=== PATIENT | male | born 1955 | race African-American/Black ===

== ENCOUNTER 2016-11-15 11:23 | Outpatient (CLI) | payer MEDICARE, OTHER ==
[2016-11-15 11:51] LABS: HEMATOCRIT 22.2 % (37.9-51.0); HGB HCT DIFFERENCE 0.3; MEAN CORPUSCULAR HEMOGLOBIN 28.2 pg (27.0-33.4); MEAN CORPUSCULAR HGB CONC 33.7 g/dL (32.0-36.0); MEAN CORPUSCULAR VOLUME 84 fl (80-97); RED BLOOD COUNT 2.65 10^6/uL (4.35-5.55); RED CELL DISTRIBUTION WIDTH 18.9 % (11.5-14.0); WHITE BLOOD COUNT 3.7 10^3/uL (4.0-10.5)
[2016-11-15 11:59] LABS: HEMOGLOBIN 7.5 g/dL (13.5-17.0)
[2016-11-15] MEDS ORDERED: NORMAL SALINE 1000 ML 1,000 ML IV PRN (12:15)
[2016-11-15] MEDS ORDERED: FUROSEMIDE INJ/PF 20 MG/2 ML SDV IV PRN (12:30)
[2016-11-15] MEDS ORDERED: DIPHENHYDRAMINE HCL 25 MG CAPSULE PO PRN (12:30)
[2016-11-15] MEDS ORDERED: ACETAMINOPHEN 325 MG TABLET PO PRN (12:30)
[2016-11-15 23:00] VITALS: BP 135/53
[2016-11-16 00:15] LABS: HEMATOCRIT 24.7 % (37.9-51.0); HEMOGLOBIN 8.5 g/dL (13.5-17.0); HGB HCT DIFFERENCE 0.8; MEAN CORPUSCULAR HGB CONC 34.5 g/dL (32.0-36.0); MEAN CORPUSCULAR VOLUME 84 fl (80-97); RED BLOOD COUNT 2.94 10^6/uL (4.35-5.55); RED CELL DISTRIBUTION WIDTH 18.6 % (11.5-14.0); WHITE BLOOD COUNT 4.8 10^3/uL (4.0-10.5)
== END 2016-11-16 01:00 | disposition home or self-care (01) ==
LOC: II 11:23 → 2S 11:26 → II 11-16 01:00
PROVIDERS: ATTEND Internal Medicine Medical Oncology
PROC: 30233N1 Transfusion of Nonautologous Red Blood Cells into Peripheral Vein, Percutaneous Approach (ICD-10-PCS; principal; 2016-11-15)
DX: D46.9 Myelodysplastic syndrome, unspecified (principal)
CPT/HCPCS: 86900; 86901; 36415; 36430; 86850; 86922; 85027; 86920; P9016; A9270 ×2

== ENCOUNTER 2016-11-17 09:07 | Inpatient (IN) | payer MEDICARE, OTHER ==
[2016-11-17] MEDS ORDERED: NORMAL SALINE 1000 ML 1,000 ML IV ONE (11:35)
[2016-11-17 11:50] LABS: HEMATOCRIT 22.8 % (37.9-51.0); HGB HCT DIFFERENCE 0.3; MEAN CORPUSCULAR HEMOGLOBIN 28.6 pg (27.0-33.4); MEAN CORPUSCULAR HGB CONC 33.5 g/dL (32.0-36.0); MEAN CORPUSCULAR VOLUME 85 fl (80-97); RED BLOOD COUNT 2.68 10^6/uL (4.35-5.55); RED CELL DISTRIBUTION WIDTH 19.4 % (11.5-14.0); WHITE BLOOD COUNT 6.5 10^3/uL (4.0-10.5)
[2016-11-17 11:51] LABS: PROTHROMBIN TIME 15.6 SEC (11.4-15.4)
[2016-11-17 11:52] LABS: PARTIAL THROMBOPLASTIN TIME 27.5 SEC (23.5-35.8)
[2016-11-17 11:59] LABS: HEMOGLOBIN 7.7 g/dL (13.5-17.0)
[2016-11-17 12:03] LABS: ALANINE AMINOTRANSFERASE 13 U/L (21-72); ALBUMIN 3.6 g/dL (3.5-5.0); ALKALINE PHOSPHATASE 60 U/L (38-126); ANION GAP 10 (5-19); ASPARTATE AMINO TRANSFERASE 19 U/L (17-59); BILIRUBIN,TOTAL 0.6 mg/dL (0.2-1.3); BLOOD UREA NITROGEN 37 mg/dL (7-20); CALCIUM 9.3 mg/dL (8.4-10.2); CARBON DIOXIDE 23 mmol/L (22-30); CHLORIDE 109 mmol/L (98-107); CREATININE RESULT 1.45 mg/dL (0.52-1.25); GLUCOSE 87 mg/dL (75-110); LIPASE 94.4 U/L (23-300); POTASSIUM 3.7 mmol/L (3.6-5.0); SODIUM 142.3 mmol/L (137-145); TOTAL PROTEIN 6.4 g/dL (6.3-8.2)
[2016-11-17 12:09] LABS: BASOPHILS % (MANUAL) 0 % (0-2); EOSINOPHILS % (MANUAL) 0 % (0-6); LYMPHOCYTES % (MANUAL) 16 % (13-45); TOTAL CELLS COUNTED 100
[2016-11-17 12:11] LABS: POLYCHROMASIA SLIGHT
[2016-11-17 12:12] LABS: ANISOCYTOSIS 2+; HYPOCHROMASIA SLIGHT
[2016-11-17] MEDS ORDERED: ONDANSETRON HCL INJ/PF 4 MG/2 ML SDV IV PRN (13:35)
[2016-11-17] MEDS ORDERED: ACETAMINOPHEN 325 MG TABLET PO PRN (13:35)
[2016-11-17] MEDS ORDERED: NORMAL SALINE 250 ML IV PRN ×2 (13:38)
--- NOTE | 2016-11-17 13:40 | ER Document Report ---
ED General - General Chief Complaint: Black/Tarry Stools Stated Complaint: BLOOD IN STOOL TRAVEL OUTSIDE OF THE [place] IN LAST 30 DAYS: No - HPI Patient complains to provider of: blood in stool bleeding rectum Notes: Patient coming in for possible GI bleed. States last 3 days having dark stools and bloody stools. Patient has a history of possibly leukemia or myelodysplastic disorder. Patient denies any fevers chills nausea vomiting lightheadedness syncope. Patient has a history of GI bleeds. Patient states she every he was transferred to [place]. Patient otherwise states he has been compliant with medications. Patient does confirm he is taking iron tablets. - Related Data Allergies/Adverse Reactions: No Known Allergies Allergy (Verified 11/17/16 09:16) Home Medications: Current Home Medications Amlodipine Besylate [Norvasc 5 mg Tablet] 5 mg PO DAILY 11/17/16 [History] Carvedilol [Coreg 25 mg Tablet] 25 mg PO BID 11/17/16 [History] Cholecalciferol (Vitamin D3) [Vitamin D3 1000 Unit Tablet] 1,000 unit PO DAILY 11/17/16 [History] Clonidine HCl [Catapres 0.2 mg Tablet] 0.2 mg PO TID 11/17/16 [History] Furosemide [Lasix] 40 mg PO DAILY 11/17/16 [History] Gabapentin [Neurontin 100 mg Capsule] 100 mg PO BID 11/17/16 [History] Iron Polysaccharide Complex [Ferrex 150] 150 mg PO BID 11/17/16 [History] Isosorbide Mononitrate [Imdur 60 mg Tablet.er] 60 mg PO DAILY 11/17/16 [History] Losartan Potassium [Cozaar 100 mg Tablet] 100 mg PO DAILY 11/17/16 [History] Omeprazole 40 mg PO DAILY 11/17/16 [History] Potassium Chloride [Klor-Con 10] 20 meq PO DAILY 11/17/16 [History] Pravastatin Sodium [Pravachol] 40 mg PO DAILY 11/17/16 [History] Ramipril [Altace 10 mg Capsule] 20 mg PO DAILY 11/17/16 [History] Past Medical History - Social History Smoking Status: Never Smoker Chew tobacco use (# tins/day): No Frequency of alcohol use: None Drug Abuse: None Family History: Reviewed & Not Pertinent Patient has suicidal ideation: No Patient has homicidal ideation: No - Past Medical History Cardiac Medical History: Reports: Hx Congestive Heart Failure, Hx Coronary Artery Disease, Hx Hypercholesterolemia, Hx Hypertension Denies: Hx Atrial Fibrillation, Hx Heart Attack, Hx Peripheral Vascular Disease, Hx Heart Murmur Pulmonary Medical History: Denies: Hx Asthma, Hx Bronchitis, Hx COPD, Hx Pneumonia, Hx Tuberculosis Neurological Medical History: Denies: Hx Cerebrovascular Accident, Hx Seizures Endocrine Medical History: Reports: Hx Diabetes Mellitus Type 2. Denies: Hx Diabetes Mellitus Type 1 Renal/ Medical History: Denies: Hx Benign Prostatic Hyperplasia, Hx End Stage Renal Disease, Hx Kidney Stones, Hx Peritoneal Dialysis Malignancy Medical History: Denies Hx Leukemia GI Medical History: Denies: Hx Crohn's Disease, Hx Gastroesophageal Reflux Disease, Hx Hiatal Hernia, Hx Irritable Bowel, Hx Liver Failure, Hx Ulcer Musculoskeltal Medical History: Reports Hx Arthritis Psychiatric Medical History: Denies: Hx Depression Infectious Medical History: Denies: Hx HIV Past Surgical History: Reports: Hx Bowel Surgery. Denies: Hx Appendectomy, Hx Cholecystectomy, Hx Colostomy, Hx Coronary Artery Bypass Graft, Hx Gastric Bypass Surgery, Hx Herniorrhaphy, Hx Pacemaker, Hx Tonsillectomy - Immunizations Hx Diphtheria, Pertussis, Tetanus Vaccination: Yes Hx Pneumococcal Vaccination: 06/19/11 Review of Systems - Review of Systems Constitutional: No symptoms reported EENT: No symptoms reported Cardiovascular: No symptoms reported Respiratory: No symptoms reported Gastrointestinal: Other - GI bleed Genitourinary: No symptoms reported Male Genitourinary: No symptoms reported Musculoskeletal: No symptoms reported Skin: No symptoms reported Hematologic/Lymphatic: No symptoms reported Neurological/Psychological: No symptoms reported -: Yes All other systems reviewed and negative Physical Exam - Vital signs Vitals: Temp Pulse Resp BP Pulse Ox 97.8 F 78 20 157/56 H 98 11/17/16 09:15 11/17/16 09:15 11/17/16 09:15 11/17/16 09:15 11/17/16 09:15 Interpretation: Normal - General General appearance: Appears well, Alert - HEENT Head: Normocephalic, Atraumatic Eyes: Normal Pupils: PERRL - Respiratory Respiratory status: No respiratory distress Chest status: Nontender Breath sounds: Normal Chest palpation: Normal - Cardiovascular Rhythm: Regular Heart sounds: Normal auscultation Murmur: No - Abdominal Inspection: Normal Distension: No distension Bowel sounds: Normal Tenderness: Nontender Organomegaly: No organomegaly - Rectal Tenderness: Yes Stool: Heme positive, Black - None tarry black to green looking Hemorrhoids: None - Back Back: Normal, Nontender - Extremities General upper extremity: Normal inspection, Nontender, Normal color, Normal ROM , Normal temperature General lower extremity: Normal inspection, Nontender, Normal color, Normal ROM , Normal temperature, Normal weight bearing. No: Sami's sign - Neurological Neuro grossly intact: Yes Cognition: Normal Orientation: AAOx4 Reinaldo Coma Scale Eye Opening: Spontaneous [place] Coma Scale Verbal: Oriented [place] Coma Scale Motor: Obeys Commands [place] Coma Scale Total: 15 Speech: Normal Motor strength normal: LUE, RUE, LLE, RLE Sensory: Normal - Psychological Associated symptoms: Normal affect, Normal mood - Skin Skin Temperature: Warm Skin Moisture: Dry Skin Color: Normal Course - Re-evaluation Re-evalutation: 11/17/16 13:42 Discuss patient case with PCP Dr. Khanh Payton and also GI specialist Dr. Tigre Marina and Dr. Velazquez. Patient was to have acute GI bleed. Patient will be transfused [address] Marina has agreed to see the patient in consult. At this time states no platelets at this time. States that the patient's platelets are normal for him. Patient will be admitted to the [facility]. 11/17/16 18:32 - Vital Signs Vital signs: Temp Pulse Resp BP Pulse Ox 98.1 F 67 21 H 130/52 H 100 11/17/16 17:35 11/17/16 17:35 11/17/16 17:35 11/17/16 17:35 11/17/16 17:35 - Laboratory Result Diagrams: 11/17/16 10:14 11/17/16 10:14 Laboratory results interpreted by me: 11/17/16 11/17/16 11/17/16 10:14 10:14 10:14 RBC 2.68 L Hgb 7.7 L Hct 22.8 L RDW 19.4 H Plt Count 64 L Seg Neuts % (Manual) 41 L Monocytes % (Manual) 43 H Abs Monocytes (Manual) 2.8 H PT 15.6 H Chloride 109 H BUN 37 H Creatinine 1.45 H Est GFR ( Amer) 59 L Est GFR (Non-Af Amer) 49 L ALT 13 L Critical Care Note - Critical Care Note Total time excluding time spent on procedures (mins): 35 Comments: Multiple evaluation patient with GI bleed anemia requiring transfusion Discharge - Discharge Clinical Impression: Rectal bleed, Myelodysplastic syndrome, Transfusion-dependent anemia CHF (congestive heart failure) Qualifiers: Congestive heart failure type: systolic Congestive heart failure chronicity: unspecified congestive heart failure chronicity Qualified Code(s): I50.20 - Unspecified systolic (congestive) heart failure Condition: Good Disposition: ADMITTED INPATIENT Admitting Provider: [facility] Unit Admitted: [facility]
[2016-11-18] MEDS: ATORVASTATIN CALCIUM 10 MG TABLET PO SCH ×2 (00:21→22:26)
[2016-11-18] MEDS: GABAPENTIN 100 MG CAPSULE PO SCH ×3 (00:21→22:26)
[2016-11-18] MEDS: PANTOPRAZOLE SODIUM 40 MG VIAL IV SCH ×3 (00:21→22:26)
[2016-11-18] MEDS: CLONIDINE HCL 0.2 MG TABLET PO SCH ×4 (00:23→22:29)
[2016-11-18] MEDS: CARVEDILOL 12.5 MG TABLET PO SCH ×3 (00:23→22:29)
[2016-11-18] MEDS: NORMAL SALINE 1000 ML 1,000 ML IV PRN ×2 (00:23→22:26)
[2016-11-18 05:01] LABS: ALANINE AMINOTRANSFERASE 25 U/L (21-72); ALBUMIN 3.2 g/dL (3.5-5.0); ALKALINE PHOSPHATASE 59 U/L (38-126); ANION GAP 8 (5-19); ASPARTATE AMINO TRANSFERASE 18 U/L (17-59); BILIRUBIN,TOTAL 0.9 mg/dL (0.2-1.3); BLOOD UREA NITROGEN 26 mg/dL (7-20); CALCIUM 8.6 mg/dL (8.4-10.2); CARBON DIOXIDE 21 mmol/L (22-30); CHLORIDE 112 mmol/L (98-107); CREATININE RESULT 1.19 mg/dL (0.52-1.25); GLUCOSE 90 mg/dL (75-110); POTASSIUM 3.8 mmol/L (3.6-5.0); TOTAL PROTEIN 5.8 g/dL (6.3-8.2)
[2016-11-18 07:21] LABS: HEMATOCRIT 25.3 % (37.9-51.0); HEMOGLOBIN 8.5 g/dL (13.5-17.0); HGB HCT DIFFERENCE 0.2; MEAN CORPUSCULAR HEMOGLOBIN 28.8 pg (27.0-33.4); MEAN CORPUSCULAR HGB CONC 33.8 g/dL (32.0-36.0); MEAN CORPUSCULAR VOLUME 85 fl (80-97); RED BLOOD COUNT 2.96 10^6/uL (4.35-5.55); RED CELL DISTRIBUTION WIDTH 18.4 % (11.5-14.0); WHITE BLOOD COUNT 5.5 10^3/uL (4.0-10.5)
[2016-11-18 07:30] LABS: BASOPHILS % (MANUAL) 0 % (0-2); EOSINOPHILS % (MANUAL) 0 % (0-6); LYMPHOCYTES % (MANUAL) 13 % (13-45); TOTAL CELLS COUNTED 100
[2016-11-18 07:32] LABS: ANISOCYTOSIS 1+
[2016-11-18] MEDS ORDERED: NORMAL SALINE 250 ML IV PRN ×2 (08:18)
--- NOTE | 2016-11-18 08:19 | PDOC H&P ---
History of Present Illness Admission Date/PCP: 11/17/16 13:35 black stool History of Present Illness: BOOM POWERS is a 61 year old male This is a 61-year-old male with a significant history of myelodysplastic syndrome and thrombocytopenia and on and off GI bleed and currently seen Dr. Velazquez and also seen in the [facility] and also see the GI doctor thea came to the emergency department with a complaining of weakness and fatigue and black starry stools. Patient had with this episode in the past several times and patient had a end-to-end colon was done and even the capsule endoscopy was also done to. Patient's last colon was done in July. Patient's guaiac stool was positive. At this point patient admitted in the hospital for further blood transfusion and further workup for the GI bleed as per discussed with the Dr. Marina myself and agreed to follow the patient's. Patient's denied any chest pain denied any shortness of the breath without any abdominal pain no nausea no vomiting Past Medical History Cardiac Medical History: Reports: Congestive Heart Failure, Coronary Artery Disease, Hyperlipidema, Hypertension Denies: Atrial Fibrillation, Myocardial Infarction, Peripheral Vascular Disease, Heart Murmur Cardiac History Note: cardiomyopathy Pulmonary Medical History: Denies: Asthma, Bronchitis, Chronic Obstructive Pulmonary Disease (COPD), Pneumonia, Tuberculosis Neurological Medical History: Denies: Seizures Endocrine Medical History: Reports: Diabetes Mellitus Type 2 Denies: Diabetes Mellitus Type 1 Renal/ Medical History: Denies: End Stage Renal Disease Malignancy Medical History: Denies: Leukemia GI Medical History: Denies: Crohn's Disease, Gastroesophageal Reflux Disease, Hiatal Hernia Musculoskeltal Medical History: Reports: Arthritis Psychiatric Medical History: Denies: Depression Hematology: Reports: Anemia Denies: Hemophilia, Sickle Cell Disease Hematology History Note: mylodysplatic syndrome thrombocytopenia Infectious Medical History: Denies: HIV Past Surgical History Past Surgical History: Denies: Appendectomy, Cholecystectomy, Colostomy, Coronary Artery Bypass Graft, Gastric Bypass Surgery, Herniorrhaphy, Pacemaker, Tonsillectomy Social History Smoking Status: Never Smoker Frequency of Alcohol Use: None Hx Recreational Drug Use: No Drugs: None Hx Prescription Drug Abuse: No Family History Family History: Reviewed & Not Pertinent Parental Family History Reviewed: Yes Children Family History Reviewed: Yes Sibling(s) Family History Reviewed.: Yes Medication/Allergy Home Medications: Amlodipine Besylate [Norvasc 5 mg Tablet] 5 mg PO DAILY 11/17/16 Carvedilol [Coreg 25 mg Tablet] 25 mg PO BID 11/17/16 Cholecalciferol (Vitamin D3) [Vitamin D3 1000 Unit Tablet] 1,000 unit PO DAILY 11/17/16 Clonidine HCl [Catapres 0.2 mg Tablet] 0.2 mg PO TID 11/17/16 Furosemide [Lasix] 40 mg PO DAILY 11/17/16 Gabapentin [Neurontin 100 mg Capsule] 100 mg PO BID 11/17/16 Iron Polysaccharide Complex [Ferrex 150] 150 mg PO BID 11/17/16 Isosorbide Mononitrate [Imdur 60 mg Tablet.er] 60 mg PO DAILY 11/17/16 Losartan Potassium [Cozaar 100 mg Tablet] 100 mg PO DAILY 11/17/16 Omeprazole 40 mg PO DAILY 11/17/16 Potassium Chloride [Klor-Con 10] 20 meq PO DAILY 11/17/16 Pravastatin Sodium [Pravachol] 40 mg PO DAILY 11/17/16 Ramipril [Altace 10 mg Capsule] 20 mg PO DAILY 11/17/16 Allergies/Adverse Reactions: No Known Allergies Allergy (Verified 11/17/16 09:16) Review of Systems Constitutional: PRESENT: fatigue, weakness. ABSENT: chills, fever(s), headache( s), weight gain, weight loss Eyes: ABSENT: visual disturbances Ears: ABSENT: hearing changes Cardiovascular: ABSENT: chest pain, dyspnea on exertion, edema, orthropnea, palpitations Respiratory: ABSENT: cough, hemoptysis Gastrointestinal: PRESENT: melena. ABSENT: abdominal pain, constipation, diarrhea, hematemesis, hematochezia, nausea, vomiting Genitourinary: ABSENT: dysuria, hematuria Musculoskeletal: ABSENT: joint swelling Integumentary: ABSENT: rash, wounds Neurological: ABSENT: abnormal gait, abnormal speech, confusion, dizziness, focal weakness, syncope Psychiatric: ABSENT: anxiety, depression, homidical ideation, suicidal ideation Endocrine: ABSENT: cold intolerance, heat intolerance, menstrual abnormalities, polydipsia, polyuria Hematologic/Lymphatic: ABSENT: easy bleeding, easy bruising, lymphadenopathy Physical Exam Vital Signs: Temp Pulse Resp BP Pulse Ox 97.8 F 78 15 105/47 L 99 11/17/16 09:15 11/17/16 09:15 11/17/16 15:01 11/17/16 15:01 11/17/16 15:01 General appearance: PRESENT: no acute distress, well-developed, well-nourished Head exam: PRESENT: atraumatic, normocephalic Eye exam: PRESENT: conjunctiva pale Ear exam: PRESENT: normal external ear exam Mouth exam: PRESENT: moist, tongue midline Neck exam: PRESENT: full ROM. ABSENT: carotid bruit, JVD, lymphadenopathy, thyromegaly Cardiovascular exam: PRESENT: RRR. ABSENT: diastolic murmur, rubs, systolic murmur Pulses: PRESENT: normal dorsalis pedis pul, +2 pedal pulses bilateral Vascular exam: PRESENT: normal capillary refill GI/Abdominal exam: PRESENT: normal bowel sounds, soft. ABSENT: distended, guarding, mass, organolmegaly, rebound, tenderness Rectal exam: PRESENT: deferred Neurological exam: PRESENT: alert, awake, oriented to person, oriented to place , oriented to time, oriented to situation, CN II-XII grossly intact. ABSENT: motor sensory deficit Psychiatric exam: PRESENT: appropriate affect, normal mood. ABSENT: homicidal ideation, suicidal ideation Skin exam: PRESENT: dry, intact, warm. ABSENT: cyanosis, rash Results Laboratory Results: 11/17/16 13:40 Blood Type O POSITIVE Antibody Screen NEGATIVE Assessment & Plan - Diagnosis (1) Rectal bleed Is this a current diagnosis for this admission?: YesPlan: Admit the patient in IMCUStart the patient in the blood transfusionAnd the discussed with the Dr. Marina and he will follow the patient's keep the patient n.p.o. Patient with significant history of MDS and currently see the oncology for that and patient also see the [facility] and see the GI for this ongoing bleeding problems.Patient is currently hemodynamically stable (2) Anemia Qualifiers: Anemia type: unspecified type Qualified Code(s): D64.9 - Anemia, unspecified Is this a current diagnosis for this admission?: YesPlan: Continues to blood transfusions (3) CHF (congestive heart failure) Qualifiers: Congestive heart failure type: systolic Congestive heart failure chronicity: unspecified congestive heart failure chronicity Qualified Code(s): I50.20 - Unspecified systolic (congestive) heart failure Is this a current diagnosis for this admission?: YesPlan: Currently stable continues the current medications (4) Myelodysplastic syndrome Is this a current diagnosis for this admission?: YesPlan: Patient is currently see a Dr. Velaqzuez as outpatients and as per discussed with the ER physician no need to transfuse any platelets at this point (5) CAD (coronary artery disease) Qualifiers: Coronary Disease-Associated Artery/Lesion type: unspecified vessel or lesion type Is this a current diagnosis for this admission?: YesPlan: Stable (6) HLD (hyperlipidemia) Qualifiers: Hyperlipidemia type: unspecified Qualified Code(s): E78.5 - Hyperlipidemia, unspecified Is this a current diagnosis for this admission?: YesPlan: Continues current medications (7) HTN (hypertension) Qualifiers: Hypertension type: essential hypertension Qualified Code(s): I10 - Essential (primary) hypertension Is this a current diagnosis for this admission?: YesPlan: Stable (8) Thrombocytopenia Is this a current diagnosis for this admission?: YesPlan: Due to the underlying MDS currently platelet count is 64 and per the oncology it is stable
[2016-11-18] MEDS: IRON POLYSACCHARIDES COMPLEX 150 MG CAPSULE PO SCH ×2 (09:28→18:03)
[2016-11-18] MEDS: LOSARTAN POTASSIUM 50 MG TABLET PO SCH (09:29)
[2016-11-18] MEDS: FUROSEMIDE 40 MG TABLET PO SCH (09:29)
[2016-11-18] MEDS: POTASSIUM CHLORIDE 10 MEQ TABLET.SA PO SCH (09:30)
[2016-11-18] MEDS: AMLODIPINE BESYLATE 5 MG TABLET PO SCH (09:30)
[2016-11-18] MEDS: ISOSORBIDE MONONITRATE 60 MG TAB.ER.24H PO SCH (09:39)
[2016-11-18] MEDS ORDERED: (PENDING PHARMACY ID) (Pravastatin Sodium [Pravachol] 40 MG) PO SCH (10:00)
--- NOTE | 2016-11-18 12:16 | PDOC PROGRESS REPORT ---
Subjective Progress Note for:: 11/18/16 Subjective:: Patient is doing fair denied any chest pain denied any abdominal pain no nausea no vomiting. Patient does not have any more black stool. Patient's H&H is 8.5 after the 2 units of the blood. Patient scheduled for the endoscopy per GI. Physical Exam Vital Signs: Temp Pulse Resp BP Pulse Ox 98.3 F 71 16 119/50 L 99 11/18/16 11:33 11/18/16 11:33 11/18/16 11:33 11/18/16 11:33 11/18/16 11:33 Intake & Output 11/17/16 11/18/16 11/19/16 06:59 06:59 06:59 Intake Total 942 0 Balance 942 0 Weight 97.4 kg General appearance: PRESENT: no acute distress, well-developed, well-nourished Head exam: PRESENT: atraumatic, normocephalic Eye exam: PRESENT: conjunctiva pink, EOMI, PERRLA. ABSENT: scleral icterus Ear exam: PRESENT: normal external ear exam Mouth exam: PRESENT: moist, tongue midline Neck exam: PRESENT: full ROM. ABSENT: carotid bruit, JVD, lymphadenopathy, thyromegaly Respiratory exam: PRESENT: clear to auscultation diony Cardiovascular exam: PRESENT: RRR. ABSENT: diastolic murmur, rubs, systolic murmur Pulses: PRESENT: normal dorsalis pedis pul, +2 pedal pulses bilateral Vascular exam: PRESENT: normal capillary refill GI/Abdominal exam: PRESENT: normal bowel sounds, soft. ABSENT: distended, guarding, mass, organolmegaly, rebound, tenderness Rectal exam: PRESENT: deferred Neurological exam: PRESENT: alert, awake, oriented to person, oriented to place , oriented to time, oriented to situation, CN II-XII grossly intact. ABSENT: motor sensory deficit Psychiatric exam: PRESENT: appropriate affect, normal mood. ABSENT: homicidal ideation, suicidal ideation Skin exam: PRESENT: dry, intact, warm. ABSENT: cyanosis, rash Results Laboratory Results: 11/18/16 06:35 11/18/16 04:07 11/17/16 11/18/16 11/18/16 13:40 04:07 04:07 WBC Cancelled RBC Cancelled Hgb Cancelled Hct Cancelled MCV Cancelled MCH Cancelled MCHC Cancelled RDW Cancelled Plt Count Cancelled Seg Neutrophils % Cancelled Lymphocytes % Cancelled Monocytes % Cancelled Eosinophils % Cancelled Basophils % Cancelled Absolute Neutrophils Cancelled Absolute Lymphocytes Cancelled Absolute Monocytes Cancelled Absolute Eosinophils Cancelled Absolute Basophils Cancelled Sodium 141.0 Potassium 3.8 Chloride 112 H Carbon Dioxide 21 L Anion Gap 8 BUN 26 H Creatinine 1.19 Est GFR ( Amer) > 60 Est GFR (Non-Af Amer) > 60 Glucose 90 Calcium 8.6 Total Bilirubin 0.9 AST 18 ALT 25 Alkaline Phosphatase 59 Total Protein 5.8 L Albumin 3.2 L Blood Type O POSITIVE Antibody Screen NEGATIVE 11/18/16 06:35 WBC 5.5 RBC 2.96 L Hgb 8.5 L Hct 25.3 L MCV 85 MCH 28.8 MCHC 33.8 RDW 18.4 H Plt Count 64 L Seg Neutrophils % Not Reportable Lymphocytes % Not Reportable Monocytes % Not Reportable Eosinophils % Not Reportable Basophils % Not Reportable Absolute Neutrophils Not Reportable Absolute Lymphocytes Not Reportable Absolute Monocytes Not Reportable Absolute Eosinophils Not Reportable Absolute Basophils Not Reportable Sodium Potassium Chloride Carbon Dioxide Anion Gap BUN Creatinine Est GFR ( Amer) Est GFR (Non-Af Amer) Glucose Calcium Total Bilirubin AST ALT Alkaline Phosphatase Total Protein Albumin Blood Type Antibody Screen Assessment & Plan - Diagnosis (1) Rectal bleed Is this a current diagnosis for this admission?: YesPlan: We will continues to transfuse couple more units of bloodAnd follow-up with the GI and hematology (2) Anemia Qualifiers: Anemia type: unspecified type Qualified Code(s): D64.9 - Anemia, unspecified Is this a current diagnosis for this admission?: YesPlan: Continues to blood transfusions (3) CHF (congestive heart failure) Qualifiers: Congestive heart failure type: systolic Congestive heart failure chronicity: unspecified congestive heart failure chronicity Qualified Code(s): I50.20 - Unspecified systolic (congestive) heart failure Is this a current diagnosis for this admission?: YesPlan: Currently stable continues the current medications (4) Myelodysplastic syndrome Is this a current diagnosis for this admission?: YesPlan: Patient is currently see a Dr. Velazquez as outpatients and as per discussed with the ER physician no need to transfuse any platelets at this point (5) CAD (coronary artery disease) Qualifiers: Coronary Disease-Associated Artery/Lesion type: unspecified vessel or lesion type Is this a current diagnosis for this admission?: YesPlan: Stable (6) HLD (hyperlipidemia) Qualifiers: Hyperlipidemia type: unspecified Qualified Code(s): E78.5 - Hyperlipidemia, unspecified Is this a current diagnosis for this admission?: YesPlan: Continues current medications (7) HTN (hypertension) Qualifiers: Hypertension type: essential hypertension Qualified Code(s): I10 - Essential (primary) hypertension Is this a current diagnosis for this admission?: YesPlan: Stable (8) Thrombocytopenia Is this a current diagnosis for this admission?: YesPlan: Due to the underlying MDS currently platelet count is 64 and per the oncology it is stable - Time Time Spent with patient: 15-24 minutes Medications reviewed and adjusted accordingly: Yes Anticipated discharge: Home Within: Other - Inpatient Certification Medical Necessity: Need Close Monitoring Due to Risk of Patient Decompensation 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
[2016-11-18] MEDS: FUROSEMIDE INJ/PF 20 MG/2 ML SDV IV PRN ×2 (12:44→19:11)
[2016-11-18] MEDS ORDERED: PROMETHAZINE HCL INJ 25 MG/1 ML VIAL ONE (17:14)
[2016-11-18] MEDS ORDERED: MIDAZOLAM 2 MG/2 ML INJ ONE ×2 (17:14)
[2016-11-18] MEDS ORDERED: NALOXONE HCL INJ/PF 0.4 MG/1 ML SDV ONE (17:14)
[2016-11-18] MEDS ORDERED: GLUCAGON,HUMAN RECOMB 1 MG INJ ONE (17:15)
[2016-11-18] MEDS ORDERED: FENTANYL CITRATE INJ/PF 100 MCG/2 ML AMPUL ONE (17:15)
[2016-11-18] MEDS ORDERED: FLUMAZENIL INJ 0.5 MG/5 ML VIAL IV ONE (17:15)
[2016-11-18] MEDS ORDERED: EPINEPHRINE INJ 1 MG/10 ML DISP.SYRIN ONE (17:15)
--- NOTE | 2016-11-18 19:02 | PDOC CONSULTATION ---
Consultation Consult Date: 11/17/16 History of Present Illness Admission Date/PCP: 11/17/16 13:35 History of Present Illness: This is a 61-year-old patient admitted to the emergency room with anemia and black stools. He has been having very dark or black stools for one day before admission. His stool was positive for occult blood. He also takes iron supplements. His admission hemoglobin was 7.5 with a low WBC of 3.7 and a platelet count of 46. He has a history of myelodysplasia and follows up with Dr. Velazquez. According to my office records his CBC in June 2016 showed a hemoglobin of 11.6, white count of 2.1, and a platelet count of 37. He has had multiple EGDs and colonoscopies in the past and also multiple capsule endoscopies. The only significant findings over the years was bleeding angiodysplasia noted in the jejunum during a capsule endoscopy in May 2014. He had a spiral enteroscopy at [place] with cauterization. He has actually not had any obvious GI bleeding since 2013 and only had a colonoscopy in July 2016 due to his history of colon polyps. This only showed an adenomatous polyp. Past Medical History Past Medical History: Myelodysplastic syndrome, thrombocytopenia, small bowel angiodysplasia, colon polyps, recurrent GI bleed Cardiac Medical History: Reports: Congestive Heart Failure, Coronary Artery Disease, Hyperlipidema, Hypertension Denies: Atrial Fibrillation, Myocardial Infarction, Peripheral Vascular Disease, Heart Murmur Pulmonary Medical History: Denies: Asthma, Bronchitis, Chronic Obstructive Pulmonary Disease (COPD), Pneumonia, Tuberculosis Neurological Medical History: Denies: Seizures Endocrine Medical History: Reports: Diabetes Mellitus Type 2 Denies: Diabetes Mellitus Type 1 Renal/ Medical History: Denies: End Stage Renal Disease Malignancy Medical History: Denies: Leukemia GI Medical History: Denies: Crohn's Disease, Gastroesophageal Reflux Disease, Hiatal Hernia Musculoskeltal Medical History: Reports: Arthritis Psychiatric Medical History: Denies: Depression Hematology: Reports: Anemia Denies: Hemophilia, Sickle Cell Disease Infectious Medical History: Denies: HIV Past Surgical History Past Surgical History: Multiple EGDs, colonoscopy, capsule endoscopy, spiral enteroscopy in 2013 with cauterization and tattooing Past Surgical History: Denies: Appendectomy, Cholecystectomy, Colostomy, Coronary Artery Bypass Graft, Gastric Bypass Surgery, Herniorrhaphy, Pacemaker, Tonsillectomy Social History Smoking Status: Never Smoker Frequency of Alcohol Use: None Hx Recreational Drug Use: No Drugs: None Hx Prescription Drug Abuse: No - Advance Directive Resuscitation Status: Full Code Family History Family History: Reviewed & Not Pertinent Parental Family History Reviewed: No Children Family History Reviewed: NA Sibling(s) Family History Reviewed.: NA Medication/Allergy Home Medications: Amlodipine Besylate [Norvasc 5 mg Tablet] 5 mg PO DAILY 11/17/16 Carvedilol [Coreg 25 mg Tablet] 25 mg PO BID 11/17/16 Cholecalciferol (Vitamin D3) [Vitamin D3 1000 Unit Tablet] 1,000 unit PO DAILY 11/17/16 Clonidine HCl [Catapres 0.2 mg Tablet] 0.2 mg PO TID 11/17/16 Furosemide [Lasix] 40 mg PO DAILY 11/17/16 Gabapentin [Neurontin 100 mg Capsule] 100 mg PO BID 11/17/16 Iron Polysaccharide Complex [Ferrex 150] 150 mg PO BID 11/17/16 Isosorbide Mononitrate [Imdur 60 mg Tablet.er] 60 mg PO DAILY 11/17/16 Losartan Potassium [Cozaar 100 mg Tablet] 100 mg PO DAILY 11/17/16 Omeprazole 40 mg PO DAILY 11/17/16 Potassium Chloride [Klor-Con 10] 20 meq PO DAILY 11/17/16 Pravastatin Sodium [Pravachol] 40 mg PO DAILY 11/17/16 Ramipril [Altace 10 mg Capsule] 20 mg PO DAILY 11/17/16 Allergies/Adverse Reactions: No Known Allergies Allergy (Verified 11/17/16 09:16) Review of Systems All systems: reviewed and no additional remarkable complaints except as stated Physical Exam Vital Signs: Temp Pulse Resp BP Pulse Ox 98.6 F 62 12 128/55 H 99 11/18/16 17:24 11/18/16 18:50 11/18/16 18:50 11/18/16 18:50 11/18/16 18:50 Intake & Output 11/17/16 11/18/16 11/19/16 06:59 06:59 06:59 Intake Total 942 2186 Output Total 1900 Balance 942 286 Weight 97.4 kg Exam: General: Patient is alert and looks well. HEENT: There is some pallor but no jaundic PERRLA. Oropharynx normal Respiratory: No chest deformity. No respiratory distress. Chest wall palpitation was unremarkable. Breath sounds were normal Cardiovascular: Heart sounds 1 and 2 normal with no murmurs. Abdominal: Not distended. Soft and nontender. Liver and spleen not palpable. No ascites demonstrated. Bowel sounds active. Rectal examination was deferred. Extremities: No edema Neurological: Alert and oriented x4. Grossly nonfocal. Normal speech Skin: No significant rash Psychological: Normal affect Results Laboratory Results: 11/18/16 06:35 11/18/16 04:07 11/17/16 11/18/16 11/18/16 13:40 04:07 04:07 WBC Cancelled RBC Cancelled Hgb Cancelled Hct Cancelled MCV Cancelled MCH Cancelled MCHC Cancelled RDW Cancelled Plt Count Cancelled Seg Neutrophils % Cancelled Lymphocytes % Cancelled Monocytes % Cancelled Eosinophils % Cancelled Basophils % Cancelled Absolute Neutrophils Cancelled Absolute Lymphocytes Cancelled Absolute Monocytes Cancelled Absolute Eosinophils Cancelled Absolute Basophils Cancelled Sodium 141.0 Potassium 3.8 Chloride 112 H Carbon Dioxide 21 L Anion Gap 8 BUN 26 H Creatinine 1.19 Est GFR ( Amer) > 60 Est GFR (Non-Af Amer) > 60 Glucose 90 Calcium 8.6 Total Bilirubin 0.9 AST 18 ALT 25 Alkaline Phosphatase 59 Total Protein 5.8 L Albumin 3.2 L Blood Type O POSITIVE Antibody Screen NEGATIVE 11/18/16 06:35 WBC 5.5 RBC 2.96 L Hgb 8.5 L Hct 25.3 L MCV 85 MCH 28.8 MCHC 33.8 RDW 18.4 H Plt Count 64 L Seg Neutrophils % Not Reportable Lymphocytes % Not Reportable Monocytes % Not Reportable Eosinophils % Not Reportable Basophils % Not Reportable Absolute Neutrophils Not Reportable Absolute Lymphocytes Not Reportable Absolute Monocytes Not Reportable Absolute Eosinophils Not Reportable Absolute Basophils Not Reportable Sodium Potassium Chloride Carbon Dioxide Anion Gap BUN Creatinine Est GFR ( Amer) Est GFR (Non-Af Amer) Glucose Calcium Total Bilirubin AST ALT Alkaline Phosphatase Total Protein Albumin Blood Type Antibody Screen Assessment & Plan - Diagnosis (1) GI bleed Is this a current diagnosis for this admission?: YesPlan: He has a chronic history of anemia but his hemoglobin appear worse now than prior. The last hemoglobin I have was in June 2016 when it was 11. His stool is very dark or black which may be from GI bleeding or possibly from his use of oral iron. His stool was positive for occult blood. He has a history of jejunal angiodysplasia and for this reason he will undergo an EGD and enteroscopy. His colonoscopy in July of last year was unremarkable. (2) Anemia requiring transfusions Is this a current diagnosis for this admission?: YesPlan: I believe his anemia is multifactorial including from his myelodysplastic syndrome. He does have pancytopenia. He has been transfused and continues to follow with Dr. Velazquez. (3) Thrombocytopenia Is this a current diagnosis for this admission?: Yes (4) Myelodysplastic syndrome Is this a current diagnosis for this admission?: Yes
--- NOTE | 2016-11-18 19:04 | Operative Report ---
Operative Report DATE OF SURGERY: 11/18/16 Operative Report: Pre-op diagnosis: Anemia and heme-positive stool Post-op diagnosis: Normal EGD and proximal jejunum Surgery: Esophagogastroduodenoscopy with enteroscopy Medications: Versed 2mg Fentanyl 100 mcg IV push Tissue removed: None Procedure: After informed consent obtained from patient, the throat was sprayed with Hurricane and conscious sedation was achieved. The pediatric colonoscope was inserted into the esophagus under direct vision and advanced into the stomach. The duodenum was entered and examined to the second part. The endoscope was also inserted to at least 30 cm beyond the ligament of Treitz. Endoscope was then slowly pulled out of the patient as the mucosa was examined into details. Patient tolerated procedure well. Findings Esophagus: Normal Antrum: Normal Body: Normal Fundus: Normal Duodenum first part: Normal Duodenum second part: Normal Proximal jejunum: No lesions identified Plan: Continue to follow H&H. OPERATION: .
[2016-11-18 20:19] LABS: HEMATOCRIT 31.7 % (37.9-51.0); HGB HCT DIFFERENCE 0.4; MEAN CORPUSCULAR HEMOGLOBIN 28.9 pg (27.0-33.4); MEAN CORPUSCULAR HGB CONC 33.9 g/dL (32.0-36.0); MEAN CORPUSCULAR VOLUME 85 fl (80-97); RED BLOOD COUNT 3.72 10^6/uL (4.35-5.55); RED CELL DISTRIBUTION WIDTH 18.3 % (11.5-14.0); WHITE BLOOD COUNT 6.3 10^3/uL (4.0-10.5)
[2016-11-18 20:45] LABS: HEMOGLOBIN 10.7 g/dL (13.5-17.0)
[2016-11-18 21:05] LABS: BAND NEUTROPHILS % (MANUAL) 1 % (3-5); BASOPHILS % (MANUAL) 0 % (0-2); EOSINOPHILS % (MANUAL) 1 % (0-6); LYMPHOCYTES % (MANUAL) 7 % (13-45); TOTAL CELLS COUNTED 100
[2016-11-18 21:06] LABS: ANISOCYTOSIS 2+; POLYCHROMASIA 1+
[2016-11-18 21:07] LABS: TARGET CELLS SLIGHT
[2016-11-19] MEDS: CLONIDINE HCL 0.2 MG TABLET PO SCH ×2 (05:42→14:59)
[2016-11-19 06:42] LABS: HEMOGLOBIN 9.7 g/dL (13.5-17.0); HGB HCT DIFFERENCE 1.1; MEAN CORPUSCULAR HEMOGLOBIN 29.3 pg (27.0-33.4); MEAN CORPUSCULAR HGB CONC 34.6 g/dL (32.0-36.0); MEAN CORPUSCULAR VOLUME 85 fl (80-97); RED CELL DISTRIBUTION WIDTH 18.2 % (11.5-14.0); WHITE BLOOD COUNT 7.3 10^3/uL (4.0-10.5)
[2016-11-19 07:00] LABS: ANION GAP 8 (5-19); BLOOD UREA NITROGEN 27 mg/dL (7-20); CALCIUM 8.6 mg/dL (8.4-10.2); CARBON DIOXIDE 25 mmol/L (22-30); CHLORIDE 109 mmol/L (98-107); CREATININE RESULT 1.24 mg/dL (0.52-1.25); GLUCOSE 90 mg/dL (75-110); POTASSIUM 3.5 mmol/L (3.6-5.0); SODIUM 142.1 mmol/L (137-145)
[2016-11-19 07:56] LABS: BASOPHILS % (MANUAL) 0 % (0-2); EOSINOPHILS % (MANUAL) 0 % (0-6); LYMPHOCYTES % (MANUAL) 10 % (13-45); TOTAL CELLS COUNTED 100
[2016-11-19 07:57] LABS: POLYCHROMASIA SLIGHT
[2016-11-19] MEDS ORDERED: POTASSIUM CHLORIDE 10 MEQ TABLET.SA PO ONE (08:30)
[2016-11-19] MEDS: CARVEDILOL 12.5 MG TABLET PO SCH (09:44)
[2016-11-19] MEDS: LOSARTAN POTASSIUM 50 MG TABLET PO SCH (09:44)
[2016-11-19] MEDS: ISOSORBIDE MONONITRATE 60 MG TAB.ER.24H PO SCH (09:44)
[2016-11-19] MEDS: FUROSEMIDE 40 MG TABLET PO SCH (09:46)
[2016-11-19] MEDS: IRON POLYSACCHARIDES COMPLEX 150 MG CAPSULE PO SCH (09:46)
[2016-11-19] MEDS: AMLODIPINE BESYLATE 5 MG TABLET PO SCH (09:46)
[2016-11-19] MEDS: PANTOPRAZOLE SODIUM 40 MG VIAL IV SCH (09:47)
[2016-11-19] MEDS: GABAPENTIN 100 MG CAPSULE PO SCH (09:47)
[2016-11-19] MEDS: POTASSIUM CHLORIDE 10 MEQ TABLET.SA PO SCH (09:48)
[2016-11-19 15:37] LABS: HEMATOCRIT 28.8 % (37.9-51.0); HEMOGLOBIN 9.7 g/dL (13.5-17.0); HGB HCT DIFFERENCE 0.3; MEAN CORPUSCULAR HGB CONC 33.7 g/dL (32.0-36.0); MEAN CORPUSCULAR VOLUME 86 fl (80-97); RED BLOOD COUNT 3.35 10^6/uL (4.35-5.55); RED CELL DISTRIBUTION WIDTH 17.7 % (11.5-14.0)
--- NOTE | 2016-11-19 17:21 | PDOC DISCHARGE SUMMARY ---
General - Admit/Disc Date/PCP Admission Date/Primary Care Provider: 11/17/16 13:35 Discharge Date: 11/19/16 - Discharge Diagnosis (1) Rectal bleed Is this a current diagnosis for this admission?: YesSummary: No sign of any rectal bleed anymore in the hospital and hemoglobin is stable after the blood transfusions and GI consult was done and suggest the follow outpatient (2) Anemia Is this a current diagnosis for this admission?: YesSummary: Status post blood transfusions also the history of angiogram dysplasia and patient's was seen in the [facility] and patient have a enteroscopy was done last year. Patient also have a history of myelodysplastic syndromeAnd currently seeing oncology for that and patient have an appointment on the Tuesday to see her. (3) CHF (congestive heart failure) Is this a current diagnosis for this admission?: YesSummary: Stable with the continuous medications (4) Myelodysplastic syndrome Is this a current diagnosis for this admission?: YesSummary: Currently stable and follow-up with oncology next week (5) CAD (coronary artery disease) Is this a current diagnosis for this admission?: YesSummary: Patient is currently seeing outpatients cardiology for that (6) HLD (hyperlipidemia) Is this a current diagnosis for this admission?: YesSummary: Continues to current medication (7) HTN (hypertension) Is this a current diagnosis for this admission?: YesSummary: Stable with the current medications (8) Thrombocytopenia Is this a current diagnosis for this admission?: YesSummary: From the myelodysplastic syndrome the patient's current platelet count is stable and the patient's at this point discussed with the oncology does not want to do any transfusion and follow as outpatients - Additional Information Resuscitation Status: Full Code Discharge Diet: Diabetic Discharge Activity: Activity As Tolerated Home Medications: Amlodipine Besylate [Norvasc 5 mg Tablet] 5 mg PO DAILY 11/17/16 Carvedilol [Coreg 25 mg Tablet] 25 mg PO BID 11/17/16 Cholecalciferol (Vitamin D3) [Vitamin D3 1000 Unit Tablet] 1,000 unit PO DAILY 11/17/16 Clonidine HCl [Catapres 0.2 mg Tablet] 0.2 mg PO TID 11/17/16 Furosemide [Lasix] 40 mg PO DAILY 11/17/16 Gabapentin [Neurontin 100 mg Capsule] 100 mg PO BID 11/17/16 Iron Polysaccharide Complex [Ferrex 150] 150 mg PO BID 11/17/16 Isosorbide Mononitrate [Imdur 60 mg Tablet.er] 60 mg PO DAILY 11/17/16 Losartan Potassium [Cozaar 100 mg Tablet] 100 mg PO DAILY 11/17/16 Omeprazole 40 mg PO DAILY 11/17/16 Potassium Chloride [Klor-Con 10] 20 meq PO DAILY 11/17/16 Pravastatin Sodium [Pravachol] 40 mg PO DAILY 11/17/16 Ramipril [Altace 10 mg Capsule] 20 mg PO DAILY 11/17/16 History of Present Illness History of Present Illness: BOOM POWERS is a 61 year old male This is a 61-year-old male with a significant history of myelodysplastic syndrome and thrombocytopenia and on and off GI bleed and currently seen Dr. Velazquez and also seen in the [facility] and also see the GI doctor thea came to the emergency department with a complaining of weakness and fatigue and black starry stools. Patient had with this episode in the past several times and patient had a end-to-end colon was done and even the capsule endoscopy was also done to. Patient's last colon was done in July. Patient's guaiac stool was positive. At this point patient admitted in the hospital for further blood transfusion and further workup for the GI bleed as per discussed with the Dr. Marina myself and agreed to follow the patient's. Patient's denied any chest pain denied any shortness of the breath without any abdominal pain no nausea no vomiting Hospital Course Hospital Course: This is a 61-year-old male present in the emergency department with the complaint of fatigue tired and the black tarry stools and patient hemoglobin was 7.7 patient's guaiac stool was positive. Patient was admitting in the end [facility] and patient was transfused initially 2 units of the blood and Dr. Marina was consulted. Patient underwent for the endoscopy and no acute finding was found and per discussed with Dr. PORTILLO most likely a black tarry stool was coming from the patient's iron. Patient is a very extensive workup done in the past and colonoscopy was done in the July last year and was all stable. Patient is currently seeing oncology and hematology Dr. Velazquez for the MDS and ongoing chronic anemia problems. Patient notices total 4 units of the blood and patient does not have any sign of any GI bleed patient hemoglobin remained stable around 9.7 and patient does not have any other symptoms. Patient is discharged home discussed with the family and follow on the Tuesday for the further CBC check. If the patient have any bleeding or any blood in the stool or any black stools or feeling dizzy needs to come to the emergency department. Physical Exam Vital Signs: Temp Pulse Resp BP Pulse Ox 98.9 F 75 17 114/47 L 100 11/19/16 15:20 11/19/16 15:20 11/19/16 15:20 11/19/16 15:20 11/19/16 15:20 Intake & Output 11/18/16 11/19/16 11/20/16 06:59 06:59 06:59 Intake Total 942 3476 1030 Output Total 2900 Balance 607 742 2863 Weight 97.4 kg 96.8 kg General appearance: PRESENT: no acute distress, well-developed, well-nourished Head exam: PRESENT: atraumatic, normocephalic Eye exam: PRESENT: conjunctiva pink, EOMI, PERRLA. ABSENT: scleral icterus Ear exam: PRESENT: normal external ear exam Mouth exam: PRESENT: moist, tongue midline Neck exam: PRESENT: full ROM. ABSENT: carotid bruit, JVD, lymphadenopathy, thyromegaly Respiratory exam: PRESENT: clear to auscultation diony Cardiovascular exam: PRESENT: RRR. ABSENT: diastolic murmur, rubs, systolic murmur Pulses: PRESENT: normal dorsalis pedis pul, +2 pedal pulses bilateral Vascular exam: PRESENT: normal capillary refill GI/Abdominal exam: PRESENT: normal bowel sounds, soft. ABSENT: distended, guarding, mass, organolmegaly, rebound, tenderness Rectal exam: PRESENT: deferred Neurological exam: PRESENT: alert, awake, oriented to person, oriented to place , oriented to time, oriented to situation, CN II-XII grossly intact. ABSENT: motor sensory deficit Psychiatric exam: PRESENT: appropriate affect, normal mood. ABSENT: homicidal ideation, suicidal ideation Skin exam: PRESENT: dry, intact, warm. ABSENT: cyanosis, rash Results Laboratory Results: 11/19/16 15:24 11/19/16 05:53 11/17/16 11/18/16 11/19/16 13:40 20:05 05:53 WBC 6.3 7.3 RBC 3.72 L 3.30 L Hgb 10.7 L D 9.7 L Hct 31.7 L 28.0 L MCV 85 85 MCH 28.9 29.3 MCHC 33.9 34.6 RDW 18.3 H 18.2 H Plt Count 68 L 66 L Seg Neutrophils % Not Reportable Not Reportable Lymphocytes % Not Reportable Not Reportable Monocytes % Not Reportable Not Reportable Eosinophils % Not Reportable Not Reportable Basophils % Not Reportable Not Reportable Absolute Neutrophils Not Reportable Not Reportable Absolute Lymphocytes Not Reportable Not Reportable Absolute Monocytes Not Reportable Not Reportable Absolute Eosinophils Not Reportable Not Reportable Absolute Basophils Not Reportable Not Reportable Sodium Potassium Chloride Carbon Dioxide Anion Gap BUN Creatinine Est GFR ( Amer) Est GFR (Non-Af Amer) Glucose Calcium Blood Type O POSITIVE Antibody Screen NEGATIVE 11/19/16 11/19/16 05:53 15:24 WBC 6.0 RBC 3.35 L Hgb 9.7 L Hct 28.8 L MCV 86 MCH 29.0 MCHC 33.7 RDW 17.7 H Plt Count 69 L Seg Neutrophils % Lymphocytes % Monocytes % Eosinophils % Basophils % Absolute Neutrophils Absolute Lymphocytes Absolute Monocytes Absolute Eosinophils Absolute Basophils Sodium 142.1 Potassium 3.5 L Chloride 109 H Carbon Dioxide 25 Anion Gap 8 BUN 27 H Creatinine 1.24 Est GFR ( Amer) > 60 Est GFR (Non-Af Amer) 59 L Glucose 90 Calcium 8.6 Blood Type Antibody Screen Plan Discharge Plan: Follow-up with the hematology on a Tuesday and a following office in 1 week repeat the CBC on a Tuesday. Time Spent: Greater than 30 Minutes
[2016-11-19 17:42] VITALS: BP 112/47
== END 2016-11-19 18:15 | disposition home or self-care (01) | DRG 378 ==
LOC: ER 09:07 → EH 13:35 → UNDOADMIN 13:48 → EH 13:48 → 3S 23:29
PROVIDERS: ADMIT Family Medicine; ATTEND Family Medicine
PROC: 30233N1 Transfusion of Nonautologous Red Blood Cells into Peripheral Vein, Percutaneous Approach (ICD-10-PCS; principal; 2016-11-17)
PROC: 0DJ08ZZ Inspection of Upper Intestinal Tract, Via Natural or Artificial Opening Endoscopic (ICD-10-PCS; 2016-11-18)
DX: K62.5 Hemorrhage of anus and rectum (principal); I50.22 Chronic systolic (congestive) heart failure; D46.9 Myelodysplastic syndrome, unspecified; D69.6 Thrombocytopenia, unspecified; I25.10 Atherosclerotic heart disease of native coronary artery without angina pectoris; E78.5 Hyperlipidemia, unspecified; I11.0 Hypertensive heart disease with heart failure; E11.9 Type 2 diabetes mellitus without complications
CPT/HCPCS: 36415; 36430; 44360; 80048; 80053; 82272; 83690; 85025; 85027; 85610; 85730; 86850; 86900; 86901; 86920; 86922; 96360; 96361; 99291; J0171; J1610; J1940; J2250; J2310; J2550; J3010; J3490; J7030; J7050; P9016; S0164

== ENCOUNTER → 2017-04-12 | Outpatient (CLI) | payer MEDICARE, OTHER ==
[2017-04-12 12:06] LABS: ALANINE AMINOTRANSFERASE 21 U/L (21-72); ALBUMIN 4.4 g/dL (3.5-5.0); ALKALINE PHOSPHATASE 87 U/L (38-126); ANION GAP 12 (5-19); ASPARTATE AMINO TRANSFERASE 22 U/L (17-59); BILIRUBIN,DIRECT 0.3 mg/dL (0.0-0.4); BILIRUBIN,TOTAL 0.8 mg/dL (0.2-1.3); BLOOD UREA NITROGEN 21 mg/dL (7-20); CALCIUM 9.4 mg/dL (8.4-10.2); CARBON DIOXIDE 23 mmol/L (22-30); CHLORIDE 108 mmol/L (98-107); CHOLESTEROL 140.99 mg/dL (0-200); CREATININE RESULT 1.38 mg/dL (0.52-1.25); Direct HDL 44 mg/dL (>40); GLUCOSE 99 mg/dL (75-110); POTASSIUM 4.5 mmol/L (3.6-5.0); SODIUM 142.9 mmol/L (137-145); TOTAL PROTEIN 8.1 g/dL (6.3-8.2); TRIGLYCERIDES 43 mg/dL (<150)
[2017-04-12 12:17] LABS: DIRECT LDL 74 mg/dL (<100)
== END ==
LOC: OD 10:31
PROVIDERS: ATTEND Internal Medicine
DX: I50.22 Chronic systolic (congestive) heart failure (principal); I10 Essential (primary) hypertension; E78.5 Hyperlipidemia, unspecified; I42.0 Dilated cardiomyopathy; D69.6 Thrombocytopenia, unspecified; I35.1 Nonrheumatic aortic (valve) insufficiency; Z95.810 Presence of automatic (implantable) cardiac defibrillator; Z79.899 Other long term (current) drug therapy
CPT/HCPCS: 36415; 80053; 80061

== ENCOUNTER 2017-07-11 11:14 | Inpatient (IN) | payer MEDICARE, OTHER ==
[2017-07-11] MEDS ORDERED: NORMAL SALINE 1000 ML 1,000 ML IV ONE (11:46)
--- NOTE | 2017-07-11 11:48 | ER Document Report ---
ED Medical Screen (RME) - General Chief Complaint: Abnormal Lab Results Stated Complaint: ABDOMINAL PAIN Time Seen by Provider: 07/11/17 11:46 Notes: Pt sent from PMD for low hgb. Has had dark, tarry stool. Has hx of anemia and CHF. TRAVEL OUTSIDE OF THE [place] IN LAST 30 DAYS: No - Related Data Allergies/Adverse Reactions: No Known Allergies Allergy (Verified 11/17/16 09:16) Past Medical History - Social History Frequency of alcohol use: None Drug Abuse: None - Past Medical History Cardiac Medical History: Reports: Hx Congestive Heart Failure, Hx Coronary Artery Disease, Hx Hypercholesterolemia, Hx Hypertension Denies: Hx Atrial Fibrillation, Hx Heart Attack, Hx Peripheral Vascular Disease, Hx Heart Murmur Pulmonary Medical History: Denies: Hx Asthma, Hx Bronchitis, Hx COPD, Hx Pneumonia, Hx Tuberculosis Neurological Medical History: Denies: Hx Cerebrovascular Accident, Hx Seizures Endocrine Medical History: Reports: Hx Diabetes Mellitus Type 2. Denies: Hx Diabetes Mellitus Type 1 Renal/ Medical History: Denies: Hx Benign Prostatic Hyperplasia, Hx End Stage Renal Disease, Hx Kidney Stones, Hx Peritoneal Dialysis Malignancy Medical History: Denies Hx Leukemia GI Medical History: Denies: Hx Crohn's Disease, Hx Gastroesophageal Reflux Disease, Hx Hiatal Hernia, Hx Irritable Bowel, Hx Liver Failure, Hx Pancreatitis , Hx Ulcer Musculoskeltal Medical History: Reports Hx Arthritis Psychiatric Medical History: Denies: Hx Depression Infectious Medical History: Denies: Hx HIV Past Surgical History: Reports: Hx Bowel Surgery. Denies: Hx Appendectomy, Hx Cholecystectomy, Hx Colostomy, Hx Coronary Artery Bypass Graft, Hx Gastric Bypass Surgery, Hx Herniorrhaphy, Hx Pacemaker, Hx Tonsillectomy - Immunizations Hx Diphtheria, Pertussis, Tetanus Vaccination: Yes Physical Exam - Vital signs Vitals: Temp Pulse Resp BP Pulse Ox 98.8 F 73 18 137/46 H 99 07/11/17 11:26 07/11/17 11:26 07/11/17 11:26 07/11/17 11:26 07/11/17 11:26 Course - Vital Signs Vital signs: Temp Pulse Resp BP Pulse Ox 98.8 F 73 18 137/46 H 99 07/11/17 11:26 07/11/17 11:26 07/11/17 11:26 07/11/17 11:26 07/11/17 11:26
[2017-07-11 12:26] LABS: HEMATOCRIT 19.4 % (37.9-51.0); HGB HCT DIFFERENCE 0.7; MEAN CORPUSCULAR HEMOGLOBIN 30.4 pg (27.0-33.4); MEAN CORPUSCULAR HGB CONC 34.6 g/dL (32.0-36.0); MEAN CORPUSCULAR VOLUME 88 fl (80-97); RED CELL DISTRIBUTION WIDTH 15.9 % (11.5-14.0); WHITE BLOOD COUNT 4.9 10^3/uL (4.0-10.5)
[2017-07-11 12:28] LABS: ALANINE AMINOTRANSFERASE 23 U/L (21-72); ALBUMIN 3.6 g/dL (3.5-5.0); ALKALINE PHOSPHATASE 54 U/L (38-126); ANION GAP 11 (5-19); ASPARTATE AMINO TRANSFERASE 22 U/L (17-59); BILIRUBIN,DIRECT 0.3 mg/dL (0.0-0.4); BILIRUBIN,TOTAL 0.5 mg/dL (0.2-1.3); BLOOD UREA NITROGEN 29 mg/dL (7-20); CALCIUM 8.6 mg/dL (8.4-10.2); CARBON DIOXIDE 22 mmol/L (22-30); CHLORIDE 110 mmol/L (98-107); CREATININE RESULT 1.32 mg/dL (0.52-1.25); GLUCOSE 124 mg/dL (75-110); POTASSIUM 3.4 mmol/L (3.6-5.0); SODIUM 142.7 mmol/L (137-145); TOTAL PROTEIN 6.2 g/dL (6.3-8.2)
[2017-07-11 12:38] LABS: HEMOGLOBIN 6.7 g/dL (13.5-17.0)
[2017-07-11] MEDS ORDERED: NORMAL SALINE 250 ML IV PRN ×2 (12:40)
[2017-07-11 12:59] LABS: PARTIAL THROMBOPLASTIN TIME 30.7 SEC (23.5-35.8); PROTHROMBIN TIME 15.4 SEC (11.4-15.4)
[2017-07-11 13:04] LABS: BAND NEUTROPHILS % (MANUAL) 2 % (3-5); BASOPHILS % (MANUAL) 0 % (0-2); EOSINOPHILS % (MANUAL) 0 % (0-6); LYMPHOCYTES % (MANUAL) 11 % (13-45); TOTAL CELLS COUNTED 100
--- NOTE | 2017-07-11 13:38 | ER Document Report ---
ED General - General Chief Complaint: Abnormal Lab Results Stated Complaint: ABDOMINAL PAIN Time Seen by Provider: 07/11/17 11:46 TRAVEL OUTSIDE OF THE [place] IN LAST 30 DAYS: No - HPI Patient complains to provider of: Low H&H Notes: Patient coming in for abnormal laboratory values. Patient states started having bright red per rectum last Tuesday however since that time has been having dark stools. Patient has a history of GI bleeds in past also myelodysplastic disease. Patient is followed by PCP Dr. Payton oncology Dr. Velazquez and GI Dr. Marina. Patient states had outpatient laboratory tests performed by his oncologist told to come into the ER for further evaluation due to low H&H. Patient otherwise denies any weakness dizziness chest pain abdominal pain fever chills nausea vomiting. Patient states multiple EGDs and colonoscopies in the past with no signs of bleeding. Patient states also seen at [facility] for this bleeding in the past. Patient resting comfortably upon my evaluation. - Related Data Allergies/Adverse Reactions: No Known Allergies Allergy (Verified 11/17/16 09:16) Home Medications: Current Home Medications Amlodipine Besylate [Norvasc 5 mg Tablet] 5 mg PO DAILY 07/11/17 [History] Carvedilol [Coreg 25 mg Tablet] 25 mg PO Q12 07/11/17 [History] Cholecalciferol (Vitamin D3) [Vitamin D3] 1,000 unit PO DAILY 07/11/17 [History] Clonidine HCl [Catapres 0.2 mg Tablet] 0.2 mg PO Q8 07/11/17 [History] Furosemide [Lasix] 40 mg PO DAILY 07/11/17 [History] Gabapentin [Neurontin 100 mg Capsule] 100 mg PO BIDP PRN 07/11/17 [History] Iron Polysaccharide Complex [Ferrex 150] 150 mg PO Q12 07/11/17 [History] Isosorbide Mononitrate [Imdur 60 mg Tablet.er] 60 mg PO DAILY 07/11/17 [History] Losartan Potassium [Cozaar 100 mg Tablet] 100 mg PO DAILY 07/11/17 [History] Omeprazole 40 mg PO DAILY 07/11/17 [History] Potassium Chloride [Klor-Con 10 Meq Tablet.sa] 20 meq PO DAILY 07/11/17 [History ] Pravastatin Sodium [Pravachol] 40 mg PO DAILY 07/11/17 [History] Ramipril [Altace] 20 mg PO Q12 07/11/17 [History] Past Medical History - Social History Smoking Status: Never Smoker Frequency of alcohol use: None Drug Abuse: None Family History: Reviewed & Not Pertinent Patient has suicidal ideation: No Patient has homicidal ideation: No - Past Medical History Cardiac Medical History: Reports: Hx Congestive Heart Failure, Hx Coronary Artery Disease, Hx Hypercholesterolemia, Hx Hypertension Denies: Hx Atrial Fibrillation, Hx Heart Attack, Hx Peripheral Vascular Disease, Hx Heart Murmur Pulmonary Medical History: Denies: Hx Asthma, Hx Bronchitis, Hx COPD, Hx Pneumonia, Hx Tuberculosis Neurological Medical History: Denies: Hx Cerebrovascular Accident, Hx Seizures Endocrine Medical History: Reports: Hx Diabetes Mellitus Type 2. Denies: Hx Diabetes Mellitus Type 1 Renal/ Medical History: Denies: Hx Benign Prostatic Hyperplasia, Hx End Stage Renal Disease, Hx Kidney Stones, Hx Peritoneal Dialysis Malignancy Medical History: Denies Hx Leukemia GI Medical History: Denies: Hx Crohn's Disease, Hx Gastroesophageal Reflux Disease, Hx Hiatal Hernia, Hx Irritable Bowel, Hx Liver Failure, Hx Pancreatitis , Hx Ulcer Musculoskeltal Medical History: Reports Hx Arthritis Psychiatric Medical History: Denies: Hx Depression Infectious Medical History: Denies: Hx HIV Past Surgical History: Reports: Hx Bowel Surgery. Denies: Hx Appendectomy, Hx Cholecystectomy, Hx Colostomy, Hx Coronary Artery Bypass Graft, Hx Gastric Bypass Surgery, Hx Herniorrhaphy, Hx Pacemaker, Hx Tonsillectomy - Immunizations Hx Diphtheria, Pertussis, Tetanus Vaccination: Yes Hx Pneumococcal Vaccination: 06/19/11 Review of Systems - Review of Systems Constitutional: No symptoms reported EENT: No symptoms reported Cardiovascular: No symptoms reported Respiratory: No symptoms reported Gastrointestinal: Black stools Genitourinary: No symptoms reported Male Genitourinary: No symptoms reported Musculoskeletal: No symptoms reported Skin: No symptoms reported Hematologic/Lymphatic: No symptoms reported Neurological/Psychological: No symptoms reported -: Yes All other systems reviewed and negative Physical Exam - Vital signs Vitals: Temp Pulse Resp BP Pulse Ox 98.8 F 73 18 137/46 H 99 07/11/17 11:26 07/11/17 11:26 07/11/17 11:26 07/11/17 11:26 07/11/17 11:26 Interpretation: Normal - General General appearance: Appears well, Alert - HEENT Head: Normocephalic, Atraumatic Eyes: Normal Pupils: PERRL - Respiratory Respiratory status: No respiratory distress Chest status: Nontender Breath sounds: Normal Chest palpation: Normal - Cardiovascular Rhythm: Regular Heart sounds: Normal auscultation Murmur: No - Abdominal Inspection: Normal Distension: No distension Bowel sounds: Normal Tenderness: Nontender Organomegaly: No organomegaly - Rectal Tenderness: No Stool: Heme positive, Black Hemorrhoids: None Prostate: Normal - Back Back: Normal, Nontender - Extremities General upper extremity: Normal inspection, Nontender, Normal color, Normal ROM , Normal temperature General lower extremity: Normal inspection, Nontender, Normal color, Normal ROM , Normal temperature, Normal weight bearing. No: Sami's sign - Neurological Neuro grossly intact: Yes Cognition: Normal Orientation: AAOx4 [place] Coma Scale Eye Opening: Spontaneous Reinaldo Coma Scale Verbal: Oriented Reinaldo Coma Scale Motor: Obeys Commands Reinaldo Coma Scale Total: 15 Speech: Normal Motor strength normal: LUE, RUE, LLE, RLE Sensory: Normal - Psychological Associated symptoms: Normal affect, Normal mood - Skin Skin Temperature: Warm Skin Moisture: Dry Skin Color: Normal Course - Re-evaluation Re-evalutation: 07/11/17 13:[address] Payton requested consult Dr. Marina. Was able to get in contact Dr. Marina at this time states that he would be glad to prescription the patient in the morning. Dr. Payton agrees to admit the patient to IMCU. Would also place a consult in for the patient's oncologist Dr. Velazquez. 07/11/17 15:44 Patient will be admitted for further evaluation for his anemia requiring transfusions and GI bleed. Patient was placed on Protonix per Dr. Marina. Patient oncologist was contacted however no callback at this time. PCP agrees to admit the patient to the IMCU. Consults were placed for Dr. Marina and Dr. Velazqeuz - Vital Signs Vital signs: Temp Pulse Resp BP Pulse Ox 98.4 F 63 15 123/47 L 99 07/11/17 15:22 07/11/17 15:21 07/11/17 15:21 07/11/17 15:20 07/11/17 15:21 - Laboratory Result Diagrams: 07/11/17 12:00 07/11/17 12:00 Laboratory results interpreted by me: 07/11/17 07/11/17 07/11/17 12:00 12:00 12:55 RBC 2.20 L Hgb 6.7 L Hct 19.4 L RDW 15.9 H Band Neutrophils % 2 L Lymphocytes % (Manual) 11 L Monocytes % (Manual) 31 H Metamyelocytes % 2 H Immature Leukocytes % 4 H Abs Monocytes (Manual) 1.5 H Platelet Estimate 70 L Potassium 3.4 L Chloride 110 H BUN 29 H Creatinine 1.32 H Est GFR (Non-Af Amer) 55 L Glucose 124 H Total Protein 6.2 L Crossmatch See Detail Discharge - Discharge Clinical Impression: GI bleed, Thrombocytopenia, Anemia requiring transfusions Condition: Good Disposition: ADMITTED INPATIENT Admitting Provider: Payton Unit Admitted: KIMBERLY
[2017-07-11] MEDS ORDERED: PANTOPRAZOLE SODIUM 40 MG VIAL IV PRN (13:39)
[2017-07-11 14:17] LABS: PLATELET ESTIMATE 70 10^3/uL (150-450)
[2017-07-11] MEDS ORDERED: ONDANSETRON HCL INJ/PF 4 MG/2 ML SDV IV PRN (14:32)
[2017-07-11] MEDS ORDERED: ACETAMINOPHEN 325 MG TABLET PO PRN (14:32)
[2017-07-11] MEDS ORDERED: GABAPENTIN 100 MG CAPSULE PO PRN (14:36)
[2017-07-11 15:22] LABS: HEMATOCRIT 17.9 % (37.9-51.0); HGB HCT DIFFERENCE 0.7; MEAN CORPUSCULAR HEMOGLOBIN 30.5 pg (27.0-33.4); MEAN CORPUSCULAR HGB CONC 34.6 g/dL (32.0-36.0); MEAN CORPUSCULAR VOLUME 88 fl (80-97); RED BLOOD COUNT 2.03 10^6/uL (4.35-5.55); RED CELL DISTRIBUTION WIDTH 15.9 % (11.5-14.0); WHITE BLOOD COUNT 4.2 10^3/uL (4.0-10.5)
[2017-07-11 15:54] LABS: HEMOGLOBIN 6.2 g/dL (13.5-17.0)
--- NOTE | 2017-07-11 15:55 | Progress Note ---
Provider Note Provider Note: Patient admitted by Dr. Payton for stable GI bleed, Dr. Marina and Dr. Velazquez both aware of this patient, Dr. Marina will intervene should anything change, currently planning on a scope tomorrow. Also simply made aware of this patient as he is awaiting bed on the floor but remains in the emergency department at this time. Currently receiving 2 units of blood
--- NOTE | 2017-07-11 16:11 | PDOC H&P ---
History of Present Illness Admission Date/PCP: 07/11/17 14:02 ELIZA GRANADOS MD Patient complains of: Weakness not feeling wellAnemiaAnd black stools History of Present Illness: BOOM POWERS is a 61 year old male This 61-year-old male with a significant history of the thrombocytopenia with a history of the myelodysplastic syndromes and currently see a Dr. Velazquez and also see a Fidencio and a history of the AVM with the GI bleed in the past and currently seeing Dr. Fajardo last Tuesday with some blood in the stools and then after patient's noticed some black tarry stools and the patient was feeling very weak and feeling tired and fatigued and patients went to see Dr. Velazquez's office this morning and patient was sent to the emergency department with hemoglobin was 6.2 Patient is not complaining any chest pain no shortness of the breath Patient also see a cardiology Dr. OdellFor congestive heart failure Patient's otherwise platelet count is 52 and patients decided ongoing problems and a several times and received a platelet transfusion in the blood Patient also see her Fidencio GI and all workup is done in the past nothing acute finding except the AVM She is not currently actively bleeding and denied any abdominal pain no nausea no vomiting Discussed with the Dr. Marina by ER physician agreed to see in the hospital for further evaluations consult the oncology for further evaluations Past Medical History Cardiac Medical History: Reports: Congestive Heart Failure, Coronary Artery Disease, Hyperlipidema, Hypertension Denies: Atrial Fibrillation, Myocardial Infarction, Peripheral Vascular Disease, Heart Murmur Pulmonary Medical History: Denies: Asthma, Bronchitis, Chronic Obstructive Pulmonary Disease (COPD), Pneumonia, Tuberculosis Neurological Medical History: Denies: Seizures Endocrine Medical History: Reports: Diabetes Mellitus Type 2 Denies: Diabetes Mellitus Type 1 Renal/ Medical History: Denies: End Stage Renal Disease Malignancy Medical History: Denies: Leukemia Malignancy History Note: Myelodysplastic syndrome GI Medical History: Denies: Crohn's Disease, Gastroesophageal Reflux Disease, Hiatal Hernia Musculoskeltal Medical History: Reports: Arthritis Psychiatric Medical History: Denies: Depression Hematology: Reports: Anemia Denies: Hemophilia, Sickle Cell Disease Hematology History Note: Thrombocytopenia Infectious Medical History: Denies: HIV Past Surgical History Past Surgical History: Denies: Appendectomy, Cholecystectomy, Colostomy, Coronary Artery Bypass Graft, Gastric Bypass Surgery, Herniorrhaphy, Pacemaker, Tonsillectomy Social History Smoking Status: Never Smoker Frequency of Alcohol Use: None Hx Recreational Drug Use: No Drugs: None Hx Prescription Drug Abuse: No Family History Family History: Reviewed & Not Pertinent Parental Family History Reviewed: Yes Children Family History Reviewed: Yes Sibling(s) Family History Reviewed.: Yes Medication/Allergy Home Medications: Amlodipine Besylate [Norvasc 5 mg Tablet] 5 mg PO DAILY 07/11/17 Carvedilol [Coreg 25 mg Tablet] 25 mg PO Q12 07/11/17 Cholecalciferol (Vitamin D3) [Vitamin D3] 1,000 unit PO DAILY 07/11/17 Clonidine HCl [Catapres 0.2 mg Tablet] 0.2 mg PO Q8 07/11/17 Furosemide [Lasix] 40 mg PO DAILY 07/11/17 Gabapentin [Neurontin 100 mg Capsule] 100 mg PO BIDP PRN 07/11/17 Iron Polysaccharide Complex [Ferrex 150] 150 mg PO Q12 07/11/17 Isosorbide Mononitrate [Imdur 60 mg Tablet.er] 60 mg PO DAILY 07/11/17 Losartan Potassium [Cozaar 100 mg Tablet] 100 mg PO DAILY 07/11/17 Omeprazole 40 mg PO DAILY 07/11/17 Potassium Chloride [Klor-Con 10 Meq Tablet.sa] 20 meq PO DAILY 07/11/17 Pravastatin Sodium [Pravachol] 40 mg PO DAILY 07/11/17 Ramipril [Altace] 20 mg PO Q12 07/11/17 Allergies/Adverse Reactions: No Known Allergies Allergy (Verified 11/17/16 09:16) Review of Systems Constitutional: PRESENT: fatigue, weakness. ABSENT: chills, fever(s), headache( s), weight gain, weight loss Eyes: ABSENT: visual disturbances Ears: ABSENT: hearing changes Cardiovascular: ABSENT: chest pain, dyspnea on exertion, edema, orthropnea, palpitations Respiratory: ABSENT: cough, hemoptysis Gastrointestinal: PRESENT: melena. ABSENT: abdominal pain, constipation, diarrhea, hematemesis, hematochezia, nausea, vomiting Genitourinary: ABSENT: dysuria, hematuria Musculoskeletal: ABSENT: joint swelling Integumentary: ABSENT: rash, wounds Neurological: ABSENT: abnormal gait, abnormal speech, confusion, dizziness, focal weakness, syncope Psychiatric: ABSENT: anxiety, depression, homidical ideation, suicidal ideation Endocrine: ABSENT: cold intolerance, heat intolerance, menstrual abnormalities, polydipsia, polyuria Hematologic/Lymphatic: ABSENT: easy bleeding, easy bruising, lymphadenopathy Physical Exam Vital Signs: Temp Pulse Resp BP Pulse Ox 98.4 F 63 15 123/47 L 99 07/11/17 15:22 07/11/17 15:21 07/11/17 15:21 07/11/17 15:20 07/11/17 15:21 Intake & Output 07/10/17 07/11/17 07/12/17 06:59 06:59 06:59 Intake Total 0 Balance 0 General appearance: PRESENT: no acute distress, well-developed, well-nourished Head exam: PRESENT: atraumatic, normocephalic Eye exam: PRESENT: conjunctiva pale, EOMI, PERRLA. ABSENT: scleral icterus Ear exam: PRESENT: normal external ear exam Mouth exam: PRESENT: moist, tongue midline Neck exam: PRESENT: full ROM. ABSENT: carotid bruit, JVD, lymphadenopathy, thyromegaly Respiratory exam: PRESENT: clear to auscultation diony Cardiovascular exam: PRESENT: RRR. ABSENT: diastolic murmur, rubs, systolic murmur Pulses: PRESENT: normal dorsalis pedis pul, +2 pedal pulses bilateral Vascular exam: PRESENT: normal capillary refill GI/Abdominal exam: PRESENT: normal bowel sounds, soft. ABSENT: distended, guarding, mass, organolmegaly, rebound, tenderness Rectal exam: PRESENT: deferred Extremities exam: ABSENT: pedal edema Neurological exam: PRESENT: alert, awake, oriented to person, oriented to place , oriented to time, oriented to situation, CN II-XII grossly intact. ABSENT: motor sensory deficit Psychiatric exam: PRESENT: appropriate affect, normal mood. ABSENT: homicidal ideation, suicidal ideation Skin exam: PRESENT: dry, intact, warm. ABSENT: cyanosis, rash Results Laboratory Results: 07/11/17 15:07 07/11/17 15:07 WBC 4.2 RBC 2.03 L Hgb 6.2 L Hct 17.9 L MCV 88 MCH 30.5 MCHC 34.6 RDW 15.9 H Plt Count Assessment & Plan - Diagnosis (1) GI bleed Qualifiers: GI bleed type/associated pathology: unspecified gastrointestinal hemorrhage type Qualified Code(s): K92.2 - Gastrointestinal hemorrhage, unspecified Is this a current diagnosis for this admission?: Yes Plan: Admit the patient in IMCU serial H&H and transfuse the 2 units of the blood keep hemoglobin around 10 and consult the GI for further evaluations start the patient on the Protonix (2) Thrombocytopenia Is this a current diagnosis for this admission?: Yes Plan: Idiopathic thrombocytopenia consult the oncology for further evaluations (3) Anemia Qualifiers: Anemia type: other cause Is this a current diagnosis for this admission?: Yes Plan: With ongoing problems patient have a myelodysplastic syndromes and thrombocytopenia we will transfuse the blood (4) CAD (coronary artery disease) Qualifiers: Coronary Disease-Associated Artery/Lesion type: unspecified vessel or lesion type Is this a current diagnosis for this admission?: Yes Plan: Currently stable (5) CHF (congestive heart failure) Qualifiers: Congestive heart failure type: unspecified congestive heart failure type Is this a current diagnosis for this admission?: Yes Plan: Continues to Lasix (6) HLD (hyperlipidemia) Qualifiers: Is this a current diagnosis for this admission?: Yes (7) HTN (hypertension) Qualifiers: Hypertension type: essential hypertension Is this a current diagnosis for this admission?: Yes Plan: Continues to current medications (8) Myelodysplastic syndrome Is this a current diagnosis for this admission?: Yes Plan: Patients follow oncology - Time Time Spent: 30 to 50 Minutes Medications reviewed and adjusted accordingly: Yes Anticipated discharge: Home Within: Other - Inpatient Certification Medical Necessity: Need Close Monitoring Due to Risk of Patient Decompensation Post Hospital Care: D/C Mobile Qa Tester Documentation - Plan Summary Plan Summary: Admit the patient in IMCU see other MD orders
[2017-07-11] MEDS ORDERED: FUROSEMIDE INJ/PF 20 MG/2 ML SDV IV PRN (16:47)
[2017-07-11] MEDS ORDERED: BISACODYL 5 MG TABEC PO ONE (21:00)
[2017-07-11] MEDS: CARVEDILOL 12.5 MG TABLET PO SCH (22:24)
[2017-07-11] MEDS: ATORVASTATIN CALCIUM 10 MG TABLET PO SCH (22:24)
[2017-07-11] MEDS: CLONIDINE HCL 0.2 MG TABLET PO SCH (22:25)
[2017-07-11] MEDS: IRON POLYSACCHARIDES COMPLEX 150 MG CAPSULE PO SCH (22:25)
[2017-07-11] MEDS: PANTOPRAZOLE SODIUM 40 MG VIAL IV SCH (22:26)
[2017-07-12 00:13] LABS: HEMATOCRIT 21.5 % (37.9-51.0); MEAN CORPUSCULAR HEMOGLOBIN 29.9 pg (27.0-33.4); MEAN CORPUSCULAR HGB CONC 34.9 g/dL (32.0-36.0); MEAN CORPUSCULAR VOLUME 86 fl (80-97); RED BLOOD COUNT 2.51 10^6/uL (4.35-5.55); RED CELL DISTRIBUTION WIDTH 16.8 % (11.5-14.0); WHITE BLOOD COUNT 4.8 10^3/uL (4.0-10.5)
[2017-07-12 00:39] LABS: HEMOGLOBIN 7.5 g/dL (13.5-17.0)
[2017-07-12] MEDS ORDERED: INFLUENZA ADLT QUAD (36MOS+) 2017-18 VAC 0.5 ML SYR IM PRN (01:45)
[2017-07-12] MEDS: CLONIDINE HCL 0.2 MG TABLET PO SCH ×3 (05:54→21:24)
[2017-07-12] MEDS ORDERED: PEG 3350/NA SULF,BICARB,CL/KCL 4000 ML PO PRN (07:00)
[2017-07-12] MEDS ORDERED: (PENDING PHARMACY ID) (Cholecalciferol (Vitamin D3) [Vitamin D3] 1,000 UNIT) PO SCH (10:00)
[2017-07-12] MEDS ORDERED: FUROSEMIDE 20 MG TABLET PO ONE (10:00)
[2017-07-12] MEDS ORDERED: (PENDING PHARMACY ID) (Pravastatin Sodium [Pravachol] 40 MG) PO SCH (10:00)
[2017-07-12] MEDS: IRON POLYSACCHARIDES COMPLEX 150 MG CAPSULE PO SCH ×2 (10:23→21:24)
[2017-07-12] MEDS: FUROSEMIDE 40 MG TABLET PO SCH (10:23)
[2017-07-12] MEDS: PANTOPRAZOLE SODIUM 40 MG VIAL IV SCH (10:23)
[2017-07-12] MEDS: POTASSIUM CHLORIDE 10 MEQ TABLET.SA PO SCH (10:24)
[2017-07-12] MEDS: CARVEDILOL 12.5 MG TABLET PO SCH ×2 (10:24→21:25)
[2017-07-12] MEDS: AMLODIPINE BESYLATE 5 MG TABLET PO SCH (10:24)
[2017-07-12 10:25] LABS: HEMATOCRIT 25.2 % (37.9-51.0); HEMOGLOBIN 8.7 g/dL (13.5-17.0); HGB HCT DIFFERENCE 0.9; MEAN CORPUSCULAR HEMOGLOBIN 29.6 pg (27.0-33.4); MEAN CORPUSCULAR HGB CONC 34.5 g/dL (32.0-36.0); MEAN CORPUSCULAR VOLUME 86 fl (80-97); RED BLOOD COUNT 2.93 10^6/uL (4.35-5.55); RED CELL DISTRIBUTION WIDTH 17.1 % (11.5-14.0)
[2017-07-12] MEDS: CHOLECALCIFEROL (D3) 1,000 UNIT TABLET PO SCH (10:25)
[2017-07-12] MEDS: ISOSORBIDE MONONITRATE 60 MG TAB.ER.24H PO SCH (10:25)
[2017-07-12 10:38] LABS: ANION GAP 10 (5-19); BLOOD UREA NITROGEN 20 mg/dL (7-20); CALCIUM 8.2 mg/dL (8.4-10.2); CARBON DIOXIDE 21 mmol/L (22-30); CHLORIDE 112 mmol/L (98-107); CREATININE RESULT 1.07 mg/dL (0.52-1.25); GLUCOSE 91 mg/dL (75-110); POTASSIUM 3.4 mmol/L (3.6-5.0)
[2017-07-12 11:58] LABS: HEMATOCRIT 26.8 % (37.9-51.0); HEMOGLOBIN 9.1 g/dL (13.5-17.0); HGB HCT DIFFERENCE 0.5; MEAN CORPUSCULAR HEMOGLOBIN 28.9 pg (27.0-33.4); MEAN CORPUSCULAR VOLUME 85 fl (80-97); RED BLOOD COUNT 3.15 10^6/uL (4.35-5.55); RED CELL DISTRIBUTION WIDTH 16.7 % (11.5-14.0)
[2017-07-12] MEDS ORDERED: POTASSIUM CHLORIDE 10 MEQ TABLET.SA PO ONE (12:41)
--- NOTE | 2017-07-12 12:43 | PDOC PROGRESS REPORT ---
Subjective Progress Note for:: 07/12/17 Subjective:: Patient is currently doing well patients received the 3 units of the blood. Patient's denied any chest pain denied any shortness of the breath. Patient's not seen any active bleeding scheduled for the scope by the GI today Physical Exam Vital Signs: Temp Pulse Resp BP Pulse Ox 98.6 F 70 18 130/52 H 99 07/12/17 08:40 07/12/17 08:40 07/12/17 08:40 07/12/17 09:07 07/12/17 08:40 Intake & Output 07/11/17 07/12/17 07/13/17 06:59 06:59 06:59 Intake Total 1450 310 Output Total 1425 Balance 25 310 Weight 96.3 kg General appearance: PRESENT: no acute distress, well-developed, well-nourished Head exam: PRESENT: atraumatic, normocephalic Eye exam: PRESENT: conjunctiva pink, EOMI, PERRLA. ABSENT: scleral icterus Ear exam: PRESENT: normal external ear exam Mouth exam: PRESENT: moist, tongue midline Neck exam: PRESENT: full ROM. ABSENT: carotid bruit, JVD, lymphadenopathy, thyromegaly Respiratory exam: PRESENT: clear to auscultation diony Cardiovascular exam: PRESENT: RRR. ABSENT: diastolic murmur, rubs, systolic murmur Pulses: PRESENT: normal dorsalis pedis pul, +2 pedal pulses bilateral Vascular exam: PRESENT: normal capillary refill GI/Abdominal exam: PRESENT: normal bowel sounds, soft. ABSENT: distended, guarding, mass, organolmegaly, rebound, tenderness Rectal exam: PRESENT: deferred Extremities exam: ABSENT: pedal edema Musculoskeletal exam: PRESENT: ambulatory Neurological exam: PRESENT: alert, awake, oriented to person, oriented to place , oriented to time, oriented to situation, CN II-XII grossly intact. ABSENT: motor sensory deficit Psychiatric exam: PRESENT: appropriate affect, normal mood. ABSENT: homicidal ideation, suicidal ideation Skin exam: PRESENT: dry, intact, warm. ABSENT: cyanosis, rash Results Laboratory Results: 07/12/17 11:45 07/12/17 09:48 07/11/17 07/11/17 07/12/17 15:07 23:57 09:48 WBC 4.2 4.8 6.0 RBC 2.03 L 2.51 L 2.93 L Hgb 6.2 L 7.5 L 8.7 L Hct 17.9 L 21.5 L 25.2 L MCV 88 86 86 MCH 30.5 29.9 29.6 MCHC 34.6 34.9 34.5 RDW 15.9 H 16.8 H 17.1 H Plt Count 41 L Sodium Potassium Chloride Carbon Dioxide Anion Gap BUN Creatinine Est GFR ( Amer) Est GFR (Non-Af Amer) Glucose Calcium 07/12/17 07/12/17 09:48 11:45 WBC 7.0 RBC 3.15 L Hgb 9.1 L Hct 26.8 L MCV 85 MCH 28.9 MCHC 34.0 RDW 16.7 H Plt Count 45 L Sodium 143.0 Potassium 3.4 L Chloride 112 H Carbon Dioxide 21 L Anion Gap 10 BUN 20 Creatinine 1.07 Est GFR ( Amer) > 60 Est GFR (Non-Af Amer) > 60 Glucose 91 Calcium 8.2 L Assessment & Plan - Diagnosis (1) GI bleed Qualifiers: GI bleed type/associated pathology: unspecified gastrointestinal hemorrhage type Qualified Code(s): K92.2 - Gastrointestinal hemorrhage, unspecified Is this a current diagnosis for this admission?: Yes Plan: Continues to monitor the patient's scheduled for the scope today (2) Thrombocytopenia Is this a current diagnosis for this admission?: Yes Plan: Idiopathic thrombocytopenia consult the oncology for further evaluations (3) Anemia Qualifiers: Anemia type: other cause Is this a current diagnosis for this admission?: Yes Plan: With ongoing problems patient have a myelodysplastic syndromes and thrombocytopenia we will transfuse the blood (4) CAD (coronary artery disease) Qualifiers: Coronary Disease-Associated Artery/Lesion type: unspecified vessel or lesion type Is this a current diagnosis for this admission?: Yes Plan: Currently stable (5) CHF (congestive heart failure) Qualifiers: Congestive heart failure type: unspecified congestive heart failure type Is this a current diagnosis for this admission?: Yes Plan: Continues to Lasix (6) HLD (hyperlipidemia) Qualifiers: Is this a current diagnosis for this admission?: Yes (7) HTN (hypertension) Qualifiers: Hypertension type: essential hypertension Is this a current diagnosis for this admission?: Yes Plan: Continues to current medications (8) Myelodysplastic syndrome Is this a current diagnosis for this admission?: Yes Plan: Patients follow oncology - Time Time Spent with patient: 15-24 minutes Medications reviewed and adjusted accordingly: Yes Anticipated discharge: Home Within: Other - Inpatient Certification Medical Necessity: Need Close Monitoring Due to Risk of Patient Decompensation Post Hospital Care: D/C Helpdesk Analyst Documentation - Plan Summary Plan Summary: Discussed with the patient and the patient's continues to monitor the patient
[2017-07-12] MEDS ORDERED: NALOXONE HCL INJ/PF 0.4 MG/1 ML SDV ONE (16:59)
[2017-07-12] MEDS ORDERED: FENTANYL CITRATE INJ/PF 100 MCG/2 ML AMPUL ONE (16:59)
[2017-07-12] MEDS ORDERED: EPINEPHRINE INJ 1 MG/10 ML DISP.SYRIN ONE (17:00)
[2017-07-12] MEDS ORDERED: FLUMAZENIL INJ 0.5 MG/5 ML VIAL ONE (17:00)
[2017-07-12] MEDS ORDERED: GLUCAGON,HUMAN RECOMB 1 MG INJ ONE (17:00)
[2017-07-12] MEDS: MIDAZOLAM 2 MG/2 ML INJ ONE ×3 (18:31→18:51)
--- NOTE | 2017-07-12 19:14 | PDOC CONSULTATION ---
Consultation Consult Date: 07/11/17 History of Present Illness Admission Date/PCP: 07/11/17 14:32 ELIZA GRANADOS MD History of Present Illness: This is a 61-year-old patient was admitted to the emergency room on 07/11/2017 with anemia and rectal bleeding. He had 102 episodes of black stools 3 days before admission and had none for the following 2 days. His hemoglobin was [address] Velazquez's office. Hence he was sent to the emergency room. He denies abdominal pain, nausea, or vomiting. I saw him in the hospital in November when he was admitted with anemia and black stools. He has been admitted multiple times over the years with similar complaints and has had multiple endoscopies. The only finding in the past was evidence of altered blood noted in the terminal ileum at 1.4 which he was transferred to [facility]. He had cauterizations of some lesions in the small bowel. He had an EGD and capsule endoscopy in December of this year with no significant findings. His last colonoscopy was in July 2016 and is only showed an adenomatous polyp. With the bowel preparation during this admission he was seeing some dark altered blood. He has a chronic history of myelodysplastic syndrome which probably explains his chronic anemia Past Medical History Cardiac Medical History: Reports: Congestive Heart Failure, Coronary Artery Disease, Hyperlipidema, Hypertension Denies: Atrial Fibrillation, Myocardial Infarction, Peripheral Vascular Disease, Heart Murmur Pulmonary Medical History: Denies: Asthma, Bronchitis, Chronic Obstructive Pulmonary Disease (COPD), Pneumonia, Tuberculosis Neurological Medical History: Denies: Seizures Endocrine Medical History: Reports: Diabetes Mellitus Type 2 Denies: Diabetes Mellitus Type 1 Renal/ Medical History: Denies: End Stage Renal Disease Malignancy Medical History: Denies: Leukemia GI Medical History: Denies: Crohn's Disease, Gastroesophageal Reflux Disease, Hiatal Hernia Musculoskeltal Medical History: Reports: Arthritis Psychiatric Medical History: Denies: Depression Hematology: Reports: Anemia Denies: Hemophilia, Sickle Cell Disease Infectious Medical History: Denies: HIV Past Surgical History Past Surgical History: Denies: Appendectomy, Cholecystectomy, Colostomy, Coronary Artery Bypass Graft, Gastric Bypass Surgery, Herniorrhaphy, Pacemaker, Tonsillectomy Social History Smoking Status: Never Smoker Frequency of Alcohol Use: None Hx Recreational Drug Use: No Drugs: None Hx Prescription Drug Abuse: No - Advance Directive Resuscitation Status: Full Code Family History Family History: Reviewed & Not Pertinent Parental Family History Reviewed: No Children Family History Reviewed: NA Sibling(s) Family History Reviewed.: NA Medication/Allergy Home Medications: Amlodipine Besylate [Norvasc 5 mg Tablet] 5 mg PO DAILY 07/11/17 Carvedilol [Coreg 25 mg Tablet] 25 mg PO Q12 07/11/17 Cholecalciferol (Vitamin D3) [Vitamin D3] 1,000 unit PO DAILY 07/11/17 Clonidine HCl [Catapres 0.2 mg Tablet] 0.2 mg PO Q8 07/11/17 Furosemide [Lasix] 40 mg PO DAILY 07/11/17 Gabapentin [Neurontin 100 mg Capsule] 100 mg PO BIDP PRN 07/11/17 Iron Polysaccharide Complex [Ferrex 150] 150 mg PO Q12 07/11/17 Isosorbide Mononitrate [Imdur 60 mg Tablet.er] 60 mg PO DAILY 07/11/17 Losartan Potassium [Cozaar 100 mg Tablet] 100 mg PO DAILY 07/11/17 Omeprazole 40 mg PO DAILY 07/11/17 Potassium Chloride [Klor-Con 10 Meq Tablet.sa] 20 meq PO DAILY 07/11/17 Pravastatin Sodium [Pravachol] 40 mg PO DAILY 07/11/17 Ramipril [Altace] 20 mg PO Q12 07/11/17 Allergies/Adverse Reactions: No Known Allergies Allergy (Verified 11/17/16 09:16) Review of Systems All systems: reviewed and no additional remarkable complaints except as stated Physical Exam Vital Signs: Temp Pulse Resp BP Pulse Ox 98.3 F 65 20 103/34 L 100 07/12/17 15:38 07/12/17 19:00 07/12/17 19:00 07/12/17 19:00 07/12/17 19:00 Intake & Output 07/11/17 07/12/17 07/13/17 06:59 06:59 06:59 Intake Total 1450 1301 Output Total 1425 Balance 25 1301 Weight 96.3 kg Exam: General: Patient is alert and looks well. HEENT: There is pallor but no jaundice. PERRLA. Oropharynx normal Respiratory: No chest deformity. No respiratory distress. Chest wall palpitation was unremarkable. Breath sounds were normal Cardiovascular: Heart sounds 1 and 2 normal with no murmurs. Abdominal: Not distended. Soft and nontender. Liver and spleen not palpable. No ascites demonstrated. Bowel sounds active. Rectal examination was deferred. Extremities: No edema Neurological: Alert and oriented x4. Grossly nonfocal. Normal speech Skin: No significant rash Psychological: Normal affect Results Laboratory Results: 07/12/17 11:45 07/12/17 09:48 07/11/17 07/12/17 07/12/17 23:57 09:48 09:48 WBC 4.8 6.0 RBC 2.51 L 2.93 L Hgb 7.5 L 8.7 L Hct 21.5 L 25.2 L MCV 86 86 MCH 29.9 29.6 MCHC 34.9 34.5 RDW 16.8 H 17.1 H Plt Count 41 L Sodium 143.0 Potassium 3.4 L Chloride 112 H Carbon Dioxide 21 L Anion Gap 10 BUN 20 Creatinine 1.07 Est GFR ( Amer) > 60 Est GFR (Non-Af Amer) > 60 Glucose 91 Calcium 8.2 L 07/12/17 11:45 WBC 7.0 RBC 3.15 L Hgb 9.1 L Hct 26.8 L MCV 85 MCH 28.9 MCHC 34.0 RDW 16.7 H Plt Count 45 L Sodium Potassium Chloride Carbon Dioxide Anion Gap BUN Creatinine Est GFR ( Amer) Est GFR (Non-Af Amer) Glucose Calcium Assessment & Plan - Diagnosis (1) GI bleed Qualifiers: GI bleed type/associated pathology: unspecified gastrointestinal hemorrhage type Qualified Code(s): K92.2 - Gastrointestinal hemorrhage, unspecified Is this a current diagnosis for this admission?: Yes Plan: He did have some black stools prior to being admitted with a significant drop in his hemoglobin. He has also been seeing altered blood with his bowel prep. He will undergo an EGD and colonoscopy. We have never found a significant source of GI bleed during his multiple EGDs, and colonoscopies, and capsule endoscopy. He will be transfused 2 units of blood. (3) Thrombocytopenia Is this a current diagnosis for this admission?: Yes (5) Myelodysplastic syndrome Is this a current diagnosis for this admission?: Yes
--- NOTE | 2017-07-12 19:18 | Operative Report ---
Operative Report DATE OF SURGERY: 07/12/17 Operative Report: Pre-op diagnosis: Anemia and GI bleed Post-op diagnosis: 1. Normal EGD and enteroscopy 2. Moderate size internal hemorrhoids 3. Altered blood in the colon and small amount in the terminal ileum Surgery: Upper endoscopy, enteroscopy and Colonoscopy Medications: Versed 3mg, Fentanyl 100mcg IV push Tissue removed: None Procedure: After informed consent obtained from patient, patient's pharynx was sprayed with Hurricane and conscious sedation was achieved. The upper endoscope was then inserted into the esophagus under direct vision and advanced into the stomach and further into the duodenum. The endoscope was then inserted into the small bowel and examining up to 40 cm beyond the ligament of Treitz. Detailed examination of the proximal jejunum, duodenum, stomach and the esophagus was then performed. A digital rectal examination was performed and this was unremarkable. The colonoscope was inserted into the rectum and advanced to the cecum. The appendiceal orifice and the terminal ileum were both identified. The mucosa was examined into details as the colonoscope was slowly pulled out of the patient. The endoscope was retroflexed in the rectum. Patient tolerated the procedure well. Findings Esophagus: Normal Stomach: Normal Duodenum: Normal Proximal jejunum: Normal Terminal ileum: Small amount of altered blood Cecum: Normal Ascending colon: Small amount of altered blood Transverse colon: Normal Descending colon: Small amount of altered blood Sigmoid colon: Small amount of altered blood Rectum: Normal except for internal hemorrhoids Plan: Follow-up H&H and transfuse as needed. Patient may have Dieulafoy's lesions that bleeds off and on OPERATION: .
[2017-07-12 20:05] LABS: HEMOGLOBIN 8.6 g/dL (13.5-17.0); HGB HCT DIFFERENCE 1.8; MEAN CORPUSCULAR HEMOGLOBIN 30.3 pg (27.0-33.4); MEAN CORPUSCULAR HGB CONC 35.6 g/dL (32.0-36.0); MEAN CORPUSCULAR VOLUME 85 fl (80-97); RED BLOOD COUNT 2.83 10^6/uL (4.35-5.55); RED CELL DISTRIBUTION WIDTH 17.4 % (11.5-14.0); WHITE BLOOD COUNT 5.7 10^3/uL (4.0-10.5)
[2017-07-12] MEDS: ATORVASTATIN CALCIUM 10 MG TABLET PO SCH (21:25)
[2017-07-12 21:32] LABS: HEMATOCRIT 23.6 % (37.9-51.0); HEMOGLOBIN 8.2 g/dL (13.5-17.0); MEAN CORPUSCULAR HEMOGLOBIN 29.7 pg (27.0-33.4); MEAN CORPUSCULAR HGB CONC 34.8 g/dL (32.0-36.0); MEAN CORPUSCULAR VOLUME 85 fl (80-97); RED BLOOD COUNT 2.77 10^6/uL (4.35-5.55); RED CELL DISTRIBUTION WIDTH 17.1 % (11.5-14.0); WHITE BLOOD COUNT 5.5 10^3/uL (4.0-10.5)
[2017-07-13 03:48] LABS: HEMATOCRIT 25.1 % (37.9-51.0); HGB HCT DIFFERENCE 1.9; MEAN CORPUSCULAR HEMOGLOBIN 30.7 pg (27.0-33.4); MEAN CORPUSCULAR HGB CONC 35.9 g/dL (32.0-36.0); MEAN CORPUSCULAR VOLUME 86 fl (80-97); RED BLOOD COUNT 2.93 10^6/uL (4.35-5.55); RED CELL DISTRIBUTION WIDTH 16.8 % (11.5-14.0); WHITE BLOOD COUNT 5.8 10^3/uL (4.0-10.5)
[2017-07-13] MEDS: CLONIDINE HCL 0.2 MG TABLET PO SCH ×3 (05:07→21:25)
[2017-07-13] MEDS ORDERED: POTASSIUM CHLORIDE 10 MEQ TABLET.SA PO ONE (08:30)
[2017-07-13] MEDS: CHOLECALCIFEROL (D3) 1,000 UNIT TABLET PO SCH (09:04)
[2017-07-13] MEDS: CARVEDILOL 12.5 MG TABLET PO SCH ×2 (09:05→21:24)
[2017-07-13] MEDS: ISOSORBIDE MONONITRATE 60 MG TAB.ER.24H PO SCH (09:05)
[2017-07-13] MEDS: AMLODIPINE BESYLATE 5 MG TABLET PO SCH (09:06)
[2017-07-13] MEDS: POTASSIUM CHLORIDE 10 MEQ TABLET.SA PO SCH (09:06)
[2017-07-13] MEDS: FUROSEMIDE 40 MG TABLET PO SCH (09:06)
[2017-07-13] MEDS: IRON POLYSACCHARIDES COMPLEX 150 MG CAPSULE PO SCH ×2 (09:06→21:24)
[2017-07-13] MEDS: LOSARTAN POTASSIUM 50 MG TABLET PO SCH (10:21)
--- NOTE | 2017-07-13 11:11 | PDOC PROGRESS REPORT ---
Subjective Progress Note for:: 07/13/17 Subjective:: Patient is currently doing well. Patient's denied any abdominal pain no nausea no vomiting. Patient underwent for the endoscopy and colonoscopy found some blood in the colon area but nothing acute bleeding. Physical Exam Vital Signs: Temp Pulse Resp BP Pulse Ox 98.5 F 67 20 132/51 H 100 07/13/17 08:02 07/13/17 08:02 07/13/17 08:02 07/13/17 08:02 07/13/17 08:02 Intake & Output 07/12/17 07/13/17 07/14/17 06:59 06:59 06:59 Intake Total 1450 2141 Output Total 1425 250 Balance 25 1891 Weight 96.3 kg 97.5 kg General appearance: PRESENT: no acute distress, well-developed, well-nourished Head exam: PRESENT: atraumatic, normocephalic Eye exam: PRESENT: conjunctiva pink, EOMI, PERRLA. ABSENT: scleral icterus Ear exam: PRESENT: normal external ear exam Mouth exam: PRESENT: moist, tongue midline Neck exam: PRESENT: full ROM. ABSENT: carotid bruit, JVD, lymphadenopathy, thyromegaly Respiratory exam: PRESENT: clear to auscultation diony Cardiovascular exam: PRESENT: RRR. ABSENT: diastolic murmur, rubs, systolic murmur Pulses: PRESENT: normal dorsalis pedis pul, +2 pedal pulses bilateral Vascular exam: PRESENT: normal capillary refill GI/Abdominal exam: PRESENT: normal bowel sounds, soft. ABSENT: distended, guarding, mass, organolmegaly, rebound, tenderness Rectal exam: PRESENT: deferred Extremities exam: ABSENT: pedal edema Neurological exam: PRESENT: alert, awake, oriented to person, oriented to place , oriented to time, oriented to situation, CN II-XII grossly intact. ABSENT: motor sensory deficit Psychiatric exam: PRESENT: appropriate affect, normal mood. ABSENT: homicidal ideation, suicidal ideation Skin exam: PRESENT: dry, intact, warm. ABSENT: cyanosis, rash Results Laboratory Results: 07/13/17 03:06 07/12/17 09:48 07/12/17 07/12/17 07/12/17 11:45 19:45 21:17 WBC 7.0 5.7 5.5 RBC 3.15 L 2.83 L 2.77 L Hgb 9.1 L 8.6 L 8.2 L Hct 26.8 L 24.0 L 23.6 L MCV 85 85 85 MCH 28.9 30.3 29.7 MCHC 34.0 35.6 34.8 RDW 16.7 H 17.4 H 17.1 H Plt Count 45 L 45 L 48 L 07/13/17 03:06 WBC 5.8 RBC 2.93 L Hgb 9.0 L Hct 25.1 L MCV 86 MCH 30.7 MCHC 35.9 RDW 16.8 H Plt Count 42 L Assessment & Plan - Diagnosis (1) GI bleed Qualifiers: GI bleed type/associated pathology: unspecified gastrointestinal hemorrhage type Qualified Code(s): K92.2 - Gastrointestinal hemorrhage, unspecified Is this a current diagnosis for this admission?: Yes Plan: Currently stable status post endoscopy and colonoscopy no other acute bleeding found (2) Thrombocytopenia Is this a current diagnosis for this admission?: Yes Plan: From the MDS discussed with the Dr. Velazquez patient oncology and suggest the patient's no need for any further follow-up at this point in the hospital follow outpatient (3) Anemia Qualifiers: Anemia type: other cause Is this a current diagnosis for this admission?: Yes Plan: With ongoing problems patient have a myelodysplastic syndromes and thrombocytopenia we will transfuse the blood (4) CAD (coronary artery disease) Qualifiers: Coronary Disease-Associated Artery/Lesion type: unspecified vessel or lesion type Is this a current diagnosis for this admission?: Yes Plan: Currently stable (5) CHF (congestive heart failure) Qualifiers: Congestive heart failure type: unspecified congestive heart failure type Is this a current diagnosis for this admission?: Yes Plan: Continues to Lasix (6) HLD (hyperlipidemia) Qualifiers: Is this a current diagnosis for this admission?: Yes (7) HTN (hypertension) Qualifiers: Hypertension type: essential hypertension Is this a current diagnosis for this admission?: Yes Plan: Continues to current medications (8) Myelodysplastic syndrome Is this a current diagnosis for this admission?: Yes Plan: Patients follow oncology - Time Time Spent with patient: 15-24 minutes Medications reviewed and adjusted accordingly: Yes Anticipated discharge: Home Within: within 24 hours - Inpatient Certification Medical Necessity: Need Close Monitoring Due to Risk of Patient Decompensation Post Hospital Care: D/C [employer] Documentation - Plan Summary Plan Summary: Continues to current monitor the patient
[2017-07-13 20:39] LABS: HEMATOCRIT 28.4 % (37.9-51.0); HGB HCT DIFFERENCE 1.6; MEAN CORPUSCULAR HEMOGLOBIN 29.7 pg (27.0-33.4); MEAN CORPUSCULAR HGB CONC 35.2 g/dL (32.0-36.0); MEAN CORPUSCULAR VOLUME 84 fl (80-97); RED BLOOD COUNT 3.37 10^6/uL (4.35-5.55); RED CELL DISTRIBUTION WIDTH 17.8 % (11.5-14.0); WHITE BLOOD COUNT 5.2 10^3/uL (4.0-10.5)
[2017-07-13] MEDS: ATORVASTATIN CALCIUM 10 MG TABLET PO SCH (21:24)
[2017-07-13 21:29] LABS: BASOPHILS % (MANUAL) 1 % (0-2); EOSINOPHILS % (MANUAL) 2 % (0-6); LYMPHOCYTES % (MANUAL) 12 % (13-45); NUCLEATED RED BLOOD CELLS 1 /100 WBC (0); TOTAL CELLS COUNTED 100
[2017-07-13 21:34] LABS: ANISOCYTOSIS 1+; HYPOCHROMASIA SLIGHT; OVALOCYTES SLIGHT; POIKILOCYTOSIS SLIGHT; POLYCHROMASIA 1+
[2017-07-14] MEDS: CLONIDINE HCL 0.2 MG TABLET PO SCH (05:13)
[2017-07-14] MEDS: LOSARTAN POTASSIUM 50 MG TABLET PO SCH (09:40)
[2017-07-14] MEDS: IRON POLYSACCHARIDES COMPLEX 150 MG CAPSULE PO SCH (09:40)
[2017-07-14] MEDS: CARVEDILOL 12.5 MG TABLET PO SCH (09:40)
[2017-07-14] MEDS: AMLODIPINE BESYLATE 5 MG TABLET PO SCH (09:41)
[2017-07-14] MEDS: CHOLECALCIFEROL (D3) 1,000 UNIT TABLET PO SCH (09:41)
[2017-07-14] MEDS: FUROSEMIDE 40 MG TABLET PO SCH (09:41)
[2017-07-14] MEDS: ISOSORBIDE MONONITRATE 60 MG TAB.ER.24H PO SCH (09:41)
[2017-07-14] MEDS: POTASSIUM CHLORIDE 10 MEQ TABLET.SA PO SCH (09:41)
--- NOTE | 2017-07-14 09:46 | PDOC DISCHARGE SUMMARY ---
General - Admit/Disc Date/PCP Admission Date/Primary Care Provider: 07/11/17 14:32 ELIZA GRANADOS MD Discharge Date: 07/14/17 - Discharge Diagnosis (1) GI bleed Is this a current diagnosis for this admission?: Yes Summary: Currently all resolvedStatus post endoscopy and colonoscopy and no clear etiology (2) Thrombocytopenia Is this a current diagnosis for this admission?: Yes Summary: Due to the most likely MDS patients currently follow with the Dr. Velazquez as outpatientAs per discussed with the Dr. Velazquez she will repeat the blood work and to stay in the office (3) Anemia Is this a current diagnosis for this admission?: Yes Summary: Current hemoglobin is 10 on discharge (4) CAD (coronary artery disease) Is this a current diagnosis for this admission?: Yes Summary: Currently all stable (5) CHF (congestive heart failure) Is this a current diagnosis for this admission?: Yes Summary: Continues to Lasix (6) HLD (hyperlipidemia) Is this a current diagnosis for this admission?: Yes (7) HTN (hypertension) Is this a current diagnosis for this admission?: Yes Summary: Continues current medications (8) Myelodysplastic syndrome Is this a current diagnosis for this admission?: Yes Summary: Follow with oncology - Additional Information Resuscitation Status: Full Code Discharge Diet: Cardiac Discharge Activity: Activity As Tolerated Home Medications: Amlodipine Besylate [Norvasc 5 mg Tablet] 5 mg PO DAILY 07/11/17 Carvedilol [Coreg 25 mg Tablet] 25 mg PO Q12 07/11/17 Cholecalciferol (Vitamin D3) [Vitamin D3] 1,000 unit PO DAILY 07/11/17 Clonidine HCl [Catapres 0.2 mg Tablet] 0.2 mg PO Q8 07/11/17 Furosemide [Lasix] 40 mg PO DAILY 07/11/17 Gabapentin [Neurontin 100 mg Capsule] 100 mg PO BIDP PRN 07/11/17 Iron Polysaccharide Complex [Ferrex 150] 150 mg PO Q12 07/11/17 Isosorbide Mononitrate [Imdur 60 mg Tablet.er] 60 mg PO DAILY 07/11/17 Losartan Potassium [Cozaar 100 mg Tablet] 100 mg PO DAILY 07/11/17 Omeprazole 40 mg PO DAILY 07/11/17 Potassium Chloride [Klor-Con 10 Meq Tablet.sa] 20 meq PO DAILY 07/11/17 Pravastatin Sodium [Pravachol] 40 mg PO DAILY 07/11/17 Ramipril [Altace] 20 mg PO Q12 07/11/17 History of Present Illness History of Present Illness: BOOM POWERS is a 61 year old male This 61-year-old male with a significant history of the thrombocytopenia with a history of the myelodysplastic syndromes and currently see a Dr. Velazquez and also see a Fidencio and a history of the AVM with the GI bleed in the past and currently seeing Dr. Fajardo last Tuesday with some blood in the stools and then after patient's noticed some black tarry stools and the patient was feeling very weak and feeling tired and fatigued and patients went to see Dr. Velazquez's office this morning and patient was sent to the emergency department with hemoglobin was 6.2 Patient is not complaining any chest pain no shortness of the breath Patient also see a cardiology Dr. OdellFor congestive heart failure Patient's otherwise platelet count is 52 and patients decided ongoing problems and a several times and received a platelet transfusion in the blood Patient also see her Fidencio GI and all workup is done in the past nothing acute finding except the AVM She is not currently actively bleeding and denied any abdominal pain no nausea no vomiting Discussed with the Dr. Marina by ER physician agreed to see in the hospital for further evaluations consult the oncology for further evaluations Hospital Course Hospital Course: This 61-year-old male's with the multiple medical problem as above came because of the feeling weak and patient see a blood in the black stools and patient's hemoglobin was 6.2Patient's admitting in the IMCU received 3 units of the bloods and underwent for the endoscopy and colonoscopy by Dr. Marina Patients could not find much etiology except some possible AVM Patient at this point to remain stable no more bleeding Discussed with the Dr. Velazquez the patient oncology and suggested continues to current medications and see me follow outpatient Patient's other medical problem is all stable Patient's denied any dizziness denied any chest pain no short of breath patients walk in the hallway without any problem Discussed with the patient and the present in the patient's current condition and all follow-up Physical Exam Vital Signs: Temp Pulse Resp BP Pulse Ox 98.4 F 66 19 143/52 H 100 07/14/17 08:04 07/14/17 08:04 07/14/17 08:04 07/14/17 08:04 07/14/17 08:04 Intake & Output 07/13/17 07/14/17 07/15/17 06:59 06:59 06:59 Intake Total 2141 3365 Output Total 250 850 Balance 1891 2515 Weight 97.5 kg 96.6 kg General appearance: PRESENT: no acute distress, well-developed, well-nourished Head exam: PRESENT: atraumatic, normocephalic Eye exam: PRESENT: conjunctiva pink, EOMI, PERRLA. ABSENT: scleral icterus Ear exam: PRESENT: normal external ear exam Mouth exam: PRESENT: moist, tongue midline Neck exam: PRESENT: full ROM. ABSENT: carotid bruit, JVD, lymphadenopathy, thyromegaly Respiratory exam: PRESENT: clear to auscultation diony Cardiovascular exam: PRESENT: RRR. ABSENT: diastolic murmur, rubs, systolic murmur Pulses: PRESENT: normal dorsalis pedis pul, +2 pedal pulses bilateral Vascular exam: PRESENT: normal capillary refill GI/Abdominal exam: PRESENT: normal bowel sounds, soft. ABSENT: distended, guarding, mass, organolmegaly, rebound, tenderness Rectal exam: PRESENT: deferred Extremities exam: ABSENT: pedal edema Musculoskeletal exam: PRESENT: ambulatory Neurological exam: PRESENT: alert, awake, oriented to person, oriented to place , oriented to time, oriented to situation, CN II-XII grossly intact. ABSENT: motor sensory deficit Psychiatric exam: PRESENT: appropriate affect, normal mood. ABSENT: homicidal ideation, suicidal ideation Skin exam: PRESENT: dry, intact, warm. ABSENT: cyanosis, rash Results Laboratory Results: 07/13/17 19:05 07/12/17 09:48 07/13/17 19:05 WBC 5.2 RBC 3.37 L Hgb 10.0 L Hct 28.4 L MCV 84 MCH 29.7 MCHC 35.2 RDW 17.8 H Plt Count 51 L Seg Neutrophils % Not Reportable Lymphocytes % Not Reportable Monocytes % Not Reportable Eosinophils % Not Reportable Basophils % Not Reportable Absolute Neutrophils Not Reportable Absolute Lymphocytes Not Reportable Absolute Monocytes Not Reportable Absolute Eosinophils Not Reportable Absolute Basophils Not Reportable Plan Time Spent: Greater than 30 Minutes - Discharge home with the stable conditions follow outpatient Dr. Velazquez next week for repeat the blood work
[2017-07-14 10:16] VITALS: BP 141/50
== END 2017-07-14 10:40 | disposition home or self-care (01) | DRG 379 ==
LOC: ER 11:14 → EH 14:02 → UNDOADMIN 14:02 → EH 14:32 → 3S 20:57
PROVIDERS: ADMIT Family Medicine; ATTEND Family Medicine
PROC: 30233N1 Transfusion of Nonautologous Red Blood Cells into Peripheral Vein, Percutaneous Approach (ICD-10-PCS; 2017-07-12)
PROC: 0DJ08ZZ Inspection of Upper Intestinal Tract, Via Natural or Artificial Opening Endoscopic (ICD-10-PCS; principal; 2017-07-12 16:45)
PROC: 0DJD8ZZ Inspection of Lower Intestinal Tract, Via Natural or Artificial Opening Endoscopic (ICD-10-PCS; 2017-07-12 16:45)
DX: K92.2 Gastrointestinal hemorrhage, unspecified (principal); D46.9 Myelodysplastic syndrome, unspecified; I25.10 Atherosclerotic heart disease of native coronary artery without angina pectoris; D69.59 Other secondary thrombocytopenia; K55.20 Angiodysplasia of colon without hemorrhage; I11.0 Hypertensive heart disease with heart failure; I50.9 Heart failure, unspecified; E78.5 Hyperlipidemia, unspecified; E11.9 Type 2 diabetes mellitus without complications; K64.8 Other hemorrhoids; Z79.899 Other long term (current) drug therapy
CPT/HCPCS: 36415; 36430; 43235; 45378; 80048; 80053; 82272; 85025; 85027; 85610; 85730; 86850; 86900; 86901; 86902; 86920; 86922; 96360; 99284; J0171; J1610; J1940; J2250; J2310; J3010; J3490; J7030; P9016; S0164

== ENCOUNTER → 2017-08-30 | Outpatient (CLI) | payer MEDICARE, OTHER ==
[2017-08-30 12:04] LABS: ANION GAP 12 (5-19); BLOOD UREA NITROGEN 17 mg/dL (7-20); CARBON DIOXIDE 25 mmol/L (22-30); CHLORIDE 109 mmol/L (98-107); CREATININE RESULT 1.34 mg/dL (0.52-1.25); GLUCOSE 97 mg/dL (75-110); POTASSIUM 3.7 mmol/L (3.6-5.0); SODIUM 145.7 mmol/L (137-145)
== END ==
LOC: LAB 11:23
PROVIDERS: ATTEND Family Medicine
DX: E87.6 Hypokalemia (principal)
CPT/HCPCS: 36415; 80048

== ENCOUNTER 2017-09-19 12:26 | Inpatient (IN) | payer MEDICARE, OTHER ==
--- NOTE | 2017-09-19 12:38 | ER Document Report ---
ED Medical Screen (RME) - General Chief Complaint: Weakness Stated Complaint: WEAKNESS Time Seen by Provider: 09/19/17 12:34 Notes: 62-year-old male with past history of myelodysplasia and GI blood loss. Last transfused on 07/11/2017. He has had several days of weakness and shortness of breath. Brief exam shows pale nailbeds and pale conjunctiva. I have greeted and performed a rapid initial assessment of this patient. A comprehensive ED assessment and evaluation of the patient, analysis of test results and completion of the medical decision making process will be conducted by additional ED providers. TRAVEL OUTSIDE OF THE [place] IN LAST 30 DAYS: No - Related Data Allergies/Adverse Reactions: No Known Allergies Allergy (Verified 09/19/17 12:27) Past Medical History - Past Medical History Cardiac Medical History: Reports: Hx Congestive Heart Failure, Hx Coronary Artery Disease, Hx Hypercholesterolemia, Hx Hypertension Denies: Hx Atrial Fibrillation, Hx Heart Attack, Hx Peripheral Vascular Disease, Hx Heart Murmur Pulmonary Medical History: Denies: Hx Asthma, Hx Bronchitis, Hx COPD, Hx Pneumonia, Hx Tuberculosis Neurological Medical History: Denies: Hx Cerebrovascular Accident, Hx Seizures Endocrine Medical History: Reports: Hx Diabetes Mellitus Type 2. Denies: Hx Diabetes Mellitus Type 1 Renal/ Medical History: Denies: Hx Benign Prostatic Hyperplasia, Hx End Stage Renal Disease, Hx Kidney Stones, Hx Peritoneal Dialysis Malignancy Medical History: Denies Hx Leukemia GI Medical History: Denies: Hx Crohn's Disease, Hx Gastroesophageal Reflux Disease, Hx Hiatal Hernia, Hx Irritable Bowel, Hx Liver Failure, Hx Pancreatitis , Hx Ulcer Musculoskeltal Medical History: Reports Hx Arthritis Psychiatric Medical History: Denies: Hx Depression Infectious Medical History: Denies: Hx HIV Past Surgical History: Reports: Hx Bowel Surgery. Denies: Hx Appendectomy, Hx Cholecystectomy, Hx Colostomy, Hx Coronary Artery Bypass Graft, Hx Gastric Bypass Surgery, Hx Herniorrhaphy, Hx Pacemaker, Hx Tonsillectomy - Immunizations Hx Diphtheria, Pertussis, Tetanus Vaccination: Yes History of Influenza Vaccine for 06/2017 - 11/2017 Season: Yes Influenza Administration Date for 06/2017 - 11/2017 Season: 06/19/17 Physical Exam - Vital signs Vitals: Temp Pulse Resp BP Pulse Ox 98.3 F 74 16 134/43 H 100 09/19/17 12:31 09/19/17 12:31 09/19/17 12:31 09/19/17 12:31 09/19/17 12:31 Course - Vital Signs Vital signs: Temp Pulse Resp BP Pulse Ox 98.3 F 74 16 134/43 H 100 09/19/17 12:31 09/19/17 12:31 09/19/17 12:31 09/19/17 12:31 09/19/17 12:31
[2017-09-19 13:40] LABS: INTERNATIONAL RATION (INR) 1.16; PROTHROMBIN TIME 15.6 SEC (11.4-15.4)
[2017-09-19 13:46] LABS: HEMATOCRIT 15.4 % (37.9-51.0); MEAN CORPUSCULAR HEMOGLOBIN 29.5 pg (27.0-33.4); MEAN CORPUSCULAR HGB CONC 33.6 g/dL (32.0-36.0); MEAN CORPUSCULAR VOLUME 88 fl (80-97); RED BLOOD COUNT 1.75 10^6/uL (4.35-5.55); RED CELL DISTRIBUTION WIDTH 18.6 % (11.5-14.0); WHITE BLOOD COUNT 5.6 10^3/uL (4.0-10.5)
[2017-09-19 13:57] LABS: ALANINE AMINOTRANSFERASE 26 U/L (21-72); ALBUMIN 3.2 g/dL (3.5-5.0); ALKALINE PHOSPHATASE 50 U/L (38-126); ANION GAP 8 (5-19); ASPARTATE AMINO TRANSFERASE 16 U/L (17-59); BILIRUBIN,DIRECT 0.2 mg/dL (0.0-0.4); BILIRUBIN,TOTAL 0.3 mg/dL (0.2-1.3); BLOOD UREA NITROGEN 29 mg/dL (7-20); CALCIUM 9.1 mg/dL (8.4-10.2); CARBON DIOXIDE 22 mmol/L (22-30); CHLORIDE 110 mmol/L (98-107); GLUCOSE 109 mg/dL (75-110); POTASSIUM 3.8 mmol/L (3.6-5.0); SODIUM 140.2 mmol/L (137-145); TOTAL PROTEIN 5.7 g/dL (6.3-8.2)
--- NOTE | 2017-09-19 13:59 | ER Document Report ---
ED General - General Chief Complaint: Weakness Stated Complaint: WEAKNESS Time Seen by Provider: 09/19/17 12:34 Mode of Arrival: Wheelchair Information source: Patient, Relative TRAVEL OUTSIDE OF THE [place] IN LAST 30 DAYS: No - HPI Onset: Other - 1 WEEK OR MORE Onset/Duration: Gradual Quality of pain: No pain Severity: Moderate Associated symptoms: Shortness of breath - W/ EXERTION, Weakness Exacerbated by: Walking Relieved by: Other - REST Similar symptoms previously: Yes - W/ LOW H&H Recently seen / treated by doctor: No - Related Data Allergies/Adverse Reactions: No Known Allergies Allergy (Verified 09/19/17 12:27) Past Medical History - General Information source: Patient, Relative - Social History Smoking Status: Never Smoker Chew tobacco use (# tins/day): No Frequency of alcohol use: None Drug Abuse: None Lives with: Family Family History: Reviewed & Not Pertinent Patient has suicidal ideation: No Patient has homicidal ideation: No - Past Medical History Cardiac Medical History: Reports: Hx Congestive Heart Failure, Hx Coronary Artery Disease, Hx Hypercholesterolemia, Hx Hypertension Denies: Hx Atrial Fibrillation, Hx Heart Attack, Hx Peripheral Vascular Disease, Hx Heart Murmur Pulmonary Medical History: Denies: Hx Asthma, Hx Bronchitis, Hx COPD, Hx Pneumonia, Hx Tuberculosis Neurological Medical History: Denies: Hx Cerebrovascular Accident, Hx Seizures Endocrine Medical History: Reports: Hx Diabetes Mellitus Type 2. Denies: Hx Diabetes Mellitus Type 1 Renal/ Medical History: Denies: Hx Benign Prostatic Hyperplasia, Hx End Stage Renal Disease, Hx Kidney Stones, Hx Peritoneal Dialysis Malignancy Medical History: Denies Hx Leukemia, Reports Other - MYELODYSPLASTIC SYNDROME GI Medical History: Denies: Hx Crohn's Disease, Hx Gastroesophageal Reflux Disease, Hx Hiatal Hernia, Hx Irritable Bowel, Hx Liver Failure, Hx Pancreatitis , Hx Ulcer Musculoskeltal Medical History: Reports Hx Arthritis Psychiatric Medical History: Denies: Hx Depression Infectious Medical History: Denies: Hx HIV Past Surgical History: Reports: Hx Bowel Surgery. Denies: Hx Appendectomy, Hx Cholecystectomy, Hx Colostomy, Hx Coronary Artery Bypass Graft, Hx Gastric Bypass Surgery, Hx Herniorrhaphy, Hx Pacemaker, Hx Tonsillectomy - Immunizations Hx Diphtheria, Pertussis, Tetanus Vaccination: Yes Hx Pneumococcal Vaccination: 06/19/11 Review of Systems - Review of Systems Constitutional: See HPI EENT: No symptoms reported Cardiovascular: Dyspnea, Lightheaded Respiratory: Short of breath Gastrointestinal: No symptoms reported Genitourinary: No symptoms reported Musculoskeletal: No symptoms reported Skin: No symptoms reported Neurological/Psychological: No symptoms reported Physical Exam - Vital signs Vitals: Temp Pulse Resp BP Pulse Ox 98.3 F 74 16 134/43 H 100 09/19/17 12:31 09/19/17 12:31 09/19/17 12:31 09/19/17 12:31 09/19/17 12:31 Interpretation: No: Hypotensive, Tachycardic, Tachypneic, Febrile - General General appearance: Appears well, Alert In distress: None - HEENT Head: Normocephalic Eyes: Pale conjunctiva Ears: Normal Nasal: Normal Mouth/Lips: Other - POOR DENTITION Mucous membranes: Normal Pharynx: Normal Neck: Normal - Respiratory Respiratory status: No respiratory distress - Cardiovascular Rhythm: Regular - Abdominal Inspection: Normal Distension: No distension - Extremities General upper extremity: Normal inspection General lower extremity: Normal inspection. No: Edema - Neurological Neuro grossly intact: Yes Cognition: Normal Orientation: AAOx4 - Psychological Associated symptoms: Normal affect, Normal mood - Skin Skin Temperature: Warm Skin Moisture: Dry Skin Color: Normal Skin Turgor: Elastic Course - Vital Signs Vital signs: Temp Pulse Resp BP Pulse Ox 98.3 F 74 16 134/43 H 100 09/19/17 12:31 09/19/17 12:31 09/19/17 12:31 09/19/17 12:31 09/19/17 12:31 - Laboratory Result Diagrams: 09/19/17 13:20 09/19/17 13:20 Laboratory results interpreted by me: 09/19/17 09/19/17 09/19/17 13:20 13:20 13:20 RBC 1.75 L Hgb 5.2 L Hct 15.4 L RDW 18.6 H Plt Count 66 L PT 15.6 H Chloride 110 H BUN 29 H Creatinine 1.36 H Est GFR (Non-Af Amer) 53 L AST 16 L Total Protein 5.7 L Albumin 3.2 L - Consults DR. HANKINS Consulted provider: will see as inpatient Discharge - Discharge Clinical Impression: Symptomatic anemia, Myelodysplastic syndrome, Thrombocytopenia Condition: Good Disposition: ADMITTED OBSERVATION Admitting Provider: [facility] Unit Admitted: Telemetry
[2017-09-19 14:25] LABS: PLATELET COUNT 66 10^3/uL (150-450)
[2017-09-19 14:29] LABS: ABSOLUTE LYMPHOCYTES# (MANUAL) 0.7 10^3/uL (0.5-4.7); ABSOLUTE MONOCYTES # (MANUAL) 2.5 10^3/uL (0.1-1.4); ABSOLUTE NEUTROPHILS# (MANUAL) 2.4 10^3/uL (1.7-8.2); BAND NEUTROPHILS % (MANUAL) 1 % (3-5); BASOPHILS % (MANUAL) 0 % (0-2); EOSINOPHILS % (MANUAL) 0 % (0-6); LYMPHOCYTES % (MANUAL) 11 % (13-45); MONOCYTES % (MANUAL) 45 % (3-13); NUCLEATED RED BLOOD CELLS 3 /100 WBC (0); SEGMENTED NEUTROPHILS % (MAN) 42 % (42-78); TOTAL CELLS COUNTED 100
[2017-09-19] MEDS ORDERED: NORMAL SALINE 250 ML IV PRN (14:32)
[2017-09-19 14:33] LABS: ANISOCYTOSIS 2+; HYPOCHROMASIA 1+; OVALOCYTES 1+; POIKILOCYTOSIS 1+; POLYCHROMASIA 2+; ROULEAUX 1+; SCHISTOCYTES SLIGHT
[2017-09-19 14:34] LABS: PLATELET COMMENT DECREASED
[2017-09-19] MEDS ORDERED: GABAPENTIN 100 MG CAPSULE PO PRN (15:54)
[2017-09-19] MEDS ORDERED: NORMAL SALINE 1000 ML 1,000 ML IV PRN (15:57)
[2017-09-19] MEDS ORDERED: DEXTROSE 40% GEL 15 GM TUBE PO PRN ×2 (17:30)
[2017-09-19] MEDS ORDERED: INSULIN LISPRO 100 UNIT/ML 3 ML VIAL SUBCUT PRN (17:30)
[2017-09-19] MEDS ORDERED: DEXTROSE 50%-WATER 25 GM/50 ML DISP.SYRIN IV PRN ×2 (17:30)
[2017-09-19] MEDS ORDERED: GLUCAGON,HUMAN RECOMB 1 MG INJ IM PRN (17:30)
--- NOTE | 2017-09-19 19:25 | PDOC H&P ---
History of Present Illness Admission Date/PCP: 09/19/17 15:06 ELIZA GRNAADOS MD Patient complains of: Weakness, Shortness of breath History of Present Illness: BOOM POWERS is a 62 year old male patient of Dr Granados who presented to the ED with above listed cc. Patient has history of myelodysplastic syndrome and frequent blood transfusion. He reported worsening weakness and shortness of breath over last 1 week prior to his presentation. He claimed associated episodes of chest pain. He denied fluttering of his heart. No abdominal pain, nausea or vomiting. He denied any diarrhea, tarry or melanotic stool. He denied any fever or chills. His initial evaluation in the Ed was remarkable for significant anemia with hemoglobin of 5.2g/dl. He was subsequently advised admission for further evaluation and management as well as blood transfusion. His morbidities include Myelodysplastic syndrome with pancytopenia and need for frequent blood transfusion, Congestive Heart Failure, Coronary Artery Disease, Hypertension, Hyperlipidemia, and Diabetes Mellitus Type 2. Past Medical History Cardiac Medical History: Reports: Congestive Heart Failure, Coronary Artery Disease, Hyperlipidema, Hypertension Denies: Atrial Fibrillation, Myocardial Infarction, Peripheral Vascular Disease, Heart Murmur Pulmonary Medical History: Denies: Asthma, Bronchitis, Chronic Obstructive Pulmonary Disease (COPD), Pneumonia, Tuberculosis Neurological Medical History: Denies: Seizures Endocrine Medical History: Reports: Diabetes Mellitus Type 2 Denies: Diabetes Mellitus Type 1 Renal/ Medical History: Denies: End Stage Renal Disease Malignancy Medical History: Reports: Other - MYELODYSPLASTIC SYNDROME Denies: Leukemia GI Medical History: Denies: Crohn's Disease, Gastroesophageal Reflux Disease, Hiatal Hernia Musculoskeltal Medical History: Reports: Arthritis Psychiatric Medical History: Denies: Depression Hematology: Reports: Anemia Denies: Hemophilia, Sickle Cell Disease Infectious Medical History: Denies: HIV Past Surgical History Past Surgical History: Denies: Appendectomy, Cholecystectomy, Colostomy, Coronary Artery Bypass Graft, Gastric Bypass Surgery, Herniorrhaphy, Pacemaker, Tonsillectomy Social History Lives with: Family Smoking Status: Never Smoker Frequency of Alcohol Use: None Hx Recreational Drug Use: No Drugs: None Hx Prescription Drug Abuse: No - Advance Directive Resuscitation Status: Full Code Family History Family History: Reviewed & Not Pertinent Parental Family History Reviewed: Yes Children Family History Reviewed: Yes Sibling(s) Family History Reviewed.: Yes Medication/Allergy Home Medications: Amlodipine Besylate [Norvasc 5 mg Tablet] 5 mg PO DAILY 07/11/17 Carvedilol [Coreg 25 mg Tablet] 25 mg PO Q12 07/11/17 Cholecalciferol (Vitamin D3) [Vitamin D3] 1,000 unit PO DAILY 07/11/17 Clonidine HCl [Catapres 0.2 mg Tablet] 0.2 mg PO Q8 07/11/17 Furosemide [Lasix] 40 mg PO DAILY 07/11/17 Gabapentin [Neurontin 100 mg Capsule] 100 mg PO BIDP PRN 07/11/17 Iron Polysaccharide Complex [Ferrex 150] 150 mg PO Q12 07/11/17 Isosorbide Mononitrate [Imdur 60 mg Tablet.er] 60 mg PO DAILY 07/11/17 Losartan Potassium [Cozaar 100 mg Tablet] 100 mg PO DAILY 07/11/17 Omeprazole 40 mg PO DAILY 07/11/17 Potassium Chloride [Klor-Con 10 Meq Tablet.sa] 20 meq PO DAILY 07/11/17 Pravastatin Sodium [Pravachol] 40 mg PO DAILY 07/11/17 Ramipril [Altace] 20 mg PO Q12 07/11/17 Allergies/Adverse Reactions: No Known Allergies Allergy (Verified 09/19/17 12:27) Review of Systems All systems: reviewed and no additional remarkable complaints except as stated Physical Exam Vital Signs: Temp Pulse Resp BP Pulse Ox 98.7 F 73 22 H 124/46 L 97 09/19/17 18:50 09/19/17 18:50 09/19/17 18:50 09/19/17 18:50 09/19/17 18:50 Intake & Output 09/18/17 09/19/17 09/20/17 06:59 06:59 06:59 Intake Total 350 Balance 350 General appearance: PRESENT: no acute distress, obese Head exam: PRESENT: atraumatic, normocephalic Eye exam: PRESENT: conjunctiva pale Mouth exam: PRESENT: moist Neck exam: PRESENT: full ROM. ABSENT: carotid bruit, JVD, lymphadenopathy, thyromegaly Respiratory exam: PRESENT: clear to auscultation diony Cardiovascular exam: PRESENT: RRR. ABSENT: diastolic murmur, rubs, systolic murmur Vascular exam: PRESENT: normal capillary refill, pallor GI/Abdominal exam: PRESENT: normal bowel sounds, soft. ABSENT: distended, guarding, mass, organolmegaly, rebound, tenderness Rectal exam: PRESENT: deferred Musculoskeletal exam: PRESENT: normal inspection Neurological exam: PRESENT: alert, awake, oriented to person, oriented to place , oriented to time, oriented to situation, CN II-XII grossly intact. ABSENT: motor sensory deficit Psychiatric exam: PRESENT: appropriate affect, normal mood. ABSENT: homicidal ideation, suicidal ideation Skin exam: PRESENT: dry, intact, warm. ABSENT: cyanosis, rash Results Laboratory Results: I reviewed his lab results on [employer] and form significant part of my medical decision making. Assessment & Plan - Diagnosis (1) Symptomatic anemia Plan: See covering admitting physician orders. (2) Anemia requiring transfusions Is this a current diagnosis for this admission?: Yes Plan: See covering admitting physician orders. (3) Thrombocytopenia Is this a current diagnosis for this admission?: Yes Plan: See covering admitting physician orders. (4) Myelodysplastic syndrome Is this a current diagnosis for this admission?: Yes Plan: See covering admitting physician orders. (5) CAD (coronary artery disease) Qualifiers: Coronary Disease-Associated Artery/Lesion type: unspecified vessel or lesion type Associated angina: without angina Is this a current diagnosis for this admission?: Yes Plan: See covering admitting physician orders. (6) CHF (congestive heart failure) Qualifiers: Congestive heart failure type: unspecified congestive heart failure type Congestive heart failure chronicity: chronic Qualified Code(s): I50.9 - Heart failure, unspecified Is this a current diagnosis for this admission?: Yes Plan: See covering admitting physician orders. (7) HTN (hypertension) Qualifiers: Hypertension type: essential hypertension Is this a current diagnosis for this admission?: Yes Plan: See covering admitting physician orders. (8) HLD (hyperlipidemia) Qualifiers: Hyperlipidemia type: pure hypercholesterolemia Qualified Code(s): E78.00 - Pure hypercholesterolemia, unspecified; E78.0 - Pure hypercholesterolemia Is this a current diagnosis for this admission?: Yes Plan: See covering admitting physician orders. - Time Time Spent: 50 to 70 Minutes Medications reviewed and adjusted accordingly: Yes Anticipated discharge: Home Within: Other - Plan Summary Plan Summary: See covering admitting physician orders.
[2017-09-19] MEDS: CLONIDINE HCL 0.2 MG TABLET PO SCH (21:20)
[2017-09-19] MEDS: ATORVASTATIN CALCIUM 10 MG TABLET PO SCH (21:21)
[2017-09-19] MEDS: CARVEDILOL 12.5 MG TABLET PO SCH (21:21)
[2017-09-19] MEDS: IRON POLYSACCHARIDES COMPLEX 150 MG CAPSULE PO SCH (21:21)
[2017-09-19] MEDS ORDERED: IRON POLYSACCHARIDES COMPLEX 150 MG CAPSULE PO SCH (22:00)
[2017-09-19 23:55] LABS: HEMATOCRIT 17.4 % (37.9-51.0); MEAN CORPUSCULAR HEMOGLOBIN 29.4 pg (27.0-33.4); MEAN CORPUSCULAR HGB CONC 33.9 g/dL (32.0-36.0); MEAN CORPUSCULAR VOLUME 87 fl (80-97); RED BLOOD COUNT 2.01 10^6/uL (4.35-5.55); RED CELL DISTRIBUTION WIDTH 17.2 % (11.5-14.0); WHITE BLOOD COUNT 7.1 10^3/uL (4.0-10.5)
[2017-09-20 00:14] LABS: ABSOLUTE LYMPHOCYTES# (MANUAL) 1.6 10^3/uL (0.5-4.7); ABSOLUTE MONOCYTES # (MANUAL) 1.6 10^3/uL (0.1-1.4); ABSOLUTE NEUTROPHILS# (MANUAL) 3.8 10^3/uL (1.7-8.2); BAND NEUTROPHILS % (MANUAL) 1 % (3-5); BASOPHILS % (MANUAL) 0 % (0-2); EOSINOPHILS % (MANUAL) 0 % (0-6); LYMPHOCYTES % (MANUAL) 23 % (13-45); MONOCYTES % (MANUAL) 23 % (3-13); NUCLEATED RED BLOOD CELLS 4 /100 WBC (0); SEGMENTED NEUTROPHILS % (MAN) 53 % (42-78); TOTAL CELLS COUNTED 100
[2017-09-20 00:25] LABS: ACANTHOCYTES SLIGHT; ANISOCYTOSIS 1+; OVALOCYTES SLIGHT; PLATELET COMMENT DECREASED; PLATELET LARGE PRESENT; POIKILOCYTOSIS SLIGHT; POLYCHROMASIA 1+
[2017-09-20 00:28] LABS: HEMOGLOBIN 5.9 g/dL (13.5-17.0); PLATELET COUNT 61 10^3/uL (150-450)
[2017-09-20] MEDS: LANSOPRAZOLE 30 MG TAB.RAP.DR PO SCH (05:05)
[2017-09-20] MEDS: CLONIDINE HCL 0.2 MG TABLET PO SCH ×3 (05:05→21:47)
--- NOTE | 2017-09-20 09:20 | Physician Advisory Note ---
Physician Advisor ProgressNote .: Pursuant to the plan for [facility], I have reviewed the medical record for this patient. Physician Advisor Statement: Please consider documenting, if possible: 1. Type of chronic CHF: systolic? diastolic? systolic on diastolic? Rt heart failure? Status: appropriately Obs. If cannot be safely d/c'd before [place] 09/20/17, please document clearly any clinical reason(s). Thanks! CK
[2017-09-20] MEDS: IRON POLYSACCHARIDES COMPLEX 150 MG CAPSULE PO SCH ×2 (09:23→21:47)
[2017-09-20] MEDS: CHOLECALCIFEROL (D3) 1,000 UNIT TABLET PO SCH (09:23)
[2017-09-20] MEDS: FUROSEMIDE 40 MG TABLET PO SCH (09:23)
[2017-09-20] MEDS: LOSARTAN POTASSIUM 50 MG TABLET PO SCH (09:24)
[2017-09-20] MEDS: ISOSORBIDE MONONITRATE 60 MG TAB.ER.24H PO SCH (09:24)
[2017-09-20] MEDS: AMLODIPINE BESYLATE 5 MG TABLET PO SCH (09:24)
[2017-09-20] MEDS: CARVEDILOL 12.5 MG TABLET PO SCH ×2 (09:25→21:47)
[2017-09-20] MEDS: POTASSIUM CHLORIDE 10 MEQ TABLET.SA PO SCH (09:25)
[2017-09-20] MEDS ORDERED: (PENDING PHARMACY ID) (Cholecalciferol (Vitamin D3) [Vitamin D3] 1,000 UNIT) PO SCH (10:00)
[2017-09-20] MEDS ORDERED: (PENDING PHARMACY ID) (Pravastatin Sodium [Pravachol] 40 MG) PO SCH (10:00)
[2017-09-20 10:19] LABS: PATH REVIEW PATHOLOGIST REVIEWED
[2017-09-20 10:32] LABS: HEMOGLOBIN 5.2 g/dL (13.5-17.0)
--- NOTE | 2017-09-20 11:15 | PDOC PROGRESS REPORT ---
Subjective Progress Note for:: 09/20/17 Subjective:: Patient is currently doing fair was admitted because of the low hemoglobin and symptomatic Is currently receiving the blood History of the MDS and thrombocytopenia and currently see her Dr. Velazquez as outpatient Patient also have a EGD and colonoscopy was done last month was all stable per Dr. Marina Patient also have a capsule endoscopy was done patient seen by the [facility] in the past Patient's denied any blood in the stools no black stools denied any abdominal pain Reason For Visit: SYMPTOMATIC ANEMIA,MYELODYSPLASTOC SYNDROME Physical Exam Vital Signs: Temp Pulse Resp BP Pulse Ox 98.3 F 63 16 108/43 L 100 09/20/17 10:26 09/20/17 10:26 09/20/17 10:26 09/20/17 10:26 09/20/17 10:26 Intake & Output 09/19/17 09/20/17 09/21/17 06:59 06:59 06:59 Intake Total 3493 0 Balance 3493 0 General appearance: PRESENT: no acute distress, well-developed, well-nourished Head exam: PRESENT: atraumatic, normocephalic Eye exam: PRESENT: conjunctiva pink, EOMI, PERRLA. ABSENT: scleral icterus Ear exam: PRESENT: normal external ear exam Mouth exam: PRESENT: moist, tongue midline Neck exam: PRESENT: full ROM. ABSENT: carotid bruit, JVD, lymphadenopathy, thyromegaly Respiratory exam: PRESENT: clear to auscultation dioyn Cardiovascular exam: PRESENT: RRR. ABSENT: diastolic murmur, rubs, systolic murmur Pulses: PRESENT: normal dorsalis pedis pul, +2 pedal pulses bilateral Vascular exam: PRESENT: normal capillary refill GI/Abdominal exam: PRESENT: normal bowel sounds, soft. ABSENT: distended, guarding, mass, organolmegaly, rebound, tenderness Rectal exam: PRESENT: deferred Gentrourinary exam: ABSENT: ecchymosis, erythema, lacerations, lesions, scrotal swelling, testicular tenderness, urethral discharge, indwelling catheter, other Extremities exam: ABSENT: full ROM, left AKA, right AKA, left BKA, right BKA, calf tenderness, joint swelling, pedal edema, tenderness, other Musculoskeletal exam: PRESENT: ambulatory Neurological exam: PRESENT: alert, awake, oriented to person, oriented to place , oriented to time, oriented to situation, CN II-XII grossly intact. ABSENT: motor sensory deficit Psychiatric exam: PRESENT: appropriate affect, normal mood. ABSENT: homicidal ideation, suicidal ideation Skin exam: PRESENT: dry, intact, warm. ABSENT: cyanosis, rash Results Laboratory Results: 09/19/17 23:15 09/19/17 23:15 WBC 7.1 RBC 2.01 L Hgb 5.9 L Hct 17.4 L MCV 87 MCH 29.4 MCHC 33.9 RDW 17.2 H Plt Count 61 L Seg Neutrophils % Not Reportable Lymphocytes % Not Reportable Monocytes % Not Reportable Eosinophils % Not Reportable Basophils % Not Reportable Absolute Neutrophils Not Reportable Absolute Lymphocytes Not Reportable Absolute Monocytes Not Reportable Absolute Eosinophils Not Reportable Absolute Basophils Not Reportable Assessment & Plan - Diagnosis (1) Symptomatic anemia Is this a current diagnosis for this admission?: Yes Plan: Will transfuse 3 units of the bloods keep hemoglobin around between 9 and 10 (2) Thrombocytopenia Is this a current diagnosis for this admission?: Yes Plan: Patient is currently seeing Dr. Velazquez as outpatients (3) Myelodysplastic syndrome Is this a current diagnosis for this admission?: Yes Plan: Currently follow with oncology as outpatient (4) CAD (coronary artery disease) Qualifiers: Coronary Disease-Associated Artery/Lesion type: unspecified vessel or lesion type Associated angina: without angina Is this a current diagnosis for this admission?: Yes Plan: Currently all stable (5) CHF (congestive heart failure) Qualifiers: Congestive heart failure type: unspecified congestive heart failure type Congestive heart failure chronicity: chronic Qualified Code(s): I50.9 - Heart failure, unspecified Is this a current diagnosis for this admission?: Yes Plan: Continues to current medications (6) HLD (hyperlipidemia) Qualifiers: Hyperlipidemia type: pure hypercholesterolemia Qualified Code(s): E78.00 - Pure hypercholesterolemia, unspecified; E78.0 - Pure hypercholesterolemia Is this a current diagnosis for this admission?: Yes Plan: Currently all stable (7) HTN (hypertension) Qualifiers: Hypertension type: essential hypertension Is this a current diagnosis for this admission?: Yes Plan: Continues current medication - Time Time Spent with patient: 15-24 minutes Medications reviewed and adjusted accordingly: Yes Anticipated discharge: Home Within: within 24 hours - Inpatient Certification Medical Necessity: Need Close Monitoring Due to Risk of Patient Decompensation Post Hospital Care: D/C Schedule [facility] Documentation - Plan Summary Plan Summary: Continues to transfuse the blood keep hemoglobin between 9 and 10
[2017-09-20] MEDS ORDERED: FUROSEMIDE INJ/PF 40 MG/4 ML SDV IV PRN (11:40)
[2017-09-20 17:10] LABS: HEMATOCRIT 22.1 % (37.9-51.0); MEAN CORPUSCULAR HEMOGLOBIN 29.6 pg (27.0-33.4); MEAN CORPUSCULAR VOLUME 87 fl (80-97); RED BLOOD COUNT 2.54 10^6/uL (4.35-5.55); RED CELL DISTRIBUTION WIDTH 16.5 % (11.5-14.0); WHITE BLOOD COUNT 6.7 10^3/uL (4.0-10.5)
[2017-09-20 17:20] LABS: PLATELET COUNT 73 10^3/uL (150-450)
[2017-09-20 17:37] LABS: ABSOLUTE LYMPHOCYTES# (MANUAL) 0.8 10^3/uL (0.5-4.7); ABSOLUTE MONOCYTES # (MANUAL) 2.9 10^3/uL (0.1-1.4); ABSOLUTE NEUTROPHILS# (MANUAL) 2.9 10^3/uL (1.7-8.2); BASOPHILS % (MANUAL) 0 % (0-2); EOSINOPHILS % (MANUAL) 0 % (0-6); LYMPHOCYTES % (MANUAL) 12 % (13-45); MONOCYTES % (MANUAL) 44 % (3-13); NUCLEATED RED BLOOD CELLS 2 /100 WBC (0); SEGMENTED NEUTROPHILS % (MAN) 44 % (42-78); TOTAL CELLS COUNTED 100
[2017-09-20 17:41] LABS: ANISOCYTOSIS 1+; OVALOCYTES SLIGHT; PLATELET COMMENT DECREASED; PLATELET LARGE PRESENT; POIKILOCYTOSIS SLIGHT; POLYCHROMASIA SLIGHT
[2017-09-20 17:47] LABS: HEMOGLOBIN 7.5 g/dL (13.5-17.0)
[2017-09-20] MEDS: ATORVASTATIN CALCIUM 10 MG TABLET PO SCH (21:47)
[2017-09-20 23:47] LABS: MEAN CORPUSCULAR HGB CONC 34.7 g/dL (32.0-36.0); MEAN CORPUSCULAR VOLUME 86 fl (80-97); RED BLOOD COUNT 2.67 10^6/uL (4.35-5.55); RED CELL DISTRIBUTION WIDTH 16.1 % (11.5-14.0); WHITE BLOOD COUNT 6.2 10^3/uL (4.0-10.5)
[2017-09-21 00:27] LABS: ABSOLUTE LYMPHOCYTES# (MANUAL) 0.6 10^3/uL (0.5-4.7); ABSOLUTE MONOCYTES # (MANUAL) 3.2 10^3/uL (0.1-1.4); ABSOLUTE NEUTROPHILS# (MANUAL) 2.4 10^3/uL (1.7-8.2); BAND NEUTROPHILS % (MANUAL) 1 % (3-5); BASOPHILS % (MANUAL) 0 % (0-2); EOSINOPHILS % (MANUAL) 0 % (0-6); LYMPHOCYTES % (MANUAL) 10 % (13-45); MONOCYTES % (MANUAL) 52 % (3-13); NUCLEATED RED BLOOD CELLS 1 /100 WBC (0); SEGMENTED NEUTROPHILS % (MAN) 37 % (42-78); TOTAL CELLS COUNTED 100
[2017-09-21 00:29] LABS: ANISOCYTOSIS 1+; BURR CELLS SLIGHT; OVALOCYTES SLIGHT; POIKILOCYTOSIS SLIGHT; POLYCHROMASIA 1+; SCHISTOCYTES SLIGHT
[2017-09-21 00:30] LABS: PLATELET COMMENT DECREASED
[2017-09-21 00:31] LABS: PLATELET COUNT 76 10^3/uL (150-450)
[2017-09-21 05:41] LABS: HEMATOCRIT 22.2 % (37.9-51.0); MEAN CORPUSCULAR HEMOGLOBIN 29.3 pg (27.0-33.4); MEAN CORPUSCULAR VOLUME 86 fl (80-97); RED BLOOD COUNT 2.58 10^6/uL (4.35-5.55); RED CELL DISTRIBUTION WIDTH 16.5 % (11.5-14.0); WHITE BLOOD COUNT 5.2 10^3/uL (4.0-10.5)
[2017-09-21] MEDS: CLONIDINE HCL 0.2 MG TABLET PO SCH ×3 (06:02→22:22)
[2017-09-21] MEDS: LANSOPRAZOLE 30 MG TAB.RAP.DR PO SCH (06:02)
[2017-09-21 06:03] LABS: ANION GAP 9 (5-19); BLOOD UREA NITROGEN 23 mg/dL (7-20); CALCIUM 8.5 mg/dL (8.4-10.2); CARBON DIOXIDE 21 mmol/L (22-30); CHLORIDE 113 mmol/L (98-107); GLUCOSE 87 mg/dL (75-110); POTASSIUM 3.5 mmol/L (3.6-5.0); SODIUM 142.7 mmol/L (137-145)
[2017-09-21 06:15] LABS: ABSOLUTE LYMPHOCYTES# (MANUAL) 0.5 10^3/uL (0.5-4.7); ABSOLUTE MONOCYTES # (MANUAL) 2.6 10^3/uL (0.1-1.4); ABSOLUTE NEUTROPHILS# (MANUAL) 2.1 10^3/uL (1.7-8.2); BAND NEUTROPHILS % (MANUAL) 1 % (3-5); BASOPHILS % (MANUAL) 0 % (0-2); EOSINOPHILS % (MANUAL) 0 % (0-6); LYMPHOCYTES % (MANUAL) 10 % (13-45); MONOCYTES % (MANUAL) 50 % (3-13); NUCLEATED RED BLOOD CELLS 1 /100 WBC (0); SEGMENTED NEUTROPHILS % (MAN) 39 % (42-78); TOTAL CELLS COUNTED 100
[2017-09-21 06:18] LABS: ANISOCYTOSIS 1+; BURR CELLS SLIGHT; OVALOCYTES SLIGHT; PLATELET COMMENT DECREASED; POIKILOCYTOSIS SLIGHT; POLYCHROMASIA 1+; ROULEAUX SLIGHT; TEAR DROP CELLS SLIGHT; TOXIC VACUOLATION PRESENT
[2017-09-21 06:21] LABS: HEMOGLOBIN 7.6 g/dL (13.5-17.0)
[2017-09-21 06:22] LABS: PLATELET COUNT 77 10^3/uL (150-450)
[2017-09-21] MEDS ORDERED: POTASSIUM CHLORIDE 10 MEQ TABLET.SA PO ONE (09:00)
--- NOTE | 2017-09-21 09:12 | PDOC PROGRESS REPORT ---
Subjective Progress Note for:: 09/21/17 Subjective:: Patient is currently doing fairPatient's denied any chest pain denied any shortness of the breath no abdominal pain Patient's denied any blood in the stools but according to the nursing stumps the patient have a black starry stools Patients received the 5 units of the blood hemoglobin is still 7.6 As per discussed with the textile slitting machine operator needs to rule out any GI bleed and patients hopefully going for the scope Patient's denied any chest pain denied any shortness of the breath Reason For Visit: SYMPTOMATIC ANEMIA,MYELODYSPLASTOC SYNDROME Physical Exam Vital Signs: Temp Pulse Resp BP Pulse Ox 98.8 F 70 18 120/44 L 100 09/21/17 04:04 09/21/17 04:04 09/21/17 04:04 09/21/17 04:04 09/21/17 04:04 Intake & Output 09/20/17 09/21/17 09/22/17 06:59 06:59 06:59 Intake Total 3493 2700 Balance 3493 2700 General appearance: PRESENT: no acute distress, well-developed, well-nourished Head exam: PRESENT: atraumatic, normocephalic Eye exam: PRESENT: conjunctiva pink, EOMI, PERRLA. ABSENT: scleral icterus Ear exam: PRESENT: normal external ear exam Mouth exam: PRESENT: moist, tongue midline Neck exam: PRESENT: full ROM. ABSENT: carotid bruit, JVD, lymphadenopathy, thyromegaly Respiratory exam: PRESENT: clear to auscultation diony Cardiovascular exam: PRESENT: RRR. ABSENT: diastolic murmur, rubs, systolic murmur Pulses: PRESENT: normal dorsalis pedis pul, +2 pedal pulses bilateral Vascular exam: PRESENT: normal capillary refill GI/Abdominal exam: PRESENT: normal bowel sounds, soft. ABSENT: distended, guarding, mass, organolmegaly, rebound, tenderness Rectal exam: PRESENT: deferred Extremities exam: ABSENT: full ROM, left AKA, right AKA, left BKA, right BKA, calf tenderness, joint swelling, pedal edema, tenderness, other Musculoskeletal exam: PRESENT: ambulatory Neurological exam: PRESENT: alert, awake, oriented to person, oriented to place , oriented to time, oriented to situation, CN II-XII grossly intact. ABSENT: motor sensory deficit Psychiatric exam: PRESENT: appropriate affect, normal mood. ABSENT: homicidal ideation, suicidal ideation Skin exam: PRESENT: dry, intact, warm. ABSENT: cyanosis, rash Results Laboratory Results: 09/21/17 04:36 09/21/17 04:36 09/20/17 09/20/17 09/21/17 16:40 23:30 04:36 WBC 6.7 6.2 5.2 RBC 2.54 L 2.67 L 2.58 L Hgb 7.5 L 8.0 L 7.6 L Hct 22.1 L 23.0 L 22.2 L MCV 87 86 86 MCH 29.6 30.0 29.3 MCHC 34.0 34.7 34.0 RDW 16.5 H 16.1 H 16.5 H Plt Count 73 L 76 L 77 L Seg Neutrophils % Not Reportable Not Reportable Not Reportable Lymphocytes % Not Reportable Not Reportable Not Reportable Monocytes % Not Reportable Not Reportable Not Reportable Eosinophils % Not Reportable Not Reportable Not Reportable Basophils % Not Reportable Not Reportable Not Reportable Absolute Neutrophils Not Reportable Not Reportable Not Reportable Absolute Lymphocytes Not Reportable Not Reportable Not Reportable Absolute Monocytes Not Reportable Not Reportable Not Reportable Absolute Eosinophils Not Reportable Not Reportable Not Reportable Absolute Basophils Not Reportable Not Reportable Not Reportable Sodium Potassium Chloride Carbon Dioxide Anion Gap BUN Creatinine Est GFR ( Amer) Est GFR (Non-Af Amer) Glucose Calcium 09/21/17 04:36 WBC RBC Hgb Hct MCV MCH MCHC RDW Plt Count Seg Neutrophils % Lymphocytes % Monocytes % Eosinophils % Basophils % Absolute Neutrophils Absolute Lymphocytes Absolute Monocytes Absolute Eosinophils Absolute Basophils Sodium 142.7 Potassium 3.5 L Chloride 113 H Carbon Dioxide 21 L Anion Gap 9 BUN 23 H Creatinine 1.10 Est GFR ( Amer) > 60 Est GFR (Non-Af Amer) > 60 Glucose 87 Calcium 8.5 Assessment & Plan - Diagnosis (1) Symptomatic anemia Is this a current diagnosis for this admission?: Yes Plan: Ms. to rule out the GI bleed by the patient's hemoglobin still not going up and with the patient of a black starry stools will consult to Dr. Marina to further evaluate transfuse the blood and keep hemoglobin around 9 (2) Thrombocytopenia Is this a current diagnosis for this admission?: Yes Plan: Patient is currently seeing Dr. Velazquez as outpatients (3) Myelodysplastic syndrome Is this a current diagnosis for this admission?: Yes Plan: Currently follow with oncology as outpatient (4) CAD (coronary artery disease) Qualifiers: Coronary Disease-Associated Artery/Lesion type: unspecified vessel or lesion type Associated angina: without angina Is this a current diagnosis for this admission?: Yes Plan: Currently all stable (5) CHF (congestive heart failure) Qualifiers: Congestive heart failure type: unspecified congestive heart failure type Congestive heart failure chronicity: chronic Qualified Code(s): I50.9 - Heart failure, unspecified Is this a current diagnosis for this admission?: Yes Plan: Continues to current medications (6) HLD (hyperlipidemia) Qualifiers: Hyperlipidemia type: pure hypercholesterolemia Qualified Code(s): E78.00 - Pure hypercholesterolemia, unspecified; E78.0 - Pure hypercholesterolemia Is this a current diagnosis for this admission?: Yes Plan: Currently all stable (7) HTN (hypertension) Qualifiers: Hypertension type: essential hypertension Is this a current diagnosis for this admission?: Yes Plan: Continues current medication - Time Time Spent with patient: 15-24 minutes Medications reviewed and adjusted accordingly: Yes Anticipated discharge: Home Within: Other - Inpatient Certification Medical Necessity: Need Close Monitoring Due to Risk of Patient Decompensation Post Hospital Care: D/C Actuarial Technician Documentation - Plan Summary Plan Summary: Continues to transfuse the blood consulted GI in the stool for the guaiac study
[2017-09-21] MEDS ORDERED: FUROSEMIDE 20 MG TABLET PO PRN (09:17)
[2017-09-21] MEDS: POTASSIUM CHLORIDE 10 MEQ TABLET.SA PO SCH (10:44)
[2017-09-21] MEDS: LOSARTAN POTASSIUM 50 MG TABLET PO SCH (10:44)
[2017-09-21] MEDS: CARVEDILOL 12.5 MG TABLET PO SCH ×2 (10:45→22:22)
[2017-09-21] MEDS: ISOSORBIDE MONONITRATE 60 MG TAB.ER.24H PO SCH (10:45)
[2017-09-21] MEDS: IRON POLYSACCHARIDES COMPLEX 150 MG CAPSULE PO SCH ×2 (10:45→22:22)
[2017-09-21] MEDS: AMLODIPINE BESYLATE 5 MG TABLET PO SCH (10:46)
[2017-09-21] MEDS: CHOLECALCIFEROL (D3) 1,000 UNIT TABLET PO SCH (10:46)
[2017-09-21] MEDS: FUROSEMIDE 40 MG TABLET PO SCH (10:46)
[2017-09-21] MEDS ORDERED: PEG 3350/NA SULF,BICARB,CL/KCL 4000 ML PO ONE (16:00)
[2017-09-21 16:58] LABS: HEMATOCRIT 27.1 % (37.9-51.0); HEMOGLOBIN 9.4 g/dL (13.5-17.0); MEAN CORPUSCULAR HEMOGLOBIN 30.1 pg (27.0-33.4); MEAN CORPUSCULAR HGB CONC 34.6 g/dL (32.0-36.0); MEAN CORPUSCULAR VOLUME 87 fl (80-97); RED BLOOD COUNT 3.12 10^6/uL (4.35-5.55); RED CELL DISTRIBUTION WIDTH 17.8 % (11.5-14.0); WHITE BLOOD COUNT 7.3 10^3/uL (4.0-10.5)
[2017-09-21 17:40] LABS: PLATELET COUNT 98 10^3/uL (150-450)
[2017-09-21] MEDS ORDERED: BISACODYL 5 MG TABEC PO ONE (21:00)
[2017-09-21] MEDS: ATORVASTATIN CALCIUM 10 MG TABLET PO SCH (22:22)
[2017-09-22 04:39] LABS: ANION GAP 6 (5-19); BLOOD UREA NITROGEN 21 mg/dL (7-20); CALCIUM 8.2 mg/dL (8.4-10.2); CARBON DIOXIDE 25 mmol/L (22-30); CHLORIDE 111 mmol/L (98-107); GLUCOSE 87 mg/dL (75-110); POTASSIUM 3.3 mmol/L (3.6-5.0)
[2017-09-22] MEDS: LANSOPRAZOLE 30 MG TAB.RAP.DR PO SCH (06:13)
[2017-09-22] MEDS: CLONIDINE HCL 0.2 MG TABLET PO SCH ×3 (06:13→21:13)
[2017-09-22] MEDS ORDERED: POTASSIUM CHLORIDE 10 MEQ TABLET.SA PO ONE (07:49)
[2017-09-22 09:13] LABS: HEMATOCRIT 21.4 % (37.9-51.0); MEAN CORPUSCULAR HEMOGLOBIN 29.8 pg (27.0-33.4); MEAN CORPUSCULAR HGB CONC 33.7 g/dL (32.0-36.0); MEAN CORPUSCULAR VOLUME 88 fl (80-97); RED BLOOD COUNT 2.43 10^6/uL (4.35-5.55); RED CELL DISTRIBUTION WIDTH 17.3 % (11.5-14.0); WHITE BLOOD COUNT 4.6 10^3/uL (4.0-10.5)
[2017-09-22 09:16] LABS: HEMOGLOBIN 7.2 g/dL (13.5-17.0)
[2017-09-22 09:37] LABS: PLATELET COUNT 83 10^3/uL (150-450)
[2017-09-22] MEDS: IRON POLYSACCHARIDES COMPLEX 150 MG CAPSULE PO SCH ×2 (10:36→21:13)
[2017-09-22] MEDS: LOSARTAN POTASSIUM 50 MG TABLET PO SCH (10:36)
[2017-09-22] MEDS: CHOLECALCIFEROL (D3) 1,000 UNIT TABLET PO SCH (10:37)
[2017-09-22] MEDS: AMLODIPINE BESYLATE 5 MG TABLET PO SCH (10:37)
[2017-09-22] MEDS: CARVEDILOL 12.5 MG TABLET PO SCH ×2 (10:37→21:13)
[2017-09-22] MEDS: FUROSEMIDE 40 MG TABLET PO SCH (10:37)
[2017-09-22] MEDS: ISOSORBIDE MONONITRATE 60 MG TAB.ER.24H PO SCH (10:37)
[2017-09-22] MEDS: POTASSIUM CHLORIDE 10 MEQ TABLET.SA PO SCH (10:37)
--- NOTE | 2017-09-22 11:02 | PDOC PROGRESS REPORT ---
Subjective Progress Note for:: 09/22/17 Subjective:: pt is currently doing same Still have a black tarry stools and patient hemoglobin is still low at 7.6 patient scheduled for endoscopy and colonoscopy by Dr. Marina today Patient's denied any chest pain denied any shortness of the breath Reason For Visit: SYMPTOMATIC ANEMIA,POSSIBLE LGI BLEED, Physical Exam Vital Signs: Temp Pulse Resp BP Pulse Ox 97.9 F 71 18 121/53 L 100 09/22/17 08:44 09/22/17 08:44 09/22/17 08:44 09/22/17 08:44 09/22/17 08:44 Intake & Output 09/21/17 09/22/17 09/23/17 06:59 06:59 06:59 Intake Total 2786 Balance 2786 General appearance: PRESENT: no acute distress, well-developed, well-nourished Head exam: PRESENT: atraumatic, normocephalic Eye exam: PRESENT: conjunctiva pink, EOMI, PERRLA. ABSENT: scleral icterus Ear exam: PRESENT: normal external ear exam Mouth exam: PRESENT: moist, tongue midline Neck exam: PRESENT: full ROM. ABSENT: carotid bruit, JVD, lymphadenopathy, thyromegaly Respiratory exam: PRESENT: clear to auscultation diony Cardiovascular exam: PRESENT: RRR. ABSENT: diastolic murmur, rubs, systolic murmur Pulses: PRESENT: normal dorsalis pedis pul, +2 pedal pulses bilateral Vascular exam: PRESENT: normal capillary refill GI/Abdominal exam: PRESENT: normal bowel sounds, soft. ABSENT: distended, guarding, mass, organolmegaly, rebound, tenderness Rectal exam: PRESENT: deferred Extremities exam: ABSENT: full ROM, left AKA, right AKA, left BKA, right BKA, calf tenderness, joint swelling, pedal edema, tenderness, other Musculoskeletal exam: PRESENT: ambulatory Neurological exam: PRESENT: alert, awake, oriented to person, oriented to place , oriented to time, oriented to situation, CN II-XII grossly intact. ABSENT: motor sensory deficit Psychiatric exam: PRESENT: appropriate affect, normal mood. ABSENT: homicidal ideation, suicidal ideation Skin exam: PRESENT: dry, intact, warm. ABSENT: cyanosis, rash Results Laboratory Results: 09/22/17 08:53 09/22/17 04:05 09/21/17 09/21/17 09/22/17 16:35 18:45 04:05 WBC 7.3 RBC 3.12 L Hgb 9.4 L Hct 27.1 L MCV 87 MCH 30.1 MCHC 34.6 RDW 17.8 H Plt Count 98 L Sodium 142.0 Potassium 3.3 L Chloride 111 H Carbon Dioxide 25 Anion Gap 6 BUN 21 H Creatinine 0.95 Est GFR ( Amer) > 60 Est GFR (Non-Af Amer) > 60 Glucose 87 Calcium 8.2 L Stool Occult Blood POSITIVE 09/22/17 08:53 WBC 4.6 RBC 2.43 L Hgb 7.2 L D Hct 21.4 L MCV 88 MCH 29.8 MCHC 33.7 RDW 17.3 H Plt Count 83 L Sodium Potassium Chloride Carbon Dioxide Anion Gap BUN Creatinine Est GFR ( Amer) Est GFR (Non-Af Amer) Glucose Calcium Stool Occult Blood Assessment & Plan - Diagnosis (1) Symptomatic anemia Is this a current diagnosis for this admission?: Yes Plan: Possible GI bleed continues to transfusion of the blood keep hemoglobin above [address] Marina (2) Thrombocytopenia Is this a current diagnosis for this admission?: Yes Plan: Currently stable (3) Myelodysplastic syndrome Is this a current diagnosis for this admission?: Yes Plan: Currently follow with oncology as outpatient (4) CAD (coronary artery disease) Qualifiers: Coronary Disease-Associated Artery/Lesion type: unspecified vessel or lesion type Associated angina: without angina Is this a current diagnosis for this admission?: Yes Plan: Currently all stable (5) CHF (congestive heart failure) Qualifiers: Congestive heart failure type: unspecified congestive heart failure type Congestive heart failure chronicity: chronic Qualified Code(s): I50.9 - Heart failure, unspecified Is this a current diagnosis for this admission?: Yes Plan: Continues to current medications (6) HLD (hyperlipidemia) Qualifiers: Hyperlipidemia type: pure hypercholesterolemia Qualified Code(s): E78.00 - Pure hypercholesterolemia, unspecified; E78.0 - Pure hypercholesterolemia Is this a current diagnosis for this admission?: Yes Plan: Currently all stable (7) HTN (hypertension) Qualifiers: Hypertension type: essential hypertension Is this a current diagnosis for this admission?: Yes Plan: Continues current medication (8) GI bleed Qualifiers: GI bleed type/associated pathology: unspecified gastrointestinal hemorrhage type Qualified Code(s): K92.2 - Gastrointestinal hemorrhage, unspecified Is this a current diagnosis for this admission?: Yes Plan: Continues check the H&H every 8 hours and keep hemoglobin above 9 and follow with the Dr. Marina and scheduled for endoscopy and colonoscopy today - Time Time Spent with patient: 15-24 minutes Medications reviewed and adjusted accordingly: Yes Anticipated discharge: Home Within: Other - Inpatient Certification Medical Necessity: Need Close Monitoring Due to Risk of Patient Decompensation Post Hospital Care: D/C Counter Manager Documentation - Plan Summary Plan Summary: Discussed with the patient and the family on the bedside about the patient's current condition test results and follow-up plan
[2017-09-22] MEDS ORDERED: NORMAL SALINE 250 ML IV PRN ×2 (11:15)
[2017-09-22] MEDS ORDERED: FUROSEMIDE INJ/PF 20 MG/2 ML SDV IV ONE (12:30)
[2017-09-22] MEDS ORDERED: NALOXONE HCL INJ/PF 0.4 MG/1 ML SDV ONE (14:35)
[2017-09-22] MEDS ORDERED: FENTANYL CITRATE INJ/PF 100 MCG/2 ML AMPUL ONE (14:35)
[2017-09-22] MEDS ORDERED: FLUMAZENIL INJ 0.5 MG/5 ML VIAL ONE (14:35)
[2017-09-22] MEDS ORDERED: GLUCAGON,HUMAN RECOMB 1 MG INJ ONE (14:36)
[2017-09-22] MEDS ORDERED: EPINEPHRINE INJ 1 MG/10 ML DISP.SYRIN ONE (14:36)
[2017-09-22] MEDS: MIDAZOLAM 2 MG/2 ML INJ ONE ×2 (15:46→15:53)
--- NOTE | 2017-09-22 16:24 | PDOC CONSULTATION ---
Consultation Consult Date: 09/21/17 History of Present Illness Admission Date/PCP: 09/21/17 16:23 ELIZA GRANADOS MD History of Present Illness: This is a 62-year-old patient admitted to the emergency room with symptomatic anemia. His hemoglobin was 5.2. He had been feeling more tired prior to being admitted. He denies seeing any bright red blood or black stools until he was in the hospital. He started seeing black stools the day after admission and it has been black since. He denies abdominal pain, nausea, or vomiting. He received 6 units of blood transfusion and his hemoglobin was 9.4 on 09/21/2017. A repeat on 09/22/2017 was 7.2 with a platelet count of 83. I saw him in the hospital in November and June 2017 with similar complaints of black stools and anemia. An EGD and colonoscopy in December 2016 was unremarkable and a repeat performed in June 2017 showed a normal EGD and enteroscopy, and some altered blood in the terminal ileum and right colon. Back in May 2014 he had an abnormal capsule endoscopy that suggested bleeding in the jejunum for which he had an enteroscopy with cauterization of some lesions in the small bowel at [facility] [place]. His most recent capsule enteroscopy was normal in 2016. He has myelodysplasia with pancytopenia and he follows up with Dr. Velazquez for this Past Medical History Cardiac Medical History: Reports: Congestive Heart Failure, Coronary Artery Disease, Hyperlipidema, Hypertension Denies: Atrial Fibrillation, Myocardial Infarction, Peripheral Vascular Disease, Heart Murmur Pulmonary Medical History: Denies: Asthma, Bronchitis, Chronic Obstructive Pulmonary Disease (COPD), Pneumonia, Tuberculosis Neurological Medical History: Denies: Seizures Endocrine Medical History: Reports: Diabetes Mellitus Type 2 Denies: Diabetes Mellitus Type 1 Renal/ Medical History: Denies: End Stage Renal Disease Malignancy Medical History: Reports: Other - MYELODYSPLASTIC SYNDROME Denies: Leukemia GI Medical History: Denies: Crohn's Disease, Gastroesophageal Reflux Disease, Hiatal Hernia Musculoskeltal Medical History: Reports: Arthritis Psychiatric Medical History: Denies: Depression Hematology: Reports: Anemia Denies: Hemophilia, Sickle Cell Disease Infectious Medical History: Denies: HIV Past Surgical History Past Surgical History: Denies: Appendectomy, Cholecystectomy, Colostomy, Coronary Artery Bypass Graft, Gastric Bypass Surgery, Herniorrhaphy, Pacemaker, Tonsillectomy Social History Lives with: Family Smoking Status: Never Smoker Frequency of Alcohol Use: None Hx Recreational Drug Use: No Drugs: None Hx Prescription Drug Abuse: No - Advance Directive Resuscitation Status: Full Code Family History Family History: Reviewed & Not Pertinent Parental Family History Reviewed: No Children Family History Reviewed: NA Sibling(s) Family History Reviewed.: NA Medication/Allergy Home Medications: Amlodipine Besylate [Norvasc 5 mg Tablet] 5 mg PO DAILY 07/11/17 Carvedilol [Coreg 25 mg Tablet] 25 mg PO Q12 07/11/17 Cholecalciferol (Vitamin D3) [Vitamin D3] 2,000 unit PO DAILY 07/11/17 Clonidine HCl [Catapres 0.2 mg Tablet] 0.2 mg PO Q8 07/11/17 Furosemide [Lasix] 40 mg PO DAILY 07/11/17 Iron Polysaccharide Complex [Ferrex 150] 150 mg PO Q12 07/11/17 Isosorbide Mononitrate [Imdur 60 mg Tablet.er] 60 mg PO DAILY 07/11/17 Losartan Potassium [Cozaar 100 mg Tablet] 100 mg PO DAILY 07/11/17 Omeprazole 40 mg PO DAILY 07/11/17 Potassium Chloride [Klor-Con 10 Meq Tablet.sa] 20 meq PO DAILY 07/11/17 Pravastatin Sodium [Pravachol] 40 mg PO DAILY 07/11/17 Ramipril [Altace] 20 mg PO DAILY 07/11/17 Allergies/Adverse Reactions: No Known Allergies Allergy (Verified 09/19/17 12:27) Physical Exam Vital Signs: Temp Pulse Resp BP Pulse Ox 98.0 F 80 18 136/48 H 98 09/22/17 12:40 09/22/17 15:45 09/22/17 15:45 09/22/17 15:45 09/22/17 15:45 Intake & Output 09/21/17 09/22/17 09/23/17 06:59 06:59 06:59 Intake Total 2786 Balance 2786 Exam: General: Patient is alert and looks well. HEENT: There is pallor but no jaundice. PERRLA. Oropharynx normal Respiratory: No chest deformity. No respiratory distress. Chest wall palpitation was unremarkable. Breath sounds were normal Cardiovascular: Heart sounds 1 and 2 normal with no murmurs. Abdominal: Not distended. Soft and nontender. Liver and spleen not palpable. No ascites demonstrated. Bowel sounds active. Rectal examination was deferred. Extremities: No edema Neurological: Alert and oriented x4. Grossly nonfocal. Normal speech Skin: No significant rash Psychological: Normal affect Results Laboratory Results: 09/22/17 08:53 09/22/17 04:05 09/21/17 09/21/17 09/22/17 16:35 18:45 04:05 WBC 7.3 RBC 3.12 L Hgb 9.4 L Hct 27.1 L MCV 87 MCH 30.1 MCHC 34.6 RDW 17.8 H Plt Count 98 L Sodium 142.0 Potassium 3.3 L Chloride 111 H Carbon Dioxide 25 Anion Gap 6 BUN 21 H Creatinine 0.95 Est GFR ( Amer) > 60 Est GFR (Non-Af Amer) > 60 Glucose 87 Calcium 8.2 L Stool Occult Blood POSITIVE Blood Type Antibody Screen 09/22/17 09/22/17 08:53 11:49 WBC 4.6 RBC 2.43 L Hgb 7.2 L D Hct 21.4 L MCV 88 MCH 29.8 MCHC 33.7 RDW 17.3 H Plt Count 83 L Sodium Potassium Chloride Carbon Dioxide Anion Gap BUN Creatinine Est GFR ( Amer) Est GFR (Non-Af Amer) Glucose Calcium Stool Occult Blood Blood Type O POSITIVE Antibody Screen NEGATIVE Assessment & Plan - Diagnosis (1) GI bleed Qualifiers: GI bleed type/associated pathology: unspecified gastrointestinal hemorrhage type Qualified Code(s): K92.2 - Gastrointestinal hemorrhage, unspecified Is this a current diagnosis for this admission?: Yes Plan: He again comes in with significant anemia and has been having black stools for the last few days. He has had multiple similar episodes over the years. His last episode in June leading to an EGD and colonoscopy which only showed some altered blood in the terminal ileum and right colon. Previous EGD's and prior upper enteroscopies have been unremarkable. I strongly believe he is bleeding from his small bowel either from AVMs or from Dieulafoy's lesions. No mass lesions have been identified in the small bowel at previous 2-3 capsule endoscopies. He will undergo another EGD and colonoscopy. He may need to be referred for devise assisted enteroscopy at a tertiary center (2) Symptomatic anemia Is this a current diagnosis for this admission?: Yes (3) Myelodysplastic syndrome Is this a current diagnosis for this admission?: Yes (4) Anemia requiring transfusions Is this a current diagnosis for this admission?: Yes (5) HTN (hypertension) Qualifiers: Hypertension type: essential hypertension Is this a current diagnosis for this admission?: Yes
--- NOTE | 2017-09-22 16:34 | Operative Report ---
Operative Report DATE OF SURGERY: 09/22/17 Operative Report: Pre-op diagnosis: Recurrent acute GI bleeding Post-op diagnosis: 1. Mild antral gastritis 2. Large amount of melena all over the colon and some in the terminal ileum Surgery: Upper endoscopy and Colonoscopy Medications: Versed 3 mg, Fentanyl 100 mcg IV push Tissue removed: Antral biopsy Procedure: After informed consent obtained from patient, patient's pharynx was sprayed with Hurricane and conscious sedation was achieved. The upper endoscope was then inserted into the esophagus under direct vision and advanced into the stomach and further into the duodenum. Detailed examination of the duodenum, stomach and the esophagus was then performed. A digital rectal examination was performed and this was unremarkable. The colonoscope was inserted into the rectum and advanced to the cecum. The appendiceal orifice and the terminal ileum were both identified. The mucosa was examined into details as the colonoscope was slowly pulled out of the patient. The endoscope was retroflexed in the rectum. Patient tolerated the procedure well. Findings Esophagus: Normal Stomach: Mild erythema in the antrum. Biopsy was taken Duodenum: Examination to the third part of duodenum was normal Terminal ileum: Examination to 10 cm. Some altered blood Colon: View of all the colon was limited due to large amount of melanotic stool stuck to the mucosa. No bright red blood was identified Rectum: Normal except for internal hemorrhoids Plan: In view of the continuous blood loss and receiving 6 units of fresh blood within the last 3 days, I will suggest transfer to a center with devise assisted enteroscopy capability OPERATION: .
--- NOTE | 2017-09-22 17:01 | PDOC TRANSFER SUMMARY ---
General Admission Date/PCP: 09/21/17 16:23 ELIZA GRANADOS MD Admission Date: 09/19/17 Transfer Date: 09/22/17 Accepting Facility: [facility] Resuscitation Status: Full Code - Transfer Diagnosis (1) Symptomatic anemia Is this a current diagnosis for this admission?: Yes Diagnosis Summary: Patients received the 6 units of the blood (2) Thrombocytopenia Is this a current diagnosis for this admission?: Yes Diagnosis Summary: Patient's currently followed the oncology and also see her [facility] (3) Myelodysplastic syndrome Is this a current diagnosis for this admission?: Yes Diagnosis Summary: Patients currently see the oncology here and also evaluated the [facility] (4) CAD (coronary artery disease) Is this a current diagnosis for this admission?: Yes Diagnosis Summary: stable (5) CHF (congestive heart failure) Is this a current diagnosis for this admission?: Yes Diagnosis Summary: stable (6) HLD (hyperlipidemia) Is this a current diagnosis for this admission?: Yes Diagnosis Summary: stable (7) HTN (hypertension) Is this a current diagnosis for this admission?: Yes Diagnosis Summary: stable (8) GI bleed Is this a current diagnosis for this admission?: Yes Diagnosis Summary: Patient underwent for the endoscopy and colonoscopy and according to the coat finisher patients I think bleeding from the small bowel and patient have a entroscopy was done and cauterized the lesion in the past at the [facility] patients need of further evaluations over the - Transfer Medications Home Medications: Amlodipine Besylate [Norvasc 5 mg Tablet] 5 mg PO DAILY 07/11/17 Carvedilol [Coreg 25 mg Tablet] 25 mg PO Q12 07/11/17 Cholecalciferol (Vitamin D3) [Vitamin D3] 2,000 unit PO DAILY 07/11/17 Clonidine HCl [Catapres 0.2 mg Tablet] 0.2 mg PO Q8 07/11/17 Furosemide [Lasix] 40 mg PO DAILY 07/11/17 Iron Polysaccharide Complex [Ferrex 150] 150 mg PO Q12 07/11/17 Isosorbide Mononitrate [Imdur 60 mg Tablet.er] 60 mg PO DAILY 07/11/17 Losartan Potassium [Cozaar 100 mg Tablet] 100 mg PO DAILY 07/11/17 Omeprazole 40 mg PO DAILY 07/11/17 Potassium Chloride [Klor-Con 10 Meq Tablet.sa] 20 meq PO DAILY 07/11/17 Pravastatin Sodium [Pravachol] 40 mg PO DAILY 07/11/17 Ramipril [Altace] 20 mg PO DAILY 07/11/17 Transfer Medications: Current Medications Amlodipine Besylate (Norvasc 5 Mg Tablet) 5 mg PO DAILY [facility] Stop: 10/20/17 09:59 Last Admin: 09/22/17 10:37 Dose: 5 mg Atorvastatin Calcium (Lipitor 10 Mg Tablet) 10 mg PO QHS BRIAN Stop: 10/19/17 21:59 Last Admin: 09/21/17 22:22 Dose: 10 mg Carvedilol (Coreg 12.5 Mg Tablet) 25 mg PO Q12 [facility]AN Stop: 10/19/17 21:59 Last Admin: 09/22/17 10:37 Dose: 25 mg Cholecalciferol (Vitamin D3 1000 Unit Tablet) 1,000 unit PO DAILY [facility] Stop: 10/20/17 09:59 Last Admin: 09/22/17 10:37 Dose: 1,000 unit Clonidine (Catapres 0.2 Mg Tablet) 0.2 mg PO Q8 [facility]RIAN Stop: 10/19/17 21:59 Last Admin: 09/22/17 14:28 Dose: Not Given Dextrose (Dextrose Inj 50% Syringe (25 Gm/50 Ml)) 12.5 gm IV PRN PRN; Protocol PRN Reason: FOR BG 50-69 IN ALERT PATIENT Stop: 10/19/17 17:29 Dextrose (Dextrose Inj 50% Syringe (25 Gm/50 Ml)) 25 gm IV PRN PRN PRN Reason: Protocol Stop: 10/19/17 17:29 Furosemide (Lasix 40 Mg Tablet) 40 mg PO DAILY [facility]RIAN Stop: 10/20/17 09:59 Last Admin: 09/22/17 10:37 Dose: 40 mg Gabapentin (Neurontin 100 Mg Capsule) 100 mg PO BIDP PRN PRN Reason: LEG PAIN Stop: 10/19/17 15:53 Glucagon (Glucagen Inj 1 Mg Vial) 1 mg IM PRN PRN; Protocol PRN Reason: Evaluate for BG < 70 Stop: 10/19/17 17:29 Glucose (Glutose 40% Gel 15 Gm Tube) 15 gm PO PRN PRN; Protocol PRN Reason: FOR BG 50-69 IN ALERT PATIENT Stop: 10/19/17 17:29 Glucose (Glutose 40% Gel 15 Gm Tube) 30 gm PO PRN PRN; Protocol PRN Reason: FOR BG < 50 IN ALERT PATIENT Stop: 10/19/17 17:29 Sodium Chloride (Nacl 0.9% 250 Ml Iv Soln) 250 mls @ 30 mls/hr IV .DURING TRANSFUSION PRN PRN Reason: THIS MED IS NOT "PRN" Stop: 09/23/17 11:14 Sodium Chloride (Nacl 0.9% 250 Ml Iv Soln) 250 mls @ 0 mls/hr IV CONTINUOUS PRN ; As Directed PRN Reason: AFTER EACH UNIT Stop: 09/23/17 11:14 Insulin Human Lispro (Humalog Insulin 100 Unit/1 Ml 3 Ml Vial) 0 - 12 unit SUBCUT ACHSP PRN PRN Reason: Protocol Stop: 10/19/17 17:29 Isosorbide Mononitrate (Imdur 60 Mg Tablet.Er) 60 mg PO DAILY [facility] Stop: 10/20/17 09:59 Last Admin: 09/22/17 10:37 Dose: 60 mg Lansoprazole (Prevacid 30 Mg Odt Tablet) 30 mg PO Q6AM [facility] Stop: 10/20/17 05:59 Last Admin: 09/22/17 06:13 Dose: 30 mg Losartan Potassium (Cozaar 50 Mg Tablet) 100 mg PO DAILY [facility] Stop: 10/20/17 09:59 Last Admin: 09/22/17 10:36 Dose: 100 mg Polysaccharide Iron Complex (Nu-Iron 150 Capsule) 150 mg PO Q12 [facility] Stop: 10/19/17 21:59 Last Admin: 09/22/17 10:36 Dose: 150 mg Potassium Chloride (Klor-Con 10 Meq Tablet.Sa) 20 meq PO DAILY [facility] Stop: 10/20/17 09:59 Last Admin: 09/22/17 10:37 Dose: 20 meq - Allergies Allergies/Adverse Reactions: No Known Allergies Allergy (Verified 09/19/17 12:27) Hospital Course Hospital Course: This 62-year-old male with a significant history of the GI bleed in the past with a history of the thrombocytopenia and MDS and a several hospital admissions and several endoscopy and colonoscopy was done came to the emergency department with a complaint of weakness and hemoglobin was 5.2And the patient's at this point admitting in the hospital received the more than 6 units of the blood and patient of a black tarry stools and underwent for the endoscopy and colonoscopyAnd could not find any lesion but the coat finisher suggest the patient's bleeding from the small bowel and the required the enteroscopyWhich patient have a done in the past and the patient went to the [facility] for that and it required to transport her [facility] for further evaluations Patient's last hemoglobin was 7.2 this morning and patient received the more 2 unit of blood Patient's other medical problem is all currently stable patient's platelet count is 83 Discussed with the patient and the family and transported her [facility] for further evaluations Physical Exam Vital Signs: Temp Pulse Resp BP Pulse Ox 98.0 F 71 16 102/52 L 98 09/22/17 12:40 09/22/17 16:30 09/22/17 16:30 09/22/17 16:30 09/22/17 16:30 Intake & Output 09/21/17 09/22/17 09/23/17 06:59 06:59 06:59 Intake Total 2786 350 Balance 2786 350 General appearance: PRESENT: no acute distress, well-developed, well-nourished Head exam: PRESENT: atraumatic, normocephalic Eye exam: PRESENT: conjunctiva pink, EOMI, PERRLA. ABSENT: scleral icterus Ear exam: PRESENT: normal external ear exam Mouth exam: PRESENT: moist, tongue midline Neck exam: ABSENT: carotid bruit, JVD, lymphadenopathy, thyromegaly Respiratory exam: PRESENT: clear to auscultation diony. ABSENT: rales, rhonchi, wheezes Cardiovascular exam: PRESENT: RRR. ABSENT: diastolic murmur, rubs, systolic murmur Pulses: PRESENT: normal dorsalis pedis pul Vascular exam: PRESENT: normal capillary refill GI/Abdominal exam: PRESENT: normal bowel sounds, soft. ABSENT: distended, guarding, mass, organolmegaly, rebound, tenderness Rectal exam: PRESENT: deferred Extremities exam: PRESENT: full ROM. ABSENT: calf tenderness, clubbing, pedal edema Neurological exam: PRESENT: alert, awake, oriented to person, oriented to place , oriented to time, oriented to situation, CN II-XII grossly intact. ABSENT: motor sensory deficit Psychiatric exam: PRESENT: appropriate affect, normal mood. ABSENT: homicidal ideation, suicidal ideation Skin exam: PRESENT: dry, intact, warm. ABSENT: cyanosis, rash Results Laboratory Results: 09/22/17 08:53 09/22/17 04:05 09/21/17 09/21/17 09/22/17 16:35 18:45 04:05 WBC 7.3 RBC 3.12 L Hgb 9.4 L Hct 27.1 L MCV 87 MCH 30.1 MCHC 34.6 RDW 17.8 H Plt Count 98 L Sodium 142.0 Potassium 3.3 L Chloride 111 H Carbon Dioxide 25 Anion Gap 6 BUN 21 H Creatinine 0.95 Est GFR ( Amer) > 60 Est GFR (Non-Af Amer) > 60 Glucose 87 Calcium 8.2 L Stool Occult Blood POSITIVE Blood Type Antibody Screen 09/22/17 09/22/17 08:53 11:49 WBC 4.6 RBC 2.43 L Hgb 7.2 L D Hct 21.4 L MCV 88 MCH 29.8 MCHC 33.7 RDW 17.3 H Plt Count 83 L Sodium Potassium Chloride Carbon Dioxide Anion Gap BUN Creatinine Est GFR ( Amer) Est GFR (Non-Af Amer) Glucose Calcium Stool Occult Blood Blood Type O POSITIVE Antibody Screen NEGATIVE Plan Time Spent: Greater than 30 Minutes - Patient's denied further evaluations with a small bowel series and the patient had need enteroscopy and that there is no facilities available here to do that procedure here in patients transfer to the tertiary center for further evaluations
[2017-09-22] MEDS ORDERED: FUROSEMIDE INJ/PF 20 MG/2 ML SDV IV PRN (18:23)
[2017-09-22] MEDS: ATORVASTATIN CALCIUM 10 MG TABLET PO SCH (21:13)
[2017-09-23] MEDS ORDERED: FUROSEMIDE INJ/PF 20 MG/2 ML SDV IV PRN (05:00)
[2017-09-23] MEDS: LANSOPRAZOLE 30 MG TAB.RAP.DR PO SCH (05:44)
[2017-09-23] MEDS: CLONIDINE HCL 0.2 MG TABLET PO SCH ×2 (05:44→15:06)
[2017-09-23 05:53] LABS: HEMATOCRIT 25.7 % (37.9-51.0); HEMOGLOBIN 8.6 g/dL (13.5-17.0); MEAN CORPUSCULAR HEMOGLOBIN 30.1 pg (27.0-33.4); MEAN CORPUSCULAR HGB CONC 33.5 g/dL (32.0-36.0); MEAN CORPUSCULAR VOLUME 90 fl (80-97); RED BLOOD COUNT 2.86 10^6/uL (4.35-5.55); RED CELL DISTRIBUTION WIDTH 17.5 % (11.5-14.0); WHITE BLOOD COUNT 5.5 10^3/uL (4.0-10.5)
[2017-09-23 06:05] LABS: ANION GAP 6 (5-19); BLOOD UREA NITROGEN 19 mg/dL (7-20); CALCIUM 8.3 mg/dL (8.4-10.2); CARBON DIOXIDE 27 mmol/L (22-30); CHLORIDE 108 mmol/L (98-107); GLUCOSE 80 mg/dL (75-110); POTASSIUM 3.5 mmol/L (3.6-5.0); SODIUM 140.7 mmol/L (137-145)
[2017-09-23 06:34] LABS: PLATELET COUNT 88 10^3/uL (150-450)
[2017-09-23 06:39] LABS: ABSOLUTE LYMPHOCYTES# (MANUAL) 0.4 10^3/uL (0.5-4.7); ABSOLUTE MONOCYTES # (MANUAL) 1.9 10^3/uL (0.1-1.4); ABSOLUTE NEUTROPHILS# (MANUAL) 3.2 10^3/uL (1.7-8.2); BAND NEUTROPHILS % (MANUAL) 1 % (3-5); BASOPHILS % (MANUAL) 0 % (0-2); EOSINOPHILS % (MANUAL) 0 % (0-6); LYMPHOCYTES % (MANUAL) 7 % (13-45); MONOCYTES % (MANUAL) 34 % (3-13); SEGMENTED NEUTROPHILS % (MAN) 58 % (42-78); TOTAL CELLS COUNTED 100
[2017-09-23 06:42] LABS: ANISOCYTOSIS 1+; HYPOCHROMASIA SLIGHT; OVALOCYTES SLIGHT; PLATELET COMMENT DECREASED; PLATELET LARGE PRESENT; POIKILOCYTOSIS SLIGHT; POLYCHROMASIA SLIGHT; TEAR DROP CELLS SLIGHT
--- NOTE | 2017-09-23 10:21 | PDOC PROGRESS REPORT ---
Subjective Progress Note for:: 09/23/17 Subjective:: Patient is currently doing fair denied any blood in the stools or black stools Recent hemoglobin is 8.6 Patients have a endoscopy and colonoscopy done yesterday and suggest the possible sources of small bowel and patient had enteroscopy and waiting to transfer to the [facility] Patient's denied any chest pain denied any shortness of the breath Reason For Visit: SYMPTOMATIC ANEMIA,POSSIBLE LGI BLEED, Physical Exam Vital Signs: Temp Pulse Resp BP Pulse Ox 98.0 F 69 17 115/48 L 100 09/23/17 08:00 09/23/17 08:00 09/23/17 08:00 09/23/17 08:00 09/23/17 08:00 Intake & Output 09/22/17 09/23/17 09/24/17 06:59 06:59 06:59 Intake Total 2786 2780 Output Total 650 Balance 2786 2130 General appearance: PRESENT: no acute distress, well-developed, well-nourished Head exam: PRESENT: atraumatic, normocephalic Eye exam: PRESENT: conjunctiva pink, EOMI, PERRLA. ABSENT: scleral icterus Ear exam: PRESENT: normal external ear exam Mouth exam: PRESENT: moist, tongue midline Neck exam: PRESENT: full ROM. ABSENT: carotid bruit, JVD, lymphadenopathy, thyromegaly Respiratory exam: PRESENT: clear to auscultation diony Cardiovascular exam: PRESENT: RRR. ABSENT: diastolic murmur, rubs, systolic murmur Pulses: PRESENT: normal dorsalis pedis pul, +2 pedal pulses bilateral Vascular exam: PRESENT: normal capillary refill GI/Abdominal exam: PRESENT: normal bowel sounds, soft. ABSENT: distended, guarding, mass, organolmegaly, rebound, tenderness Rectal exam: PRESENT: deferred Extremities exam: ABSENT: pedal edema Musculoskeletal exam: PRESENT: ambulatory Neurological exam: PRESENT: alert, awake, oriented to person, oriented to place , oriented to time, oriented to situation, CN II-XII grossly intact. ABSENT: motor sensory deficit Psychiatric exam: PRESENT: appropriate affect, normal mood. ABSENT: homicidal ideation, suicidal ideation Skin exam: PRESENT: dry, intact, warm. ABSENT: cyanosis, rash Results Laboratory Results: 09/23/17 04:07 09/23/17 04:07 0109/23/17 09/23/17 11:49 04:07 04:07 WBC 5.5 RBC 2.86 L Hgb 8.6 L Hct 25.7 L MCV 90 MCH 30.1 MCHC 33.5 RDW 17.5 H Plt Count 88 L Seg Neutrophils % Not Reportable Lymphocytes % Not Reportable Monocytes % Not Reportable Eosinophils % Not Reportable Basophils % Not Reportable Absolute Neutrophils Not Reportable Absolute Lymphocytes Not Reportable Absolute Monocytes Not Reportable Absolute Eosinophils Not Reportable Absolute Basophils Not Reportable Sodium 140.7 Potassium 3.5 L Chloride 108 H Carbon Dioxide 27 Anion Gap 6 BUN 19 Creatinine 1.04 Est GFR ( Amer) > 60 Est GFR (Non-Af Amer) > 60 Glucose 80 Calcium 8.3 L Blood Type O POSITIVE Antibody Screen NEGATIVE Assessment & Plan - Diagnosis (1) Symptomatic anemia Is this a current diagnosis for this admission?: Yes Plan: Currently transfused 1 unit of more blood to keep hemoglobin above 9 with the setting of active GI bleed (2) Thrombocytopenia Is this a current diagnosis for this admission?: Yes Plan: Currently stable (3) Myelodysplastic syndrome Is this a current diagnosis for this admission?: Yes Plan: Currently follow with oncology as outpatient (4) CAD (coronary artery disease) Qualifiers: Coronary Disease-Associated Artery/Lesion type: unspecified vessel or lesion type Associated angina: without angina Is this a current diagnosis for this admission?: Yes Plan: Currently all stable (5) CHF (congestive heart failure) Qualifiers: Congestive heart failure type: unspecified congestive heart failure type Congestive heart failure chronicity: chronic Qualified Code(s): I50.9 - Heart failure, unspecified Is this a current diagnosis for this admission?: Yes Plan: Continues to current medications (6) HLD (hyperlipidemia) Qualifiers: Hyperlipidemia type: pure hypercholesterolemia Qualified Code(s): E78.00 - Pure hypercholesterolemia, unspecified; E78.0 - Pure hypercholesterolemia Is this a current diagnosis for this admission?: Yes Plan: Currently all stable (7) HTN (hypertension) Qualifiers: Hypertension type: essential hypertension Is this a current diagnosis for this admission?: Yes Plan: Continues current medication (8) GI bleed Qualifiers: GI bleed type/associated pathology: unspecified gastrointestinal hemorrhage type Qualified Code(s): K92.2 - Gastrointestinal hemorrhage, unspecified Is this a current diagnosis for this admission?: Yes Plan: Patient is waiting to transfer to the [facility] currently stable - Time Time Spent with patient: 15-24 minutes Medications reviewed and adjusted accordingly: Yes Anticipated discharge: [facility] Within: when bed available, Other - Inpatient Certification Medical Necessity: Need Close Monitoring Due to Risk of Patient Decompensation Post Hospital Care: D/C Reformatory Attendant Documentation - Plan Summary Plan Summary: Very extensive discussed with the patient and the family and the bedside currently hemodynamically stable waiting to transfer to the [facility]
[2017-09-23] MEDS ORDERED: POTASSIUM CHLORIDE 10 MEQ TABLET.SA PO ONE (10:30)
[2017-09-23] MEDS: LOSARTAN POTASSIUM 50 MG TABLET PO SCH (10:33)
[2017-09-23] MEDS: CHOLECALCIFEROL (D3) 1,000 UNIT TABLET PO SCH (10:33)
[2017-09-23] MEDS: FUROSEMIDE 40 MG TABLET PO SCH (10:34)
[2017-09-23] MEDS: IRON POLYSACCHARIDES COMPLEX 150 MG CAPSULE PO SCH (10:34)
[2017-09-23] MEDS: POTASSIUM CHLORIDE 10 MEQ TABLET.SA PO SCH (10:34)
[2017-09-23] MEDS: CARVEDILOL 12.5 MG TABLET PO SCH (10:34)
[2017-09-23] MEDS: ISOSORBIDE MONONITRATE 60 MG TAB.ER.24H PO SCH (10:35)
[2017-09-23] MEDS: AMLODIPINE BESYLATE 5 MG TABLET PO SCH (10:35)
[2017-09-23 12:30] LABS: HEMATOCRIT 29.5 % (37.9-51.0); HEMOGLOBIN 9.9 g/dL (13.5-17.0); MEAN CORPUSCULAR HGB CONC 33.5 g/dL (32.0-36.0); MEAN CORPUSCULAR VOLUME 90 fl (80-97); RED BLOOD COUNT 3.29 10^6/uL (4.35-5.55); RED CELL DISTRIBUTION WIDTH 17.6 % (11.5-14.0)
[2017-09-23 12:55] LABS: PLATELET COUNT 94 10^3/uL (150-450)
[2017-09-23 16:53] LABS: HEMATOCRIT 29.9 % (37.9-51.0); HEMOGLOBIN 10.1 g/dL (13.5-17.0); MEAN CORPUSCULAR HEMOGLOBIN 30.3 pg (27.0-33.4); MEAN CORPUSCULAR HGB CONC 33.9 g/dL (32.0-36.0); MEAN CORPUSCULAR VOLUME 90 fl (80-97); RED BLOOD COUNT 3.34 10^6/uL (4.35-5.55); RED CELL DISTRIBUTION WIDTH 16.6 % (11.5-14.0); WHITE BLOOD COUNT 6.6 10^3/uL (4.0-10.5)
[2017-09-23 16:54] LABS: PLATELET COUNT 85 10^3/uL (150-450)
[2017-09-23 17:13] LABS: ABSOLUTE LYMPHOCYTES# (MANUAL) 0.7 10^3/uL (0.5-4.7); ABSOLUTE MONOCYTES # (MANUAL) 2.8 10^3/uL (0.1-1.4); BASOPHILS % (MANUAL) 0 % (0-2); EOSINOPHILS % (MANUAL) 1 % (0-6); LYMPHOCYTES % (MANUAL) 11 % (13-45); MONOCYTES % (MANUAL) 42 % (3-13); SEGMENTED NEUTROPHILS % (MAN) 46 % (42-78); TOTAL CELLS COUNTED 100
[2017-09-23 17:15] LABS: ANISOCYTOSIS 1+; OVALOCYTES SLIGHT; PLATELET COMMENT DECREASED; PLATELET LARGE PRESENT; POIKILOCYTOSIS SLIGHT; POLYCHROMASIA SLIGHT
[2017-09-23 20:20] VITALS: BP 92/42
== END 2017-09-23 20:40 | disposition short-term general hospital (02) | DRG 812 ==
LOC: ER 12:26 → EH 15:06 → 5 16:35 → OBSVTOIN 09-21 16:23
PROVIDERS: ADMIT Family Medicine; ATTEND Family Medicine
PROC: 30233N1 Transfusion of Nonautologous Red Blood Cells into Peripheral Vein, Percutaneous Approach (ICD-10-PCS; principal; 2017-09-19)
PROC: 30233N1 Transfusion of Nonautologous Red Blood Cells into Peripheral Vein, Percutaneous Approach (ICD-10-PCS; 2017-09-20)
PROC: 30233N1 Transfusion of Nonautologous Red Blood Cells into Peripheral Vein, Percutaneous Approach (ICD-10-PCS; 2017-09-21)
PROC: 0DD68ZX Extraction of Stomach, Via Natural or Artificial Opening Endoscopic, Diagnostic (ICD-10-PCS; 2017-09-22)
PROC: 0DJD8ZZ Inspection of Lower Intestinal Tract, Via Natural or Artificial Opening Endoscopic (ICD-10-PCS; 2017-09-22)
PROC: 30233N1 Transfusion of Nonautologous Red Blood Cells into Peripheral Vein, Percutaneous Approach (ICD-10-PCS; 2017-09-23)
DX: D46.9 Myelodysplastic syndrome, unspecified (principal); K92.2 Gastrointestinal hemorrhage, unspecified; D50.0 Iron deficiency anemia secondary to blood loss (chronic); D69.6 Thrombocytopenia, unspecified; K29.70 Gastritis, unspecified, without bleeding; I50.9 Heart failure, unspecified; I25.10 Atherosclerotic heart disease of native coronary artery without angina pectoris; E78.5 Hyperlipidemia, unspecified; I11.0 Hypertensive heart disease with heart failure; E11.9 Type 2 diabetes mellitus without complications; R53.1 Weakness; Z75.1 Person awaiting admission to adequate facility elsewhere; Z79.899 Other long term (current) drug therapy
CPT/HCPCS: 36415; 36430; 43239; 45378; 80048; 80053; 82272; 82962; 85025; 85027; 85610; 86850; 86900; 86901; 86902; 86920; 86922; 88305; 88342; 99285; J0171; J1610; J1940; J2250; J2310; J3010; J3490; J7030; J7050; P9016

== ENCOUNTER 2017-11-06 18:48 | Emergency (ER) | payer MEDICARE, OTHER ==
[2017-11-06] MEDS ORDERED: ACETAMINOPHEN 325 MG TABLET PO ONE (18:58)
--- NOTE | 2017-11-06 20:29 | ER Document Report ---
ED Medical Screen (RME) - General Chief Complaint: Fever Stated Complaint: FEVER Time Seen by Provider: 11/06/17 20:22 Mode of Arrival: Ambulatory Information source: Patient Notes: Patient presents with fever that started yesterday. Patient had a cough for the past 3 days. Patient additionally had a defibrillator was placed 2 weeks ago. Patient has only just remove the dressing from the site today. hx: Hypertension, diabetes, defibrillator I have greeted and performed a rapid initial assessment of this patient. A comprehensive ED assessment and evaluation of the patient, analysis of test results and completion of the medical decision making process will be conducted by additional ED providers. TRAVEL OUTSIDE OF THE [place] IN LAST 30 DAYS: No - Related Data Allergies/Adverse Reactions: No Known Allergies Allergy (Verified 09/19/17 12:27) Past Medical History - Past Medical History Cardiac Medical History: Reports: Hx Congestive Heart Failure, Hx Coronary Artery Disease, Hx Hypercholesterolemia, Hx Hypertension Denies: Hx Atrial Fibrillation, Hx Heart Attack, Hx Peripheral Vascular Disease, Hx Heart Murmur Pulmonary Medical History: Denies: Hx Asthma, Hx Bronchitis, Hx COPD, Hx Pneumonia, Hx Tuberculosis Neurological Medical History: Denies: Hx Cerebrovascular Accident, Hx Seizures Endocrine Medical History: Reports: Hx Diabetes Mellitus Type 2. Denies: Hx Diabetes Mellitus Type 1 Renal/ Medical History: Denies: Hx Benign Prostatic Hyperplasia, Hx End Stage Renal Disease, Hx Kidney Stones, Hx Peritoneal Dialysis Malignancy Medical History: Denies Hx Leukemia GI Medical History: Denies: Hx Crohn's Disease, Hx Gastroesophageal Reflux Disease, Hx Hiatal Hernia, Hx Irritable Bowel, Hx Liver Failure, Hx Pancreatitis , Hx Ulcer Musculoskeltal Medical History: Reports Hx Arthritis Psychiatric Medical History: Denies: Hx Depression Infectious Medical History: Denies: Hx HIV Past Surgical History: Reports: Hx Bowel Surgery. Denies: Hx Appendectomy, Hx Cholecystectomy, Hx Colostomy, Hx Coronary Artery Bypass Graft, Hx Gastric Bypass Surgery, Hx Herniorrhaphy, Hx Pacemaker, Hx Tonsillectomy - Immunizations Hx Diphtheria, Pertussis, Tetanus Vaccination: Yes History of Influenza Vaccine for 06/2017 - 11/2017 Season: Yes Influenza Administration Date for 06/2017 - 11/2017 Season: 06/19/17 Physical Exam - Vital signs Vitals: Temp Pulse Resp BP Pulse Ox 102.3 F H 87 24 H 192/55 H 97 11/06/17 19:00 11/06/17 19:00 11/06/17 19:00 11/06/17 19:00 11/06/17 19:00 - Respiratory Respiratory status: No respiratory distress Chest status: Tender - Patient with erythema and swelling about surgical site to left anterior chest wall Breath sounds: Nonproductive cough Course - Vital Signs Vital signs: Temp Pulse Resp BP Pulse Ox 102.3 F H 87 24 H 192/55 H 97 11/06/17 19:00 11/06/17 19:00 11/06/17 19:00 11/06/17 19:00 11/06/17 19:00
--- NOTE | 2017-11-06 21:01 | ER Document Report ---
ED Fever - General Chief Complaint: Fever Stated Complaint: FEVER Time Seen by Provider: 11/06/17 20:22 Mode of Arrival: Ambulatory Information source: Patient TRAVEL OUTSIDE OF THE [place] IN LAST 30 DAYS: No - HPI Notes: 62-year-old gentleman with past medical history of myelodysplastic syndrome as well as pacemaker placement approximately 2 weeks ago presented today for evaluation of a fever. Family is concerned that patient might have pacemaker infection. Patient started having upper respiratory congestion as well as cough associated with fevers that started yesterday. Patient denies any chest pain, confusion, palpitations, shortness of breath. - Related Data Allergies/Adverse Reactions: No Known Allergies Allergy (Verified 09/19/17 12:27) Past Medical History - General Information source: Patient - Social History Smoking Status: Never Smoker Family History: Reviewed & Not Pertinent Patient has suicidal ideation: No Patient has homicidal ideation: No - Past Medical History Cardiac Medical History: Reports: Hx Congestive Heart Failure, Hx Coronary Artery Disease, Hx Hypercholesterolemia, Hx Hypertension Denies: Hx Atrial Fibrillation, Hx Heart Attack, Hx Peripheral Vascular Disease, Hx Heart Murmur Pulmonary Medical History: Denies: Hx Asthma, Hx Bronchitis, Hx COPD, Hx Pneumonia, Hx Tuberculosis Neurological Medical History: Denies: Hx Cerebrovascular Accident, Hx Seizures Endocrine Medical History: Reports: Hx Diabetes Mellitus Type 2. Denies: Hx Diabetes Mellitus Type 1 Renal/ Medical History: Denies: Hx Benign Prostatic Hyperplasia, Hx End Stage Renal Disease, Hx Kidney Stones, Hx Peritoneal Dialysis Malignancy Medical History: Denies Hx Leukemia GI Medical History: Denies: Hx Crohn's Disease, Hx Gastroesophageal Reflux Disease, Hx Hiatal Hernia, Hx Irritable Bowel, Hx Liver Failure, Hx Pancreatitis , Hx Ulcer Musculoskeltal Medical History: Reports Hx Arthritis Psychiatric Medical History: Denies: Hx Depression Infectious Medical History: Denies: Hx HIV Past Surgical History: Reports: Hx Bowel Surgery. Denies: Hx Appendectomy, Hx Cholecystectomy, Hx Colostomy, Hx Coronary Artery Bypass Graft, Hx Gastric Bypass Surgery, Hx Herniorrhaphy, Hx Pacemaker, Hx Tonsillectomy - Immunizations Hx Diphtheria, Pertussis, Tetanus Vaccination: Yes Hx Pneumococcal Vaccination: 06/19/11 Review of Systems - Review of Systems Notes: REVIEW OF SYSTEMS: CONSTITUTIONAL: + Fevers, -chills EENT: -eye pain, -difficulty swallowing, +nasal congestion CARDIOVASCULAR: -chest pain, -syncope. RESPIRATORY: +cough, -SOB GASTROINTESTINAL: -abdominal pain, -nausea, -vomiting, -diarrhea GENITOURINARY: -dysuria, -hematuria MUSCULOSKELETAL: -back pain, -neck pain SKIN: -rash or skin lesions. HEMATOLOGIC: -easy bruising or bleeding. LYMPHATIC: -swollen, enlarged glands. NEUROLOGICAL: -altered mental status or loss of consciousness, -headache, - neurologic symptoms PSYCHIATRIC: -anxiety, -depression. ALL OTHER SYSTEMS REVIEWED AND NEGATIVE. Physical Exam - Vital signs Vitals: Temp Pulse Resp BP Pulse Ox 102.3 F H 87 24 H 192/55 H 97 11/06/17 19:00 11/06/17 19:00 11/06/17 19:00 11/06/17 19:00 11/06/17 19:00 Notes: Reviewed vital signs and nursing note as charted by RN. CONSTITUTIONAL: Alert and oriented and responds appropriately to questions, feels warm HEAD: Normocephalic; atraumatic EYES: PERRL; Conjunctivae clear, sclerae non-icteric ENT: normal nose; rhinorrhea NECK: Supple without meningismus; non-tender; no cervical lymphadenopathy, no masses CARD: Regular rate and rhythm; no murmurs, no clicks, no rubs, no gallops; symmetric distal pulses, chest wall examination with appropriate placement of pacemaker, there is no purulence or rash overlying the pacemaker placement, no tenderness or fluctuance around the pacemaker site RESP: Normal chest excursion without splinting or tachypnea; breath sounds clear and equal bilaterally ABD/GI: Normal bowel sounds; non-distended; soft, BACK: The back appears normal and is non-tender to palpation EXT: Normal ROM in all joints; non-tender to palpation; no cyanosis, no effusions, no edema SKIN: Normal color for age and race; warm; dry; good turgor; capillary refill < 2 seconds; no acute lesions noted NEURO: .Cranial nerves 3-12 intact. Motor strength 5/5 bilaterally. Sensation intact to touch bilaterally. No pronator drift. Finger to nose intact bilaterally PSYCH: The patient's mood and manner are appropriate. Grooming and personal hygiene are appropriate. Course - Re-evaluation Re-evalutation: 62-year-old here for evaluation of fever Pacemaker appears to be with no signs of purulence or infection, therefore no suspicion for pacemaker infection at present time Other possible causes of fever include pneumonia, acute cystitis, influenza, viral illness We will obtain basic lab work including CBC, BMP, urinalysis, influenza swab, chest x-ray, EKG, troponin, blood cultures as well as lactic acid level Reassess patient Reassessment 11:20 PM Patient does have influenza, likely etiology of his fever Given his age as well as multiple medical problems, according to CDC patient will benefit from treatment with Tamiflu We will give patient first dose here, discussed the treatment plan with patient and family Agree with disposition, also educated family about side effects of Tamiflu and need to stop the medication if patient develops any other symptoms Otherwise follow-up with primary care physician Chest x-ray with no acute pneumonia, urine is clean, no lactic acidosis or any other concern for sepsis - Vital Signs Vital signs: Temp Pulse Resp BP Pulse Ox 102.3 F H 87 18 165/62 H 95 11/06/17 19:00 11/06/17 19:00 11/06/17 22:01 11/06/17 22:01 11/06/17 22:01 - Laboratory Result Diagrams: 11/06/17 21:09 11/06/17 21:09 Laboratory results interpreted by me: 11/06/17 11/06/17 11/06/17 20:59 21:09 21:09 WBC 10.7 H RBC 3.93 L Hgb 10.8 L Hct 32.0 L RDW 22.4 H Plt Count 96 L Seg Neuts % (Manual) 8 L Lymphocytes % (Manual) 3 L Monocytes % (Manual) 85 H Abs Neuts (Manual) 0.9 L Abs Monocytes (Manual) 9.1 H VBG pH VBG pCO2 Potassium 3.4 L Creatinine 1.40 H Est GFR (Non-Af Amer) 51 L Urine Blood SMALL H 11/06/17 21:09 WBC RBC Hgb Hct RDW Plt Count Seg Neuts % (Manual) Lymphocytes % (Manual) Monocytes % (Manual) Abs Neuts (Manual) Abs Monocytes (Manual) VBG pH 7.46 H VBG pCO2 33.8 L Potassium Creatinine Est GFR (Non-Af Amer) Urine Blood Discharge - Discharge Clinical Impression: Influenza, Fever Condition: Stable Disposition: HOME, SELF-CARE Instructions: Influenza ([facility]) [id number] Prescriptions: Oseltamivir Phosphate [Tamiflu 75 mg Capsule] 75 mg PO BID 5 Days #10 capsule
--- NOTE | 2017-11-06 21:05 | RADIOLOGY REPORT (SQ) ---
EXAM DESCRIPTION: CHEST PA/LAT COMPLETED DATE/TIME: 11/06/2017 8:51 pm REASON FOR STUDY: cough, fever, recent defib replacement COMPARISON: 07/29/2015. TECHNIQUE: Frontal and lateral radiographic views of the chest acquired. NUMBER OF VIEWS: Two view. LIMITATIONS: Lateral view limited by overlying soft tissues. FINDINGS: LUNGS AND PLEURA: Suspect mild scar. No evidence of pneumonia. No significant pleural fl uid. No pneumothorax. MEDIASTINUM AND HILAR STRUCTURES: Stable contours. Ectatic aorta. HEART AND VASCULAR STRUCTURES: Stable heart size. BONES: No acute findings. HARDWARE: Dual lead cardiac device in place, leads stable. Power pack different configuration consis tent with recent replacement. OTHER: No other significant finding. IMPRESSION: No acute cardiopulmonary disease evident. TECHNICAL DOCUMENTATION: JOB ID: [id number] [employer]- All Rights Reserved
[2017-11-06 21:41] LABS: VENOUS BLOOD HCO3 23.4 mmol/L (20-32); VENOUS BLOOD PCO2 33.8 mmHg (35-63); VENOUS BLOOD PH 7.46 (7.30-7.42)
[2017-11-06 21:42] LABS: INTERNATIONAL RATION (INR) 1.14; PROTHROMBIN TIME 15.4 SEC (11.4-15.4)
[2017-11-06 21:45] LABS: HEMOGLOBIN 10.8 g/dL (13.5-17.0); MEAN CORPUSCULAR HEMOGLOBIN 27.6 pg (27.0-33.4); MEAN CORPUSCULAR HGB CONC 33.8 g/dL (32.0-36.0); MEAN CORPUSCULAR VOLUME 82 fl (80-97); RED BLOOD COUNT 3.93 10^6/uL (4.35-5.55); RED CELL DISTRIBUTION WIDTH 22.4 % (11.5-14.0); WHITE BLOOD COUNT 10.7 10^3/uL (4.0-10.5)
--- NOTE | 2017-11-06 21:47 | EKG REPORT ---
SEVERITY:- ABNORMAL ECG - SINUS RHYTHM NONSPECIFIC INTRAVENTRICULAR CONDUCTION DELAY PROBABLE LEFT VENTRICULAR HYPERTROPHY : Confirmed by: Eloy Villela 06-Nov-2017 21:46:56
[2017-11-06 21:48] LABS: ALANINE AMINOTRANSFERASE 23 U/L (21-72); ALBUMIN 4.3 g/dL (3.5-5.0); ALKALINE PHOSPHATASE 87 U/L (38-126); ANION GAP 11 (5-19); ASPARTATE AMINO TRANSFERASE 23 U/L (17-59); BILIRUBIN,DIRECT 0.4 mg/dL (0.0-0.4); BILIRUBIN,TOTAL 0.6 mg/dL (0.2-1.3); BLOOD UREA NITROGEN 11 mg/dL (7-20); CALCIUM 9.4 mg/dL (8.4-10.2); CARBON DIOXIDE 24 mmol/L (22-30); CHLORIDE 103 mmol/L (98-107); GLUCOSE 98 mg/dL (75-110); POTASSIUM 3.4 mmol/L (3.6-5.0); SODIUM 137.7 mmol/L (137-145); TOTAL PROTEIN 7.8 g/dL (6.3-8.2)
[2017-11-06 22:05] LABS: ABSOLUTE LYMPHOCYTES# (MANUAL) 0.6 10^3/uL (0.5-4.7); ABSOLUTE MONOCYTES # (MANUAL) 9.1 10^3/uL (0.1-1.4); ABSOLUTE NEUTROPHILS# (MANUAL) 0.9 10^3/uL (1.7-8.2); BASOPHILS % (MANUAL) 0 % (0-2); EOSINOPHILS % (MANUAL) 1 % (0-6); LYMPHOCYTES % (MANUAL) 3 % (13-45); MONOCYTES % (MANUAL) 85 % (3-13); SEGMENTED NEUTROPHILS % (MAN) 8 % (42-78); TOTAL CELLS COUNTED 100
[2017-11-06 22:12] LABS: ANISOCYTOSIS 3+; HYPOCHROMASIA SLIGHT; TOXIC VACUOLATION PRESENT
[2017-11-06 22:13] LABS: ACANTHOCYTES SLIGHT; OVALOCYTES 1+; PLATELET COMMENT DECREASED; POIKILOCYTOSIS 1+
[2017-11-06 22:16] LABS: PLATELET COUNT 96 10^3/uL (150-450)
[2017-11-06 22:28] LABS: A TYPE INFLUENZA AG POSITIVE (NEGATIVE); B INFLUENZA AG NEGATIVE (NEGATIVE)
[2017-11-06 22:53] LABS: APPEARANCE,URINE CLEAR; BILIRUBIN,URINE NEGATIVE (NEGATIVE); COLOR,URINE YELLOW; GLUCOSE, URINE NEGATIVE (NEGATIVE); KETONES,URINE NEGATIVE (NEGATIVE); LEUKOCYTE ESTERASE,URINE NEGATIVE (NEGATIVE); NITRITE,URINE NEGATIVE (NEGATIVE); PROTEIN,URINE NEGATIVE (NEGATIVE); URINE SPECIFIC GRAVITY 1.009; UROBILINOGEN,URINE NEGATIVE mg/dL (<2.0)
[2017-11-06] MEDS ORDERED: OSELTAMIVIR PHOSPHATE 75 MG CAPSULE PO ONE (23:16)
[2017-11-06 23:26] VITALS: BP 178/61
== END 2017-11-06 23:35 | disposition home or self-care (01) ==
LOC: ER 18:48
DX: J11.1 Influenza due to unidentified influenza virus with other respiratory manifestations (principal); R50.9 Fever, unspecified; R05 Cough; I25.10 Atherosclerotic heart disease of native coronary artery without angina pectoris; I10 Essential (primary) hypertension; E11.9 Type 2 diabetes mellitus without complications; Z95.0 Presence of cardiac pacemaker; J34.89 Other specified disorders of nose and nasal sinuses
CPT/HCPCS: 93005; 99284; 36415; 87040; 87086; 82962; 85025; 85610; 87088; 80053; 81001; 84484; 87186; 82803; 83605; 87804; 71046; 93010; A9270 ×2; J3490

== ENCOUNTER → 2018-01-10 | Outpatient (CLI) | payer MEDICARE, OTHER ==
--- NOTE | 2018-01-10 18:54 | XCELERA REPORT ---
[address] [address] Transthoracic Echocardiogram Report Name: BOOM POWERS Age: 62 yrs Gender: Male : 1955 Patient Status: Outpatient Patient Location: Study Date: 01/10/2018 12:48 PM Height: 67 in Weight: 216 lb BSA: 2.1 m2 Procedure: A complete two-dimensional transthoracic echocardiogram was performed (2D, M-mode, spectral and color flow Doppler). The study was technically difficult with many images being suboptimal in quality. Reason For Study: AI/ Ordering Physician: GIOVANNI NESS Performed By: Ekaterina Valverde Interpretation Summary The study was technically difficult with many images being suboptimal in quality. The left ventricular ejection fraction is Probably normal. see comment below. There is mild concentric left ventricular hypertrophy. LV diastolic function not assessed. The left ventricle is grossly normal size. Regional wall motion abnormalities cannot be excluded due to limited visualization. The right ventricular systolic function is normal. The left atrium is moderately dilated. The right atrium is normal in size There is a trace amount of mitral regurgitation There is no mitral valve stenosis. There is no aortic valve stenosis. There is a mild to moderate amount of aortic regurgitation The left ventricular apex is not well visualized. Consider additional methods to assess LVEF such as MUGA scan, CTA heart, cardiac MRI, [place], etc. if clinically indicated. MMode/2D Measurements & Calculations RVDd: 2.7 cm LVIDd: 6.0 cm FS: 24.8 % Ao root diam: 3.6 cm IVSd: 1.0 cm LVIDs: 4.5 cm EDV(Teich): 182.7 ml LVPWd: 0.96 cmESV(Teich): 94.5 ml Ao root area: 9.9 cm2 EF(Teich): 48.3 % LA dimension: 4.8 cm LVOT diam: 2.7 cm LVOT area: 5.7 cm2 Doppler Measurements & Calculations MV E max faiza: MV dec slope: Ao V2 max: AI max faiza: 40.2 cm/sec 293.7 cm/sec2 155.0 cm/sec 366.4 cm/sec MV A max faiza: MV dec time: Ao max PG: AI max P.8 cm/sec 0.14 sec 9.6 mmHg 54.0 mmHg MV E/A: 0.59 MAKEDA(V,D): 3.8 cm2 AI dec slope: 216.1 cm/sec2 AI P1/2t: 496.6 msec LV V1 max PG: PA V2 max: PI end-d faiza: 4.3 mmHg 81.4 cm/sec 171.9 cm/sec LV V1 max: PA max P.6 mmHg 103.2 cm/sec Left Ventricle The left ventricle is grossly normal size. There is mild concentric left ventricular hypertrophy. The left ventricular ejection fraction is normal. Consider additional methods to assess LVEF such as MUGA scan, CTA heart, cardiac MRI, [place], etc. if clinically indicated. LV diastolic function not assessed. Regional wall motion abnormalities cannot be excluded due to limited visualization. The left ventricular apex is not well visualized. Right Ventricle The right ventricle is grossly normal size. There is normal right ventricular wall thickness. The right ventricular systolic function is normal. Atria The right atrium is normal in size. The left atrium is moderately dilated. Interarterial septum not well visualized and not well dopplered. Cannot comment on ASD/PFO presence. Mitral Valve The mitral valve is grossly normal. There is no mitral valve stenosis. There is a trace amount of mitral regurgitation. Aortic Valve The aortic valve is mildly calcified. There is no aortic valve stenosis. There is a mild to moderate amount of aortic regurgitation. Tricuspid Valve The tricuspid valve is not well visualized secondary to technical limitations. There is no tricuspid stenosis. No tricuspid regurgitation. Pulmonic Valve The pulmonic valve is not well visualized. Great Vessels The aortic root is not well visualized but is probably normal size. The inferior vena cava was not well visualized. Effusions There is no pericardial effusion. : GIOVANNI NESS > Eloy Villela
== END ==
LOC: SP 12:42
PROVIDERS: ATTEND Specialist
DX: I35.1 Nonrheumatic aortic (valve) insufficiency (principal)
CPT/HCPCS: 93306

== ENCOUNTER → 2018-05-01 | Outpatient (CLI) | payer MEDICARE, OTHER ==
[2018-05-01 15:29] LABS: HEMATOCRIT 37.9 % (37.9-51.0); HEMOGLOBIN 13.2 g/dL (13.5-17.0); MEAN CORPUSCULAR HGB CONC 34.9 g/dL (32.0-36.0); MEAN CORPUSCULAR VOLUME 83 fl (80-97); RED BLOOD COUNT 4.55 10^6/uL (4.35-5.55); RED CELL DISTRIBUTION WIDTH 15.7 % (11.5-14.0); WHITE BLOOD COUNT 16.7 10^3/uL (4.0-10.5)
[2018-05-01 15:36] LABS: A TYPE INFLUENZA AG NEGATIVE (NEGATIVE); B INFLUENZA AG NEGATIVE (NEGATIVE)
[2018-05-01 15:41] LABS: ALANINE AMINOTRANSFERASE 15 U/L (21-72); ALBUMIN 4.3 g/dL (3.5-5.0); ALKALINE PHOSPHATASE 104 U/L (38-126); ANION GAP 15 (5-19); ASPARTATE AMINO TRANSFERASE 26 U/L (17-59); BILIRUBIN,DIRECT 0.6 mg/dL (0.0-0.4); BILIRUBIN,TOTAL 1.4 mg/dL (0.2-1.3); BLOOD UREA NITROGEN 15 mg/dL (7-20); CALCIUM 9.2 mg/dL (8.4-10.2); CARBON DIOXIDE 19 mmol/L (22-30); CHLORIDE 105 mmol/L (98-107); GLUCOSE 125 mg/dL (75-110); POTASSIUM 3.2 mmol/L (3.6-5.0); SODIUM 138.9 mmol/L (137-145)
--- NOTE | 2018-05-01 15:55 | RADIOLOGY REPORT (SQ) ---
EXAM DESCRIPTION: CHEST PA/LATERAL COMPLETED DATE/TIME: 05/01/2018 3:02 pm REASON FOR STUDY: COUGH COMPARISON: 11/06/2017 EXAM PARAMETERS: NUMBER OF VIEWS: two views TECHNIQUE: Digital Frontal and Lateral radiographic views of the chest acquired. RADIATION DOSE: NA LIMITATIONS: none FINDINGS: LUNGS AND PLEURA: No opacities, masses or pneumothorax. No pleural effusion. MEDIASTINUM AND HILAR STRUCTURES: No masses or contour abnormalities. HEART AND VASCULAR STRUCTURES: Stable cardiomegaly. BONES: No acute findings. HARDWARE: Stable position of defibrillator. OTHER: No other significant finding. IMPRESSION: No acute findings in the chest. TECHNICAL DOCUMENTATION: JOB ID: [id number] [employer]- All Rights Reserved Reading location - IP/workstation name: [email or web address]
[2018-05-01 16:00] LABS: ABSOLUTE LYMPHOCYTES# (MANUAL) 0.2 10^3/uL (0.5-4.7); ABSOLUTE MONOCYTES # (MANUAL) 7.8 10^3/uL (0.1-1.4); ABSOLUTE NEUTROPHILS# (MANUAL) 8.5 10^3/uL (1.7-8.2); BAND NEUTROPHILS % (MANUAL) 1 % (3-5); BASOPHILS % (MANUAL) 0 % (0-2); EOSINOPHILS % (MANUAL) 1 % (0-6); LYMPHOCYTES % (MANUAL) 1 % (13-45); MONOCYTES % (MANUAL) 47 % (3-13); SEGMENTED NEUTROPHILS % (MAN) 50 % (42-78); TOTAL CELLS COUNTED 100
[2018-05-01 16:03] LABS: ANISOCYTOSIS SLIGHT; PLATELET COMMENT DECREASED; PLATELET LARGE PRESENT; POLYCHROMASIA SLIGHT
[2018-05-01 16:05] LABS: PLATELET COUNT 38 10^3/uL (150-450)
[2018-05-02 11:33] LABS: HEMATOCRIT 35.4 % (37.9-51.0); HEMOGLOBIN 12.3 g/dL (13.5-17.0); MEAN CORPUSCULAR HGB CONC 34.7 g/dL (32.0-36.0); MEAN CORPUSCULAR VOLUME 84 fl (80-97); RED BLOOD COUNT 4.23 10^6/uL (4.35-5.55); RED CELL DISTRIBUTION WIDTH 15.8 % (11.5-14.0); WHITE BLOOD COUNT 27.7 10^3/uL (4.0-10.5)
[2018-05-02 11:59] LABS: ABSOLUTE LYMPHOCYTES# (MANUAL) 1.7 10^3/uL (0.5-4.7); ABSOLUTE MONOCYTES # (MANUAL) 7.5 10^3/uL (0.1-1.4); ABSOLUTE NEUTROPHILS# (MANUAL) 18.3 10^3/uL (1.7-8.2); BASOPHILS % (MANUAL) 0 % (0-2); EOSINOPHILS % (MANUAL) 1 % (0-6); LYMPHOCYTES % (MANUAL) 6 % (13-45); MONOCYTES % (MANUAL) 27 % (3-13); SEGMENTED NEUTROPHILS % (MAN) 66 % (42-78); TOTAL CELLS COUNTED 100
[2018-05-02 12:00] LABS: ANION GAP 16 (5-19); ANISOCYTOSIS SLIGHT; BLOOD UREA NITROGEN 19 mg/dL (7-20); BURR CELLS SLIGHT; CARBON DIOXIDE 20 mmol/L (22-30); CHLORIDE 103 mmol/L (98-107); GLUCOSE 94 mg/dL (75-110); PLATELET COMMENT DECREASED; POIKILOCYTOSIS SLIGHT; POTASSIUM 3.2 mmol/L (3.6-5.0); SODIUM 139.1 mmol/L (137-145)
[2018-05-02 12:02] LABS: PLATELET COUNT 31 10^3/uL (150-450)
== END ==
LOC: OD 14:36
PROVIDERS: ATTEND Physician Assistant
DX: R50.9 Fever, unspecified (principal); R05 Cough
CPT/HCPCS: 36415; 71046; 80048; 80053; 85025; 87040; 87804

== ENCOUNTER 2018-05-02 14:00 | Emergency (ER) | payer MEDICARE, OTHER ==
[2018-05-02 14:56] LABS: APPEARANCE,URINE CLEAR; BILIRUBIN,URINE NEGATIVE (NEGATIVE); COLOR,URINE YELLOW; GLUCOSE, URINE NEGATIVE (NEGATIVE); KETONES,URINE NEGATIVE (NEGATIVE); LEUKOCYTE ESTERASE,URINE NEGATIVE (NEGATIVE); NITRITE,URINE NEGATIVE (NEGATIVE); PROTEIN,URINE NEGATIVE (NEGATIVE); URINE SPECIFIC GRAVITY 1.014
--- NOTE | 2018-05-02 15:32 | ER Document Report ---
ED Medical Screen (RME) - General Chief Complaint: Abdominal Pain Stated Complaint: ABNORMAL LABS Time Seen by Provider: 05/02/18 15:23 TRAVEL OUTSIDE OF THE [place] IN LAST 30 DAYS: No - HPI Notes: 05/02/18 15:31 Patient with a history of myelodysplastic disorder apparently having fevers last few days started on Augmentin yesterday by his PCP sent to the ER for a blood smear. - Related Data Allergies/Adverse Reactions: No Known Allergies Allergy (Verified 05/02/18 15:15) Past Medical History - Social History Chew tobacco use (# tins/day): No Frequency of alcohol use: None Drug Abuse: None - Past Medical History Cardiac Medical History: Reports: Hx Congestive Heart Failure, Hx Coronary Artery Disease, Hx Hypercholesterolemia, Hx Hypertension Denies: Hx Atrial Fibrillation, Hx Heart Attack, Hx Peripheral Vascular Disease, Hx Heart Murmur Pulmonary Medical History: Denies: Hx Asthma, Hx Bronchitis, Hx COPD, Hx Pneumonia, Hx Tuberculosis Neurological Medical History: Denies: Hx Cerebrovascular Accident, Hx Seizures Endocrine Medical History: Reports: Hx Diabetes Mellitus Type 2. Denies: Hx Diabetes Mellitus Type 1 Renal/ Medical History: Denies: Hx Benign Prostatic Hyperplasia, Hx End Stage Renal Disease, Hx Kidney Stones, Hx Peritoneal Dialysis Malignancy Medical History: Denies Hx Leukemia GI Medical History: Denies: Hx Crohn's Disease, Hx Gastroesophageal Reflux Disease, Hx Hiatal Hernia, Hx Irritable Bowel, Hx Liver Failure, Hx Pancreatitis , Hx Ulcer Musculoskeltal Medical History: Reports Hx Arthritis Psychiatric Medical History: Denies: Hx Depression Infectious Medical History: Denies: Hx HIV Past Surgical History: Reports: Hx Bowel Surgery. Denies: Hx Appendectomy, Hx Cholecystectomy, Hx Colostomy, Hx Coronary Artery Bypass Graft, Hx Gastric Bypass Surgery, Hx Herniorrhaphy, Hx Pacemaker, Hx Tonsillectomy - Immunizations Hx Diphtheria, Pertussis, Tetanus Vaccination: Yes History of Influenza Vaccine for 06/2017 - 11/2017 Season: Yes Influenza Administration Date for 06/2017 - 11/2017 Season: 06/19/17 Review of Systems - Review of Systems Constitutional: Other - Blood smear Physical Exam - Vital signs Vitals: Temp Pulse Resp BP Pulse Ox 99 F 74 16 140/50 H 97 05/02/18 14:13 05/02/18 14:13 05/02/18 14:13 05/02/18 14:13 05/02/18 14:13 - Respiratory Respiratory status: No respiratory distress Chest status: Nontender Breath sounds: Normal Chest palpation: Normal Course - Vital Signs Vital signs: Temp Pulse Resp BP Pulse Ox 99 F 74 16 140/50 H 97 05/02/18 14:13 05/02/18 14:13 05/02/18 14:13 05/02/18 14:13 05/02/18 14:13 - Laboratory Laboratory results interpreted by me: 05/02/18 14:15 Urine Blood SMALL H Urine Urobilinogen 4.0 H Doctor's Discharge - Discharge Referrals: ABRAHAM HIGH PA [Primary Care Provider] - Follow up as needed
[2018-05-02 16:47] LABS: HEMATOCRIT 34.9 % (37.9-51.0); HEMOGLOBIN 12.3 g/dL (13.5-17.0); MEAN CORPUSCULAR HEMOGLOBIN 29.6 pg (27.0-33.4); MEAN CORPUSCULAR HGB CONC 35.1 g/dL (32.0-36.0); MEAN CORPUSCULAR VOLUME 84 fl (80-97); RED BLOOD COUNT 4.15 10^6/uL (4.35-5.55); RED CELL DISTRIBUTION WIDTH 16.2 % (11.5-14.0); WHITE BLOOD COUNT 26.3 10^3/uL (4.0-10.5)
--- NOTE | 2018-05-02 16:48 | ER Document Report ---
ED General - General Chief Complaint: Abdominal Pain Stated Complaint: ABNORMAL LABS Time Seen by Provider: 05/02/18 15:23 TRAVEL OUTSIDE OF THE [place] IN LAST 30 DAYS: No - HPI Notes: 62-year-old male with multiple medical problems including congestive heart failure and myelodysplastic syndrome with chronic anemia and iron infusions, presents with generalized weakness and fevers up to 102 yesterday. He reports a mild nonproductive cough and abdominal pain. He developed a mild headache today. He denies any neck stiffness. No chest pain or shortness of breath. No sinus congestion. Denies nausea, vomiting, diarrhea. No pain with urination. He has mild bilateral leg swelling. He was seen by Dr. Payton yesterday and started on Augmentin. He was found to have an elevated white blood cell count and was sent to the emergency department for further evaluation. - Related Data Allergies/Adverse Reactions: No Known Allergies Allergy (Verified 05/02/18 15:15) Past Medical History - Social History Smoking Status: Never Smoker Chew tobacco use (# tins/day): No Frequency of alcohol use: None Drug Abuse: None Family History: Reviewed & Not Pertinent Patient has suicidal ideation: No Patient has homicidal ideation: No - Past Medical History Cardiac Medical History: Reports: Hx Congestive Heart Failure, Hx Coronary Artery Disease, Hx Hypercholesterolemia, Hx Hypertension Denies: Hx Atrial Fibrillation, Hx Heart Attack, Hx Peripheral Vascular Disease, Hx Heart Murmur Pulmonary Medical History: Denies: Hx Asthma, Hx Bronchitis, Hx COPD, Hx Pneumonia, Hx Tuberculosis Neurological Medical History: Denies: Hx Cerebrovascular Accident, Hx Seizures Endocrine Medical History: Reports: Hx Diabetes Mellitus Type 2. Denies: Hx Diabetes Mellitus Type 1 Renal/ Medical History: Denies: Hx Benign Prostatic Hyperplasia, Hx End Stage Renal Disease, Hx Kidney Stones, Hx Peritoneal Dialysis Malignancy Medical History: Denies Hx Leukemia GI Medical History: Denies: Hx Crohn's Disease, Hx Gastroesophageal Reflux Disease, Hx Hiatal Hernia, Hx Irritable Bowel, Hx Liver Failure, Hx Pancreatitis , Hx Ulcer Musculoskeletal Medical History: Reports Hx Arthritis Psychiatric Medical History: Denies: Hx Depression Infectious Medical History: Denies: Hx HIV Past Surgical History: Reports: Hx Bowel Surgery. Denies: Hx Appendectomy, Hx Cholecystectomy, Hx Colostomy, Hx Coronary Artery Bypass Graft, Hx Gastric Bypass Surgery, Hx Herniorrhaphy, Hx Pacemaker, Hx Tonsillectomy - Immunizations Hx Diphtheria, Pertussis, Tetanus Vaccination: Yes Hx Pneumococcal Vaccination: 06/19/11 Review of Systems - Review of Systems Notes: Constitutional: Positive for fever. HENT: Negative for sore throat. Eyes: Negative for visual changes. Cardiovascular: Negative for chest pain. Respiratory: Negative for shortness of breath. Positive for dry cough Gastrointestinal: Positive for mild abdominal pain, negative for vomiting or diarrhea. Genitourinary: Negative for dysuria. Musculoskeletal: Negative for back pain. Skin: Negative for rash. Neurological: Positive for headaches. Negative for weakness or numbness. 10 point ROS negative except as marked above and in HPI. Physical Exam - Vital signs Vitals: Temp Pulse Resp BP Pulse Ox 99 F 74 16 140/50 H 97 05/02/18 14:13 05/02/18 14:13 05/02/18 14:13 05/02/18 14:13 05/02/18 14:13 - Notes Notes: PHYSICAL EXAMINATION: GENERAL: Well-appearing, well-nourished and in no acute distress. HEAD: Atraumatic, normocephalic. EYES: Pupils equal round and reactive to light, extraocular movements intact, conjunctiva are normal. ENT: nares patent, oropharynx clear without exudates. Moist mucous membranes. NECK: Normal range of motion, supple without lymphadenopathy. No meningismus. LUNGS: Breath sounds clear to auscultation bilaterally and equal. No wheezes rales or rhonchi. HEART: Regular rate and rhythm, no chest wall tenderness . 1+ murmur ABDOMEN: Soft, nontender, normoactive bowel sounds. No guarding, no rebound. No masses appreciated. EXTREMITIES: Normal range of motion. Mild 1+ bilateral ankle edema NEUROLOGICAL: Cranial nerves grossly intact. Normal speech, normal gait. Normal sensory and motor exams. PSYCH: Normal mood, normal affect. SKIN: Warm, Dry, normal turgor, no rashes or lesions noted. Course - Re-evaluation Re-evalutation: 05/02/18 16:48 Peripheral smear shows 50% atypical monocytes concerning for conversion to acute leukemia with worsening leukocytosis. Will discuss with Dr. Payton for further management. 05/02/18 16:49 05/02/18 17:[address] Payton. He recommended admitting to patient's oncologist at [facility]. Discussed with Dr.Louis Hoffmann, oncology, at [facility]. He graciously accepted patient in transfer. Due to the patient having abdominal pain, he recommended Zosyn. Will initiate transfer. Patient and updated. - Vital Signs Vital signs: Temp Pulse Resp BP Pulse Ox 99 F 74 16 140/50 H 97 05/02/18 14:13 05/02/18 14:13 05/02/18 14:13 05/02/18 14:13 05/02/18 14:13 - Laboratory Result Diagrams: 05/02/18 16:15 05/02/18 16:15 Laboratory results interpreted by me: 05/02/18 05/02/18 05/02/18 14:15 16:15 16:15 WBC 26.3 H RBC 4.15 L Hgb 12.3 L Hct 34.9 L RDW 16.2 H Plt Count 33 L Lymphocytes % (Manual) 3 L Monocytes % (Manual) 33 H Abs Neuts (Manual) 16.8 H Abs Monocytes (Manual) 8.7 H Potassium 3.1 L BUN 22 H Creatinine 1.57 H Est GFR ( Amer) 54 L Est GFR (Non-Af Amer) 45 L ALT 15 L Urine Blood SMALL H Urine Urobilinogen 4.0 H Discharge - Discharge Clinical Impression: Acute leukemia Qualifiers: Leukemia Active/Remission status: without remission Qualified Code(s): C95.00 - Acute leukemia of unspecified cell type not having achieved remission Fever Qualifiers: Fever type: unspecified Qualified Code(s): R50.9 - Fever, unspecified Condition: Fair Disposition: [facility] Referrals: ABRAHAM HIGH PA [Primary Care Provider] - Follow up as needed
[2018-05-02 17:03] LABS: ALANINE AMINOTRANSFERASE 15 U/L (21-72); ALKALINE PHOSPHATASE 77 U/L (38-126); ANION GAP 11 (5-19); ASPARTATE AMINO TRANSFERASE 19 U/L (17-59); BILIRUBIN,DIRECT 0.3 mg/dL (0.0-0.4); BILIRUBIN,TOTAL 0.8 mg/dL (0.2-1.3); BLOOD UREA NITROGEN 22 mg/dL (7-20); CALCIUM 8.9 mg/dL (8.4-10.2); CARBON DIOXIDE 24 mmol/L (22-30); CHLORIDE 104 mmol/L (98-107); GLUCOSE 97 mg/dL (75-110); POTASSIUM 3.1 mmol/L (3.6-5.0); SODIUM 139.3 mmol/L (137-145); TOTAL PROTEIN 7.3 g/dL (6.3-8.2)
[2018-05-02 17:04] LABS: PLATELET COUNT 33 10^3/uL (150-450)
[2018-05-02 17:09] LABS: ABSOLUTE LYMPHOCYTES# (MANUAL) 0.8 10^3/uL (0.5-4.7); ABSOLUTE MONOCYTES # (MANUAL) 8.7 10^3/uL (0.1-1.4); ABSOLUTE NEUTROPHILS# (MANUAL) 16.8 10^3/uL (1.7-8.2); BASOPHILS % (MANUAL) 0 % (0-2); EOSINOPHILS % (MANUAL) 0 % (0-6); LYMPHOCYTES % (MANUAL) 3 % (13-45); MONOCYTES % (MANUAL) 33 % (3-13); SEGMENTED NEUTROPHILS % (MAN) 64 % (42-78); TOTAL CELLS COUNTED 100
[2018-05-02 17:10] LABS: PLATELET COMMENT DECREASED
[2018-05-02 17:11] LABS: ANISOCYTOSIS 1+; POLYCHROMASIA SLIGHT
[2018-05-02 17:14] LABS: OVALOCYTES SLIGHT; PLATELET LARGE PRESENT; POIKILOCYTOSIS SLIGHT
[2018-05-02] MEDS ORDERED: PIPERACILLIN/TAZOBACTAM 3.375 GM VIAL IV ONE (17:30)
--- NOTE | 2018-05-02 17:36 | RADIOLOGY REPORT (SQ) ---
EXAM DESCRIPTION: CHEST 2 VIEWS COMPLETED DATE/TIME: 05/02/2018 5:26 pm REASON FOR STUDY: fever, cough COMPARISON: Two-view chest 11/06/2017, 07/29/2015 EXAM PARAMETERS: NUMBER OF VIEWS: two views TECHNIQUE: Digital Frontal and Lateral radiographic views of the chest acquired. RADIATION DOSE: NA LIMITATIONS: none FINDINGS: LUNGS AND PLEURA: Mild chronic increased interstitial markings at the bases right greater than left likely reflecting mild pulmonary fibrosis. No acute infiltrates. No pleural effusion or pneumothorax. MEDIASTINUM AND HILAR STRUCTURES: No masses or contour abnormalities. HEART AND VASCULAR STRUCTURES: Heart normal size. No evidence for failure. BONES: No acute findings. HARDWARE: Left-sided dual lead pacemaker unchanged OTHER: No other significant finding. IMPRESSION: No acute findings TECHNICAL DOCUMENTATION: JOB ID: [id number] [employer]- All Rights Reserved Reading location - IP/workstation name: [email or web address]
[2018-05-02 20:14] VITALS: BP 161/63
== END 2018-05-02 21:00 | disposition short-term general hospital (02) ==
LOC: ER 14:00
DX: C95.00 Acute leukemia of unspecified cell type not having achieved remission (principal); R50.9 Fever, unspecified; D46.9 Myelodysplastic syndrome, unspecified; R53.1 Weakness; R05 Cough; R10.9 Unspecified abdominal pain; R51 Headache; I25.10 Atherosclerotic heart disease of native coronary artery without angina pectoris; I11.0 Hypertensive heart disease with heart failure; I50.9 Heart failure, unspecified; E11.9 Type 2 diabetes mellitus without complications; R60.0 Localized edema; R01.1 Cardiac murmur, unspecified
CPT/HCPCS: 36415; 87040; 85025; 80053; 81001; 71046; J2543

== ENCOUNTER 2018-09-14 20:00 | Emergency (ER) | payer MEDICARE, OTHER ==
[2018-09-14] MEDS ORDERED: ACETAMINOPHEN 325 MG TABLET PO ONE ×2 (20:18→21:08)
--- NOTE | 2018-09-14 21:11 | ER Document Report ---
ED Medical Screen (RME) - General Chief Complaint: Fever Stated Complaint: POSSIBLE FEVER Time Seen by Provider: 09/14/18 21:08 Notes: 63-year-old male with chief complaint of fever that started last night, yesterday he had a ureteral stent removed by Dr. momin [facility]rology in [place], he also had a Shaw catheter removed a few days ago. Reports decreased eating, decreased urine output, fever/chills. Reports lower abdominal pain. Family sta minor he is acting "almost normal" TRAVEL OUTSIDE OF THE [place] IN LAST 30 DAYS: No - Related Data Allergies/Adverse Reactions: No Known Allergies Allergy (Verified 05/02/18 15:15) Past Medical History - Past Medical History Cardiac Medical History: Reports: Hx Congestive Heart Failure, Hx Coronary Artery Disease, Hx Hypercholesterolemia, Hx Hypertension Denies: Hx Atrial Fibrillation, Hx Heart Attack, Hx Peripheral Vascular Disease, Hx Heart Murmur Pulmonary Medical History: Denies: Hx Asthma, Hx Bronchitis, Hx COPD, Hx Pneumonia, Hx Tuberculosis Neurological Medical History: Denies: Hx Cerebrovascular Accident, Hx Seizures Endocrine Medical History: Reports: Hx Diabetes Mellitus Type 2. Denies: Hx Diabetes Mellitus Type 1 Renal/ Medical History: Denies: Hx Benign Prostatic Hyperplasia, Hx End Stage Renal Disease, Hx Kidney Stones, Hx Peritoneal Dialysis Malignancy Medical History: Denies Hx Leukemia GI Medical History: Denies: Hx Crohn's Disease, Hx Gastroesophageal Reflux Disease, Hx Hiatal Hernia, Hx Irritable Bowel, Hx Liver Failure, Hx Pancreatitis, Hx Ulcer Musculoskeltal Medical History: Reports Hx Arthritis Psychiatric Medical History: Denies: Hx Depression Infectious Medical History: Denies: Hx HIV Past Surgical History: Reports: Hx Bowel Surgery. Denies: Hx Appendectomy, Hx Cholecystectomy, Hx Colostomy, Hx Coronary Artery Bypass Graft, Hx Gastric Bypass Surgery, Hx Herniorrhaphy, Hx Pacemaker, Hx Tonsillectomy - Immunizations Hx Diphtheria, Pertussis, Tetanus Vaccination: Yes History of Influenza Vaccine for 06/2017 - 11/2017 Season: Yes Influenza Administration Date for 06/2017 - 11/2017 Season: 06/19/17 Physical Exam - Vital signs Vitals: Temp Pulse Resp BP Pulse Ox 101.6 F H 93 20 152/64 H 97 09/14/18 20:16 09/14/18 20:16 09/14/18 20:16 09/14/18 20:16 09/14/18 20:16 - General General appearance: Other - Patient is shaky, has difficulty answering my questions, is mildly ill appearing - Abdominal Tenderness: Tender - Complains of palpation over the general lower abdomen Course - Re-evaluation Re-evalutation: Patient is febrile, reporting lower abdominal pain with decreased urine output after Shaw removal. Upgraded to yellow. - Vital Signs Vital signs: Temp Pulse Resp BP Pulse Ox 101.6 F H 93 20 152/64 H 97 09/14/18 20:16 09/14/18 20:16 09/14/18 20:16 09/14/18 20:16 09/14/18 20:16 Doctor's Discharge - Discharge Referrals: ELIZA GRANADOS MD [Primary Care Provider] - Follow up as needed
[2018-09-14 21:54] LABS: HEMATOCRIT 29.1 % (37.9-51.0); HEMOGLOBIN 10.1 g/dL (13.5-17.0); MEAN CORPUSCULAR HGB CONC 34.6 g/dL (32.0-36.0); MEAN CORPUSCULAR VOLUME 87 fl (80-97); RED BLOOD COUNT 3.36 10^6/uL (4.35-5.55); RED CELL DISTRIBUTION WIDTH 14.8 % (11.5-14.0); WHITE BLOOD COUNT 16.2 10^3/uL (4.0-10.5)
[2018-09-14 22:00] LABS: APPEARANCE,URINE TURBID; BILIRUBIN,URINE NEGATIVE (NEGATIVE); COLOR,URINE YELLOW; GLUCOSE, URINE NEGATIVE (NEGATIVE); KETONES,URINE NEGATIVE (NEGATIVE); LEUKOCYTE ESTERASE,URINE LARGE (NEGATIVE); NITRITE,URINE NEGATIVE (NEGATIVE); PROTEIN,URINE 100 mg/dL (NEGATIVE); URINE SPECIFIC GRAVITY 1.006; UROBILINOGEN,URINE NEGATIVE mg/dL (<2.0)
--- NOTE | 2018-09-14 22:04 | ER Document Report ---
ED General - General Chief Complaint: Fever Stated Complaint: POSSIBLE FEVER Time Seen by Provider: 09/14/18 21:08 Notes: Patient is a 63 year old male that presents to the emergency department for chief complaint of fever and nausea. Patient states that he recently had a Shaw catheter in for about 1 week, was removed yesterday, he had a urethral stenosis, and urinary retention that is why he was placed. He had a fever at home T-max of 101 F, he had some abdominal discomfort, noticed urinary frequency, but denied dysuria. He had some nausea but no vomiting. Denies any significant pain at this time. Denies having any flank pain or vomiting, denies having any chest pain, shortness of breath, difficulty breathing. Family states they noticed that his urine did smell foul. Past Medical History: Diabetes mellitus, hypertension, CHF, hyperlipidemia Past Surgical History: Urethral stenting, AICD/pacemaker placement Social History: Denies tobacco, alcohol or drug use. Family History: Reviewed and noncontributory for presenting illness Allergies: Reviewed, see documented allergy list. REVIEW OF SYSTEMS: Other than noted above, the 12 point review of systems was reviewed with the patient and were negative, all pertinent findings are included in the HPI. PHYSICAL EXAMINATION: Vital signs reviewed, nursing noted reviewed. GENERAL: Elderly male, no acute distress, nontoxic appearing HEAD: Atraumatic, normocephalic. EYES: Eyes appear normal, extraocular movements intact, sclera anicteric, conjunctiva are normal. ENT: nares patent, oropharynx clear without exudates. Moist mucous membranes. NECK: Normal range of motion, supple without lymphadenopathy LUNGS: Breath sounds clear to auscultation bilaterally and equal. No wheezes rales or rhonchi. HEART: Regular rate and rhythm without murmurs ABDOMEN: Soft, nontender, normoactive bowel sounds. No rebound, guarding, or rigidity. No masses appreciated. EXTREMITIES: Nontender, good range of motion, no pitting or edema. NEUROLOGICAL: No focal neurological deficits. Moves all extremities spontaneously Motor and sensory grossly intact on exam. PSYCH: Normal mood, normal affect. SKIN: Warm, Dry, normal turgor, no rashes or lesions noted on exposed skin TRAVEL OUTSIDE OF THE [place] IN LAST 30 DAYS: No - Related Data Allergies/Adverse Reactions: No Known Allergies Allergy (Verified 05/02/18 15:15) Past Medical History - Social History Smoking Status: Never Smoker Family History: Reviewed & Not Pertinent - Past Medical History Cardiac Medical History: Reports: Hx Congestive Heart Failure, Hx Coronary Artery Disease, Hx Hypercholesterolemia, Hx Hypertension Denies: Hx Atrial Fibrillation, Hx Heart Attack, Hx Peripheral Vascular Disease, Hx Heart Murmur Pulmonary Medical History: Denies: Hx Asthma, Hx Bronchitis, Hx COPD, Hx Pneumonia, Hx Tuberculosis Neurological Medical History: Denies: Hx Cerebrovascular Accident, Hx Seizures Endocrine Medical History: Reports: Hx Diabetes Mellitus Type 2. Denies: Hx Diabetes Mellitus Type 1 Renal/ Medical History: Denies: Hx Benign Prostatic Hyperplasia, Hx End Stage Renal Disease, Hx Kidney Stones, Hx Peritoneal Dialysis Malignancy Medical History: Denies Hx Leukemia GI Medical History: Denies: Hx Crohn's Disease, Hx Gastroesophageal Reflux Disease, Hx Hiatal Hernia, Hx Irritable Bowel, Hx Liver Failure, Hx Pancreatitis, Hx Ulcer Musculoskeletal Medical History: Reports Hx Arthritis Psychiatric Medical History: Denies: Hx Depression Infectious Medical History: Denies: Hx HIV Past Surgical History: Reports: Hx Bowel Surgery. Denies: Hx Appendectomy, Hx Cholecystectomy, Hx Colostomy, Hx Coronary Artery Bypass Graft, Hx Gastric Bypa ss Surgery, Hx Herniorrhaphy, Hx Pacemaker, Hx Tonsillectomy - Immunizations Hx Diphtheria, Pertussis, Tetanus Vaccination: Yes Hx Pneumococcal Vaccination: 06/19/11 Physical Exam - Vital signs Vitals: Temp Pulse Resp BP Pulse Ox 101.6 F H 93 20 152/64 H 97 09/14/18 20:16 09/14/18 20:16 09/14/18 20:16 09/14/18 20:16 09/14/18 20:16 Course - Re-evaluation Re-evalutation: Patient seen and examined vital signs reviewed. Laboratory data and imaging were ordered as appropriate for the patient's presenting symptoms and complaint, with consideration of any critical or life th reatening conditions that may be associated with their obtained history and exam as noted above. Patient was treated with IV fluids, 500 mL's, given history of significant heart failure, and given a dose of IV Rocephin 1 g, as he does have evidence of urinary tract infection on his UA, he does have a leukocytosis as well, but lactate is normal, not tachycardic or hypotensive The patient was re-evaluated and was improved and stable, did not have any complaints Evaluation was most consistent with urinary tract infection, leukocytosis, feel that the patient can be managed as an outpatient, on Cefdnir twice daily, prior cultures reviewed, he has grown pansensitive E. coli in the past, and have him follow-up with his primary care physician, he is advised if his symptoms worsen to return to the emergency department. Results were discussed with the patient at this point, after careful consi deration I feel that that patient can be discharged from the emergency department, the patient was educated treatments and reasons to return to the emergency department based on their presumed diagnosis as noted above, they were advised to followup with a primary care physician in 2-3 days. Patient was agreeable to plan of care. *Note is created using voice recognition software and may contain spelling, syntax or grammatical errors. Laboratory 09/14/18 09/14/18 09/14/18 21:30 21:36 21:36 WBC 16.2 H RBC 3.36 L Hgb 10.1 L Hct 29.1 L MCV 87 MCH 30.0 MCHC 34.6 RDW 14.8 H Plt Count 81 L Total Counted 100 Seg Neutrophils % Not Reportable Seg Neuts % (Manual) 57 Lymphocytes % Not Reportable Lymphocytes % (Manual) 6 L Atypical Lymphs % 1 Monocytes % Not Reportable Monocytes % (Manual) 33 H Eosinophils % Not Reportable Eosinophils % (Manual) 0 Basophils % Not Reportable Basophils % (Manual) 0 Immature Leukocytes % 3 H Absolute Neutrophils Not Reportable Abs Neuts (Manual) 9.2 H Absolute Lymphocytes Not Reportable Abs Lymphs (Manual) 1.1 Absolute Monocytes Not Reportable Abs Monocytes (Manual) 5.3 H Absolute Eosinophils Not Reportable Absolute Eos (Manual) 0.0 Absolute Basophils Not Reportable Abs Basophils (Manual) 0.0 Large Platelets PRESENT Platelet Comment DECREASED Anisocytosis SLIGHT Sodium 136.8 L Potassium 3.4 L Chloride 103 Carbon Dioxide 26 Anion Gap 8 BUN 20 Creatinine 1.56 H Est GFR ( Amer) 54 L Est GFR (Non-Af Amer) 45 L Glucose 113 H Lactic Acid Calcium 8.7 Total Bilirubin 0.7 Direct Bilirubin 0.3 Neonat Total Bilirubin Not Reportable Neonat Direct Bilirubin Not Reportable Neonat Indirect Bili Not Reportable AST 21 ALT 13 L Alkaline Phosphatase 102 Total Protein 7.2 Albumin 4.0 Urine Color YELLOW Urine Appearance TURBID Urine pH 6.0 Ur Specific [place] 1.006 Urine Protein 100 H Urine Glucose (UA) NEGATIVE Urine Ketones NEGATIVE Urine Blood LARGE H Urine Nitrite NEGATIVE Urine Bilirubin NEGATIVE Urine Urobilinogen NEGATIVE Ur Leukocyte Esterase LARGE H Urine WBC (Auto) >182 Urine RBC (Auto) 12 Urine Bacteria (Auto) 3+ Squamous Epi Cells Auto 2 Urine Ascorbic Acid NEGATIVE 09/14/18 21:36 WBC RBC Hgb Hct MCV MCH MCHC RDW Plt Count Total Counted Seg Neutrophils % Seg Neuts % (Manual) Lymphocytes % Lymphocytes % (Manual) Atypical Lymphs % Monocytes % Monocytes % (Manual) Eosinophils % Eosinophils % (Manual) Basophils % Basophils % (Manual) Immature Leukocytes % Absolute Neutrophils Abs Neuts (Manual) Absolute Lymphocytes Abs Lymphs (Manual) Absolute Monocytes Abs Monocytes (Manual) Absolute Eosinophils Absolute Eos (Manual) Absolute Basophils Abs Basophils (Manual) Large Platelets Platelet Comment Anisocytosis Sodium Potassium Chloride Carbon Dioxide Anion Gap BUN Creatinine Est GFR ( Amer) Est GFR (Non-Af Amer) Glucose Lactic Acid 0.8 Calcium Total Bilirubin Direct Bilirubin Neonat Total Bilirubin Neonat Direct Bilirubin Neonat Indirect Bili AST ALT Alkaline Phosphatase Total Protein Albumin Urine Color Urine Appearance Urine pH Ur Specific [place] Urine Protein Urine Glucose (UA) Urine Ketones Urine Blood Urine Nitrite Urine Bilirubin Urine Urobilinogen Ur Leukocyte Esterase Urine WBC (Auto) Urine RBC (Auto) Urine Bacteria (Auto) Squamous Epi Cells Auto Urine Ascorbic Acid Chest X-Ray 09/14/18 21:20 IMPRESSION: No acute cardiopulmonary process copyright 2011 [employer]- All Rights Reserved 09/15/18 05:46 - Vital Signs Vital signs: Temp Pulse Resp BP Pulse Ox 99.8 F 93 22 H 129/61 H 96 09/15/18 00:15 09/14/18 20:16 09/15/18 00:01 09/15/18 00:01 09/15/18 00:01 - Laboratory Result Diagrams: 09/14/18 21:36 09/14/18 21:36 Laboratory results interpreted by me: 09/14/18 09/14/18 09/14/18 21:30 21:36 21:36 WBC 16.2 H RBC 3.36 L Hgb 10.1 L Hct 29.1 L RDW 14.8 H Plt Count 81 L Lymphocytes % (Manual) 6 L Monocytes % (Manual) 33 H Immature Leukocytes % 3 H Abs Neuts (Manual) 9.2 H Abs Monocytes (Manual) 5.3 H Sodium 136.8 L Potassium 3.4 L Creatinine 1.56 H Est GFR ( Amer) 54 L Est GFR (Non-Af Amer) 45 L Glucose 113 H ALT 13 L Urine Protein 100 H Urine Blood LARGE H Ur Leukocyte Esterase LARGE H Discharge - Discharge Clinical Impression: UTI (urinary tract infection) Qualifiers: Urinary tract infection type: site unspecified Hematuria presence: with hematuria Qualified Code(s): N39.0 - Urinary tract infection, site not specified Leukocytosis Qualifiers: Leukocytosis type: unspecified Qualified Code(s): D72.829 - Elevated white blood cell count, unspecified Condition: Stable Disposition: HOME, SELF-CARE Instructions: Urinary Tract Infection ([facility]) Additional Instructions: Please monitor for signs of worsening infection, continued fevers, vomiting, severe abdominal pain, if you experience these symptoms, do not hesitate to return to the emergency department, please complete the entire course of antibiotics prescribed, and please follow-up with your urologist, as well as your primary care physician. Prescriptions: Cefdinir [Omnicef 300 mg Capsule] 1 cap PO BID #14 capsule Referrals: ELIZA GRANADOS MD [Primary Care Provider] - Follow up in 3-5 days
[2018-09-14] MEDS ORDERED: NORMAL SALINE 1000 ML 1,000 ML IV ONE (22:05)
[2018-09-14] MEDS ORDERED: CEFTRIAXONE INJ 1000 MG VIAL IV ONE (22:05)
[2018-09-14 22:08] LABS: ALANINE AMINOTRANSFERASE 13 U/L (21-72); ALKALINE PHOSPHATASE 102 U/L (38-126); ANION GAP 8 (5-19); ASPARTATE AMINO TRANSFERASE 21 U/L (17-59); BILIRUBIN,DIRECT 0.3 mg/dL (0.0-0.4); BILIRUBIN,TOTAL 0.7 mg/dL (0.2-1.3); BLOOD UREA NITROGEN 20 mg/dL (7-20); CALCIUM 8.7 mg/dL (8.4-10.2); CARBON DIOXIDE 26 mmol/L (22-30); CHLORIDE 103 mmol/L (98-107); GLUCOSE 113 mg/dL (75-110); POTASSIUM 3.4 mmol/L (3.6-5.0); SODIUM 136.8 mmol/L (137-145); TOTAL PROTEIN 7.2 g/dL (6.3-8.2)
[2018-09-14 22:09] LABS: PLATELET COUNT 81 10^3/uL (150-450)
[2018-09-14] MEDS ORDERED: NORMAL SALINE 500 ML IV ONE (22:17)
--- NOTE | 2018-09-14 22:21 | RADIOLOGY REPORT (SQ) ---
EXAM DESCRIPTION: XR CHEST 1 VIEW COMPLETED DATE/TME: 09/14/2018 21:20 CLINICAL HISTORY: 63 years, Male, fever COMPARISON: 05/02/2018 chest NUMBER OF VIEWS: 1 TECHNIQUE: Frontal view chest LIMITATIONS: None. FINDINGS: The heart size is normal. Left-sided pacing device. Lungs are clear. No pneumothorax IMPRESSION: No acute cardiopulmonary process copyright 2010 [employer]- All Rights Reserved
[2018-09-14 22:23] LABS: BASOPHILS % (MANUAL) 0 % (0-2); EOSINOPHILS % (MANUAL) 0 % (0-6); TOTAL CELLS COUNTED 100
[2018-09-14 22:24] LABS: PLATELET COMMENT DECREASED
[2018-09-14 22:25] LABS: ANISOCYTOSIS SLIGHT
[2018-09-14 22:26] LABS: PLATELET LARGE PRESENT
[2018-09-15 00:11] VITALS: BP 129/61
[2018-09-15 13:50] LABS: SEGMENTED NEUTROPHILS % (MAN) 44 % (42-78)
[2018-09-15 13:51] LABS: ABSOLUTE LYMPHOCYTES# (MANUAL) 0.8 10^3/uL (0.5-4.7); ABSOLUTE MONOCYTES # (MANUAL) 7.6 10^3/uL (0.1-1.4); LYMPHOCYTES % (MANUAL) 5 % (13-45); MONOCYTES % (MANUAL) 47 % (3-13)
[2018-09-15 13:52] LABS: ABSOLUTE NEUTROPHILS# (MANUAL) 7.6 10^3/uL (1.7-8.2); IMMATURE MONONUCLEAR% (MANUAL) 1 % (0); MYELOCYTES % (MANUAL) 2 % (0); PROMYELOCYTES % (MANUAL) 1 % (0)
== END 2018-09-15 01:10 | disposition home or self-care (01) ==
LOC: ER 20:00
DX: N39.0 Urinary tract infection, site not specified (principal); R31.9 Hematuria, unspecified; D72.829 Elevated white blood cell count, unspecified; R11.0 Nausea; E11.9 Type 2 diabetes mellitus without complications; I10 Essential (primary) hypertension; I25.10 Atherosclerotic heart disease of native coronary artery without angina pectoris
CPT/HCPCS: 99284; 96365; 36415; 87040; 87086; 85025; 87077; 87088; 80053; 81001; 87186; 83605; 71045; A9270; J0696; J7040

== ENCOUNTER 2019-01-11 14:41 | Emergency (ER) | payer MEDICARE, OTHER ==
--- NOTE | 2019-01-11 16:09 | ER Document Report ---
ED Medical Screen (RME) - General Chief Complaint: Rectal Bleeding Stated Complaint: RECTAL BLEED Time Seen by Provider: 01/11/19 16:06 Primary Care Provider: ELIZA GRANADOS MD [Primary Care Provider] - Follow up as needed Mode of Arrival: Wheelchair Information source: Patient Notes: Patient reports having dark stool x2 episodes today with lower abdominal pain and feeling dizzy. Patient states he had a history of GI bleed in the past that required transfusion. Patient denies any history of diverticulitis. hx: Myelodysplastic syndrome, CHF, hypertension, renal stent I have greeted and performed a rapid initial assessment of this patient. A comprehensive ED assessment and evaluation of the patient, analysis of test results and completion of the medical decision making process will be conducted by additional ED providers. TRAVEL OUTSIDE OF THE [place] IN LAST 30 DAYS: No - Related Data Allergies/Adverse Reactions: No Known Allergies Allergy (Verified 01/11/19 14:43) Past Medical History - Social History Frequency of alcohol use: None Drug Abuse: None - Past Medical History Cardiac Medical History: Reports: Hx Congestive Heart Failure, Hx Coronary Artery Disease, Hx Hypercholesterolemia, Hx Hypertension Denies: Hx Atrial Fibrillation, Hx Heart Attack, Hx Peripheral Vascular Disease, Hx Heart Murmur Pulmonary Medical History: Denies: Hx Asthma, Hx Bronchitis, Hx COPD, Hx Pneumonia, Hx Tuberculosis Neurological Medical History: Denies: Hx Cerebrovascular Accident, Hx Seizures Endocrine Medical History: Reports: Hx Diabetes Mellitus Type 2. Denies: Hx Diabetes Mellitus Type 1 Renal/ Medical History: Denies: Hx Benign Prostatic Hyperplasia, Hx End Stage Renal Disease, Hx Kidney Stones, Hx Peritoneal Dialysis Malignancy Medical History: Denies Hx Leukemia GI Medical History: Denies: Hx Crohn's Disease, Hx Gastroesophageal Reflux Disease, Hx Hiatal Hernia, Hx Irritable Bowel, Hx Liver Failure, Hx Pancreatitis, Hx Ulcer Musculoskeltal Medical History: Reports Hx Arthritis Psychiatric Medical History: Denies: Hx Depression Infectious Medical History: Denies: Hx HIV Past Surgical History: Reports: Hx Bowel Surgery. Denies: Hx Appendectomy, Hx Cholecystectomy, Hx Colostomy, Hx Coronary Artery Bypass Graft, Hx Gastric Bypass Surgery, Hx Herniorrhaphy, Hx Pacemaker, Hx Tonsillectomy - Immunizations Hx Diphtheria, Pertussis, Tetanus Vaccination: Yes History of Influenza Vaccine for 06/2017 - 11/2017 Season: Yes Influenza Administration Date for 06/2017 - 11/2017 Season: 06/19/17 Physical Exam - Vital signs Vitals: Temp Pulse Resp BP Pulse Ox 98.4 F 78 14 101/41 L 100 01/11/19 14:51 01/11/19 14:51 01/11/19 14:51 01/11/19 14:51 01/11/19 14:51 - Abdominal Tenderness: Tender - Lower abdominal tenderness Course - Vital Signs Vital signs: Temp Pulse Resp BP Pulse Ox 98.4 F 78 14 101/41 L 100 01/11/19 14:51 01/11/19 14:51 01/11/19 14:51 01/11/19 14:51 01/11/19 14:51 Doctor's Discharge - Discharge Referrals: ELIZA GRANADOS MD [Primary Care Provider] - Follow up as needed
[2019-01-11 18:20] LABS: MEAN CORPUSCULAR HEMOGLOBIN 30.1 pg (27.0-33.4); MEAN CORPUSCULAR HGB CONC 34.6 g/dL (32.0-36.0); MEAN CORPUSCULAR VOLUME 87 fl (80-97); RED CELL DISTRIBUTION WIDTH 16.2 % (11.5-14.0); WHITE BLOOD COUNT 3.5 10^3/uL (4.0-10.5)
[2019-01-11 18:23] LABS: INTERNATIONAL RATION (INR) 1.26; PROTHROMBIN TIME 16.4 SEC (11.4-15.4)
[2019-01-11 18:26] LABS: APPEARANCE,URINE CLEAR; BILIRUBIN,URINE NEGATIVE (NEGATIVE); COLOR,URINE STRAW; GLUCOSE, URINE NEGATIVE (NEGATIVE); KETONES,URINE NEGATIVE (NEGATIVE); LEUKOCYTE ESTERASE,URINE NEGATIVE (NEGATIVE); NITRITE,URINE NEGATIVE (NEGATIVE); PROTEIN,URINE NEGATIVE (NEGATIVE); UROBILINOGEN,URINE NEGATIVE mg/dL (<2.0)
[2019-01-11 18:35] LABS: ALANINE AMINOTRANSFERASE 21 U/L (21-72); ALBUMIN 4.1 g/dL (3.5-5.0); ALKALINE PHOSPHATASE 101 U/L (38-126); ANION GAP 10 (5-19); ASPARTATE AMINO TRANSFERASE 16 U/L (17-59); BILIRUBIN,DIRECT 0.3 mg/dL (0.0-0.4); BILIRUBIN,TOTAL 0.4 mg/dL (0.2-1.3); BLOOD UREA NITROGEN 53 mg/dL (7-20); CALCIUM 9.7 mg/dL (8.4-10.2); CARBON DIOXIDE 20 mmol/L (22-30); CHLORIDE 110 mmol/L (98-107); GLUCOSE 98 mg/dL (75-110); POTASSIUM 4.6 mmol/L (3.6-5.0); SODIUM 140.3 mmol/L (137-145); TOTAL PROTEIN 7.6 g/dL (6.3-8.2)
[2019-01-11 18:45] LABS: HEMOGLOBIN 6.9 g/dL (13.5-17.0); PLATELET COUNT 41 10^3/uL (150-450)
[2019-01-11 18:54] LABS: ABSOLUTE LYMPHOCYTES# (MANUAL) 0.5 10^3/uL (0.5-4.7); ABSOLUTE NEUTROPHILS# (MANUAL) 1.9 10^3/uL (1.7-8.2); BASOPHILS % (MANUAL) 1 % (0-2); EOSINOPHILS % (MANUAL) 2 % (0-6); LYMPHOCYTES % (MANUAL) 15 % (13-45); MONOCYTES % (MANUAL) 28 % (3-13); NUCLEATED RED BLOOD CELLS 2 /100 WBC (0); SEGMENTED NEUTROPHILS % (MAN) 54 % (42-78); TOTAL CELLS COUNTED 100
[2019-01-11 18:56] LABS: ANISOCYTOSIS 1+; POIKILOCYTOSIS SLIGHT; POLYCHROMASIA 1+
[2019-01-11 18:57] LABS: PLATELET COMMENT DECREASED; PLATELET LARGE PRESENT; SCHISTOCYTES SLIGHT; TEAR DROP CELLS SLIGHT
--- NOTE | 2019-01-11 19:04 | EKG REPORT ---
SEVERITY:- ABNORMAL ECG - SINUS RHYTHM PROBABLE LEFT ATRIAL ABNORMALITY NONSPECIFIC INTRAVENTRICULAR CONDUCTION DELAY LEFT VENTRICULAR HYPERTROPHY : Confirmed by: Laron Canales MD 11-Jan-2019 19:03:24
[2019-01-11] MEDS ORDERED: NORMAL SALINE 250 ML IV PRN (19:28)
[2019-01-11] MEDS ORDERED: PANTOPRAZOLE SODIUM 40 MG VIAL IV ONE (19:45)
--- NOTE | 2019-01-11 19:52 | ER Document Report ---
ED General - General Chief Complaint: Rectal Bleeding Stated Complaint: RECTAL BLEED Time Seen by Provider: 01/11/19 16:06 Primary Care Provider: ELIZA GRANADOS MD [Primary Care Provider] - Follow up as needed Mode of Arrival: Wheelchair Notes: Patient is a 63-year-old male with a past medical history of mild dysplastic disorder, recurrent upper GI bleeds, chronic thrombocytopenia, who presents with melanotic stools for the past 24 hours. Patient began passing dark, tarry stools earlier this morning, states he has had 2-3 dark, black bowel movement since that time. He notes that he has had some associated lightheadedness and generalized weakness. States that his symptoms started gradually, regards him as being moderate, constant since onset. Nothing is been noted to improve or w orsen his symptoms. States this feels very similar to when he has had upper GI bleeds in the past. Has not seen his primary care physician regarding today's concerns. Does not take any form of anticoagulation, aspirin or NSAIDs. TRAVEL OUTSIDE OF THE [place] IN LAST 30 DAYS: No - Related Data Allergies/Adverse Reactions: No Known Allergies Allergy (Verified 01/11/19 14:43) Past Medical History - General Information source: Patient - Social History Smoking Status: Former Smoker Frequency of alcohol use: None Drug Abuse: None Lives with: Spouse/Significant other Family History: Reviewed & Not Pertinent Patient has suicidal ideation: No Patient has homicidal ideation: No - Past Medical History Cardiac Medical History: Reports: Hx Congestive Heart Failure, Hx Coronary Artery Disease, Hx Hypercholesterolemia, Hx Hypertension Denies: Hx Atrial Fibrillation, Hx Heart Attack, Hx Peripheral Vascular Disease, Hx Heart Murmur Pulmonary Medical History: Denies: Hx Asthma, Hx Bronchitis, Hx COPD, Hx Pneumonia, Hx Tuberculosis Neurological Medical History: Denies: Hx Cerebrovascular Accident, Hx Seizures Endocrine Medical History: Reports: Hx Diabetes Mellitus Type 2. Denies: Hx Diabetes Mellitus Type 1 Renal/ Medical History: Denies: Hx Benign Prostatic Hyperplasia, Hx End Stage Renal Disease, Hx Kidney Stones, Hx Peritoneal Dialysis Malignancy Medical History: Denies Hx Leukemia GI Medical History: Denies: Hx Crohn's Disease, Hx Gastroesophageal Reflux Disease, Hx Hiatal Hernia, Hx Irritable Bowel, Hx Liver Failure, Hx Pancreatitis, Hx Ulcer Musculoskeletal Medical History: Reports Hx Arthritis Psychiatric Medical History: Denies: Hx Depression Infectious Medical History: Denies: Hx HIV Past Surgical History: Reports: Hx Bowel Surgery. Denies: Hx Appendectomy, Hx Cholecystectomy, Hx Colostomy, Hx Coronary Artery Bypass Graft, Hx Gastric Bypass Surgery, Hx Herniorrhaphy, Hx Pacemaker, Hx Tonsillectomy - Immunizations Hx Diphtheria, Pertussis, Tetanus Vaccination: Yes Hx Pneumococcal Vaccination: 06/19/11 Review of Systems - Review of Systems Notes: Constitutional: Negative for fever. HENT: Negative for sore throat. Eyes: Negative for visual changes. Cardiovascular: Negative for chest pain. Positive for lightheadedness Respiratory: Negative for shortness of breath. Gastrointestinal: Positive for melanotic stools Genitourinary: Negative for dysuria. Musculoskeletal: Negative for back pain. Skin: Negative for rash. Neurological: Negative for headaches, weakness or numbness. 10 point ROS negative except as marked above and in HPI. Physical Exam - Vital signs Vitals: Temp Pulse Resp BP Pulse Ox 98.4 F 78 14 101/41 L 100 01/11/19 14:51 01/11/19 14:51 01/11/19 14:51 01/11/19 14:51 01/11/19 14:51 Interpretation: Normal Notes: PHYSICAL EXAMINATION: GENERAL: Well-appearing, well-nourished and in no acute distress. HEAD: Atraumatic, normocephalic. EYES: Pupils equal round and reactive to light, extraocular movements intact, sclera anicteric, conjunctiva are normal. ENT: nares patent, oropharynx clear without exudates. Moist mucous membranes. NECK: Normal range of motion, supple without lymphadenopathy LUNGS: Breath sounds clear to auscultation bilaterally and equal. No wheezes rales or rhonchi. HEART: Regular rate and rhythm without murmurs ABDOMEN: Soft, nontender, normoactive bowel sounds. No guarding, no rebound. No masses appreciated. Rectal: Gross melanotic stool, no masses or lesions EXTREMITIES: Normal range of motion, no pitting or edema. No cyanosis. NEUROLOGICAL: No focal neurological deficits. Moves all extremities spontaneousl y and on command. PSYCH: Normal mood, normal affect. SKIN: Warm, Dry, normal turgor, no rashes or lesions noted. Course - Re-evaluation Re-evalutation: 01/11/19 19:26 Patient presents with melanotic stools, initially hypotensive at time of presentation 99 on 41. The patient has a history of GI bleeds in the context of myelodysplasia, follows with Dr. Velazquez for myelodysplasia, Dr. Granados is her primary care physician. On exam the patient is somewhat ill in appearance but in no acute distress. Not lethargic. Blood pressure is improved into the 130s systolic at time of my evaluation. Rectal examination reveals gross melena. Patient's blood counts found to be low with a hemoglobin of 6.9 down from 10.8 a proximate 4 months ago and patient does report that is in office hemoglobin 1 month ago was 10.2. 2 units of packed red blood cell transfusion has been ordered to start immediately. Bolus of Protonix 80 mg followed by infusion has been started. Patient's renal functions are somewhat compromised relative to th e last time that he was seen in August possibly due to hypotension in the setting of acute GI bleed. Patient may require Lasix dosing in between his blood transfusion. We do have Dr. Christiansen available who does do scopes. Will consult. 01/11/19 19:54 I did discuss with Dr. Christiansen who will come to evaluate the patient. Patient remains hemodynamically within acceptable limits. I will contact Dr. Granados for hospitalization. 01/11/19 20:11 Have had an extensive conversation with Dr. Granados. He is reviewed me the patient's previous history of GI bleeds and states that the patient should not stay at this facility even though Dr. Christiansen is comfortable performing endoscopy. Dr. Granados does report that in the past patient has had both colonoscopy and endoscopy which could not locate the source of bleeding and he had to have enteroscopy to actually locate the source of bleed at [facility]. He states the p atient should not remain here due to this issue and the fact we do not have GI support. He states that Dr. Velazquez the patient's manager alliance likewise thinks that he should be transferred. I did recontact Dr. Christiansen, informed him that the primary specialist does not feel comfort given the patient and that we need to transfer to [facility] due to Dr. Granados's discomfort with admitting this patient. I have contacted [facility] and requested transfer. Awaiting callback. 01/11/19 22:59 Patient has been accepted at [facility] by . Remains hemodynamically stable. Awaiting transport. 01/12/19 03:17 Patient continues to be within hemodynamic limits. Repeat CBC pending. Awaiting transport. - Vital Signs Vital signs: Temp Pulse Resp BP Pulse Ox 98.3 F 73 15 162/64 H 100 01/12/19 01:44 01/12/19 01:44 01/12/19 01:48 01/12/19 01:48 01/12/19 01:48 - Laboratory Result Diagrams: 01/11/19 17:44 01/11/19 17:44 Laboratory results interpreted by me: 01/11/19 01/11/19 01/11/19 17:39 17:44 17:44 WBC 3.5 L RBC 2.30 L Hgb 6.9 L Hct 20.0 L RDW 16.2 H Plt Count 41 L Monocytes % (Manual) 28 H PT Chloride 110 H Carbon Dioxide 20 L BUN 53 H Creatinine 2.35 H Est GFR ( Amer) 34 L Est GFR (Non-Af Amer) 28 L AST 16 L Crossmatch See Detail 01/11/19 17:44 WBC RBC Hgb Hct RDW Plt Count Monocytes % (Manual) PT 16.4 H Chloride Carbon Dioxide BUN Creatinine Est GFR ( Amer) Est GFR (Non-Af Amer) AST Crossmatch - EKG Interpretation by Me Additional EKG results interpreted by me: 01/12/19 03:17 Sinus rhythm, rate 70. No ST elevations or depressions. QTC is 432. Critical Care Note - Critical Care Note Total time excluding time spent on procedures (mins): 36 Comments: Critical care time spent obtaining history from patient or surrogate, discussions with consultants, development of treatment plan with patient or surrogate, evaluation of patient's response to treatment, examination of patient, ordering and performing treatments and interventions, ordering and review of laboratory studies, re-evaluation of patient's condition, arranging transfer and review of old charts Discharge - Discharge Clinical Impression: Myelodysplastic syndrome, Thrombocytopenia, Anemia requiring transfusions, Upper GI bleed, Melanotic stools Hypotension Qualifiers: Hypotension type: unspecified hypotension type Qualified Code(s): I95.9 - Hypotension, unspecified Condition: Fair Disposition: [facility] Referrals: ELIZA GRANADOS MD [Primary Care Provider] - Follow up as needed
[2019-01-11] MEDS: PANTOPRAZOLE SODIUM 40 MG VIAL IV PRN (21:17)
[2019-01-12 03:39] LABS: HEMATOCRIT 22.3 % (37.9-51.0); MEAN CORPUSCULAR VOLUME 86 fl (80-97); RED CELL DISTRIBUTION WIDTH 15.9 % (11.5-14.0); WHITE BLOOD COUNT 3.3 10^3/uL (4.0-10.5)
[2019-01-12 03:43] LABS: PLATELET COUNT 44 10^3/uL (150-450)
[2019-01-12 04:03] LABS: ABSOLUTE MONOCYTES # (MANUAL) 1.1 10^3/uL (0.1-1.4); ABSOLUTE NEUTROPHILS# (MANUAL) 1.2 10^3/uL (1.7-8.2); ANISOCYTOSIS 1+; BASOPHILS % (MANUAL) 1 % (0-2); EOSINOPHILS % (MANUAL) 2 % (0-6); LYMPHOCYTES % (MANUAL) 25 % (13-45); MONOCYTES % (MANUAL) 32 % (3-13); PLATELET COMMENT DECREASED; POLYCHROMASIA SLIGHT; SEGMENTED NEUTROPHILS % (MAN) 35 % (42-78); TOTAL CELLS COUNTED 100
[2019-01-12 04:04] LABS: HEMOGLOBIN 7.8 g/dL (13.5-17.0)
[2019-01-12] MEDS: PANTOPRAZOLE SODIUM 40 MG VIAL IV PRN (08:18)
--- NOTE | 2019-01-12 10:23 | ER Document Report ---
Doctor's Note Notes: 01/12/19 10:20 Rounds: Chart reviewed and patient interviewed. Patient is being evaluated and cared for gastrointestinal bleeding. Patient is stable. Has no complaints at this time. He says he has not passed any blood per rectum for some time now, but has not had a bowel movement either. His blood pressure has been in the 160s 170 systolic for the last couple of readings. Patient's had 2 units of blood in his hemoglobin started out when he came in at 6.9 and after the 2 units of blood it was 7.8 in the wee hours of the morning. I am told that the patient has transport set up at noon to take him to [facility]. He he has been seen there previously for the same condition. Patient appears to be medically stable for transfer. Jem Treviño MD
[2019-01-12 11:11] LABS: HEMATOCRIT 25.5 % (37.9-51.0); MEAN CORPUSCULAR HEMOGLOBIN 30.1 pg (27.0-33.4); MEAN CORPUSCULAR HGB CONC 35.4 g/dL (32.0-36.0); MEAN CORPUSCULAR VOLUME 85 fl (80-97); RED CELL DISTRIBUTION WIDTH 15.8 % (11.5-14.0); WHITE BLOOD COUNT 3.5 10^3/uL (4.0-10.5)
[2019-01-12 11:37] VITALS: BP 170/62
[2019-01-12 11:46] LABS: ABSOLUTE LYMPHOCYTES# (MANUAL) 0.4 10^3/uL (0.5-4.7); ABSOLUTE MONOCYTES # (MANUAL) 0.9 10^3/uL (0.1-1.4); ABSOLUTE NEUTROPHILS# (MANUAL) 2.1 10^3/uL (1.7-8.2); BASOPHILS % (MANUAL) 0 % (0-2); EOSINOPHILS % (MANUAL) 3 % (0-6); LYMPHOCYTES % (MANUAL) 10 % (13-45); MONOCYTES % (MANUAL) 27 % (3-13); SEGMENTED NEUTROPHILS % (MAN) 59 % (42-78); TOTAL CELLS COUNTED 100
[2019-01-12 11:47] LABS: ANISOCYTOSIS SLIGHT; PLATELET COMMENT DECREASED
[2019-01-12 11:51] LABS: PLATELET COUNT 45 10^3/uL (150-450)
== END 2019-01-12 12:00 | disposition short-term general hospital (02) ==
LOC: ER 14:41
DX: I95.9 Hypotension, unspecified (principal); D46.9 Myelodysplastic syndrome, unspecified; D69.6 Thrombocytopenia, unspecified; K92.1 Melena; R10.30 Lower abdominal pain, unspecified; R42 Dizziness and giddiness; I50.9 Heart failure, unspecified; I11.0 Hypertensive heart disease with heart failure; E78.00 Pure hypercholesterolemia, unspecified; I25.10 Atherosclerotic heart disease of native coronary artery without angina pectoris; E11.9 Type 2 diabetes mellitus without complications
CPT/HCPCS: 93005; 96376; 99291; 96365; 96366; 86900; 86901; 36415; 36430; 86850; 86922; 85025; 85610; 85730; 80053; 81001; 86920; 86902 ×2; 93010; P9016; C9113 ×2; J7050; S0164

== ENCOUNTER → 2019-01-19 | Outpatient (CLI) | payer MEDICARE, OTHER ==
[2019-01-19 17:32] LABS: HEMATOCRIT 25.6 % (37.9-51.0); HEMOGLOBIN 8.6 g/dL (13.5-17.0); MEAN CORPUSCULAR HEMOGLOBIN 29.1 pg (27.0-33.4); MEAN CORPUSCULAR HGB CONC 33.6 g/dL (32.0-36.0); MEAN CORPUSCULAR VOLUME 87 fl (80-97); RED BLOOD COUNT 2.97 10^6/uL (4.35-5.55); RED CELL DISTRIBUTION WIDTH 15.8 % (11.5-14.0); WHITE BLOOD COUNT 5.7 10^3/uL (4.0-10.5)
[2019-01-19 17:37] LABS: ANION GAP 10 (5-19); BLOOD UREA NITROGEN 29 mg/dL (7-20); CALCIUM 8.9 mg/dL (8.4-10.2); CARBON DIOXIDE 23 mmol/L (22-30); CHLORIDE 106 mmol/L (98-107); GLUCOSE 110 mg/dL (75-110); POTASSIUM 4.1 mmol/L (3.6-5.0); SODIUM 139.2 mmol/L (137-145)
[2019-01-19 17:39] LABS: PLATELET COUNT 62 10^3/uL (150-450)
[2019-01-19 17:52] LABS: ABSOLUTE LYMPHOCYTES# (MANUAL) 0.7 10^3/uL (0.5-4.7); ABSOLUTE MONOCYTES # (MANUAL) 2.2 10^3/uL (0.1-1.4); ABSOLUTE NEUTROPHILS# (MANUAL) 2.7 10^3/uL (1.7-8.2); BAND NEUTROPHILS % (MANUAL) 1 % (3-5); BASOPHILS % (MANUAL) 0 % (0-2); EOSINOPHILS % (MANUAL) 3 % (0-6); LYMPHOCYTES % (MANUAL) 12 % (13-45); MONOCYTES % (MANUAL) 38 % (3-13); SEGMENTED NEUTROPHILS % (MAN) 46 % (42-78); TOTAL CELLS COUNTED 100
[2019-01-19 17:55] LABS: PLATELET COMMENT DECREASED
[2019-01-19 17:56] LABS: ANISOCYTOSIS 1+; SCHISTOCYTES SLIGHT
[2019-01-19 17:57] LABS: TEAR DROP CELLS SLIGHT
== END ==
LOC: OD 16:40
PROVIDERS: ATTEND Family Medicine
DX: D64.9 Anemia, unspecified (principal); I95.9 Hypotension, unspecified
CPT/HCPCS: 36415; 80048; 85025

== ENCOUNTER 2019-02-19 22:17 | Inpatient (IN) | payer MEDICARE, OTHER ==
[2019-02-20 01:16] LABS: HEMATOCRIT 15.9 % (37.9-51.0); MEAN CORPUSCULAR HEMOGLOBIN 28.7 pg (27.0-33.4); MEAN CORPUSCULAR HGB CONC 34.5 g/dL (32.0-36.0); MEAN CORPUSCULAR VOLUME 83 fl (80-97); PLATELET COUNT 142 10^3/uL (150-450); RED BLOOD COUNT 1.92 10^6/uL (4.35-5.55); RED CELL DISTRIBUTION WIDTH 16.9 % (11.5-14.0); WHITE BLOOD COUNT 5.2 10^3/uL (4.0-10.5)
[2019-02-20 01:25] LABS: HEMOGLOBIN 5.5 g/dL (13.5-17.0)
--- NOTE | 2019-02-20 01:28 | ER Document Report ---
ED Medical Screen (RME) - General Chief Complaint: General Weakness Stated Complaint: WEAK Time Seen by Provider: 02/20/19 01:27 Primary Care Provider: ELIZA GRANADOS MD [Primary Care Provider] - Follow up as needed Mode of Arrival: Ambulatory Information source: Patient, Relative Notes: 63-year-old male presented to ED for complaint of weakness tired feeling like he needs to have a blood transfusion. He states he had a blood transfusion in December had to get 2 units. He states he has a history of a GI bleed. Lab did call stating his hemoglobin was 5.5. Oral mucosa is very pale. Patient is alert oriented respirations regular and unlabored speaking in full sentences. I have spoken with the charge nurse that this patient needs to get a wound so he can get blood transfusion. I have greeted and performed a rapid initial assessment of this patient. A com prehensive ED assessment and evaluation of the patient, analysis of test results and completion of medical decision making process will be conducted by an additional ED providers. Dictation of this chart was performed using voice recognition software; therefore, there may be some unintended grammatical errors. TRAVEL OUTSIDE OF THE [place] IN LAST 30 DAYS: No - Related Data Allergies/Adverse Reactions: No Known Allergies Allergy (Verified 01/11/19 14:43) Past Medical History - Past Medical History Cardiac Medical History: Reports: Hx Congestive Heart Failure, Hx Coronary Artery Disease, Hx Hypercholesterolemia, Hx Hypertension Denies: Hx Atrial Fibrillation, Hx Heart Attack, Hx Peripheral Vascular Disease, Hx Heart Murmur Pulmonary Medical History: Denies: Hx Asthma, Hx Bronchitis, Hx COPD, Hx Pneumonia, Hx Tuberculosis Neurological Medical History: Denies: Hx Cerebrovascular Accident, Hx Seizures Endocrine Medical History: Reports: Hx Diabetes Mellitus Type 2. Denies: Hx Diabetes Mellitus Type 1 Renal/ Medical History: Denies: Hx Benign Prostatic Hyperplasia, Hx End Stage Renal Disease, Hx Kidney Stones, Hx Peritoneal Dialysis Malignancy Medical History: Denies Hx Leukemia GI Medical History: Denies: Hx Crohn's Disease, Hx Gastroesophageal Reflux Disease, Hx Hiatal Hernia, Hx Irritable Bowel, Hx Liver Failure, Hx Pancreatitis, Hx Ulcer Musculoskeltal Medical History: Reports Hx Arthritis Psychiatric Medical History: Denies: Hx Depression Infectious Medical History: Denies: Hx HIV Past Surgical History: Reports: Hx Bowel Surgery. Denies: Hx Appendectomy, Hx Cholecystectomy, Hx Colostomy, Hx Coronary Artery Bypass Graft, Hx Gastric Bypass Surgery, Hx Herniorrhaphy, Hx Pacemaker, Hx Tonsillectomy - Immunizations Hx Diphtheria, Pertussis, Tetanus Vaccination: Yes History of Influenza Vaccine for 06/2017 - 11/2017 Season: Yes Influenza Administration Date for 06/2017 - 11/2017 Season: 06/19/17 Physical Exam - Vital signs Vitals: Temp Pulse Resp BP Pulse Ox 98.6 F 86 20 138/55 H 98 02/19/19 23:13 02/19/19 23:13 02/19/19 23:13 02/19/19 23:13 02/19/19 23:13 Course - Vital Signs Vital signs: Temp Pulse Resp BP Pulse Ox 98.6 F 86 20 138/55 H 98 02/19/19 23:13 02/19/19 23:13 02/19/19 23:13 02/19/19 23:13 02/19/19 23:13 - Laboratory Result Diagrams: 02/20/19 01:00 02/20/19 01:00 Doctor's Discharge - Discharge Referrals: ELIZA GRANADOS MD [Primary Care Provider] - Follow up as needed
[2019-02-20 01:32] LABS: APPEARANCE,URINE CLEAR; BILIRUBIN,URINE NEGATIVE (NEGATIVE); COLOR,URINE STRAW; GLUCOSE, URINE NEGATIVE (NEGATIVE); KETONES,URINE NEGATIVE (NEGATIVE); LEUKOCYTE ESTERASE,URINE NEGATIVE (NEGATIVE); NITRITE,URINE NEGATIVE (NEGATIVE); PROTEIN,URINE NEGATIVE (NEGATIVE); URINE SPECIFIC GRAVITY 1.013; UROBILINOGEN,URINE NEGATIVE mg/dL (<2.0)
[2019-02-20 01:37] LABS: ALANINE AMINOTRANSFERASE 25 U/L (21-72); ALBUMIN 3.7 g/dL (3.5-5.0); ALKALINE PHOSPHATASE 85 U/L (38-126); ANION GAP 10 (5-19); ASPARTATE AMINO TRANSFERASE 21 U/L (17-59); BILIRUBIN,DIRECT 0.2 mg/dL (0.0-0.4); BILIRUBIN,TOTAL 0.2 mg/dL (0.2-1.3); BLOOD UREA NITROGEN 40 mg/dL (7-20); CALCIUM 9.5 mg/dL (8.4-10.2); CARBON DIOXIDE 21 mmol/L (22-30); CHLORIDE 110 mmol/L (98-107); CREATINE KINASE 319 U/L (55-170); GLUCOSE 100 mg/dL (75-110); POTASSIUM 4.5 mmol/L (3.6-5.0); SODIUM 140.6 mmol/L (137-145)
[2019-02-20 01:49] LABS: ABSOLUTE LYMPHOCYTES# (MANUAL) 0.2 10^3/uL (0.5-4.7); ABSOLUTE MONOCYTES # (MANUAL) 1.2 10^3/uL (0.1-1.4); ABSOLUTE NEUTROPHILS# (MANUAL) 3.6 10^3/uL (1.7-8.2); BASOPHILS % (MANUAL) 0 % (0-2); CREATINE KINASE MB 1.57 ng/mL (<4.55); EOSINOPHILS % (MANUAL) 4 % (0-6); LYMPHOCYTES % (MANUAL) 3 % (13-45); MONOCYTES % (MANUAL) 23 % (3-13); NUCLEATED RED BLOOD CELLS 2 /100 WBC (0); SEGMENTED NEUTROPHILS % (MAN) 70 % (42-78); TOTAL CELLS COUNTED 100
[2019-02-20 01:50] LABS: ANISOCYTOSIS 1+; HYPOCHROMASIA 2+; POLYCHROMASIA SLIGHT
[2019-02-20 01:51] LABS: PLATELET COMMENT DECREASED; SCHISTOCYTES SLIGHT; STOMATOCYTES SLIGHT; TROPONIN I < 0.012 ng/mL
--- NOTE | 2019-02-20 02:21 | ER Document Report ---
ED General - General Chief Complaint: General Weakness Stated Complaint: WEAK Time Seen by Provider: 02/20/19 01:27 Mode of Arrival: Ambulatory Notes: Patient is a 63-year-old male that comes to the emergency department with chief complaint of weakness and intermittent dizziness on standing. He states the last time he felt this way his hemoglobin was low from a GI bleed and he had to be transfused. He denies noting blood in his stool, he denies vomiting, he denies abdominal pain, chest pain, shortness of breath. He is not on a blood thinner. Past medical history includes CAD, CHF, hypertension, insulin-depend ent diabetes, myelodysplastic syndrome, chronic kidney disease. TRAVEL OUTSIDE OF THE [place] IN LAST 30 DAYS: No - Related Data Allergies/Adverse Reactions: No Known Allergies Allergy (Verified 01/11/19 14:43) Past Medical History - General Information source: Patient, Relative - Social History Smoking Status: Never Smoker Frequency of alcohol use: None Drug Abuse: None Lives with: Family Family History: Reviewed & Not Pertinent - Past Medical History Cardiac Medical History: Reports: Hx Congestive Heart Failure, Hx Coronary Artery Disease, Hx Hypercholesterolemia, Hx Hypertension Denies: Hx Atrial Fibrillation, Hx Heart Attack, Hx Peripheral Vascular Disease, Hx Heart Murmur Pulmonary Medical History: Denies: Hx Asthma, Hx Bronchitis, Hx COPD, Hx Pneumonia, Hx Tuberculosis Neurological Medical History: Denies: Hx Cerebrovascular Accident, Hx Seizures Endocrine Medical History: Reports: Hx Diabetes Mellitus Type 2. Denies: Hx Diabetes Mellitus Type 1 Renal/ Medical History: Denies: Hx Benign Prostatic Hyperplasia, Hx End Stage Renal Disease, Hx Kidney Stones, Hx Peritoneal Dialysis Malignancy Medical History: Denies Hx Leukemia GI Medical History: Denies: Hx Crohn's Disease, Hx Gastroesophageal Reflux Disease, Hx Hiatal Hernia, Hx Irritable Bowel, Hx Liver Failure, Hx Pancreatitis, Hx Ulcer Musculoskeletal Medical History: Reports Hx Arthritis Psychiatric Medical History: Denies: Hx Depression Infectious Medical History: Denies: Hx HIV Past Surgical History: Reports: Hx Bowel Surgery. Denies: Hx Appendectomy, Hx Cholecystectomy, Hx Colostomy, Hx Coronary Artery Bypass Graft, Hx Gastric Bypass Surgery, Hx Herniorrhaphy, Hx Pacemaker, Hx Tonsillectomy - Immunizations Hx Diphtheria, Pertussis, Tetanus Vaccination: Yes Hx Pneumococcal Vaccination: 06/19/11 Review of Systems - Review of Systems Constitutional: No symptoms reported EENT: No symptoms reported Cardiovascular: See HPI Respiratory: No symptoms reported Gastrointestinal: See HPI Genitourinary: No symptoms reported Male Genitourinary: No symptoms reported Musculoskeletal: No symptoms reported Skin: No symptoms reported Hematologic/Lymphatic: No symptoms reported Neurological/Psychological: No symptoms reported Physical Exam - Vital signs Vitals: Temp Pulse Resp BP Pulse Ox 98.6 F 86 20 138/55 H 98 02/19/19 23:13 02/19/19 23:13 02/19/19 23:13 02/19/19 23:13 02/19/19 23:13 - Notes Notes: GENERAL: Alert, interacts well. No acute distress. HEAD: Normocephalic, atraumatic. EYES: Pupils equal, round, and reactive to light. Extraocular movements intact. ENT: Oral mucosa moist, tongue midline. Oropharynx unremarkable. Airway patent. Nares patent, no nasal septal hematoma, TM's intact. NECK: Full range of motion. Supple. Trachea midline. LUNGS: Clear to auscultation bilaterally, no wheezes, rales, or rhonchi. No res piratory distress. HEART: Regular rate and rhythm. No murmur ABDOMEN: Soft, non-tender. Non-distended. Bowel sounds present in all 4 quadrants. GENITOURINARY: No concerning abnormality noted RECTAL: External and internal exam unremarkable without pain, however there was noted to be black stool on exam. Exam performed with Bib COSTA at bedside. EXTREMITIES: Moves all 4 extremities spontaneously. No edema, normal radial and dorsalis pedis pulses bilaterally. No cyanosis. BACK: no cervical, thoracic, lumbar midline tenderness. No saddle anesthesia, normal distal neurovascular exam. Moves all extremities in full range of motion. NEUROLOGICAL: Alert and oriented x3. Normal speech. Cranial nerves II through XII grossly intact. PSYCH: Normal affect, normal mood. SKIN: Warm, dry, normal turgor. No rashes or lesions noted. Course - Re-evaluation Re-evalutation: Patient is well-appearing. He is not tachycardic, hypotensive, or currently symptomatic. Soft benign abdomen. Unfortunately a rectal exam does show black stools. This was Hemoccult positive. On reevaluation patient is calm and well-appearing without significant change. Hemoglobin is 5.5, normocytic. BUN is elevated. Creatinine approximately baseline. Probably slow upper GI bleed. Protonix bolus and drip will be given, will transfuse 3 units, will discuss with his provider and admit to the hospital. Family and patient state understanding and agreement. I called the [facility] operator helper and they do report that we have GI coverage coming on today with Dr. Fountain. I spoke with Dr. Payton, he agrees with Protonix, transfusion, and will admit to [facility]. - Vital Signs Vital signs: Temp Pulse Resp BP Pulse Ox 98.6 F 86 16 134/59 H 100 02/19/19 23:13 02/19/19 23:13 02/20/19 03:01 02/20/19 03:01 02/20/19 03:01 - Laboratory Result Diagrams: 02/20/19 01:00 02/20/19 01:00 Laboratory results interpreted by me: 02/20/19 02/20/19 02/20/19 01:00 01:00 01:00 RBC 1.92 L Hgb 5.5 L Hct 15.9 L RDW 16.9 H Plt Count 142 L Lymphocytes % (Manual) 3 L Monocytes % (Manual) 23 H Abs Lymphs (Manual) 0.2 L PT 15.6 H Chloride 110 H Carbon Dioxide 21 L BUN 40 H Creatinine 1.94 H Est GFR ( Amer) 42 L Est GFR (Non-Af Amer) 35 L Creatine Kinase 319 H Crossmatch 02/20/19 01:55 RBC Hgb Hct RDW Plt Count Lymphocytes % (Manual) Monocytes % (Manual) Abs Lymphs (Manual) PT Chloride Carbon Dioxide BUN Creatinine Est GFR ( Amer) Est GFR (Non-Af Amer) Creatine Kinase Crossmatch See Detail Critical Care Note - Critical Care Note Total time excluding time spent on procedures (mins): 35 - Upper GI bleed, symptomatic anemia Comments: Please allow 35 minutes of critical care time for evaluation and management of patient with upper GI bleed requiring Protonix bolus, Protonix drip, blood transfusion. Time spent reviewing previous records, performing multiple re- evaluations, discussing with family, making sure we had the specialty coverage for the patient, consulting and admitting to the hospital. Discharge - Discharge Clinical Impression: Symptomatic anemia GI bleed Qualifiers: GI bleed type/associated pathology: melena Qualified Code(s): K92.1 - Melena Condition: Stable Disposition: ADMITTED INPATIENT Admitting Provider: Fito Unit Admitted: [facility]
[2019-02-20] MEDS ORDERED: NORMAL SALINE 250 ML IV PRN ×2 (02:22)
[2019-02-20] MEDS ORDERED: PANTOPRAZOLE SODIUM 40 MG VIAL IV ONE (02:31)
[2019-02-20] MEDS ORDERED: PANTOPRAZOLE SODIUM 40 MG VIAL IV PRN (02:32)
[2019-02-20 02:45] LABS: INTERNATIONAL RATION (INR) 1.18; PROTHROMBIN TIME 15.6 SEC (11.4-15.4)
[2019-02-20 02:46] LABS: PARTIAL THROMBOPLASTIN TIME 33.3 SEC (23.5-35.8)
--- NOTE | 2019-02-20 03:59 | RADIOLOGY REPORT (SQ) ---
CLINICAL HISTORY: weakness, dizziness COMPARISON: None. TECHNIQUE: XR CHEST 1 VIEW 02/20/2019 3:24 AM CDT FINDINGS: The heart is borderline in size. Left dual-chamber AICD is present. Lungs are clear without consolidation, atelectasis, mass or edema. There is no pleural effusion. There is no pneumothorax. There are no acute osseous findings. IMPRESSION: No definite pneumonia.
[2019-02-20] MEDS ORDERED: ACETAMINOPHEN 325 MG TABLET PO PRN (06:25)
--- NOTE | 2019-02-20 07:59 | EKG REPORT ---
SEVERITY:- ABNORMAL ECG - SINUS RHYTHM NONSPECIFIC INTRAVENTRICULAR CONDUCTION DELAY NONSPECIFIC ST-T CHANGES LATERAL LEADS. : Confirmed by: Laron Canales MD 20-Feb-2019 07:59:16
--- NOTE | 2019-02-20 09:07 | PDOC H&P ---
History of Present Illness Admission Date/PCP: 02/20/19 03:31 ELIZA GRANADOS MD Patient complains of: Shortness of the breath and weakness History of Present Illness: BOOM POWERS is a 63 year old male This is 63-year-old male with a significant history of the anemia myelodysplastic syndromes thrombocytopenia cardiomyopathy chronic kidney disease and multiple other comorbidity several hospital admissions for the GI bleed with a possible AV malformations and a several evaluations done here by Dr. Marina and also at [facility] several times hospital admissions even the patient had a endoscopy colonoscopy and enteroscopy was done came to the emergency department because of the complaining of a short of breath and feeling weak and feel like his hemoglobin is dropped Patient did not see any blood in the stools no black stools but patient stool guaiac is positive in the ER and patient hemoglobin was 5.5 Patient usually require a blood transfusion at least once a month and sometimes require platelet transfusions currently see her Dr. Velazquez for that Patient when I saw in the floor denied any chest pain to than any shortness of the breath patient is currently receiving the 1 unit of the blood Patient is denied any abdominal pain no nausea no vomiting Patient also recently seen by Dr. Odell for cardiomyopathy and all stable Patient other than that denied any other symptoms no active GI bleed is seen Past Medical History Cardiac Medical History: Reports: Congestive Heart Failure, Coronary Artery Disease, Hyperlipidema, Hypertension Denies: Atrial Fibrillation, Myocardial Infarction, Peripheral Vascular Di sease, Heart Murmur Pulmonary Medical History: Denies: Asthma, Bronchitis, Chronic Obstructive Pulmonary Disease (COPD), Pneumonia, Tuberculosis Neurological Medical History: Denies: Seizures Endocrine Medical History: Reports: Diabetes Mellitus Type 2 Denies: Diabetes Mellitus Type 1 Renal/ Medical History: Reports: Chronic Kidney Disease Denies: End Stage Renal Disease Malignancy Medical History: Denies: Leukemia GI Medical History: Reports: Gastroesophageal Reflux Disease Denies: Crohn's Disease, Hiatal Hernia Musculoskeltal Medical History: Reports: Arthritis Psychiatric Medical History: Denies: Depression Hematology: Reports: Anemia Denies: Hemophilia, Sickle Cell Disease Infectious Medical History: Denies: HIV Past Surgical History Past Surgical History: Denies: Appendectomy, Cholecystectomy, Colostomy, Coronary Artery Bypass Graft, Gastric Bypass Surgery, Herniorrhaphy, Pacemaker, Tonsillectomy Social History Lives with: Family Smoking Status: Never Smoker Frequency of Alcohol Use: None Hx Recreational Drug Use: No Drugs: None Hx Prescription Drug Abuse: No - Advance Directive Resuscitation Status: Full Code Family History Family History: Reviewed & Not Pertinent Parental Family History Reviewed: Yes Children Family History Reviewed: Yes Sibling(s) Family History Reviewed.: Yes Medication/Allergy Home Medications: Clonidine HCl [Catapres 0.2 mg Tablet] 0.2 mg PO Q8 07/11/17 Iron Polysaccharide Complex [Ferrex 150] 150 mg PO Q12 07/11/17 Pravastatin Sodium [Pravachol] 40 mg PO DAILY 07/11/17 Amlodipine Besylate 5 mg PO DAILY 05/02/18 Carvedilol 25 mg PO Q12 05/02/18 Furosemide [Lasix 40 mg Tablet] 40 mg PO QAM 05/02/18 Isosorbide Mononitrate [Imdur 60 mg Tablet.er] 60 mg PO DAILY 05/02/18 Omeprazole 40 mg PO DAILY 05/02/18 Potassium Chloride [Klor-Con M20] 20 meq PO DAILY 05/02/18 Ramipril [Altace] 10 mg PO Q12 05/02/18 Cholecalciferol (Vitamin D3) [Vitamin D3 1000 Unit Tablet] 2,000 unit PO DAILY 02/20/19 Tamsulosin HCl [Flomax 0.4 mg Cap.sr] 0.4 mg PO QHS 02/20/19 Allergies/Adverse Reactions: No Known Allergies Allergy (Verified 01/11/19 14:43) Review of Systems Constitutional: PRESENT: fatigue, weakness. ABSENT: chills, fever(s), headache(s), weight gain, weight loss Eyes: ABSENT: visual disturbances Ears: ABSENT: hearing changes Cardiovascular: PRESENT: dyspnea on exertion. ABSENT: chest pain, edema, orthropnea, palpitations Respiratory: ABSENT: cough, hemoptysis Gastrointestinal: ABSENT: abdominal pain, constipation, diarrhea, hematemesis, hematochezia, nausea, vomiting Genitourinary: ABSENT: dysuria, hematuria Musculoskeletal: ABSENT: joint swelling Integumentary: ABSENT: rash, wounds Neurological: ABSENT: abnormal gait, abnormal speech, confusion, dizziness, focal weakness, syncope Psychiatric: ABSENT: anxiety, depression, homidical ideation, suicidal ideation Endocrine: ABSENT: cold intolerance, heat intolerance, menstrual abnormalities, polydipsia, polyuria Hematologic/Lymphatic: ABSENT: easy bleeding, easy bruising, lymphadenopathy Physical Exam Vital Signs: Temp Pulse Resp BP Pulse Ox 98.3 F 90 18 131/56 H 93 02/20/19 06:45 02/20/19 07:45 02/20/19 07:45 02/20/19 07:45 02/20/19 07:45 Intake & Output 02/19/19 02/20/19 02/21/19 06:59 06:59 06:59 Intake Total 0 Output Total 0 Balance 0 Weight 93.8 kg General appearance: PRESENT: no acute distress, well-developed, well-nourished Head exam: PRESENT: atraumatic, normocephalic Eye exam: PRESENT: conjunctiva pink, EOMI, PERRLA. ABSENT: scleral icterus Ear exam: PRESENT: normal external ear exam Mouth exam: PRESENT: moist, tongue midline Neck exam: PRESENT: full ROM. ABSENT: carotid bruit, JVD, lymphadenopathy, thyromegaly Respiratory exam: PRESENT: clear to auscultation diony Cardiovascular exam: PRESENT: RRR. ABSENT: diastolic murmur, rubs, systolic murmur Pulses: PRESENT: normal dorsalis pedis pul, +2 pedal pulses bilateral Vascular exam: PRESENT: normal capillary refill GI/Abdominal exam: PRESENT: normal bowel sounds, soft. ABSENT: distended, guarding, mass, organolmegaly, rebound, tenderness Rectal exam: PRESENT: deferred Extremities exam: ABSENT: pedal edema Musculoskeletal exam: PRESENT: ambulatory Neurological exam: PRESENT: alert, awake, oriented to person, oriented to place, oriented to time, oriented to situation, CN II-XII grossly intact. ABSENT: motor sensory deficit Psychiatric exam: PRESENT: appropriate affect, normal mood. ABSENT: homicidal ideation, suicidal ideation Skin exam: PRESENT: dry, intact, warm. ABSENT: cyanosis, rash Results Laboratory Results: 02/20/19 01:00 02/20/19 01:00 02/20/19 02/20/19 02/20/19 01:00 01:00 01:00 WBC 5.2 RBC 1.92 L Hgb 5.5 L Hct 15.9 L MCV 83 MCH 28.7 MCHC 34.5 RDW 16.9 H Plt Count 142 L Seg Neutrophils % Not Reportable Lymphocytes % Not Reportable Monocytes % Not Reportable Eosinophils % Not Reportable Basophils % Not Reportable Absolute Neutrophils Not Reportable Absolute Lymphocytes Not Reportable Absolute Monocytes Not Reportable Absolute Eosinophils Not Reportable Absolute Basophils Not Reportable Sodium 140.6 Potassium 4.5 Chloride 110 H Carbon Dioxide 21 L Anion Gap 10 BUN 40 H Creatinine 1.94 H Est GFR ( Amer) 42 L Est GFR (Non-Af Amer) 35 L Glucose 100 Calcium 9.5 Total Bilirubin 0.2 AST 21 ALT 25 Alkaline Phosphatase 85 Total Protein 7.0 Albumin 3.7 Urine Color STRAW Urine Appearance CLEAR Urine pH 5.0 Ur Specific [place] 1.013 Urine Protein NEGATIVE Urine Glucose (UA) NEGATIVE Urine Ketones NEGATIVE Urine Blood NEGATIVE Urine Nitrite NEGATIVE Ur Leukocyte Esterase NEGATIVE Urine WBC (Auto) 0 Urine RBC (Auto) 0 Blood Type Antibody Screen 02/20/19 01:55 WBC RBC Hgb Hct MCV MCH MCHC RDW Plt Count Seg Neutrophils % Lymphocytes % Monocytes % Eosinophils % Basophils % Absolute Neutrophils Absolute Lymphocytes Absolute Monocytes Absolute Eosinophils Absolute Basophils Sodium Potassium Chloride Carbon Dioxide Anion Gap BUN Creatinine Est GFR ( Amer) Est GFR (Non-Af Amer) Glucose Calcium Total Bilirubin AST ALT Alkaline Phosphatase Total Protein Albumin Urine Color Urine Appearance Urine pH Ur Specific [place] Urine Protein Urine Glucose (UA) Urine Ketones Urine Blood Urine Nitrite Ur Leukocyte Esterase Urine WBC (Auto) Urine RBC (Auto) Blood Type O POSITIVE Antibody Screen NEGATIVE 02/20/19 02/20/19 01:00 01:00 Creatine Kinase 319 H CK-MB (CK-2) 1.57 Troponin I < 0.012 Impressions: Chest X-Ray 02/20/19 03:24 IMPRESSION: No definite pneumonia. Assessment & Plan - Diagnosis (1) GI bleed Qualifiers: GI bleed type/associated pathology: melena Qualified Code(s): K92.1 - Melena Is this a current diagnosis for this admission?: Yes Plan: Discussed with Dr. Marina continues to current medications blood transfusions continues to monitor no active bleed is seen (2) Symptomatic anemia Is this a current diagnosis for this admission?: Yes Plan: need blood transfusions (3) Thrombocytopenia Is this a current diagnosis for this admission?: Yes Plan: stable (4) CAD (coronary artery disease) Qualifiers: Coronary Disease-Associated Artery/Lesion type: unspecified vessel or lesion type Is this a current diagnosis for this admission?: No (5) CHF (congestive heart failure) Qualifiers: Heart failure type: combined systolic and diastolic Heart failure chronicity: chronic Qualified Code(s): I50.42 - Chronic combined systolic (congestive) and diastolic (congestive) heart failure Is this a current diagnosis for this admission?: Yes Plan: Currently all stable (6) HTN (hypertension) Qualifiers: Hypertension type: essential hypertension Is this a current diagnosis for this admission?: Yes (7) Myelodysplastic syndrome Is this a current diagnosis for this admission?: Yes Plan: Is currently see outpatients Dr. Velazquez (8) Renal failure Qualifiers: Renal failure chronicity: acute on chronic Chronic kidney disease stage: stage 3 (moderate) Is this a current diagnosis for this admission?: Yes Plan: Patient's baseline creatinine sometimes running 1.4 Recently patient's creatinine was elevated while patient was in the [facility] most likely from GI bleed but after adjusting the medications coming back to the 1.4 range We will continue to hold the losartan - Time Time Spent: 30 to 50 Minutes Medications reviewed and adjusted accordingly: Yes Anticipated discharge: Home, Other Within: Other - Inpatient Certification Based on my medical assessment, after consideration of the patient's comorbidities, presenting symptoms, or acuity I expect that the services needed warrant INPATIENT care.: Yes I certify that my determination is in accordance with my understanding of Medicare's requirements for reasonable and necessary INPATIENT services [42 CFR 412.3e].: Yes Medical Necessity: Significant Comorbidiites Make Outpatient Treatment Too Risky, Need Close Monitoring Due to Risk of Patient Decompensation Post Hospital Care: D/C 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 Marina
[2019-02-20] MEDS ORDERED: (PENDING PHARMACY ID) (Pravastatin Sodium [Pravachol] 40 MG) PO SCH (10:00)
[2019-02-20] MEDS ORDERED: (PENDING PHARMACY ID) (Potassium Chloride [Klor-Con M20] 20 MEQ) PO SCH (10:00)
[2019-02-20] MEDS ORDERED: AMLODIPINE BESYLATE 5 MG TABLET PO SCH (10:00)
[2019-02-20] MEDS ORDERED: (PENDING PHARMACY ID) (Carvedilol [Carvedilol] 25 MG) PO SCH (10:00)
[2019-02-20] MEDS: PANTOPRAZOLE SODIUM 40 MG VIAL IV SCH ×2 (10:17→22:04)
[2019-02-20] MEDS: ISOSORBIDE MONONITRATE 60 MG TAB.ER.24H PO SCH (10:34)
[2019-02-20] MEDS: CARVEDILOL 12.5 MG TABLET PO SCH ×2 (10:34→22:04)
[2019-02-20] MEDS: AMLODIPINE BESYLATE 5 MG TABLET PO SCH (10:34)
[2019-02-20] MEDS: POTASSIUM CHLORIDE 10 MEQ CAPSULE.ER PO SCH (10:34)
[2019-02-20] MEDS: IRON POLYSACCHARIDES COMPLEX 150 MG CAPSULE PO SCH ×2 (10:34→22:04)
[2019-02-20] MEDS: ATORVASTATIN CALCIUM 10 MG TABLET PO SCH (10:34)
[2019-02-20] MEDS: CLONIDINE HCL 0.2 MG TABLET PO SCH ×2 (13:36→22:06)
[2019-02-20] MEDS: FUROSEMIDE INJ/PF 20 MG/2 ML SDV IV PRN ×2 (13:43→18:07)
[2019-02-20 14:04] LABS: HEMATOCRIT 17.9 % (37.9-51.0); MEAN CORPUSCULAR HEMOGLOBIN 28.4 pg (27.0-33.4); MEAN CORPUSCULAR HGB CONC 34.3 g/dL (32.0-36.0); MEAN CORPUSCULAR VOLUME 83 fl (80-97); PLATELET COUNT 119 10^3/uL (150-450); RED BLOOD COUNT 2.17 10^6/uL (4.35-5.55); RED CELL DISTRIBUTION WIDTH 16.8 % (11.5-14.0); WHITE BLOOD COUNT 4.5 10^3/uL (4.0-10.5)
[2019-02-20 14:08] LABS: HEMOGLOBIN 6.2 g/dL (13.5-17.0)
[2019-02-20 14:37] LABS: ABSOLUTE LYMPHOCYTES# (MANUAL) 0.6 10^3/uL (0.5-4.7); ABSOLUTE MONOCYTES # (MANUAL) 1.5 10^3/uL (0.1-1.4); ABSOLUTE NEUTROPHILS# (MANUAL) 2.3 10^3/uL (1.7-8.2); BASOPHILS % (MANUAL) 0 % (0-2); EOSINOPHILS % (MANUAL) 2 % (0-6); LYMPHOCYTES % (MANUAL) 13 % (13-45); MONOCYTES % (MANUAL) 34 % (3-13); SEGMENTED NEUTROPHILS % (MAN) 51 % (42-78); TOTAL CELLS COUNTED 100
[2019-02-20 14:39] LABS: ANISOCYTOSIS 1+; HYPOCHROMASIA 1+; PLATELET COMMENT DECREASED
--- NOTE | 2019-02-20 17:52 | PDOC CONSULTATION ---
Consultation Consult Date: 02/20/19 Provider Consulted: TED YOST Consult reason:: I was asked to see the patient due to worsening kidney function. History of Present Illness Admission Date/PCP: 02/20/19 03:31 ELIZA PAYTON MD History of Present Illness: BOOM POWERS is a 63 year old male with history of myelodysplasia associated with anemia and thrombocytopenia followed by Dr. Velazquez requiring blood and platelet transfusions at least monthly, recurrent GI bleed and hospital admissio ns requiring blood transfusion with possible AV malformation and has been extensively worked up with upper and lower endoscopies and enteroscopy locally under Dr. Marina and also at [place], cardiomyopathy with AICD followed by Dr. Odell, and chronic kidney disease who presented with shortness of breath and weakness today. On admission patient was found to have a hemoglobin of 5.5. Patient said he did not have any blood or black stools this time. His last bowel movement was 4 days ago last . He said he had a feeling about low hemoglobin because his hands are pale. He otherwise denies any nausea, vomiting or abdominal pain. He also denies any chest pains no shortness of breath. His stool is positive for occult blood. Patient also has baseline chronic kidney disease with usual baseline creatinine of 1.4-1.5. Today he came in with a BUN of 40, creatinine of 1.94 with EGFR 42. He did have an episode of acute kidney injury apparently last months and from the records here in [place] on January 19 he had a BUN of 29, creatinine of 2.65 with a EGFR of 29. According to Dr. Payton his kidney function went back to baseline after that. His urinalysis is negative for proteinuria and hematuria. Patient denies any problems with urination. He denies any history of foamy urine or g ross hematuria at any time. He denies any leg swelling. He denies any use of NSAIDs, history of kidney stones, history of hepatitis, history of cardiac catheterization recently nor any administration of contrast recently. Past Medical History Cardiac Medical History: Reports: CHF-Systolic, Coronary Artery Disease, Hyperlipidemia, Hypertension-primary, Other - Cardiomyopathy with AICD placed in 2007. Endocrine Medical History: Reports: Diabetes Mellitus Type 2 Renal/ Medical History: Reports: Chronic Kidney Disease Stage II GI Medical History: Reports: Gastroesophageal Reflux Disease Musculoskeltal Medical History: Reports: Arthritis Hematology Medical History: Reports Anemia, Reports Myodysplasia Past Surgical History Past Surgical History: Reports: Internal Defibrillator Social History Information Source: Patient Lives with: Spouse/Significant other Smoking Status: Never Smoker Frequency of Alcohol Use: None Hx Recreational Drug Use: No Drugs: None Hx Prescription Drug Abuse: No - Advance Directive Resuscitation Status: Full Code Family History Family History: DM - Mother Parental Family History Reviewed: Yes Children Family History Reviewed: Yes Sibling(s) Family History Reviewed.: Yes Medication/Allergy Home Medications: Clonidine HCl [Catapres 0.2 mg Tablet] 0.2 mg PO Q8 07/11/17 Iron Polysaccharide Complex [Ferrex 150] 150 mg PO Q12 07/11/17 Pravastatin Sodium [Pravachol] 40 mg PO DAILY 07/11/17 Amlodipine Besylate 5 mg PO DAILY 05/02/18 Carvedilol 25 mg PO Q12 05/02/18 Furosemide [Lasix 40 mg Tablet] 40 mg PO QAM 05/02/18 Isosorbide Mononitrate [Imdur 60 mg Tablet.er] 60 mg PO DAILY 05/02/18 Omeprazole 40 mg PO DAILY 05/02/18 Potassium Chloride [Klor-Con M20] 20 meq PO DAILY 05/02/18 Ramipril [Altace] 10 mg PO Q12 05/02/18 Cholecalciferol (Vitamin D3) [Vitamin D3 1000 Unit Tablet] 2,000 unit PO DAILY 02/20/19 Tamsulosin HCl [Flomax 0.4 mg Cap.sr] 0.4 mg PO QHS 02/20/19 Allergies/Adverse Reactions: No Known Allergies Allergy (Verified 01/11/19 14:43) Review of Systems All systems: reviewed and no additional remarkable complaints except as stated Review of Systems: Constitutional: ABSENT: chills, fever(s), headache(s), weight gain, weight loss; reports generalized weakness and fatigue Eyes: ABSENT: visual disturbances Ears: ABSENT: hearing changes Cardiovascular: ABSENT: chest pain, dyspnea on exertion, edema, orthropnea, palpitations Respiratory: ABSENT: cough, hemoptysis; admits shortness of breath Gastrointestinal: ABSENT: abdominal pain, diarrhea, hematemesis, hematochezia, nausea, vomiting; reports constipation Genitourinary: ABSENT: dysuria, hematuria Musculoskeletal: ABSENT: joint swelling Integumentary: ABSENT: rash, wounds Neurological: ABSENT: abnormal gait, abnormal speech, confusion, dizziness, focal weakness, numbness, syncope Psychiatric: ABSENT: anxiety, depression Endocrine: ABSENT: cold intolerance, heat intolerance, polydipsia, polyuria Hematologic/Lymphatic: ABSENT: easy bleeding, easy bruising, lymphadenopathy Physical Exam Vital Signs: Temp Pulse Resp BP Pulse Ox 98.4 F 79 16 121/59 L 100 02/20/19 15:25 02/20/19 15:25 02/20/19 15:25 02/20/19 15:25 02/20/19 15:25 Intake & Output 02/19/19 02/20/19 02/21/19 06:59 06:59 06:59 Intake Total 0 600 Output Total 0 Balance 0 600 Weight 93.8 kg Exam: General appearance: No acute distress, cooperative, well-developed, well-n ourished Head exam: PRESENT: atraumatic, normocephalic Eye exam: PRESENT: Conjunctiva pale, EOMI, PERRLA. ABSENT: conjunctival injection, scleral icterus Mouth exam: PRESENT: moist, neck supple, tongue midline Neck exam: PRESENT: full ROM. ABSENT: carotid bruit, JVD, lymphadenopathy, thyromegaly Respiratory exam: PRESENT: clear to auscultation bilaterally. ABSENT: rales, rhonchi, stridor, wheezes Cardiovascular exam: PRESENT: RRR, +S1, +S2. ABSENT: systolic murmur Pulses: PRESENT: normal radial pulses, normal dorsalis pedis pulses GI/Abdominal exam: PRESENT: normal bowel sounds, soft. ABSENT: guarding, mass, tenderness Rectal exam: Deferred Extremities exam: PRESENT: full ROM. ABSENT: calf tenderness, pedal edema Musculoskeletal: PRESENT: full ROM. ABSENT: deformity Neurological exam: PRESENT: alert, Awake, Oriented to person, Oriented to place, Oriented to time, reflexes normal, CN II-XII grossly intact. ABSENT: motor sensory deficit Psychiatric exam: PRESENT: appropriate affect, normal mood. ABSENT: homicidal ideation, suicidal ideation Skin exam: PRESENT: intact, dry, warm. Positive pallor ABSENT: rash Results Laboratory Results: 02/20/19 12:07 02/20/19 01:00 02/20/19 02/20/19 02/20/19 01:00 01:00 01:00 WBC 5.2 RBC 1.92 L Hgb 5.5 L Hct 15.9 L MCV 83 MCH 28.7 MCHC 34.5 RDW 16.9 H Plt Count 142 L Seg Neutrophils % Not Reportable Lymphocytes % Not Reportable Monocytes % Not Reportable Eosinophils % Not Reportable Basophils % Not Reportable Absolute Neutrophils Not Reportable Absolute Lymphocytes Not Reportable Absolute Monocytes Not Reportable Absolute Eosinophils Not Reportable Absolute Basophils Not Reportable Sodium 140.6 Potassium 4.5 Chloride 110 H Carbon Dioxide 21 L Anion Gap 10 BUN 40 H Creatinine 1.94 H Est GFR ( Amer) 42 L Est GFR (Non-Af Amer) 35 L Glucose 100 Calcium 9.5 Total Bilirubin 0.2 AST 21 ALT 25 Alkaline Phosphatase 85 Total Protein 7.0 Albumin 3.7 Urine Color STRAW Urine Appearance CLEAR Urine pH 5.0 Ur Specific [place] 1.013 Urine Protein NEGATIVE Urine Glucose (UA) NEGATIVE Urine Ketones NEGATIVE Urine Blood NEGATIVE Urine Nitrite NEGATIVE Ur Leukocyte Esterase NEGATIVE Urine WBC (Auto) 0 Urine RBC (Auto) 0 Blood Type Antibody Screen 02/20/19 02/20/19 01:55 12:07 WBC 4.5 RBC 2.17 L Hgb 6.2 L Hct 17.9 L MCV 83 MCH 28.4 MCHC 34.3 RDW 16.8 H Plt Count 119 L Seg Neutrophils % Not Reportable Lymphocytes % Not Reportable Monocytes % Not Reportable Eosinophils % Not Reportable Basophils % Not Reportable Absolute Neutrophils Not Reportable Absolute Lymphocytes Not Reportable Absolute Monocytes Not Reportable Absolute Eosinophils Not Reportable Absolute Basophils Not Reportable Sodium Potassium Chloride Carbon Dioxide Anion Gap BUN Creatinine Est GFR ( Amer) Est GFR (Non-Af Amer) Glucose Calcium Total Bilirubin AST ALT Alkaline Phosphatase Total Protein Albumin Urine Color Urine Appearance Urine pH Ur Specific [place] Urine Protein Urine Glucose (UA) Urine Ketones Urine Blood Urine Nitrite Ur Leukocyte Esterase Urine WBC (Auto) Urine RBC (Auto) Blood Type O POSITIVE Antibody Screen NEGATIVE 02/20/19 02/20/19 01:00 01:00 Creatine Kinase 319 H CK-MB (CK-2) 1.57 Troponin I < 0.012 Impressions: Chest X-Ray 02/20/19 03:24 IMPRESSION: No definite pneumonia. Assessment & Plan - Diagnosis (1) Symptomatic anemia Is this a current diagnosis for this admission?: Yes Plan: With history of myelodysplasia and possible AV malformation, either or both of this is most likely the cause. Patient is currently being transfused with 3 units of packed RBC as ordered by Dr. Payton. (2) Acute kidney injury superimposed on chronic kidney disease Is this a current diagnosis for this admission?: Yes Plan: Most likely secondary to prerenal azotemia due to possible GI bleed. Patient is nonoliguric. No associated proteinuria nor microhematuria. I believe the blood transfusion would also help the kidney function. No need of any renal replacement therapy at this time. Avoid nephrotoxic medications. Continue to monitor kidney function and electrolytes. (3) Prerenal azotemia Is this a current diagnosis for this admission?: Yes (4) GI bleed Qualifiers: GI bleed type/associated pathology: melena Qualified Code(s): K92.1 - Melena Is this a current diagnosis for this admission?: Yes Plan: Patient has had multiple endoscopies in the past. Occult blood is currently positive. Dr. Marina, network project manager consulted. (5) Cardiomyopathy Is this a current diagnosis for this admission?: Yes (6) Myelodysplastic syndrome Is this a current diagnosis for this admission?: Yes - Notes Notes: Thank you very much for this consultation. We will follow the patient with you. - Time Time Spent: 50 to 70 Minutes
[2019-02-20 18:04] LABS: HEMATOCRIT 20.2 % (37.9-51.0); MEAN CORPUSCULAR HEMOGLOBIN 29.3 pg (27.0-33.4); MEAN CORPUSCULAR HGB CONC 34.5 g/dL (32.0-36.0); MEAN CORPUSCULAR VOLUME 85 fl (80-97); PLATELET COUNT 122 10^3/uL (150-450); RED BLOOD COUNT 2.38 10^6/uL (4.35-5.55); RED CELL DISTRIBUTION WIDTH 16.9 % (11.5-14.0); WHITE BLOOD COUNT 3.9 10^3/uL (4.0-10.5)
[2019-02-20 18:28] LABS: ABSOLUTE LYMPHOCYTES# (MANUAL) 0.4 10^3/uL (0.5-4.7); ABSOLUTE MONOCYTES # (MANUAL) 1.1 10^3/uL (0.1-1.4); ABSOLUTE NEUTROPHILS# (MANUAL) 2.4 10^3/uL (1.7-8.2); BASOPHILS % (MANUAL) 0 % (0-2); EOSINOPHILS % (MANUAL) 0 % (0-6); LYMPHOCYTES % (MANUAL) 11 % (13-45); MONOCYTES % (MANUAL) 28 % (3-13); SEGMENTED NEUTROPHILS % (MAN) 61 % (42-78); TOTAL CELLS COUNTED 100
[2019-02-20 18:34] LABS: ANISOCYTOSIS 1+; OVALOCYTES SLIGHT; PLATELET COMMENT ADEQUATE; POIKILOCYTOSIS SLIGHT; POLYCHROMASIA SLIGHT
--- NOTE | 2019-02-20 18:40 | PDOC CONSULTATION ---
Consultation Consult Date: 02/20/19 Provider Consulted: NIKUNJ BOOTH History of Present Illness Admission Date/PCP: 02/20/19 03:31 ELIZA GRANADOS MD History of Present Illness: BOOM POWERS is a 63 year old malePatient was admitted yesterday with anemia and a hemoglobin of 5.5. His red cell indices were normal and his platelets while unusually high at 142. He has been feeling tired lately but denies any black stools or bright red blood per rectum. His stool was positive for occult blood on admission. His creatinine was slightly elevated at 1.94 with an INR of 1.18. Patient has a history of chronic anemia and requiring GI bleed presenting as black stools in the past. He also has myelodysplastic syndrome for which he sees Dr. Velazquez. He has had multiple EGDs and colonoscopy over the years with nothing significant found except for some angiodysplasia that was treated at [facility] in 2013. He was last admitted to the hospital for anemia back in September 2017. I had performed an EGD, EGD and enteroscopy, and colonoscopy in 2016. He was transferred to [facility] back in September 2017 and had an EGD with enteroscopy with nothing found. He denies abdominal pain, nausea, or vomiting. He does not drink alcohol and d oes not take NSAIDs. He received 2 units of packed red cells in December when his hemoglobin was 6.2. His platelet count usually runs in the 40s and 50s. Past Medical History Cardiac Medical History: Reports: Congestive Heart Failure, Coronary Artery Disease, Hyperlipidema, Hypertension, Other - Cardiomyopathy with AICD placed in 2007. Denies: Atrial Fibrillation, Myocardial Infarction, Peripheral Vascular Disease, Heart Murmur Pulmonary Medical History: Denies: Asthma, Bronchitis, Chronic Obstructive Pulmonary Disease (COPD), Pneumonia, Tuberculosis Neurological Medical History: Denies: Seizures Endocrine Medical History: Reports: Diabetes Mellitus Type 2 Denies: Diabetes Mellitus Type 1 Renal/ Medical History: Reports: Chronic Kidney Disease Denies: End Stage Renal Disease Malignancy Medical History: Denies: Leukemia GI Medical History: Reports: Gastroesophageal Reflux Disease Denies: Crohn's Disease, Hiatal Hernia Musculoskeltal Medical History: Reports: Arthritis Psychiatric Medical History: Denies: Depression Hematology: Reports: Anemia Denies: Hemophilia, Sickle Cell Disease Infectious Medical History: Denies: HIV Past Surgical History Past Surgical History: Reports: Internal Defibrillator Denies: Appendectomy, Cholecystectomy, Colostomy, Coronary Artery Bypass Graft, Gastric Bypass Surgery, Herniorrhaphy, Pacemaker, Tonsillectomy Social History Lives with: Spouse/Significant other Smoking Status: Never Smoker Frequency of Alcohol Use: None Hx Recreational Drug Use: No Drugs: None Hx Prescription Drug Abuse: No - Advance Directive Resuscitation Status: Full Code Family History Family History: Reviewed & Not Pertinent Parental Family History Reviewed: No Children Family History Reviewed: NA Sibling(s) Family History Reviewed.: NA Medication/Allergy Home Medications: Clonidine HCl [Catapres 0.2 mg Tablet] 0.2 mg PO Q8 07/11/17 Iron Polysaccharide Complex [Ferrex 150] 150 mg PO Q12 07/11/17 Pravastatin Sodium [Pravachol] 40 mg PO DAILY 07/11/17 Amlodipine Besylate 5 mg PO DAILY 05/02/18 Carvedilol 25 mg PO Q12 05/02/18 Furosemide [Lasix 40 mg Tablet] 40 mg PO QAM 05/02/18 Isosorbide Mononitrate [Imdur 60 mg Tablet.er] 60 mg PO DAILY 05/02/18 Omeprazole 40 mg PO DAILY 05/02/18 Potassium Chloride [Klor-Con M20] 20 meq PO DAILY 05/02/18 Ramipril [Altace] 10 mg PO Q12 05/02/18 Cholecalciferol (Vitamin D3) [Vitamin D3 1000 Unit Tablet] 2,000 unit PO DAILY 02/20/19 Tamsulosin HCl [Flomax 0.4 mg Cap.sr] 0.4 mg PO QHS 02/20/19 Allergies/Adverse Reactions: No Known Allergies Allergy (Verified 01/11/19 14:43) Review of Systems All systems: reviewed and no additional remarkable complaints except as stated Physical Exam Vital Signs: Temp Pulse Resp BP Pulse Ox 98.4 F 82 16 150/64 H 100 02/20/19 15:25 02/20/19 18:00 02/20/19 18:00 02/20/19 18:00 02/20/19 18:00 Intake & Output 02/19/19 02/20/19 02/21/19 06:59 06:59 06:59 Intake Total 0 920 Output Total 0 Balance 0 920 Weight 93.8 kg Exam: General: Patient is alert and looks well. HEENT: There is pallor but no jaundice. PERRLA. Oropharynx normal Respiratory: No chest deformity. No respiratory distress. Chest wall palpitation was unremarkable. Breath sounds were normal Cardiovascular: Heart sounds 1 and 2 normal with no murmurs. Abdominal: Not distended. Soft and nontender. Liver and spleen not palpable. No ascites demonstrated. Bowel sounds active. Rectal examination was deferred. Extremities: No edema Neurological: Alert and oriented x4. Grossly nonfocal. Normal speech Skin: No significant rash Psychological: Normal affect Results Laboratory Results: 02/20/19 01:00 02/20/19 02/20/19 02/20/19 01:00 01:00 01:00 WBC 5.2 RBC 1.92 L Hgb 5.5 L Hct 15.9 L MCV 83 MCH 28.7 MCHC 34.5 RDW 16.9 H Plt Count 142 L Seg Neutrophils % Not Reportable Lymphocytes % Not Reportable Monocytes % Not Reportable Eosinophils % Not Reportable Basophils % Not Reportable Absolute Neutrophils Not Reportable Absolute Lymphocytes Not Reportable Absolute Monocytes Not Reportable Absolute Eosinophils Not Reportable Absolute Basophils Not Reportable Sodium 140.6 Potassium 4.5 Chloride 110 H Carbon Dioxide 21 L Anion Gap 10 BUN 40 H Creatinine 1.94 H Est GFR ( Amer) 42 L Est GFR (Non-Af Amer) 35 L Glucose 100 Calcium 9.5 Total Bilirubin 0.2 AST 21 ALT 25 Alkaline Phosphatase 85 Total Protein 7.0 Albumin 3.7 Urine Color STRAW Urine Appearance CLEAR Urine pH 5.0 Ur Specific [place] 1.013 Urine Protein NEGATIVE Urine Glucose (UA) NEGATIVE Urine Ketones NEGATIVE Urine Blood NEGATIVE Urine Nitrite NEGATIVE Ur Leukocyte Esterase NEGATIVE Urine WBC (Auto) 0 Urine RBC (Auto) 0 Blood Type Antibody Screen 02/20/19 02/20/19 02/20/19 01:55 12:07 17:50 WBC 4.5 RBC 2.17 L Hgb 6.2 L Hct 17.9 L MCV 83 MCH 28.4 MCHC 34.3 RDW 16.8 H Plt Count 119 L Seg Neutrophils % Not Reportable Not Reportable Lymphocytes % Not Reportable Not Reportable Monocytes % Not Reportable Not Reportable Eosinophils % Not Reportable Not Reportable Basophils % Not Reportable Not Reportable Absolute Neutrophils Not Reportable Not Reportable Absolute Lymphocytes Not Reportable Not Reportable Absolute Monocytes Not Reportable Not Reportable Absolute Eosinophils Not Reportable Not Reportable Absolute Basophils Not Reportable Not Reportable Sodium Potassium Chloride Carbon Dioxide Anion Gap BUN Creatinine Est GFR ( Amer) Est GFR (Non-Af Amer) Glucose Calcium Total Bilirubin AST ALT Alkaline Phosphatase Total Protein Albumin Urine Color Urine Appearance Urine pH Ur Specific [place] Urine Protein Urine Glucose (UA) Urine Ketones Urine Blood Urine Nitrite Ur Leukocyte Esterase Urine WBC (Auto) Urine RBC (Auto) Blood Type O POSITIVE Antibody Screen NEGATIVE 02/20/19 02/20/19 01:00 01:00 Creatine Kinase 319 H CK-MB (CK-2) 1.57 Troponin I < 0.012 Impressions: Chest X-Ray 02/20/19 03:24 IMPRESSION: No definite pneumonia. Assessment & Plan - Diagnosis (1) Symptomatic anemia Is this a current diagnosis for this admission?: Yes Plan: His chronic anemia is multifactorial related to his myelodysplastic syndrome and some element of GI bleed. He has had episodes of melena in the past but not recently. His stool was positive for occult blood on this admission but no evidence of significant GI bleed. No significant GI findings have been identified over the years from multiple endoscopies. His last endoscopy was 18 months ago and I think it is worthwhile repeating an EGD and colonoscopy. This will be scheduled as outpatient. He will continue to follow-up with Dr. Velazquez (3) GI bleed Qualifiers: GI bleed type/associated pathology: melena Qualified Code(s): K92.1 - Melena Is this a current diagnosis for this admission?: Yes (4) Anemia requiring transfusions Is this a current diagnosis for this admission?: Yes (5) Myelodysplastic syndrome Is this a current diagnosis for this admission?: Yes
[2019-02-20] MEDS: TAMSULOSIN HCL 0.4 MG CAP.SR.24H PO SCH (22:06)
[2019-02-21] MEDS: CLONIDINE HCL 0.2 MG TABLET PO SCH ×3 (05:36→21:28)
[2019-02-21 06:09] LABS: HEMATOCRIT 20.3 % (37.9-51.0); MEAN CORPUSCULAR HEMOGLOBIN 29.5 pg (27.0-33.4); MEAN CORPUSCULAR VOLUME 84 fl (80-97); PLATELET COUNT 121 10^3/uL (150-450); RED BLOOD COUNT 2.41 10^6/uL (4.35-5.55); RED CELL DISTRIBUTION WIDTH 16.7 % (11.5-14.0); WHITE BLOOD COUNT 4.7 10^3/uL (4.0-10.5)
[2019-02-21 06:19] LABS: HEMOGLOBIN 7.1 g/dL (13.5-17.0)
[2019-02-21 06:26] LABS: ANION GAP 10 (5-19); BLOOD UREA NITROGEN 31 mg/dL (7-20); CALCIUM 9.3 mg/dL (8.4-10.2); CARBON DIOXIDE 23 mmol/L (22-30); CHLORIDE 105 mmol/L (98-107); GLUCOSE 92 mg/dL (75-110)
[2019-02-21] MEDS: FUROSEMIDE 40 MG TABLET PO SCH (08:55)
[2019-02-21] MEDS: AMLODIPINE BESYLATE 5 MG TABLET PO SCH (09:02)
[2019-02-21] MEDS: ISOSORBIDE MONONITRATE 60 MG TAB.ER.24H PO SCH (09:03)
[2019-02-21] MEDS ORDERED: FUROSEMIDE INJ/PF 20 MG/2 ML SDV IV PRN (09:09)
[2019-02-21] MEDS: ATORVASTATIN CALCIUM 10 MG TABLET PO SCH (09:14)
[2019-02-21] MEDS: IRON POLYSACCHARIDES COMPLEX 150 MG CAPSULE PO SCH ×2 (09:14→21:28)
[2019-02-21] MEDS: POTASSIUM CHLORIDE 10 MEQ CAPSULE.ER PO SCH (09:14)
[2019-02-21] MEDS: PANTOPRAZOLE SODIUM 40 MG VIAL IV SCH ×2 (09:14→21:28)
--- NOTE | 2019-02-21 09:40 | PDOC PROGRESS REPORT ---
Subjective Progress Note for:: 02/21/19 Subjective:: Patient is currently doing fair Denied any abdominal pain no nausea no more vomiting No blood in the stools no black stools Patient received 3 units of the blood hemoglobin is still low Patient seen by Dr. Marina and suggest no need for any intervention while patient not actively bleeding Discussed with the patient and the and the bedside Reason For Visit: GI BLEED Physical Exam Vital Signs: Temp Pulse Resp BP Pulse Ox 98.6 F 73 18 123/54 L 100 02/21/19 04:30 02/21/19 07:00 02/21/19 04:30 02/21/19 04:30 02/21/19 04:30 Intake & Output 02/20/19 02/21/19 02/22/19 06:59 06:59 06:59 Intake Total 0 1490 Output Total 0 4050 Balance 0 -2560 Weight 93.8 kg 91.9 kg General appearance: PRESENT: no acute distress, well-developed, well-nourished Head exam: PRESENT: atraumatic, normocephalic Eye exam: PRESENT: conjunctiva pink, EOMI, PERRLA. ABSENT: scleral icterus Ear exam: PRESENT: normal external ear exam Mouth exam: PRESENT: moist, tongue midline Neck exam: PRESENT: full ROM. ABSENT: carotid bruit, JVD, lymphadenopathy, thyromegaly Respiratory exam: PRESENT: clear to auscultation diony Cardiovascular exam: PRESENT: RRR. ABSENT: diastolic murmur, rubs, systolic murmur Pulses: PRESENT: normal dorsalis pedis pul, +2 pedal pulses bilateral Vascular exam: PRESENT: normal capillary refill GI/Abdominal exam: PRESENT: normal bowel sounds, soft. ABSENT: distended, guarding, mass, organolmegaly, rebound, tenderness Rectal exam: PRESENT: deferred Extremities exam: ABSENT: pedal edema Musculoskeletal exam: PRESENT: ambulatory Neurological exam: PRESENT: alert, awake, oriented to person, oriented to place, oriented to time, oriented to situation, CN II-XII grossly intact. ABSENT: motor sensory deficit Psychiatric exam: PRESENT: appropriate affect, normal mood. ABSENT: homicidal ideation, suicidal ideation Skin exam: PRESENT: dry, intact, warm. ABSENT: cyanosis, rash Results Laboratory Results: 02/21/19 05:16 02/21/19 05:16 02/20/19 02/20/19 02/20/19 01:55 12:07 17:50 WBC 4.5 3.9 L RBC 2.17 L 2.38 L Hgb 6.2 L 7.0 L Hct 17.9 L 20.2 L MCV 83 85 MCH 28.4 29.3 MCHC 34.3 34.5 RDW 16.8 H 16.9 H Plt Count 119 L 122 L Seg Neutrophils % Not Reportable Not Reportable Lymphocytes % Not Reportable Not Reportable Monocytes % Not Reportable Not Reportable Eosinophils % Not Reportable Not Reportable Basophils % Not Reportable Not Reportable Absolute Neutrophils Not Reportable Not Reportable Absolute Lymphocytes Not Reportable Not Reportable Absolute Monocytes Not Reportable Not Reportable Absolute Eosinophils Not Reportable Not Reportable Absolute Basophils Not Reportable Not Reportable Sodium Potassium Chloride Carbon Dioxide Anion Gap BUN Creatinine Est GFR ( Amer) Est GFR (Non-Af Amer) Glucose Calcium Blood Type O POSITIVE Antibody Screen NEGATIVE 02/21/19 02/21/19 05:16 05:16 WBC 4.7 RBC 2.41 L Hgb 7.1 L Hct 20.3 L MCV 84 MCH 29.5 MCHC 35.0 RDW 16.7 H Plt Count 121 L Seg Neutrophils % Lymphocytes % Monocytes % Eosinophils % Basophils % Absolute Neutrophils Absolute Lymphocytes Absolute Monocytes Absolute Eosinophils Absolute Basophils Sodium 138.0 Potassium 4.0 Chloride 105 Carbon Dioxide 23 Anion Gap 10 BUN 31 H Creatinine 1.64 H Est GFR ( Amer) 51 L Est GFR (Non-Af Amer) 42 L Glucose 92 Calcium 9.3 Blood Type Antibody Screen 02/20/19 02/20/19 01:00 01:00 Creatine Kinase 319 H CK-MB (CK-2) 1.57 Troponin I < 0.012 Impressions: Chest X-Ray 02/20/19 03:24 IMPRESSION: No definite pneumonia. Assessment & Plan - Diagnosis (1) GI bleed Qualifiers: GI bleed type/associated pathology: melena Qualified Code(s): K92.1 - Melena Is this a current diagnosis for this admission?: Yes Plan: No need for any further interventions as per the Dr. Marina We will continue to monitor (2) Symptomatic anemia Is this a current diagnosis for this admission?: Yes Plan: need blood transfusions (3) Thrombocytopenia Is this a current diagnosis for this admission?: Yes Plan: We will consult the Dr. Velazquez for further evaluations (4) CAD (coronary artery disease) Qualifiers: Coronary Disease-Associated Artery/Lesion type: unspecified vessel or lesion type Is this a current diagnosis for this admission?: No (5) CHF (congestive heart failure) Qualifiers: Heart failure type: combined systolic and diastolic Heart failure chronicity: chronic Qualified Code(s): I50.42 - Chronic combined systolic (congestive) and diastolic (congestive) heart failure Is this a current diagnosis for this admission?: Yes Plan: Currently all stable (6) HTN (hypertension) Qualifiers: Hypertension type: essential hypertension Is this a current diagnosis for this admission?: Yes (7) Myelodysplastic syndrome Is this a current diagnosis for this admission?: Yes Plan: Is currently see outpatients Dr. Velazquez (8) Renal failure Qualifiers: Renal failure chronicity: acute on chronic Chronic kidney disease stage: stage 3 (moderate) Is this a current diagnosis for this admission?: Yes - Time Time Spent with patient: 15-24 minutes Medications reviewed and adjusted accordingly: Yes Anticipated discharge: Other Within: Other - Plan Summary Plan Summary: Continues to current medications
[2019-02-21] MEDS: CARVEDILOL 12.5 MG TABLET PO SCH ×2 (15:23→21:28)
--- NOTE | 2019-02-21 16:23 | PDOC PROGRESS REPORT ---
Subjective Progress Note for:: 02/21/19 Subjective:: Patient was seen today laying in his bed. At the time he said that he felt he was doing well. He denied chest pain, SOB, N/V/D/C. He was transfused three units yesterday and gets two more units today. Reason For Visit: GI BLEED Physical Exam Vital Signs: Temp Pulse Resp BP Pulse Ox 98.3 F 78 14 134/73 H 100 02/21/19 14:00 02/21/19 14:00 02/21/19 14:00 02/21/19 14:00 02/21/19 14:00 Intake & Output 02/20/19 02/21/19 02/22/19 06:59 06:59 06:59 Intake Total 0 1490 320 Output Total 0 4050 Balance 0 -2560 320 Weight 93.8 kg 91.9 kg General appearance: PRESENT: no acute distress, well-developed, well-nourished Mouth exam: PRESENT: moist, neck supple Neck exam: ABSENT: JVD, tracheal deviation Respiratory exam: PRESENT: clear to auscultation diony. ABSENT: crackles, rales, rhonchi, stridor, wheezes Cardiovascular exam: PRESENT: +S1, +S2 GI/Abdominal exam: PRESENT: soft. ABSENT: tenderness Extremities exam: ABSENT: pedal edema, tenderness, +1 edema, +2 edema Musculoskeletal exam: PRESENT: normal inspection. ABSENT: tenderness Neurological exam: PRESENT: alert, awake, oriented to person, oriented to place, oriented to time, oriented to situation Psychiatric exam: PRESENT: appropriate affect, normal mood Skin exam: PRESENT: dry, intact, warm Results Laboratory Results: 02/21/19 05:16 02/21/19 05:16 02/20/19 02/20/19 02/21/19 01:55 17:50 05:16 WBC 3.9 L 4.7 RBC 2.38 L 2.41 L Hgb 7.0 L 7.1 L Hct 20.2 L 20.3 L MCV 85 84 MCH 29.3 29.5 MCHC 34.5 35.0 RDW 16.9 H 16.7 H Plt Count 122 L 121 L Seg Neutrophils % Not Reportable Lymphocytes % Not Reportable Monocytes % Not Reportable Eosinophils % Not Reportable Basophils % Not Reportable Absolute Neutrophils Not Reportable Absolute Lymphocytes Not Reportable Absolute Monocytes Not Reportable Absolute Eosinophils Not Reportable Absolute Basophils Not Reportable Sodium Potassium Chloride Carbon Dioxide Anion Gap BUN Creatinine Est GFR ( Amer) Est GFR (Non-Af Amer) Glucose Calcium Blood Type O POSITIVE Antibody Screen NEGATIVE 02/21/19 05:16 WBC RBC Hgb Hct MCV MCH MCHC RDW Plt Count Seg Neutrophils % Lymphocytes % Monocytes % Eosinophils % Basophils % Absolute Neutrophils Absolute Lymphocytes Absolute Monocytes Absolute Eosinophils Absolute Basophils Sodium 138.0 Potassium 4.0 Chloride 105 Carbon Dioxide 23 Anion Gap 10 BUN 31 H Creatinine 1.64 H Est GFR ( Amer) 51 L Est GFR (Non-Af Amer) 42 L Glucose 92 Calcium 9.3 Blood Type Antibody Screen 02/20/19 02/20/19 01:00 01:00 Creatine Kinase 319 H CK-MB (CK-2) 1.57 Troponin I < 0.012 Impressions: Chest X-Ray 02/20/19 03:24 IMPRESSION: No definite pneumonia. Assessment & Plan - Diagnosis (1) Acute kidney injury superimposed on chronic kidney disease Is this a current diagnosis for this admission?: Yes Plan: Nonoliguric due to prerenal from the anemia. At this point it is improving after receiving some blood. Continue with current medications. No indication DRY CANS BACK TENDER. (2) GI bleed Qualifiers: GI bleed type/associated pathology: melena Qualified Code(s): K92.1 - Melena Is this a current diagnosis for this admission?: Yes Plan: Following with Dr. Marina. According to the patient he is going to follow up as outpatient. (3) Anemia Qualifiers: Anemia type: other cause Plan: being evaluated for a GI bleed. (4) HTN (hypertension) Qualifiers: Hypertension type: essential hypertension Is this a current diagnosis for this admission?: Yes Plan: currently controlled
[2019-02-21] MEDS: TAMSULOSIN HCL 0.4 MG CAP.SR.24H PO SCH (21:28)
[2019-02-22 05:18] LABS: HEMATOCRIT 27.3 % (37.9-51.0); MEAN CORPUSCULAR HEMOGLOBIN 29.9 pg (27.0-33.4); MEAN CORPUSCULAR HGB CONC 35.3 g/dL (32.0-36.0); MEAN CORPUSCULAR VOLUME 85 fl (80-97); RED BLOOD COUNT 3.22 10^6/uL (4.35-5.55); RED CELL DISTRIBUTION WIDTH 17.3 % (11.5-14.0); WHITE BLOOD COUNT 4.9 10^3/uL (4.0-10.5)
[2019-02-22 05:20] LABS: HEMOGLOBIN 9.6 g/dL (13.5-17.0)
[2019-02-22] MEDS: CLONIDINE HCL 0.2 MG TABLET PO SCH ×3 (05:22→21:32)
[2019-02-22 05:26] LABS: ANION GAP 13 (5-19); BLOOD UREA NITROGEN 26 mg/dL (7-20); CALCIUM 9.3 mg/dL (8.4-10.2); CARBON DIOXIDE 23 mmol/L (22-30); CHLORIDE 105 mmol/L (98-107); GLUCOSE 94 mg/dL (75-110); POTASSIUM 3.8 mmol/L (3.6-5.0); SODIUM 140.6 mmol/L (137-145)
[2019-02-22 05:47] LABS: PLATELET COUNT 118 10^3/uL (150-450)
[2019-02-22] MEDS: POTASSIUM CHLORIDE 10 MEQ CAPSULE.ER PO SCH (10:10)
[2019-02-22] MEDS: IRON POLYSACCHARIDES COMPLEX 150 MG CAPSULE PO SCH ×2 (10:11→21:31)
[2019-02-22] MEDS: ATORVASTATIN CALCIUM 10 MG TABLET PO SCH (10:11)
[2019-02-22] MEDS: CARVEDILOL 12.5 MG TABLET PO SCH ×2 (10:11→21:32)
[2019-02-22] MEDS: ISOSORBIDE MONONITRATE 60 MG TAB.ER.24H PO SCH (10:11)
[2019-02-22] MEDS: AMLODIPINE BESYLATE 5 MG TABLET PO SCH (10:11)
[2019-02-22] MEDS: PANTOPRAZOLE SODIUM 40 MG VIAL IV SCH ×2 (10:12→21:31)
[2019-02-22] MEDS: FUROSEMIDE 40 MG TABLET PO SCH (10:12)
--- NOTE | 2019-02-22 14:49 | PDOC PROGRESS REPORT ---
Subjective Progress Note for:: 02/22/19 Subjective:: Patient is feeling better No chest pain no short of breath Patient hemoglobin is 9.6 after transfusing the 5 units of the blood Discussed with the patient's hematology Dr. Velazquez see will check the patient's blood work on Tuesday if the patient remains stable discharge tomorrow Discussed with the regarding the patient's current conditions Reason For Visit: GI BLEED Physical Exam Vital Signs: Temp Pulse Resp BP Pulse Ox 98.5 F 80 14 145/68 H 99 02/22/19 08:49 02/22/19 08:49 02/22/19 08:49 02/22/19 08:49 02/22/19 08:49 Intake & Output 02/21/19 02/22/19 02/23/19 06:59 06:59 06:59 Intake Total 1490 2854 Output Total 4050 3480 Balance -2560 -626 Weight 91.9 kg 90.5 kg General appearance: PRESENT: no acute distress, well-developed, well-nourished Head exam: PRESENT: atraumatic, normocephalic Eye exam: PRESENT: conjunctiva pink, EOMI, PERRLA. ABSENT: scleral icterus Ear exam: PRESENT: normal external ear exam Mouth exam: PRESENT: moist, tongue midline Neck exam: PRESENT: full ROM. ABSENT: carotid bruit, JVD, lymphadenopathy, thyromegaly Respiratory exam: PRESENT: clear to auscultation diony Cardiovascular exam: PRESENT: RRR. ABSENT: diastolic murmur, rubs, systolic murmur Vascular exam: PRESENT: normal capillary refill GI/Abdominal exam: PRESENT: normal bowel sounds, soft. ABSENT: distended, guarding, mass, organolmegaly, rebound, tenderness Rectal exam: PRESENT: deferred Neurological exam: PRESENT: alert, awake, oriented to person, oriented to place, oriented to time, oriented to situation, CN II-XII grossly intact. ABSENT: motor sensory deficit Psychiatric exam: PRESENT: appropriate affect, normal mood. ABSENT: homicidal ideation, suicidal ideation Skin exam: PRESENT: dry, intact, warm. ABSENT: cyanosis, rash Results Laboratory Results: 02/22/19 04:48 02/22/19 04:48 02/20/19 02/22/19 02/22/19 01:55 04:48 04:48 WBC 4.9 RBC 3.22 L Hgb 9.6 L D Hct 27.3 L MCV 85 MCH 29.9 MCHC 35.3 RDW 17.3 H Plt Count 118 L Sodium 140.6 Potassium 3.8 Chloride 105 Carbon Dioxide 23 Anion Gap 13 BUN 26 H Creatinine 1.47 H Est GFR ( Amer) 58 L Est GFR (Non-Af Amer) 48 L Glucose 94 Calcium 9.3 Blood Type O POSITIVE Antibody Screen NEGATIVE 02/20/19 02/20/19 01:00 01:00 Creatine Kinase 319 H CK-MB (CK-2) 1.57 Troponin I < 0.012 Impressions: Chest X-Ray 02/20/19 03:24 IMPRESSION: No definite pneumonia. Assessment & Plan - Diagnosis (1) GI bleed Qualifiers: GI bleed type/associated pathology: melena Qualified Code(s): K92.1 - Melena Is this a current diagnosis for this admission?: Yes Plan: Currently all stable (2) Symptomatic anemia Is this a current diagnosis for this admission?: Yes Plan: Currently all stable (3) Thrombocytopenia Is this a current diagnosis for this admission?: Yes Plan: We will consult the Dr. Velazquez for further evaluations (4) CAD (coronary artery disease) Qualifiers: Coronary Disease-Associated Artery/Lesion type: unspecified vessel or lesion type Is this a current diagnosis for this admission?: No (5) CHF (congestive heart failure) Qualifiers: Heart failure type: combined systolic and diastolic Heart failure chronicity: chronic Qualified Code(s): I50.42 - Chronic combined systolic (congestive) and diastolic (congestive) heart failure Is this a current diagnosis for this admission?: Yes Plan: Currently all stable (6) HTN (hypertension) Qualifiers: Hypertension type: essential hypertension Is this a current diagnosis for this admission?: Yes (7) Myelodysplastic syndrome Is this a current diagnosis for this admission?: Yes Plan: Is currently see outpatients Dr. Velazquez (8) Renal failure Qualifiers: Renal failure chronicity: acute on chronic Chronic kidney disease stage: stage 3 (moderate) Is this a current diagnosis for this admission?: Yes - Time Time Spent with patient: 15-24 minutes Medications reviewed and adjusted accordingly: Yes Anticipated discharge: Other Within: Other - Plan Summary Plan Summary: Continues to current medications
[2019-02-22] MEDS: TAMSULOSIN HCL 0.4 MG CAP.SR.24H PO SCH (21:31)
[2019-02-23] MEDS: CLONIDINE HCL 0.2 MG TABLET PO SCH (05:04)
[2019-02-23 06:07] LABS: HEMATOCRIT 25.7 % (37.9-51.0); MEAN CORPUSCULAR HEMOGLOBIN 29.8 pg (27.0-33.4); MEAN CORPUSCULAR HGB CONC 34.9 g/dL (32.0-36.0); MEAN CORPUSCULAR VOLUME 86 fl (80-97); PLATELET COUNT 116 10^3/uL (150-450); RED CELL DISTRIBUTION WIDTH 17.9 % (11.5-14.0); WHITE BLOOD COUNT 7.4 10^3/uL (4.0-10.5)
[2019-02-23 06:13] LABS: ANION GAP 11 (5-19); BLOOD UREA NITROGEN 30 mg/dL (7-20); CARBON DIOXIDE 22 mmol/L (22-30); CHLORIDE 104 mmol/L (98-107); GLUCOSE 103 mg/dL (75-110); POTASSIUM 3.7 mmol/L (3.6-5.0); SODIUM 137.4 mmol/L (137-145)
[2019-02-23 08:39] VITALS: BP 126/54
[2019-02-23] MEDS: FUROSEMIDE 40 MG TABLET PO SCH (09:00)
[2019-02-23] MEDS: POTASSIUM CHLORIDE 10 MEQ CAPSULE.ER PO SCH (10:26)
[2019-02-23] MEDS: ISOSORBIDE MONONITRATE 60 MG TAB.ER.24H PO SCH (10:27)
[2019-02-23] MEDS: ATORVASTATIN CALCIUM 10 MG TABLET PO SCH (10:27)
[2019-02-23] MEDS: PANTOPRAZOLE SODIUM 40 MG VIAL IV SCH (10:27)
[2019-02-23] MEDS: CARVEDILOL 12.5 MG TABLET PO SCH (10:27)
[2019-02-23] MEDS: IRON POLYSACCHARIDES COMPLEX 150 MG CAPSULE PO SCH (10:27)
[2019-02-23] MEDS: AMLODIPINE BESYLATE 5 MG TABLET PO SCH (10:27)
--- NOTE | 2019-02-23 13:41 | PDOC DISCHARGE SUMMARY ---
General - Admit/Disc Date/PCP Admission Date/Primary Care Provider: 02/20/19 03:31 ELIZA GRANADOS MD Discharge Date: 02/23/19 - Discharge Diagnosis (1) GI bleed Is this a current diagnosis for this admission?: Yes Summary: Not active bleeding as per the Dr. Marina follow outpatient no need for any interventions (2) Symptomatic anemia Is this a current diagnosis for this admission?: Yes Summary: Transfusions (3) Thrombocytopenia Is this a current diagnosis for this admission?: Yes Summary: Stable follow with the Dr. Caroline Parisi as per discussed with her (4) CAD (coronary artery disease) Is this a current diagnosis for this admission?: No Summary: Ermias all stable (5) CHF (congestive heart failure) Is this a current diagnosis for this admission?: Yes Summary: Clear all stable (6) HTN (hypertension) Is this a current diagnosis for this admission?: Yes (7) Myelodysplastic syndrome Is this a current diagnosis for this admission?: Yes (8) Renal failure Is this a current diagnosis for this admission?: Yes - Additional Information Resuscitation Status: Full Code Discharge Diet: Diabetic Discharge Activity: Activity As Tolerated Home Medications: Iron Polysaccharide Complex [Ferrex 150] 150 mg PO Q12 07/11/17 Pravastatin Sodium [Pravachol] 40 mg PO DAILY 07/11/17 Amlodipine Besylate 5 mg PO DAILY 05/02/18 Carvedilol 25 mg PO Q12 05/02/18 Furosemide [Lasix 40 mg Tablet] 40 mg PO QAM 05/02/18 Isosorbide Mononitrate [Imdur 60 mg Tablet.er] 60 mg PO DAILY 05/02/18 Omeprazole 40 mg PO DAILY 05/02/18 Potassium Chloride [Klor-Con M20] 20 meq PO DAILY 05/02/18 Cholecalciferol (Vitamin D3) [Vitamin D3 1000 Unit Tablet] 2,000 unit PO DAILY 0 02/20/19 Tamsulosin HCl [Flomax 0.4 mg Cap.sr] 0.4 mg PO QHS 02/20/19 Clonidine HCl [Catapres 0.2 mg Tablet] 0.2 mg PO Q8 #0 02/23/19 History of Present Illness History of Present Illness: BOOM POWERS is a 63 year old male This is 63-year-old male with a significant history of the anemia myelodysplastic syndromes thrombocytopenia cardiomyopathy chronic kidney disease and multiple other comorbidity several hospital admissions for the GI bleed with a possible AV malformations and a several evaluations done here by Dr. Marina and also at [facility] several times hospital admissions even the patient had a endoscopy colonoscopy and enteroscopy was done came to the emergency department because of the complaining of a short of breath and feeling weak and feel like his hemoglobin is dropped Patient did not see any blood in the stools no black stools but patient stool guaiac is positive in the ER and patient hemoglobin was 5.5 Patient usually require a blood transfusion at least once a month and sometimes require platelet transfusions currently see her Dr. Velazquez for that Patient when I saw in the floor denied any chest pain to than any shortness of the breath patient is currently receiving the 1 unit of the blood Patient is denied any abdominal pain no nausea no vomiting Patient also recently seen by Dr. Odell for cardiomyopathy and all stable Patient other than that denied any other symptoms no active GI bleed is seen Hospital Course Hospital Course: This is a 63-year-old male with a significant history of the MDS requiring multiple blood transfusion platelet transfusions history of the AV malformation GI bleed several times hospital admissions during transfer to the [facility] with a several endoscopy colonoscopy and enteroscopy was done basically came to the emergency department with the complaint Of feeling tired fatigue and short of breath and patient hemoglobin was 5.5 Patient was not actively any bleeding's denied any blood in the stools no black stools but stool guaiac was positive Patient was admitting in the hospital transfused a total of 5 units of blood's Patient seen by Dr. Marina GI and suggest no need for any interventions while patient was several interventions done and not actively bleeding he will follow outpatients The patient's discussed with the Caroline patient hematology and suggest to follow in office Tuesday to recheck the hemoglobin Patient is otherwise remained stable hemoglobin around 9 Discussed with the and the bedside stool following the Tuesday and the Dr. Velazquez for a blood check Follow with Dr. Marina outpatients next week If any blood in the stool any black stool following the ER Also seen by the nephrology to the worsening the kidney functions mostly GI GI bleed currently all stable Physical Exam Vital Signs: Temp Pulse Resp BP Pulse Ox 99.2 F 78 16 126/54 H 100 02/23/19 08:37 02/23/19 08:37 02/23/19 08:37 02/23/19 08:37 02/23/19 08:37 Intake & Output 02/22/19 02/23/19 02/24/19 06:59 06:59 06:59 Intake Total 2854 800 Output Total 3480 2200 Balance -626 -1400 Weight 90.5 kg 91.2 kg General appearance: PRESENT: no acute distress, well-developed, well-nourished Head exam: PRESENT: atraumatic, normocephalic Eye exam: PRESENT: conjunctiva pink, EOMI, PERRLA. ABSENT: scleral icterus Ear exam: PRESENT: normal external ear exam Mouth exam: PRESENT: moist, tongue midline Neck exam: PRESENT: full ROM. ABSENT: carotid bruit, JVD, lymphadenopathy, thyromegaly Respiratory exam: PRESENT: clear to auscultation diony Cardiovascular exam: PRESENT: RRR. ABSENT: diastolic murmur, rubs, systolic murmur Pulses: PRESENT: normal dorsalis pedis pul, +2 pedal pulses bilateral Vascular exam: PRESENT: normal capillary refill GI/Abdominal exam: PRESENT: normal bowel sounds, soft. ABSENT: distended, guarding, mass, organolmegaly, rebound, tenderness Rectal exam: PRESENT: deferred Musculoskeletal exam: PRESENT: ambulatory Neurological exam: PRESENT: alert, awake, oriented to person, oriented to place, oriented to time, oriented to situation, CN II-XII grossly intact. ABSENT: motor sensory deficit Psychiatric exam: PRESENT: appropriate affect, normal mood. ABSENT: homicidal ideation, suicidal ideation Skin exam: PRESENT: dry, intact, warm. ABSENT: cyanosis, rash Results Laboratory Results: 02/23/19 05:21 02/23/19 05:21 02/23/19 02/23/19 05:21 05:21 WBC 7.4 RBC 3.00 L Hgb 9.0 L Hct 25.7 L MCV 86 MCH 29.8 MCHC 34.9 RDW 17.9 H Plt Count 116 L Sodium 137.4 Potassium 3.7 Chloride 104 Carbon Dioxide 22 Anion Gap 11 BUN 30 H Creatinine 1.69 H Est GFR ( Amer) 50 L Est GFR (Non-Af Amer) 41 L Glucose 103 Calcium 9.0 02/20/19 02/20/19 01:00 01:00 Creatine Kinase 319 H CK-MB (CK-2) 1.57 Troponin I < 0.012 Impressions: Chest X-Ray 02/20/19 03:24 IMPRESSION: No definite pneumonia. Qualifiers - * PATIENT BEING DISCHARGED WITH ANY OF THE FOLLOWING DIAGNOSIS: No VTE patient discharged on overlapping Therapy?: Yes Acute Heart Failure - Is this a Heart Failure Patient?: Yes Documentation of LVEF assessment?: Planned for after discharge LVEF < 40%?: No- if no continue to question #3 a) Discharged on ACEI?: N/A Discharged on ARB b) Discharges on ARB?: N/A-Discharged on ARNI Reason(s) not discharged on Evidence-Based Beta Blockers (carvedilol, sustained released metoprolol succinate, or bisoprolol): Hypotension Plan Time Spent: Greater than 30 Minutes - Discharge home with the stable conditions no other acute concerns discussed with the regarding the patient's current conditions
== END 2019-02-23 11:30 | disposition home or self-care (01) | DRG 378 ==
LOC: ER 22:17 → EH 02-20 03:31 → 3W 02-20 05:39
PROVIDERS: ADMIT Family Medicine; ATTEND Family Medicine
PROC: 30233N1 Transfusion of Nonautologous Red Blood Cells into Peripheral Vein, Percutaneous Approach (ICD-10-PCS; principal; 2019-02-20)
DX: K92.1 Melena (principal); N17.9 Acute kidney failure, unspecified; I50.42 Chronic combined systolic (congestive) and diastolic (congestive) heart failure; D69.6 Thrombocytopenia, unspecified; I25.10 Atherosclerotic heart disease of native coronary artery without angina pectoris; I11.0 Hypertensive heart disease with heart failure; D46.9 Myelodysplastic syndrome, unspecified; E11.22 Type 2 diabetes mellitus with diabetic chronic kidney disease; K21.9 Gastro-esophageal reflux disease without esophagitis; E78.5 Hyperlipidemia, unspecified; N18.3 Chronic kidney disease, stage 3 (moderate); Z79.899 Other long term (current) drug therapy; Z95.810 Presence of automatic (implantable) cardiac defibrillator; Z83.3 Family history of diabetes mellitus; Z79.4 Long term (current) use of insulin
CPT/HCPCS: 36415; 36430; 71045; 80048; 80053; 81001; 82550; 82553; 84484; 85025; 85027; 85610; 85730; 86850; 86900; 86901; 86902; 86920; 86922; 93005; 93010; 96365; 99291; J1940; P9016; S0164

== ENCOUNTER 2019-03-07 11:04 | Inpatient (IN) | payer MEDICARE, OTHER ==
--- NOTE | 2019-03-07 12:31 | ER Document Report ---
ED Medical Screen (RME) - General Chief Complaint: Abnormal Lab Results Stated Complaint: ABNORMAL LABS Time Seen by Provider: 03/07/19 11:54 Primary Care Provider: SHAINA RICKS MD [Primary Care Provider] - Follow up as needed Mode of Arrival: Ambulatory Information source: Patient Notes: Patient is a 63-year-old male presented to the emergency department from his oncologist office with abnormally low hemoglobin. Patient reports hemoglobin at the office was 6.7. He reports he has not had blood transfusions in the past. Patient denies any symptoms. Denies any nausea, vomiting, diarrhea, dizziness or weakness. Patient reports that actually he feels quite well. Exam: Alert, oriented and answering all questions appropriately. No acute distress noted. Lung sounds clear and equal bilaterally. I have greeted and performed a rapid initial assessment of this patient. A comprehensive ED assessment and evaluation of the patient, analysis of test results and completion of the medical decision making process will be conducted by additional ED providers. I have specifically instructed the patient or family members with the patient to immediately return to any nursing staff should anything change in the patient's condition or with their chief complaint. This medical record was dictated with voice recognizing software. There may be grammatical, syntax errors that are unintended. TRAVEL OUTSIDE OF THE [place] IN LAST 30 DAYS: No - Related Data Allergies/Adverse Reactions: No Known Allergies Allergy (Verified 03/07/19 11:06) Past Medical History - Social History Chew tobacco use (# tins/day): No Frequency of alcohol use: None Drug Abuse: None - Past Medical History Cardiac Medical History: Reports: Hx Congestive Heart Failure, Hx Coronary Artery Disease, Hx Hypercholesterolemia, Hx Hypertension Denies: Hx Atrial Fibrillation, Hx Heart Attack, Hx Peripheral Vascular Disease, Hx Heart Murmur Pulmonary Medical History: Denies: Hx Asthma, Hx Bronchitis, Hx COPD, Hx Pneumonia, Hx Tuberculosis Neurological Medical History: Denies: Hx Cerebrovascular Accident, Hx Seizures Endocrine Medical History: Reports: Hx Diabetes Mellitus Type 2. Denies: Hx Diabetes Mellitus Type 1 Renal/ Medical History: Denies: Hx Benign Prostatic Hyperplasia, Hx End Stage Renal Disease, Hx Kidney Stones, Hx Peritoneal Dialysis Malignancy Medical History: Denies Hx Leukemia GI Medical History: Reports: Hx Gastroesophageal Reflux Disease. Denies: Hx Crohn's Disease, Hx Hiatal Hernia, Hx Irritable Bowel, Hx Liver Failure, Hx Pancreatitis, Hx Ulcer Musculoskeltal Medical History: Reports Hx Arthritis Psychiatric Medical History: Denies: Hx Depression Infectious Medical History: Denies: Hx HIV Past Surgical History: Reports: Hx Bowel Surgery, Hx Internal Defibrillator. Denies: Hx Appendectomy, Hx Cholecystectomy, Hx Colostomy, Hx Coronary Artery Bypass Graft, Hx Gastric Bypass Surgery, Hx Herniorrhaphy, Hx Pacemaker, Hx Tonsillectomy - Immunizations Hx Diphtheria, Pertussis, Tetanus Vaccination: Yes History of Influenza Vaccine for 06/2017 - 11/2017 Season: Yes Influenza Administration Date for 06/2017 - 11/2017 Season: 06/19/17 Physical Exam - Vital signs Vitals: Temp Pulse Resp BP Pulse Ox 97.6 F 89 18 135/52 H 99 03/07/19 11:19 03/07/19 11:19 03/07/19 11:19 03/07/19 11:19 03/07/19 11:19 Course - Vital Signs Vital signs: Temp Pulse Resp BP Pulse Ox 97.6 F 89 18 135/52 H 99 03/07/19 11:19 03/07/19 11:19 03/07/19 11:19 03/07/19 11:19 03/07/19 11:19 Doctor's Discharge - Discharge Referrals: SHAINA RICKS MD [Primary Care Provider] - Follow up as needed
[2019-03-07 13:44] LABS: HEMATOCRIT 20.4 % (37.9-51.0); MEAN CORPUSCULAR HEMOGLOBIN 29.5 pg (27.0-33.4); MEAN CORPUSCULAR HGB CONC 33.7 g/dL (32.0-36.0); MEAN CORPUSCULAR VOLUME 88 fl (80-97); RED BLOOD COUNT 2.33 10^6/uL (4.35-5.55); RED CELL DISTRIBUTION WIDTH 17.4 % (11.5-14.0); WHITE BLOOD COUNT 6.6 10^3/uL (4.0-10.5)
[2019-03-07 14:01] LABS: ALANINE AMINOTRANSFERASE 21 U/L (21-72); ALBUMIN 3.5 g/dL (3.5-5.0); ALKALINE PHOSPHATASE 76 U/L (38-126); ANION GAP 9 (5-19); ASPARTATE AMINO TRANSFERASE 18 U/L (17-59); BILIRUBIN,DIRECT 0.3 mg/dL (0.0-0.4); BILIRUBIN,TOTAL 0.4 mg/dL (0.2-1.3); BLOOD UREA NITROGEN 24 mg/dL (7-20); CALCIUM 9.1 mg/dL (8.4-10.2); CARBON DIOXIDE 26 mmol/L (22-30); CHLORIDE 103 mmol/L (98-107); GLUCOSE 99 mg/dL (75-110); POTASSIUM 3.5 mmol/L (3.6-5.0); SODIUM 137.5 mmol/L (137-145); TOTAL PROTEIN 6.5 g/dL (6.3-8.2)
[2019-03-07 14:06] LABS: HEMOGLOBIN 6.9 g/dL (13.5-17.0); PLATELET COUNT 94 10^3/uL (150-450)
[2019-03-07] MEDS ORDERED: NORMAL SALINE 250 ML IV PRN (14:08)
[2019-03-07 14:10] LABS: ABSOLUTE LYMPHOCYTES# (MANUAL) 0.8 10^3/uL (0.5-4.7); ABSOLUTE MONOCYTES # (MANUAL) 1.8 10^3/uL (0.1-1.4); BASOPHILS % (MANUAL) 0 % (0-2); EOSINOPHILS % (MANUAL) 2 % (0-6); LYMPHOCYTES % (MANUAL) 12 % (13-45); MONOCYTES % (MANUAL) 27 % (3-13); NUCLEATED RED BLOOD CELLS 1 /100 WBC (0); SEGMENTED NEUTROPHILS % (MAN) 59 % (42-78); TOTAL CELLS COUNTED 100
[2019-03-07 14:12] LABS: OVALOCYTES SLIGHT; PLATELET COMMENT DECREASED; PLATELET GIANT PRESENT; PLATELET LARGE PRESENT; POIKILOCYTOSIS SLIGHT; POLYCHROMASIA SLIGHT
--- NOTE | 2019-03-07 15:55 | ER Document Report ---
ED General - General Chief Complaint: Abnormal Lab Results Stated Complaint: ABNORMAL LABS Time Seen by Provider: 03/07/19 11:54 Mode of Arrival: Ambulatory Information source: Patient Notes: This is a 63-year-old man with a history of myelodysplasia, GI bleeding, CHF who is referred to the emergency room by Dr. Velazquez (hematology) TRAVEL OUTSIDE OF THE [place] IN LAST 30 DAYS: No - HPI Onset: Last week Onset/Duration: Gradual Quality of pain: No pain Severity: None Pain Level: Denies Associated symptoms: Weakness, Other - Also notes that black stools. denies: Chest pain, Fever, Nausea, Shortness of breath Exacerbated by: Denies Relieved by: Denies Similar symptoms previously: Yes Recently seen / treated by doctor: Yes - Related Data Allergies/Adverse Reactions: No Known Allergies Allergy (Verified 03/07/19 11:06) Past Medical History - General Information source: Patient - Social History Smoking Status: Never Smoker Cigarette use (# per day): No Chew tobacco use (# tins/day): No Frequency of alcohol use: None Drug Abuse: None Lives with: Family Family History: Reviewed & Not Pertinent Patient has suicidal ideation: No Patient has homicidal ideation: No - Past Medical History Cardiac Medical History: Reports: Hx Congestive Heart Failure, Hx Coronary Artery Disease, Hx Hypercholesterolemia, Hx Hypertension Denies: Hx Atrial Fibrillation, Hx Heart Attack, Hx Peripheral Vascular Disease, Hx Heart Murmur Pulmonary Medical History: Denies: Hx Asthma, Hx Bronchitis, Hx COPD, Hx Pneumonia, Hx Tuberculosis Neurological Medical History: Denies: Hx Cerebrovascular Accident, Hx Seizures Endocrine Medical History: Reports: Hx Diabetes Mellitus Type 2. Denies: Hx Diabetes Mellitus Type 1 Renal/ Medical History: Denies: Hx Benign Prostatic Hyperplasia, Hx End Stage Renal Disease, Hx Kidney Stones, Hx Peritoneal Dialysis Malignancy Medical History: Denies Hx Leukemia GI Medical History: Reports: Hx Gastroesophageal Reflux Disease. Denies: Hx Crohn's Disease, Hx Hiatal Hernia, Hx Irritable Bowel, Hx Liver Failure, Hx Pancreatitis, Hx Ulcer Musculoskeletal Medical History: Reports Hx Arthritis Psychiatric Medical History: Denies: Hx Depression Infectious Medical History: Denies: Hx HIV Past Surgical History: Reports: Hx Bowel Surgery, Hx Internal Defibrillator. Denies: Hx Appendectomy, Hx Cholecystectomy, Hx Colostomy, Hx Coronary Artery Bypass Graft, Hx Gastric Bypass Surgery, Hx Herniorrhaphy, Hx Pacemaker, Hx Tonsillectomy - Immunizations Hx Diphtheria, Pertussis, Tetanus Vaccination: Yes Hx Pneumococcal Vaccination: 06/19/11 Review of Systems - Review of Systems Constitutional: denies: Chills, Fever EENT: No symptoms reported Cardiovascular: No symptoms reported Respiratory: No symptoms reported Gastrointestinal: See HPI Genitourinary: No symptoms reported Male Genitourinary: No symptoms reported Musculoskeletal: No symptoms reported Skin: No symptoms reported Hematologic/Lymphatic: No symptoms reported Neurological/Psychological: Weakness - Generalized weakness Physical Exam - Vital signs Vitals: Temp Pulse Resp BP Pulse Ox 97.6 F 89 18 135/52 H 99 03/07/19 11:19 03/07/19 11:19 03/07/19 11:19 03/07/19 11:03/07/19 11:19 Notes: Physical exam: GENERAL: Patient is alert and oriented x3, blood pressure is 135/52, pulse is 89, respiratory rate 18, O2 sat 99% on room air. Patient is afebrile. HEAD: Atraumatic, normocephalic. EYES: Pupils equal round and reactive to light, extraocular movements intact, s clera anicteric, conjunctiva are normal. ENT: TMs normal, nares patent, oropharynx clear without exudates. Moist mucous membranes. NECK: Normal range of motion, supple without obvious mass or JVD. LUNGS: Breath sounds clear to auscultation bilaterally and equal. No wheezes rales or rhonchi. HEART: Regular rate and rhythm without murmurs, rubs or gallops. ABDOMEN: Soft, normoactive bowel sounds. No tenderness to palpation. No guarding, no rebound. No masses appreciated. Rectal: Deferred due to thrombocytopenia EXTREMITIES: Normal range of motion, no pitting or edema. No clubbing or cyanosis. NEUROLOGICAL: Cranial nerves II through XII grossly intact. Normal speech, moving all extremities. PSYCH: Normal mood, normal affect. SKIN: Warm, Dry, normal turgor, no rashes or lesions noted. Course - Re-evaluation Re-evalutation: 03/07/19 17:48 I discussed case with Dr. Payton and Dr. Marina. Dr. Payton had spoken to Dr. Marina and they have asked if I can call the [facility] to see if they would take patient in transfer (they have seen this patient in the past for similar bleeding felt to be from AV malformations). I did speak to Dr. Guillermina Alfaro of the general medicine service and she has accepted the patient to her service. However, at this time, they are over capacity and the patient cannot be transferred over. Therefore, the patient will be brought in to the hospital here to the [facility] under Dr. Payton service and he will get blood and monitoring until the bed at [facility] opens up. I discussed this disposition plan with Dr. Payton. The EMTALA form has been filled out by myself and left on the chart. - Vital Signs Vital signs: Temp Pulse Resp BP Pulse Ox 98.4 F 82 20 144/61 H 98 03/07/19 20:35 03/07/19 20:35 03/07/19 20:35 03/07/19 20:35 03/07/19 20:35 - Laboratory Result Diagrams: 03/07/19 13:26 03/07/19 13:26 Laboratory results interpreted by me: 03/07/19 03/07/19 03/07/19 13:26 13:26 13:26 RBC 2.33 L Hgb 6.9 L Hct 20.4 L RDW 17.4 H Plt Count 94 L Lymphocytes % (Manual) 12 L Monocytes % (Manual) 27 H Abs Monocytes (Manual) 1.8 H Potassium 3.5 L BUN 24 H Est GFR (Non-Af Amer) 59 L Crossmatch See Detail Critical Care Note - Critical Care Note Total time excluding time spent on procedures (mins): 60 Discharge - Discharge Clinical Impression: Anemia, GI bleed Condition: Stable Disposition: ADMITTED INPATIENT Admitting Provider: [facility] Admitted: [facility]
[2019-03-07] MEDS ORDERED: FUROSEMIDE INJ/PF 20 MG/2 ML SDV IV SCH (16:30)
[2019-03-07] MEDS ORDERED: ACETAMINOPHEN 325 MG TABLET PO PRN (16:31)
[2019-03-07] MEDS ORDERED: PANTOPRAZOLE SODIUM 40 MG VIAL IV SCH (16:45)
[2019-03-07] MEDS ORDERED: BISACODYL 5 MG TABEC PO ONE (21:00)
[2019-03-07] MEDS: PANTOPRAZOLE SODIUM 40 MG VIAL IV SCH (22:49)
[2019-03-08 03:53] LABS: ALANINE AMINOTRANSFERASE 25 U/L (21-72); ALBUMIN 3.1 g/dL (3.5-5.0); ALKALINE PHOSPHATASE 68 U/L (38-126); ANION GAP 8 (5-19); ASPARTATE AMINO TRANSFERASE 17 U/L (17-59); BILIRUBIN,DIRECT 0.2 mg/dL (0.0-0.4); BILIRUBIN,TOTAL 0.5 mg/dL (0.2-1.3); BLOOD UREA NITROGEN 24 mg/dL (7-20); CALCIUM 8.8 mg/dL (8.4-10.2); CARBON DIOXIDE 24 mmol/L (22-30); CHLORIDE 104 mmol/L (98-107); GLUCOSE 92 mg/dL (75-110); SODIUM 135.5 mmol/L (137-145); TOTAL PROTEIN 5.4 g/dL (6.3-8.2)
[2019-03-08] MEDS ORDERED: GABAPENTIN 100 MG CAPSULE PO PRN (06:45)
[2019-03-08] MEDS ORDERED: POTASSIUM CHLORIDE 20 MEQ PACKET PO ONE (06:46)
[2019-03-08 06:49] LABS: HEMATOCRIT 24.7 % (37.9-51.0); HEMOGLOBIN 8.4 g/dL (13.5-17.0); MEAN CORPUSCULAR VOLUME 85 fl (80-97); RED BLOOD COUNT 2.89 10^6/uL (4.35-5.55); RED CELL DISTRIBUTION WIDTH 15.9 % (11.5-14.0); WHITE BLOOD COUNT 6.8 10^3/uL (4.0-10.5)
[2019-03-08 07:01] LABS: ALANINE AMINOTRANSFERASE 20 U/L (21-72); ALBUMIN 3.2 g/dL (3.5-5.0); ALKALINE PHOSPHATASE 73 U/L (38-126); ANION GAP 9 (5-19); ASPARTATE AMINO TRANSFERASE 17 U/L (17-59); BILIRUBIN,DIRECT 0.3 mg/dL (0.0-0.4); BILIRUBIN,TOTAL 0.5 mg/dL (0.2-1.3); BLOOD UREA NITROGEN 24 mg/dL (7-20); CALCIUM 8.7 mg/dL (8.4-10.2); CARBON DIOXIDE 25 mmol/L (22-30); CHLORIDE 104 mmol/L (98-107); GLUCOSE 93 mg/dL (75-110); POTASSIUM 3.1 mmol/L (3.6-5.0); SODIUM 137.5 mmol/L (137-145); TOTAL PROTEIN 6.2 g/dL (6.3-8.2)
[2019-03-08 07:58] LABS: ABSOLUTE LYMPHOCYTES# (MANUAL) 0.9 10^3/uL (0.5-4.7); ABSOLUTE MONOCYTES # (MANUAL) 1.6 10^3/uL (0.1-1.4); BASOPHILS % (MANUAL) 1 % (0-2); EOSINOPHILS % (MANUAL) 0 % (0-6); LYMPHOCYTES % (MANUAL) 13 % (13-45); MONOCYTES % (MANUAL) 23 % (3-13); NUCLEATED RED BLOOD CELLS 2 /100 WBC (0); SEGMENTED NEUTROPHILS % (MAN) 63 % (42-78); TOTAL CELLS COUNTED 100
[2019-03-08 08:00] LABS: ANISOCYTOSIS SLIGHT; OVALOCYTES SLIGHT; PLATELET COMMENT DECREASED; POIKILOCYTOSIS SLIGHT; POLYCHROMASIA 1+
[2019-03-08] MEDS ORDERED: PEG 3350/NA SULF,BICARB,CL/KCL 4000 ML PO ONE (08:00)
[2019-03-08 08:01] LABS: PLATELET COUNT 87 10^3/uL (150-450)
--- NOTE | 2019-03-08 08:47 | PDOC H&P ---
History of Present Illness Admission Date/PCP: 03/07/19 16:07 ELIZA GRANADOS MD Patient complains of: anemia/wekness History of Present Illness: BOOM POWERS is a 63 year old male This is a 63-year-old male with a history of myelodysplastic syndromes thrombocytopenia history of the small intestine AV malformations and chronic blood loss recently admitting in the hospital for the hemoglobin was less than 6 transfused total 5 units of blood's and then patients follow with the hematology following week and blood transfusion another 2 units went to the see the hematology today the hemoglobin was low and sent to the emergency department Patient is denied any chest pain to than any shortness of the breath Patients feel weak Patient also has noticed some black stool but no blood in the stools Patient had extensive evaluation done several times by Dr. Marina and also recently seen in the [facility] have endoscopy colonoscopy and enteroscopy was done Patient have a ligation of the bleeding spot on enteroscopy in the past in the [facility] Patient at this point to decided to admit in the hospital try to transport to the [facility] but unable to get any better at this point Dr. Marina was consulted and suggested he will do the endoscopy and colonoscopy to further evaluate Patient is already make a place a transfer to the [facility] because of this ongoing problems but may be requiring further enteroscopy to reevaluate if it did not find the source on endoscopy and colonoscopy Discussed with the on the bedside regarding the patient's current conditions Past Medical History Cardiac Medical History: Reports: Congestive Heart Failure, Coronary Artery Disease, Hyperlipidema, Hypertension Denies: Atrial Fibrillation, Myocardial Infarction, Peripheral Vascular Disease, Heart Murmur Pulmonary Medical History: Denies: Asthma, Bronchitis, Chronic Obstructive Pulmonary Disease (COPD), Pneumonia, Tuberculosis Neurological Medical History: Denies: Seizures Endocrine Medical History: Reports: Diabetes Mellitus Type 2 Denies: Diabetes Mellitus Type 1 Renal/ Medical History: Denies: End Stage Renal Disease Malignancy Medical History: Denies: Leukemia GI Medical History: Reports: Gastroesophageal Reflux Disease Denies: Crohn's Disease, Hiatal Hernia Musculoskeltal Medical History: Reports: Arthritis Psychiatric Medical History: Denies: Depression Hematology: Reports: Anemia Denies: Hemophilia, Sickle Cell Disease Infectious Medical History: Denies: HIV Past Surgical History Past Surgical History: Reports: Internal Defibrillator Denies: Appendectomy, Cholecystectomy, Colostomy, Coronary Artery Bypass Graft, Gastric Bypass Surgery, Herniorrhaphy, Pacemaker, Tonsillectomy Social History Smoking Status: Never Smoker Frequency of Alcohol Use: None Hx Recreational Drug Use: No Drugs: None Hx Prescription Drug Abuse: No Family History Family History: Reviewed & Not Pertinent Parental Family History Reviewed: Yes Children Family History Reviewed: Yes Sibling(s) Family History Reviewed.: Yes Medication/Allergy Home Medications: Carvedilol [Coreg 25 mg Tablet] 25 mg PO Q12 03/07/19 Cholecalciferol (Vitamin D3) [Vitamin D3 1000 Unit Tablet] 2,000 unit PO DAILY 03/07/19 Clonidine HCl [Catapres 0.2 mg Tablet] 0.2 mg PO Q8 03/07/19 Docusate Sodium [Colace 100 mg Capsule] 100 mg PO DAILYP PRN 03/07/19 Furosemide [Lasix 40 mg Tablet] 40 mg PO DAILY 03/07/19 Gabapentin [Neurontin 100 mg Capsule] 100 mg PO DAILYP PRN 03/07/19 Iron Ps Complex/B12/Folic Acid [Ferrex 150 Forte Capsule] 150 mg PO BID 03/07/19 Isosorbide Mononitrate [Imdur 60 mg Tablet.er] 60 mg PO DAILY 03/07/19 Omeprazole 40 mg PO DAILY 03/07/19 Potassium Chloride [Klor-Con 10 Meq Capsule ER] 20 meq PO DAILY 03/07/19 Pravastatin Sodium [Pravachol] 40 mg PO QHS 03/07/19 Tamsulosin HCl [Flomax 0.4 mg Cap.sr] 0.4 mg PO QPM 03/07/19 Allergies/Adverse Reactions: No Known Allergies Allergy (Verified 03/07/19 11:06) Review of Systems Constitutional: PRESENT: fatigue, weakness. ABSENT: chills, fever(s), headache(s), weight gain, weight loss Eyes: ABSENT: visual disturbances Ears: ABSENT: hearing changes Cardiovascular: ABSENT: chest pain, dyspnea on exertion, edema, orthropnea, palpitations Respiratory: ABSENT: cough, hemoptysis Gastrointestinal: ABSENT: abdominal pain, constipation, diarrhea, hematemesis, hematochezia, nausea, vomiting Genitourinary: ABSENT: dysuria, hematuria Musculoskeletal: ABSENT: joint swelling Integumentary: ABSENT: rash, wounds Neurological: ABSENT: abnormal gait, abnormal speech, confusion, dizziness, f ocal weakness, syncope Psychiatric: ABSENT: anxiety, depression, homidical ideation, suicidal ideation Endocrine: ABSENT: cold intolerance, heat intolerance, menstrual abnormalities, polydipsia, polyuria Hematologic/Lymphatic: ABSENT: easy bleeding, easy bruising, lymphadenopathy Physical Exam Vital Signs: Temp Pulse Resp BP Pulse Ox 99.0 F 86 17 125/58 L 100 03/07/19 16:16 03/07/19 16:16 03/07/19 16:16 03/07/19 16:16 03/07/19 16:16 Intake & Output 03/06/19 03/07/19 03/08/19 06:59 06:59 06:59 Intake Total 0 Balance 0 Weight 95.3 kg General appearance: PRESENT: no acute distress, well-developed, well-nourished Head exam: PRESENT: atraumatic, normocephalic Eye exam: PRESENT: conjunctiva pink, EOMI, PERRLA. ABSENT: scleral icterus Ear exam: PRESENT: normal external ear exam Mouth exam: PRESENT: moist, tongue midline Neck exam: PRESENT: full ROM. ABSENT: carotid bruit, JVD, lymphadenopathy, thyromegaly Respiratory exam: PRESENT: clear to auscultation diony Cardiovascular exam: PRESENT: RRR. ABSENT: diastolic murmur, rubs, systolic murmur Pulses: PRESENT: normal dorsalis pedis pul, +2 pedal pulses bilateral Vascular exam: PRESENT: normal capillary refill GI/Abdominal exam: PRESENT: normal bowel sounds, soft. ABSENT: distended, guarding, mass, organolmegaly, rebound, tenderness Rectal exam: PRESENT: deferred Extremities exam: ABSENT: pedal edema Musculoskeletal exam: PRESENT: ambulatory Neurological exam: PRESENT: alert, awake, oriented to person, oriented to place, oriented to time, oriented to situation, CN II-XII grossly intact. ABSENT: motor sensory deficit Psychiatric exam: PRESENT: appropriate affect, normal mood. ABSENT: homicidal ideation, suicidal ideation Skin exam: PRESENT: dry, intact, warm. ABSENT: cyanosis, rash Results Laboratory Results: 03/07/19 13:26 03/07/19 13:26 03/07/19 03/07/19 03/07/19 13:26 13:26 13:26 WBC 6.6 RBC 2.33 L Hgb 6.9 L Hct 20.4 L MCV 88 MCH 29.5 MCHC 33.7 RDW 17.4 H Plt Count 94 L Seg Neutrophils % Not Reportable Lymphocytes % Not Reportable Monocytes % Not Reportable Eosinophils % Not Reportable Basophils % Not Reportable Absolute Neutrophils Not Reportable Absolute Lymphocytes Not Reportable Absolute Monocytes Not Reportable Absolute Eosinophils Not Reportable Absolute Basophils Not Reportable Sodium 137.5 Potassium 3.5 L Chloride 103 Carbon Dioxide 26 Anion Gap 9 BUN 24 H Creatinine 1.23 Est GFR ( Amer) > 60 Est GFR (Non-Af Amer) 59 L Glucose 99 Calcium 9.1 Total Bilirubin 0.4 AST 18 ALT 21 Alkaline Phosphatase 76 Total Protein 6.5 Albumin 3.5 Blood Type O POSITIVE Antibody Screen NEGATIVE Assessment & Plan - Diagnosis (1) Anemia Is this a current diagnosis for this admission?: Yes Plan: The chronic blood loss possible underlying AV malformations and MDS (2) Cardiomyopathy Qualifiers: Cardiomyopathy type: unspecified Qualified Code(s): I42.9 - Cardiomyopathy, unspecified Is this a current diagnosis for this admission?: Yes Plan: Currently stable patient see Dr. Odell (3) GI bleed Qualifiers: GI bleed type/associated pathology: unspecified gastrointestinal hemorrhage t ype Is this a current diagnosis for this admission?: Yes Plan: Consult with Dr. Marina for further evaluations (4) Symptomatic anemia Is this a current diagnosis for this admission?: Yes Plan: Transfused 2 units of the bloods keep hemoglobin above 9 (5) CAD (coronary artery disease) Qualifiers: Coronary Disease-Associated Artery/Lesion type: [place] artery Associated angina: without angina Is this a current diagnosis for this admission?: Yes Plan: Currently all stable (6) CHF (congestive heart failure) Qualifiers: Heart failure type: combined systolic and diastolic Heart failure chronic ity: chronic Qualified Code(s): I50.42 - Chronic combined systolic (congestive) and diastolic (congestive) heart failure Is this a current diagnosis for this admission?: Yes Plan: Continues to Lasix (7) Myelodysplastic syndrome Is this a current diagnosis for this admission?: Yes Plan: Currently follow with the Dr. Velazquez (8) Chronic kidney disease Qualifiers: Chronic kidney disease stage: stage 3 (moderate) Qualified Code(s): N18.3 - Chronic kidney disease, stage 3 (moderate) Is this a current diagnosis for this admission?: Yes Plan: Patient is currently see her Dr. Lopes replace the potassiums (9) Thrombocytopenia Is this a current diagnosis for this admission?: Yes Plan: Currently stable follow with the Dr. Velazquez - Time Time Spent: 30 to 50 Minutes Medications reviewed and adjusted accordingly: Yes Anticipated discharge: Other Within: Other - Inpatient Certification Based on my medical assessment, after consideration of the patient's comorbidities, presenting symptoms, or acuity I expect that the services needed warrant INPATIENT care.: Yes I certify that my determination is in accordance with my understanding of Medicare's requirements for reasonable and necessary INPATIENT services [42 CFR 412.3e].: Yes Medical Necessity: Need Close Monitoring Due to Risk of Patient Decompensation Post Hospital Care: D/C Recreation Assistant Documentation - Plan Summary Plan Summary: Admit the patient in IMCU Transfuse the blood Consult Dr. Marina Discussed with the and the bedside Patient is already on a waiting list to the [facility]
--- NOTE | 2019-03-08 08:49 | PDOC PROGRESS REPORT ---
Subjective Progress Note for:: 03/08/19 Subjective:: Patient is currently doing well Patient is denied any chest pain to than any shortness of breath Patient's 2 units of the blood received hemoglobin is 8.4 Patient is scheduled for endoscopy and colonoscopy. [place] Patient's is at bedside discussed with her Reason For Visit: ANEMIA Physical Exam Vital Signs: Temp Pulse Resp BP Pulse Ox 98.1 F 84 20 116/47 L 97 03/08/19 03:47 03/08/19 07:00 03/08/19 03:47 03/08/19 03:47 03/08/19 03:47 Intake & Output 03/07/19 03/08/19 03/09/19 06:59 06:59 06:59 Intake Total 675 Output Total 2275 Balance -1600 Weight 93.9 kg General appearance: PRESENT: no acute distress, well-developed, well-nourished Head exam: PRESENT: atraumatic, normocephalic Eye exam: PRESENT: conjunctiva pink, EOMI, PERRLA. ABSENT: scleral icterus Ear exam: PRESENT: normal external ear exam Mouth exam: PRESENT: moist, tongue midline Neck exam: PRESENT: full ROM. ABSENT: carotid bruit, JVD, lymphadenopathy, thyromegaly Respiratory exam: PRESENT: clear to auscultation diony Cardiovascular exam: PRESENT: RRR. ABSENT: diastolic murmur, rubs, systolic murmur Vascular exam: PRESENT: normal capillary refill GI/Abdominal exam: PRESENT: normal bowel sounds, soft. ABSENT: distended, guarding, mass, organolmegaly, rebound, tenderness Rectal exam: PRESENT: deferred Extremities exam: ABSENT: pedal edema Musculoskeletal exam: PRESENT: ambulatory Neurological exam: PRESENT: alert, awake, oriented to person, oriented to place, oriented to time, oriented to situation, CN II-XII grossly intact. ABSENT: motor sensory deficit Psychiatric exam: PRESENT: appropriate affect, normal mood. ABSENT: homicidal ideation, suicidal ideation Skin exam: PRESENT: dry, intact, warm. ABSENT: cyanosis, rash Results Laboratory Results: 03/08/19 06:34 03/08/19 06:34 03/07/19 03/07/19 03/07/19 13:26 13:26 13:26 WBC 6.6 RBC 2.33 L Hgb 6.9 L Hct 20.4 L MCV 88 MCH 29.5 MCHC 33.7 RDW 17.4 H Plt Count 94 L Seg Neutrophils % Not Reportable Lymphocytes % Not Reportable Monocytes % Not Reportable Eosinophils % Not Reportable Basophils % Not Reportable Absolute Neutrophils Not Reportable Absolute Lymphocytes Not Reportable Absolute Monocytes Not Reportable Absolute Eosinophils Not Reportable Absolute Basophils Not Reportable Sodium 137.5 Potassium 3.5 L Chloride 103 Carbon Dioxide 26 Anion Gap 9 BUN 24 H Creatinine 1.23 Est GFR ( Amer) > 60 Est GFR (Non-Af Amer) 59 L Glucose 99 Calcium 9.1 Total Bilirubin 0.4 AST 18 ALT 21 Alkaline Phosphatase 76 Total Protein 6.5 Albumin 3.5 Blood Type O POSITIVE Antibody Screen NEGATIVE 03/08/19 03/08/19 03/08/19 03:15 06:34 06:34 WBC 6.8 RBC 2.89 L Hgb 8.4 L Hct 24.7 L MCV 85 MCH 29.0 MCHC 34.0 RDW 15.9 H Plt Count 87 L Seg Neutrophils % Not Reportable Lymphocytes % Not Reportable Monocytes % Not Reportable Eosinophils % Not Reportable Basophils % Not Reportable Absolute Neutrophils Not Reportable Absolute Lymphocytes Not Reportable Absolute Monocytes Not Reportable Absolute Eosinophils Not Reportable Absolute Basophils Not Reportable Sodium 135.5 L 137.5 Potassium 3.0 L* 3.1 L Chloride 104 104 Carbon Dioxide 24 25 Anion Gap 8 9 BUN 24 H 24 H Creatinine 1.06 1.05 Est GFR ( Amer) > 60 > 60 Est GFR (Non-Af Amer) > 60 > 60 Glucose 92 93 Calcium 8.8 8.7 Total Bilirubin 0.5 0.5 AST 17 17 ALT 25 20 L Alkaline Phosphatase 68 73 Total Protein 5.4 L 6.2 L Albumin 3.1 L 3.2 L Blood Type Antibody Screen Assessment & Plan - Diagnosis (1) Anemia Is this a current diagnosis for this admission?: Yes Plan: We may be transfused another unit of blood to keep hemoglobin above 9 (2) Cardiomyopathy Qualifiers: Cardiomyopathy type: unspecified Qualified Code(s): I42.9 - Cardiomyopathy, unspecified Is this a current diagnosis for this admission?: Yes Plan: Continues to Lasix (3) GI bleed Qualifiers: GI bleed type/associated pathology: unspecified gastrointestinal hemorrhage type Is this a current diagnosis for this admission?: Yes Plan: Scheduled for endoscopy and colonoscopy today (4) Symptomatic anemia Is this a current diagnosis for this admission?: Yes Plan: Transfused 2 units of the bloods keep hemoglobin above 9 (5) CAD (coronary artery disease) Qualifiers: Coronary Disease-Associated Artery/Lesion type: [place] artery Associated angina: without angina Is this a current diagnosis for this admission?: Yes Plan: Currently all stable (6) CHF (congestive heart failure) Qualifiers: Heart failure type: combined systolic and diastolic Heart failure chronicity: chronic Qualified Code(s): I50.42 - Chronic combined systolic (congestive) and diastolic (congestive) heart failure Is this a current diagnosis for this admission?: Yes Plan: Continues to Lasix (7) Myelodysplastic syndrome Is this a current diagnosis for this admission?: Yes Plan: Currently follow with the Dr. Velazquez (8) Chronic kidney disease Qualifiers: Chronic kidney disease stage: stage 3 (moderate) Qualified Code(s): N18.3 - Chronic kidney disease, stage 3 (moderate) Is this a current diagnosis for this admission?: Yes Plan: Replace the potassium recheck before the procedures (9) Thrombocytopenia Is this a current diagnosis for this admission?: Yes Plan: Currently stable follow with the Dr. Velazquez - Time Time Spent with patient: 15-24 minutes Medications reviewed and adjusted accordingly: Yes Within: Other - Plan Summary Plan Summary: Tends to current medications
[2019-03-08] MEDS ORDERED: (PENDING PHARMACY ID) (Iron Ps Complex/B12/Folic Acid [Ferrex 150 Forte Capsule] 150 MG) PO SCH (10:00)
[2019-03-08] MEDS: CARVEDILOL 12.5 MG TABLET PO SCH ×2 (10:02→23:51)
[2019-03-08] MEDS: FUROSEMIDE 40 MG TABLET PO SCH (10:02)
[2019-03-08] MEDS: ISOSORBIDE MONONITRATE 60 MG TAB.ER.24H PO SCH (10:02)
[2019-03-08] MEDS: POTASSIUM CHLORIDE 10 MEQ CAPSULE.ER PO SCH (10:03)
[2019-03-08] MEDS: PANTOPRAZOLE SODIUM 40 MG VIAL IV SCH ×2 (10:04→23:52)
[2019-03-08] MEDS ORDERED: DIPHENHYDRAMINE HCL 50 MG/ML VIAL ONE (17:51)
[2019-03-08] MEDS ORDERED: FENTANYL CITRATE INJ/PF 100 MCG/2 ML AMPUL ONE (17:51)
[2019-03-08] MEDS ORDERED: ONDANSETRON HCL INJ/PF 4 MG/2 ML SDV ONE (17:51)
[2019-03-08] MEDS ORDERED: EPINEPHRINE INJ 1 MG/10 ML DISP.SYRIN ONE (17:52)
[2019-03-08] MEDS ORDERED: NALOXONE HCL INJ/PF 0.4 MG/1 ML SDV ONE (17:52)
[2019-03-08] MEDS ORDERED: GLUCAGON,HUMAN RECOMB 1 MG INJ ONE (17:52)
[2019-03-08] MEDS ORDERED: FLUMAZENIL INJ 0.5 MG/5 ML VIAL ONE (17:52)
[2019-03-08] MEDS: MIDAZOLAM 2 MG/2 ML INJ ONE ×2 (18:43→18:52)
--- NOTE | 2019-03-08 19:32 | PDOC CONSULTATION ---
Consultation Consult Date: 03/07/19 Provider Consulted: NIKUNJ BOOTH History of Present Illness Admission Date/PCP: 03/07/19 16:07 ELIZA GRANADOS MD History of Present Illness: BOOM POWERS is a 63 year old malePatient who was admitted through the emergency room with a hemoglobin of 6. He was discharged from the hospital about 2 weeks ago having been admitted with a hemoglobin of 5. At that time he did not have any black stools of bright red blood per rectum though his stool was positive for occult blood. This time he started having black stools about a week ago with no red bleeding. He denies abdominal pain, nausea, or vomiting. He does take iron tablets every day but his stools are usually green with the ir on and the color did change a week ago. He has been evaluated multiple times for anemia and GI bleed. He has had multiple EGDs, enteroscopy, capsule endoscopy and colonoscopy. He had a device assisted enteroscopy at [facility] back in 2013 and may have had some angiodysplasia. His last endoscopy was at [facility] in September 2017 when he had an EGD with enteroscopy. Past Medical History Cardiac Medical History: Reports: Congestive Heart Failure, Coronary Artery Dis ease, Hyperlipidema, Hypertension Denies: Atrial Fibrillation, Myocardial Infarction, Peripheral Vascular Disease, Heart Murmur Pulmonary Medical History: Denies: Asthma, Bronchitis, Chronic Obstructive Pulmonary Disease (COPD), Pneumonia, Tuberculosis Neurological Medical History: Denies: Seizures Endocrine Medical History: Reports: Diabetes Mellitus Type 2 Denies: Diabetes Mellitus Type 1 Renal/ Medical History: Denies: End Stage Renal Disease Malignancy Medical History: Denies: Leukemia GI Medical History: Reports: Gastroesophageal Reflux Disease Denies: Crohn's Disease, Hiatal Hernia Musculoskeltal Medical History: Reports: Arthritis Psychiatric Medical History: Denies: Depression Hematology: Reports: Anemia Denies: Hemophilia, Sickle Cell Disease Infectious Medical History: Denies: HIV Past Surgical History Past Surgical History: Reports: Internal Defibrillator Denies: Appendectomy, Cholecystectomy, Colostomy, Coronary Artery Bypass Graft, Gastric Bypass Surgery, Herniorrhaphy, Pacemaker, Tonsillectomy Social History Lives with: Family Smoking Status: Never Smoker Frequency of Alcohol Use: None Hx Recreational Drug Use: No Drugs: None Hx Prescription Drug Abuse: No - Advance Directive Resuscitation Status: Full Code Family History Family History: Reviewed & Not Pertinent Parental Family History Reviewed: No Children Family History Reviewed: NA Sibling(s) Family History Reviewed.: NA Medication/Allergy Home Medications: Carvedilol [Coreg 25 mg Tablet] 25 mg PO Q12 03/07/19 Cholecalciferol (Vitamin D3) [Vitamin D3 1000 Unit Tablet] 2,000 unit PO DAILY 03/07/19 Clonidine HCl [Catapres 0.2 mg Tablet] 0.2 mg PO Q8 03/07/19 Docusate Sodium [Colace 100 mg Capsule] 100 mg PO DAILYP PRN 03/07/19 Furosemide [Lasix 40 mg Tablet] 40 mg PO DAILY 03/07/19 Gabapentin [Neurontin 100 mg Capsule] 100 mg PO DAILYP PRN 03/07/19 Iron Ps Complex/B12/Folic Acid [Ferrex 150 Forte Capsule] 150 mg PO BID 03/07/19 Isosorbide Mononitrate [Imdur 60 mg Tablet.er] 60 mg PO DAILY 03/07/19 Omeprazole 40 mg PO DAILY 03/07/19 Potassium Chloride [Klor-Con 10 Meq Capsule ER] 20 meq PO DAILY 03/07/19 Pravastatin Sodium [Pravachol] 40 mg PO QHS 03/07/19 Tamsulosin HCl [Flomax 0.4 mg Cap.sr] 0.4 mg PO QPM 03/07/19 Allergies/Adverse Reactions: No Known Allergies Allergy (Verified 03/07/19 11:06) Review of Systems All systems: reviewed and no additional remarkable complaints except as stated Physical Exam Vital Signs: Temp Pulse Resp BP Pulse Ox 97.5 F 89 19 124/51 L 100 03/08/19 08:48 03/08/19 19:25 03/08/19 19:25 03/08/19 19:25 03/08/19 19:25 Intake & Output 03/07/19 03/08/19 03/09/19 06:59 06:59 06:59 Intake Total 675 100 Output Total 2275 Balance -1600 100 Weight 93.9 kg Exam: General: Patient is alert and looks well. HEENT: There is pallor but no jaundice. PERRLA. Oropharynx normal Respiratory: No chest deformity. No respiratory distress. Chest wall palpitation was unremarkable. Breath sounds were normal Cardiovascular: Heart sounds 1 and 2 normal with no murmurs. Abdominal: Not distended. Soft and nontender. Liver and spleen not palpable. No ascites demonstrated. Bowel sounds active. Rectal examination was deferred. Extremities: No edema Neurological: Alert and oriented x4. Grossly nonfocal. Normal speech Skin: No significant rash Psychological: Normal affect Results Laboratory Results: 03/08/19 06:34 03/08/19 16:40 03/07/19 03/08/19 03/08/19 13:26 03:15 06:34 WBC 6.8 RBC 2.89 L Hgb 8.4 L Hct 24.7 L MCV 85 MCH 29.0 MCHC 34.0 RDW 15.9 H Plt Count 87 L Seg Neutrophils % Not Reportable Lymphocytes % Not Reportable Monocytes % Not Reportable Eosinophils % Not Reportable Basophils % Not Reportable Absolute Neutrophils Not Reportable Absolute Lymphocytes Not Reportable Absolute Monocytes Not Reportable Absolute Eosinophils Not Reportable Absolute Basophils Not Reportable Sodium 135.5 L Potassium 3.0 L* Chloride 104 Carbon Dioxide 24 Anion Gap 8 BUN 24 H Creatinine 1.06 Est GFR ( Amer) > 60 Est GFR (Non-Af Amer) > 60 Glucose 92 Calcium 8.8 Total Bilirubin 0.5 AST 17 ALT 25 Alkaline Phosphatase 68 Total Protein 5.4 L Albumin 3.1 L Blood Type O POSITIVE Antibody Screen NEGATIVE 03/08/19 03/08/19 06:34 16:40 WBC RBC Hgb Hct MCV MCH MCHC RDW Plt Count Seg Neutrophils % Lymphocytes % Monocytes % Eosinophils % Basophils % Absolute Neutrophils Absolute Lymphocytes Absolute Monocytes Absolute Eosinophils Absolute Basophils Sodium 137.5 Potassium 3.1 L 3.4 L Chloride 104 Carbon Dioxide 25 Anion Gap 9 BUN 24 H Creatinine 1.05 Est GFR ( Amer) > 60 Est GFR (Non-Af Amer) > 60 Glucose 93 Calcium 8.7 Total Bilirubin 0.5 AST 17 ALT 20 L Alkaline Phosphatase 73 Total Protein 6.2 L Albumin 3.2 L Blood Type Antibody Screen Assessment & Plan - Diagnosis (1) GI bleed Qualifiers: GI bleed type/associated pathology: unspecified gastrointestinal hemorrhage type Is this a current diagnosis for this admission?: Yes Plan: He appears to have been having a GI bleed for the last week presenting as melena. He has a chronic history of anemia requiring multiple transfusions in the past. He also has myelodysplastic syndrome with severe thrombocytopenia which is likely contributing to his anemia and even the GI bleed. He will be transfused again this time and he will undergo an EGD, enteroscopy and colonoscopy. Attempt is being made to transfer him to [facility] for further evaluation of his small bowel which is where his source of bleeding will likely be. He may also benefit from capsule endoscopy. (2) Chronic kidney disease Qualifiers: Chronic kidney disease stage: stage 3 (moderate) Qualified Code(s): N18.3 - Chronic kidney disease, stage 3 (moderate) Is this a current diagnosis for this admission?: Yes (4) Symptomatic anemia Is this a current diagnosis for this admission?: Yes (5) Thrombocytopenia Is this a current diagnosis for this admission?: Yes (6) Myelodysplastic syndrome Is this a current diagnosis for this admission?: Yes
--- NOTE | 2019-03-08 19:40 | Operative Report ---
Operative Report DATE OF SURGERY: 03/08/19 Operative Report: Pre-op diagnosis: Severe anemia and melena Post-op diagnosis: 1. Normal EGD 2. Normal jejunum up to > 100 cm beyond the ligament of Treitz 3. Moderately limited view of the left colon 4. Normal colonoscopy and distal ileoscopy 5. Melanotic liquid stool noted all over the colon and distal ileum. None in the jejunum Surgery: Upper endoscopy, enteroscopy, Colonoscopy and ileoscopy Medications: Versed 3mg, Fentanyl 100mcg IV push Tissue removed: None Procedure: After informed consent obtained from patient, patient's pharynx was sprayed with Hurricane and conscious sedation was achieved. The pediatric colonoscopy was then inserted into the esophagus under direct vision and advanced into the stomach and further into the jejunum way beyond the ligament of Treitz. Detailed examination of the duodenum, stomach and the esophagus was then performed. A digital rectal examination was performed and this was unremarkable. The colonoscope was inserted into the rectum and advanced to the cecum. The appendiceal orifice and the terminal ileum were both identified. The mucosa was examined into details as the colonoscope was slowly pulled out of the patient. The endoscope was retroflexed in the rectum. Patient tolerated the procedure well. Findings Esophagus: Normal Stomach: Normal Duodenum and jejunum: The jejunum was examined 20 cm beyond a previously tattooed area in the mid to distal jejunum when the patient had deep enteroscopy 5 years ago. No abnormality was identified Terminal ileum: Examined up to 25 cm from the ileocecal junction and found to be normal Cecum: Normal Ascending colon: Normal Transverse colon: Normal Descending colon: Slight limitation from retained melanotic stools Sigmoid colon: Slight limitation Rectum: Normal except for internal hemorrhoids Plan: We will arrange for capsule endoscopy in the office OPERATION: .
[2019-03-08] MEDS ORDERED: (PENDING PHARMACY ID) (Pravastatin Sodium [Pravachol] 40 MG) PO SCH (22:00)
[2019-03-08] MEDS: CLONIDINE HCL 0.2 MG TABLET PO SCH (23:49)
[2019-03-08] MEDS: ATORVASTATIN CALCIUM 10 MG TABLET PO SCH (23:50)
[2019-03-09 05:11] LABS: HEMATOCRIT 22.6 % (37.9-51.0); MEAN CORPUSCULAR HEMOGLOBIN 29.7 pg (27.0-33.4); MEAN CORPUSCULAR HGB CONC 34.5 g/dL (32.0-36.0); MEAN CORPUSCULAR VOLUME 86 fl (80-97); RED BLOOD COUNT 2.62 10^6/uL (4.35-5.55); RED CELL DISTRIBUTION WIDTH 16.2 % (11.5-14.0); WHITE BLOOD COUNT 9.9 10^3/uL (4.0-10.5)
[2019-03-09 05:26] LABS: ANION GAP 8 (5-19); BLOOD UREA NITROGEN 18 mg/dL (7-20); CALCIUM 8.5 mg/dL (8.4-10.2); CARBON DIOXIDE 25 mmol/L (22-30); CHLORIDE 105 mmol/L (98-107); GLUCOSE 96 mg/dL (75-110); POTASSIUM 3.1 mmol/L (3.6-5.0); SODIUM 138.4 mmol/L (137-145)
[2019-03-09 06:20] LABS: HEMOGLOBIN 7.8 g/dL (13.5-17.0); PLATELET COUNT 86 10^3/uL (150-450)
[2019-03-09] MEDS ORDERED: POTASSIUM CHLORIDE 10 MEQ CAPSULE.ER PO ONE ×3 (06:33→09:30)
[2019-03-09] MEDS: CLONIDINE HCL 0.2 MG TABLET PO SCH ×4 (06:40→22:11)
[2019-03-09] MEDS: TAMSULOSIN HCL 0.4 MG CAP.SR.24H PO SCH ×2 (06:52→19:03)
[2019-03-09 07:43] LABS: ABSOLUTE LYMPHOCYTES# (MANUAL) 0.6 10^3/uL (0.5-4.7); ABSOLUTE MONOCYTES # (MANUAL) 0.9 10^3/uL (0.1-1.4); BASOPHILS % (MANUAL) 0 % (0-2); EOSINOPHILS % (MANUAL) 0 % (0-6); LYMPHOCYTES % (MANUAL) 6 % (13-45); MONOCYTES % (MANUAL) 9 % (3-13); SEGMENTED NEUTROPHILS % (MAN) 85 % (42-78); TOTAL CELLS COUNTED 100
[2019-03-09 07:45] LABS: ANISOCYTOSIS 1+; OVALOCYTES 1+; PLATELET COMMENT DECREASED; POIKILOCYTOSIS 1+; POLYCHROMASIA 1+
[2019-03-09 07:46] LABS: PLATELET LARGE PRESENT
[2019-03-09] MEDS ORDERED: NORMAL SALINE 250 ML IV PRN ×2 (08:02)
[2019-03-09] MEDS: FUROSEMIDE 40 MG TABLET PO SCH (10:01)
[2019-03-09] MEDS: CARVEDILOL 12.5 MG TABLET PO SCH ×2 (10:01→22:11)
[2019-03-09] MEDS: PANTOPRAZOLE SODIUM 40 MG VIAL IV SCH ×2 (10:07→22:11)
[2019-03-09] MEDS: POTASSIUM CHLORIDE 10 MEQ CAPSULE.ER PO SCH (10:09)
--- NOTE | 2019-03-09 13:03 | PDOC PROGRESS REPORT ---
Subjective Progress Note for:: 03/09/19 Subjective:: Patient is currently doing fair patient have endoscopic colonoscopy and ileoscopy was done No acute findings Patient's denied any chest pain to than any shortness of the breath Reason For Visit: ANEMIA Physical Exam Vital Signs: Temp Pulse Resp BP Pulse Ox 98.0 F 79 16 145/53 H 97 03/09/19 07:32 03/09/19 07:32 03/09/19 07:32 03/09/19 07:32 03/09/19 07:32 Intake & Output 03/08/19 03/09/19 03/10/19 06:59 06:59 06:59 Intake Total 675 322 0 Output Total 2275 325 Balance -1600 -3 0 Weight 93.9 kg 93 kg General appearance: PRESENT: no acute distress, well-developed, well-nourished Head exam: PRESENT: atraumatic, normocephalic Eye exam: PRESENT: conjunctiva pink, EOMI, PERRLA. ABSENT: scleral icterus Ear exam: PRESENT: normal external ear exam Mouth exam: PRESENT: moist, tongue midline Neck exam: PRESENT: full ROM. ABSENT: carotid bruit, JVD, lymphadenopathy, thyromegaly Respiratory exam: PRESENT: clear to auscultation diony Cardiovascular exam: PRESENT: RRR. ABSENT: diastolic murmur, rubs, systolic murmur Pulses: PRESENT: normal dorsalis pedis pul, +2 pedal pulses bilateral Vascular exam: PRESENT: normal capillary refill GI/Abdominal exam: PRESENT: normal bowel sounds, soft. ABSENT: distended, guarding, mass, organolmegaly, rebound, tenderness Rectal exam: PRESENT: deferred Musculoskeletal exam: PRESENT: ambulatory Neurological exam: PRESENT: alert, awake, oriented to person, oriented to place, oriented to time, oriented to situation, CN II-XII grossly intact. ABSENT: motor sensory deficit Psychiatric exam: PRESENT: appropriate affect, normal mood. ABSENT: homicidal ideation, suicidal ideation Skin exam: PRESENT: dry, intact, warm. ABSENT: cyanosis, rash Results Laboratory Results: 03/09/19 04:23 03/09/19 04:23 03/07/19 03/08/19 03/09/19 13:26 16:40 04:23 WBC 9.9 RBC 2.62 L Hgb 7.8 L Hct 22.6 L MCV 86 MCH 29.7 MCHC 34.5 RDW 16.2 H Plt Count 86 L Seg Neutrophils % Not Reportable Lymphocytes % Not Reportable Monocytes % Not Reportable Eosinophils % Not Reportable Basophils % Not Reportable Absolute Neutrophils Not Reportable Absolute Lymphocytes Not Reportable Absolute Monocytes Not Reportable Absolute Eosinophils Not Reportable Absolute Basophils Not Reportable Sodium Potassium 3.4 L Chloride Carbon Dioxide Anion Gap BUN Creatinine Est GFR ( Amer) Est GFR (Non-Af Amer) Glucose Calcium Blood Type O POSITIVE Antibody Screen NEGATIVE 03/09/19 04:23 WBC RBC Hgb Hct MCV MCH MCHC RDW Plt Count Seg Neutrophils % Lymphocytes % Monocytes % Eosinophils % Basophils % Absolute Neutrophils Absolute Lymphocytes Absolute Monocytes Absolute Eosinophils Absolute Basophils Sodium 138.4 Potassium 3.1 L Chloride 105 Carbon Dioxide 25 Anion Gap 8 BUN 18 Creatinine 1.01 Est GFR ( Amer) > 60 Est GFR (Non-Af Amer) > 60 Glucose 96 Calcium 8.5 Blood Type Antibody Screen Assessment & Plan - Diagnosis (1) Anemia Is this a current diagnosis for this admission?: Yes Plan: This post endoscopy colonoscopy no acute bleeding is seen (2) Cardiomyopathy Qualifiers: Cardiomyopathy type: unspecified Qualified Code(s): I42.9 - Cardiomyopathy, unspecified Is this a current diagnosis for this admission?: Yes Plan: Continues to Lasix (3) GI bleed Qualifiers: GI bleed type/associated pathology: unspecified gastrointestinal hemorrhage type Is this a current diagnosis for this admission?: Yes Plan: Scheduled for endoscopy and colonoscopy today (4) Symptomatic anemia Is this a current diagnosis for this admission?: Yes Plan: Transfused 2 units of the bloods keep hemoglobin above 9 (5) CAD (coronary artery disease) Qualifiers: Coronary Disease-Associated Artery/Lesion type: teller artery Associated angina: without angina Is this a current diagnosis for this admission?: Yes Plan: Currently all stable (6) CHF (congestive heart failure) Qualifiers: Heart failure type: combined systolic and diastolic Heart failure chronicity: chronic Qualified Code(s): I50.42 - Chronic combined systolic (congestive) and diastolic (congestive) heart failure Is this a current diagnosis for this admission?: Yes Plan: Continues to Lasix (7) Myelodysplastic syndrome Is this a current diagnosis for this admission?: Yes Plan: Currently follow with the Dr. Velazquez (8) Chronic kidney disease Qualifiers: Chronic kidney disease stage: stage 3 (moderate) Qualified Code(s): N18.3 - Chronic kidney disease, stage 3 (moderate) Is this a current diagnosis for this admission?: Yes Plan: Replace the potassium recheck before the procedures (9) Thrombocytopenia Is this a current diagnosis for this admission?: Yes Plan: Currently stable follow with the Dr. Velazquez - Time Time Spent with patient: 15-24 minutes Medications reviewed and adjusted accordingly: Yes Anticipated discharge: Other Within: Other - Plan Summary Plan Summary: Continues to current medications we will transfuse the couple of more unit of blood's
[2019-03-09] MEDS: ISOSORBIDE MONONITRATE 60 MG TAB.ER.24H PO SCH (15:32)
[2019-03-09] MEDS ORDERED: FUROSEMIDE INJ/PF 20 MG/2 ML SDV IV ONE (17:30)
[2019-03-09 20:34] LABS: HEMATOCRIT 26.6 % (37.9-51.0); HEMOGLOBIN 9.2 g/dL (13.5-17.0); MEAN CORPUSCULAR HEMOGLOBIN 29.7 pg (27.0-33.4); MEAN CORPUSCULAR HGB CONC 34.7 g/dL (32.0-36.0); MEAN CORPUSCULAR VOLUME 86 fl (80-97); PLATELET COUNT 83 10^3/uL (150-450); RED CELL DISTRIBUTION WIDTH 16.5 % (11.5-14.0); WHITE BLOOD COUNT 6.2 10^3/uL (4.0-10.5)
[2019-03-09 21:08] LABS: ABSOLUTE LYMPHOCYTES# (MANUAL) 0.4 10^3/uL (0.5-4.7); BAND NEUTROPHILS % (MANUAL) 1 % (3-5); BASOPHILS % (MANUAL) 1 % (0-2); EOSINOPHILS % (MANUAL) 1 % (0-6); LYMPHOCYTES % (MANUAL) 7 % (13-45); MONOCYTES % (MANUAL) 32 % (3-13); SEGMENTED NEUTROPHILS % (MAN) 58 % (42-78); TOTAL CELLS COUNTED 100
[2019-03-09 21:13] LABS: PLATELET COMMENT DECREASED
[2019-03-09 21:14] LABS: ANISOCYTOSIS 2+; POLYCHROMASIA 1+
[2019-03-09 21:15] LABS: TARGET CELLS SLIGHT
[2019-03-09 21:18] LABS: POIKILOCYTOSIS SLIGHT; SCHISTOCYTES SLIGHT
[2019-03-09] MEDS: ATORVASTATIN CALCIUM 10 MG TABLET PO SCH (22:11)
[2019-03-10 04:42] LABS: HEMATOCRIT 26.8 % (37.9-51.0); HEMOGLOBIN 9.2 g/dL (13.5-17.0); MEAN CORPUSCULAR HEMOGLOBIN 29.3 pg (27.0-33.4); MEAN CORPUSCULAR HGB CONC 34.1 g/dL (32.0-36.0); MEAN CORPUSCULAR VOLUME 86 fl (80-97); RED BLOOD COUNT 3.12 10^6/uL (4.35-5.55); RED CELL DISTRIBUTION WIDTH 16.9 % (11.5-14.0); WHITE BLOOD COUNT 5.4 10^3/uL (4.0-10.5)
[2019-03-10 04:52] LABS: PLATELET COUNT 84 10^3/uL (150-450)
[2019-03-10 05:01] LABS: ANION GAP 7 (5-19); BLOOD UREA NITROGEN 14 mg/dL (7-20); CALCIUM 8.7 mg/dL (8.4-10.2); CARBON DIOXIDE 26 mmol/L (22-30); CHLORIDE 106 mmol/L (98-107); GLUCOSE 88 mg/dL (75-110); POTASSIUM 3.2 mmol/L (3.6-5.0); SODIUM 139.4 mmol/L (137-145)
[2019-03-10 05:11] LABS: ABSOLUTE LYMPHOCYTES# (MANUAL) 0.7 10^3/uL (0.5-4.7); ABSOLUTE MONOCYTES # (MANUAL) 2.3 10^3/uL (0.1-1.4); BASOPHILS % (MANUAL) 0 % (0-2); EOSINOPHILS % (MANUAL) 0 % (0-6); LYMPHOCYTES % (MANUAL) 11 % (13-45); MONOCYTES % (MANUAL) 43 % (3-13); SEGMENTED NEUTROPHILS % (MAN) 44 % (42-78); TOTAL CELLS COUNTED 100
[2019-03-10 05:12] LABS: ANISOCYTOSIS 2+; PLATELET COMMENT DECREASED
[2019-03-10] MEDS: CLONIDINE HCL 0.2 MG TABLET PO SCH (06:19)
[2019-03-10] MEDS ORDERED: POTASSIUM CHLORIDE 10 MEQ CAPSULE.ER PO ONE (07:25)
[2019-03-10] MEDS: FUROSEMIDE 40 MG TABLET PO SCH (09:32)
[2019-03-10] MEDS: POTASSIUM CHLORIDE 10 MEQ CAPSULE.ER PO SCH (09:32)
[2019-03-10] MEDS: CARVEDILOL 12.5 MG TABLET PO SCH (09:32)
[2019-03-10] MEDS: ISOSORBIDE MONONITRATE 60 MG TAB.ER.24H PO SCH (09:35)
[2019-03-10] MEDS: PANTOPRAZOLE SODIUM 40 MG VIAL IV SCH (09:35)
[2019-03-10 10:44] VITALS: BP 127/51
--- NOTE | 2019-03-10 11:35 | PDOC DISCHARGE SUMMARY ---
General - Admit/Disc Date/PCP Admission Date/Primary Care Provider: 03/07/19 16:07 ELIZA GRANADOS MD Discharge Date: 03/10/19 - Discharge Diagnosis (1) Anemia Is this a current diagnosis for this admission?: Yes Summary: Hemoglobin is 9.4 status post 4 unit of blood transfusions (2) Cardiomyopathy Is this a current diagnosis for this admission?: Yes Summary: Clear all stable (3) GI bleed Is this a current diagnosis for this admission?: Yes Summary: Status post endoscopy and colonoscopy and ileoscopy follow outpatients Dr. Marina for capsule endoscopy (4) Symptomatic anemia Is this a current diagnosis for this admission?: Yes Summary: All resolved (5) CAD (coronary artery disease) Is this a current diagnosis for this admission?: Yes Summary: All stable (6) CHF (congestive heart failure) Is this a current diagnosis for this admission?: Yes Summary: Continues to Lasix (7) Myelodysplastic syndrome Is this a current diagnosis for this admission?: Yes Summary: Currently follow with Dr. Velazquez (8) Chronic kidney disease Is this a current diagnosis for this admission?: Yes Summary: Maxie all stable (9) Thrombocytopenia Is this a current diagnosis for this admission?: Yes Summary: Also see her Dr. Velazquez - Additional Information Resuscitation Status: Full Code Discharge Diet: Diabetic Discharge Activity: Activity As Tolerated Prescriptions: Clonidine HCl [Catapres 0.2 mg Tablet] 0.1 mg PO Q8 #90 tablet Home Medications: Carvedilol [Coreg 25 mg Tablet] 25 mg PO Q12 03/07/19 Cholecalciferol (Vitamin D3) [Vitamin D3 1000 Unit Tablet] 2,000 unit PO DAILY 03/07/19 Docusate Sodium [Colace 100 mg Capsule] 100 mg PO DAILYP PRN 03/07/19 Furosemide [Lasix 40 mg Tablet] 40 mg PO DAILY 03/07/19 Gabapentin [Neurontin 100 mg Capsule] 100 mg PO DAILYP PRN 03/07/19 Iron Ps Complex/B12/Folic Acid [Ferrex 150 Forte Capsule] 150 mg PO BID 03/07/19 Isosorbide Mononitrate [Imdur 60 mg Tablet.er] 60 mg PO DAILY 03/07/19 Omeprazole 40 mg PO DAILY 03/07/19 Potassium Chloride [Klor-Con 10 Meq Capsule ER] 20 meq PO DAILY 03/07/19 Pravastatin Sodium [Pravachol] 40 mg PO QHS 03/07/19 Tamsulosin HCl [Flomax 0.4 mg Cap.sr] 0.4 mg PO QPM 03/07/19 Clonidine HCl [Catapres 0.2 mg Tablet] 0.1 mg PO Q8 #90 tablet 03/10/19 History of Present Illness History of Present Illness: BOOM POWERS is a 63 year old male This is a 63-year-old male with a history of myelodysplastic syndromes thrombocytopenia history of the small intestine AV malformations and chronic blood loss recently admitting in the hospital for the hemoglobin was less than 6 transfused total 5 units of blood's and then patients follow with the hematology following week and blood transfusion another 2 units went to the see the hematology today the hemoglobin was low and sent to the emergency department Patient is denied any chest pain to than any shortness of the breath Patients feel weak Patient also has noticed some black stool but no blood in the stools Patient had extensive evaluation done several times by Dr. Marina and also recently seen in the [facility] have endoscopy colonoscopy and enteroscopy was done Patient have a ligation of the bleeding spot on enteroscopy in the past in the [facility] Patient at this point to decided to admit in the hospital try to transport to the [facility] but unable to get any better at this point Dr. Marina was consulted and suggested he will do the endoscopy and colonoscopy to further evaluate Patient is already make a place a transfer to the [facility] because of this ongoing problems but may be requiring further enteroscopy to reevaluate if it did not find the source on endoscopy and colonoscopy Discussed with the on the bedside regarding the patient's current conditions Hospital Course Hospital Course: This is a 63-year-old male presenting the emergency department with hemoglobin was 6.9 from the gemologist office Patient admitting in the hospital underwent for the endoscopy colonoscopy and ileoscopy per Dr. Marina no acute finding Patient is received a 4 unit of the bloods Patient also received potassium supplements Patient otherwise remained stable Patient's p.o. intake is good No active GI bleed Discussed with Dr. Marina and suggest to follow outpatient capsule endoscopies Patient had a several GI bleed given the enteroscopy was done in the [facility] has some AV malformation and a small intestine Patient also have MDS and thrombocytopenia currently see her Dr. Velazquez Patient otherwise remained stable discussed with the family on the bedside regarding the patient's current condition close follow We will check the CBC on a Tuesday and a Chem-7 on a Tuesday Physical Exam Vital Signs: Temp Pulse Resp BP Pulse Ox 98.6 F 74 18 127/51 H 98 03/10/19 10:40 03/10/19 10:40 03/10/19 10:40 03/10/19 10:40 03/10/19 10:40 Intake & Output 03/09/19 03/10/19 03/11/19 06:59 06:59 06:59 Intake Total 322 1410 Output Total 325 875 Balance -3 535 Weight 93 kg 93.2 kg General appearance: PRESENT: no acute distress, well-developed, well-nourished Head exam: PRESENT: atraumatic, normocephalic Eye exam: PRESENT: conjunctiva pink, EOMI, PERRLA. ABSENT: scleral icterus Ear exam: PRESENT: normal external ear exam Mouth exam: PRESENT: moist, tongue midline Neck exam: PRESENT: full ROM. ABSENT: carotid bruit, JVD, lymphadenopathy, thyromegaly Respiratory exam: PRESENT: clear to auscultation diony Cardiovascular exam: PRESENT: RRR. ABSENT: diastolic murmur, rubs, systolic murmur Pulses: PRESENT: normal dorsalis pedis pul, +2 pedal pulses bilateral Vascular exam: PRESENT: normal capillary refill GI/Abdominal exam: PRESENT: normal bowel sounds, soft. ABSENT: distended, guarding, mass, organolmegaly, rebound, tenderness Rectal exam: PRESENT: deferred Extremities exam: ABSENT: pedal edema Musculoskeletal exam: PRESENT: ambulatory Neurological exam: PRESENT: alert, awake, oriented to person, oriented to place, oriented to time, oriented to situation, CN II-XII grossly intact. ABSENT: heydi r sensory deficit Psychiatric exam: PRESENT: appropriate affect, normal mood. ABSENT: homicidal ideation, suicidal ideation Skin exam: PRESENT: dry, intact, warm. ABSENT: cyanosis, rash Results Laboratory Results: 03/10/19 04:17 03/10/19 04:17 03/07/19 03/09/19 03/10/19 13:26 20:18 04:17 WBC 6.2 RBC 3.10 L Hgb 9.2 L Hct 26.6 L MCV 86 MCH 29.7 MCHC 34.7 RDW 16.5 H Plt Count 83 L Seg Neutrophils % Not Reportable Lymphocytes % Not Reportable Monocytes % Not Reportable Eosinophils % Not Reportable Basophils % Not Reportable Absolute Neutrophils Not Reportable Absolute Lymphocytes Not Reportable Absolute Monocytes Not Reportable Absolute Eosinophils Not Reportable Absolute Basophils Not Reportable Sodium 139.4 Potassium 3.2 L Chloride 106 Carbon Dioxide 26 Anion Gap 7 BUN 14 Creatinine 1.03 Est GFR ( Amer) > 60 Est GFR (Non-Af Amer) > 60 Glucose 88 Calcium 8.7 Blood Type O POSITIVE Antibody Screen NEGATIVE 03/10/19 04:17 WBC 5.4 RBC 3.12 L Hgb 9.2 L Hct 26.8 L MCV 86 MCH 29.3 MCHC 34.1 RDW 16.9 H Plt Count 84 L Seg Neutrophils % Not Reportable Lymphocytes % Not Reportable Monocytes % Not Reportable Eosinophils % Not Reportable Basophils % Not Reportable Absolute Neutrophils Not Reportable Absolute Lymphocytes Not Reportable Absolute Monocytes Not Reportable Absolute Eosinophils Not Reportable Absolute Basophils Not Reportable Sodium Potassium Chloride Carbon Dioxide Anion Gap BUN Creatinine Est GFR ( Amer) Est GFR (Non-Af Amer) Glucose Calcium Blood Type Antibody Screen Qualifiers - * PATIENT BEING DISCHARGED WITH ANY OF THE FOLLOWING DIAGNOSIS: No VTE patient discharged on overlapping Therapy?: Yes Acute Heart Failure - Is this a Heart Failure Patient?: No Plan Time Spent: Greater than 30 Minutes - Follow in the Tuesday for check a CBC again following a 1 week for Chem-[address] Velazquez and Dr. Marina
== END 2019-03-10 11:16 | disposition home or self-care (01) | DRG 812 ==
LOC: ER 11:04 → EH 16:07 → 3S 18:16
PROVIDERS: ADMIT Family Medicine; ATTEND Family Medicine
PROC: 0DJ08ZZ Inspection of Upper Intestinal Tract, Via Natural or Artificial Opening Endoscopic (ICD-10-PCS; principal; 2019-03-07)
PROC: 0DJD8ZZ Inspection of Lower Intestinal Tract, Via Natural or Artificial Opening Endoscopic (ICD-10-PCS; 2019-03-07)
PROC: 30233N1 Transfusion of Nonautologous Red Blood Cells into Peripheral Vein, Percutaneous Approach (ICD-10-PCS; 2019-03-07)
DX: D50.0 Iron deficiency anemia secondary to blood loss (chronic) (principal); I42.9 Cardiomyopathy, unspecified; I13.0 Hypertensive heart and chronic kidney disease with heart failure and stage 1 through stage 4 chronic kidney disease, or unspecified chronic kidney disease; I50.42 Chronic combined systolic (congestive) and diastolic (congestive) heart failure; K92.2 Gastrointestinal hemorrhage, unspecified; E11.22 Type 2 diabetes mellitus with diabetic chronic kidney disease; D69.6 Thrombocytopenia, unspecified; I25.10 Atherosclerotic heart disease of native coronary artery without angina pectoris; D46.9 Myelodysplastic syndrome, unspecified; N18.3 Chronic kidney disease, stage 3 (moderate); E78.5 Hyperlipidemia, unspecified; K21.9 Gastro-esophageal reflux disease without esophagitis; Z79.899 Other long term (current) drug therapy; Z95.810 Presence of automatic (implantable) cardiac defibrillator
CPT/HCPCS: 36415; 36430; 44360; 45378; 80048; 80053; 82962; 84132; 85025; 86850; 86900; 86901; 86902; 86920; 86922; 99285; J0171; J1200; J1610; J1940; J2250; J2310; J2405; J3010; J3490; P9016; S0164

== ENCOUNTER 2019-04-28 23:48 | Emergency (ER) | payer MEDICARE, OTHER ==
[2019-04-29 00:11] VITALS: BP 149/54
--- NOTE | 2019-04-29 00:44 | RADIOLOGY REPORT (SQ) ---
EXAM DESCRIPTION: X-ray two view chest. CLINICAL HISTORY: 63 years Male, productive cough, persistent COMPARISON: 02/20/2019 and 05/02/2018 TECHNIQUE: PA and Lateral views of the chest performed on 04/29/2019 at 12:32 AM FINDINGS: The lungs are well expanded. There is mild patchy right perihilar opacification which may be due to fibrosis. There is trace blunting of the left lateral costophrenic sulcus. There appears to be trace blunting of the posterior costophrenic sulci. There is no evidence of a pneumothorax. The cardiac silhouette is stable and within normal limits. There is a grossly stable left subclavian bipolar AICD. The mediastinal contours are normal. No acute osseous abnormalities are identified. No focal soft tissue abnormalities are identified. IMPRESSION: 1. Mild patchy right perihilar opacification likely due to fibrosis. Findings are similar when compared to 05/02/2018. 2. Trace blunting of the left lateral costophrenic sulcus and posterior costophrenic sulci. Trace effusions are not excluded. 3. Stable left subclavian bipolar AICD.
--- NOTE | 2019-04-29 00:58 | ER Document Report ---
ED General - General Chief Complaint: Cough Stated Complaint: COUGHING Time Seen by Provider: 04/29/19 00:45 Primary Care Provider: ELIZA GRANADOS MD [Primary Care Provider] - Follow up as needed TRAVEL OUTSIDE OF THE [place] IN LAST 30 DAYS: No - HPI Notes: 63-year-old male presents with cough and congestion. Patient describes 5 to 6 days of cough, mild difficulty breathing, chest congestion. Equivocal nasal congestion. No fever. Saw his primary care doctor several days ago and started on Keflex and Tessalon Perles. Denies any history of COPD or active CHF. Moderate intensity, nonradiating, gradual onset. No associated chest pain. No other modifying factors, no other associated symptoms, no other provocative or palliative factors. - Related Data Allergies/Adverse Reactions: No Known Allergies Allergy (Verified 04/29/19 00:04) Past Medical History - Social History Smoking Status: Never Smoker Frequency of alcohol use: None Drug Abuse: None Family History: Reviewed & Not Pertinent Patient has suicidal ideation: No Patient has homicidal ideation: No - Past Medical History Cardiac Medical History: Reports: Hx Congestive Heart Failure, Hx Coronary Artery Disease, Hx Hypercholesterolemia, Hx Hypertension Denies: Hx Atrial Fibrillation, Hx Heart Attack, Hx Peripheral Vascular Disea se, Hx Heart Murmur Pulmonary Medical History: Denies: Hx Asthma, Hx Bronchitis, Hx COPD, Hx Pneumonia, Hx Tuberculosis Neurological Medical History: Denies: Hx Cerebrovascular Accident, Hx Seizures Endocrine Medical History: Reports: Hx Diabetes Mellitus Type 2. Denies: Hx Diabetes Mellitus Type 1 Renal/ Medical History: Denies: Hx Benign Prostatic Hyperplasia, Hx End Stage Renal Disease, Hx Kidney Stones, Hx Peritoneal Dialysis Malignancy Medical History: Denies Hx Leukemia GI Medical History: Reports: Hx Gastroesophageal Reflux Disease. Denies: Hx Crohn's Disease, Hx Hiatal Hernia, Hx Irritable Bowel, Hx Liver Failure, Hx Pancreatitis, Hx Ulcer Musculoskeletal Medical History: Reports Hx Arthritis Psychiatric Medical History: Denies: Hx Depression Infectious Medical History: Denies: Hx HIV Past Surgical History: Reports: Hx Bowel Surgery, Hx Internal Defibrillator. Denies: Hx Appendectomy, Hx Cholecystectomy, Hx Colostomy, Hx Coronary Artery Bypass Graft, Hx Gastric Bypass Surgery, Hx Herniorrhaphy, Hx Pacemaker, Hx Tonsillectomy - Immunizations Hx Diphtheria, Pertussis, Tetanus Vaccination: Yes Hx Pneumococcal Vaccination: 06/19/11 Review of Systems - Review of Systems Notes: Review of systems as in the history of present illness, otherwise negative x 10 systems. Physical Exam - Vital signs Vitals: Temp Pulse Resp BP Pulse Ox 98.4 F 80 22 H 149/54 H 97 04/29/19 00:08 04/29/19 00:08 04/29/19 00:08 04/29/19 00:08 04/29/19 00:08 - Notes Notes: General: Well developed . HEENT: Normocephalic, atraumatic. Pupils equal round reactive to light. No JVD. Chest: No trauma. Respiratory: Good air exchange, normal excursion. Cardiac: Regular rhythm. No murmurs or gallops. Abdomen: Soft, benign. Nondistended. Nontender. Back: No asymmetry or gross abnormality. Motor: Grossly normal power and tone. Neurologic: Alert, nonfocal. Cranial nerves II-12 are intact. Sensation intact. Vascular: Well perfused. Normal peripheral pulses. Skin: No petechiae or purpura. Course - Vital Signs Vital signs: Temp Pulse Resp BP Pulse Ox 98.4 F 80 22 H 149/54 H 97 04/29/19 00:08 04/29/19 00:08 04/29/19 00:08 04/29/19 00:08 04/29/19 00:08 - Transfer of Care Notes: 04/29/19 00:56 This is a well-appearing 63-year-old male with likely viral bronchitis. His x- rays obtained shows no evidence of acute pneumonia. Patient has no significant increased work of breathing, no evidence of hypoxia, is otherwise well in appearance and resting comfortably. I see no clinical or radiographic features that suggest CHF. Patient will finish his medications as prescribed, if he develops fever or continued symptoms he will follow close with his primary care doctor. Discharge - Discharge Clinical Impression: Viral bronchitis Condition: Good Disposition: HOME, SELF-CARE Instructions: Upper Respiratory Illness ([facility]) Referrals: ELIZA GRANADOS MD [Primary Care Provider] - Follow up as needed
== END 2019-04-29 01:17 | disposition home or self-care (01) ==
LOC: ER 23:48
DX: J20.8 Acute bronchitis due to other specified organisms (principal); R05 Cough; R09.81 Nasal congestion; R09.89 Other specified symptoms and signs involving the circulatory and respiratory systems; I50.9 Heart failure, unspecified; I25.10 Atherosclerotic heart disease of native coronary artery without angina pectoris; I11.0 Hypertensive heart disease with heart failure; E11.9 Type 2 diabetes mellitus without complications
CPT/HCPCS: 71046; 99283

== ENCOUNTER → 2019-10-01 | Outpatient (CLI) | payer MEDICARE, OTHER ==
--- NOTE | 2019-10-01 13:55 | RADIOLOGY REPORT (SQ) ---
EXAM DESCRIPTION: CHEST PA/LATERAL COMPLETED DATE/TIME: 10/01/2019 1:19 pm REASON FOR STUDY: FEVER COMPARISON: 04/29/2019 EXAM PARAMETERS: NUMBER OF VIEWS: two views TECHNIQUE: Digital Frontal and Lateral radiographic views of the chest acquired. RADIATION DOSE: NA LIMITATIONS: none FINDINGS: LUNGS AND PLEURA: No opacities, masses or pneumothorax. No pleural effusion. MEDIASTINUM AND HILAR STRUCTURES: No masses or contour abnormalities. HEART AND VASCULAR STRUCTURES: Stable in appearance. BONES: No acute findings. HARDWARE: Unchanged. OTHER: No other significant finding. IMPRESSION: No acute findings. No interval change. TECHNICAL DOCUMENTATION: JOB ID: [id number] [employer]- All Rights Reserved Reading location - IP/workstation name: [email or web address]
[2019-10-01 14:26] LABS: HEMATOCRIT 28.9 % (37.9-51.0); HEMOGLOBIN 10.2 g/dL (13.5-17.0); MEAN CORPUSCULAR HEMOGLOBIN 28.1 pg (27.0-33.4); MEAN CORPUSCULAR HGB CONC 35.4 g/dL (32.0-36.0); MEAN CORPUSCULAR VOLUME 79 fl (80-97); RED BLOOD COUNT 3.64 10^6/uL (4.35-5.55); RED CELL DISTRIBUTION WIDTH 15.9 % (11.5-14.0); WHITE BLOOD COUNT 7.8 10^3/uL (4.0-10.5)
[2019-10-01 14:55] LABS: ANION GAP 12 (5-19); BLOOD UREA NITROGEN 12 mg/dL (7-20); CALCIUM 9.2 mg/dL (8.4-10.2); CARBON DIOXIDE 27 mmol/L (22-30); CHLORIDE 101 mmol/L (98-107); GLUCOSE 93 mg/dL (75-110)
[2019-10-01 14:56] LABS: PLATELET COUNT 79 10^3/uL (150-450)
[2019-10-01 14:59] LABS: POTASSIUM 2.9 mmol/L (3.6-5.0)
[2019-10-01 15:03] LABS: ABSOLUTE LYMPHOCYTES# (MANUAL) 0.9 10^3/uL (0.5-4.7); ABSOLUTE MONOCYTES # (MANUAL) 3.3 10^3/uL (0.1-1.4); ANISOCYTOSIS SLIGHT; BASOPHILS % (MANUAL) 0 % (0-2); EOSINOPHILS % (MANUAL) 0 % (0-6); LYMPHOCYTES % (MANUAL) 12 % (13-45); MONOCYTES % (MANUAL) 42 % (3-13); PLATELET COMMENT DECREASED; PLATELET LARGE PRESENT; SEGMENTED NEUTROPHILS % (MAN) 46 % (42-78); TOTAL CELLS COUNTED 100
== END ==
LOC: OD 12:54
PROVIDERS: ATTEND Family Medicine
DX: R50.9 Fever, unspecified (principal)
CPT/HCPCS: 36415; 71046; 80048; 85025; 87040; 87077; 87150; 87186

== ENCOUNTER 2019-10-03 19:59 | Emergency (ER) | payer MEDICARE, OTHER ==
--- NOTE | 2019-10-03 20:41 | ER Document Report ---
ED Medical Screen (RME) - General Chief Complaint: Abnormal Lab Results Stated Complaint: BLOOD INFECTION Time Seen by Provider: 10/03/19 20:33 Primary Care Provider: ELIZA GRANADOS MD [Primary Care Provider] - Follow up as needed Mode of Arrival: Ambulatory Information source: Patient Notes: Patient presents with family after being notified by their primary doctor today that blood drawn on Tuesday to deny positive blood culture. Patient reports fever off and on over the past 6 days as high as 102.8 but most recently only as high as 99. Patient denies any cough cold symptoms nausea vomiting or abdominal tenderness. Patient denies any wounds. Patient states that he did have a tooth fall out 4 days ago but has since had no problems with the area where the tooth fell out. Patient denies any obvious source for the infection. Patient does have a history of hypertension, dyslipidemia and myelodysplasia. I have greeted and performed a rapid initial assessment of this patient. A comprehensive ED assessment and evaluation of the patient, analysis of test results and completion of the medical decision making process will be conducted by additional ED providers. TRAVEL OUTSIDE OF THE [place] IN LAST 30 DAYS: No - Related Data Allergies/Adverse Reactions: No Known Allergies Allergy (Verified 04/29/19 00:04) Home Medications: Vit D. Klor-con. clonidine. Isosorb. Pravastatin. Losartan. ferrex. Omeprazole. Carvedilol. Lasix. Stool softner. Gabapentin Past Medical History - Social History Chew tobacco use (# tins/day): No Frequency of alcohol use: None Drug Abuse: None - Past Medical History Cardiac Medical History: Reports: Hx Congestive Heart Failure, Hx Coronary Artery Disease, Hx Hypercholesterolemia, Hx Hypertension Denies: Hx Atrial Fibrillation, Hx Heart Attack, Hx Peripheral Vascular Disease, Hx Heart Murmur Pulmonary Medical History: Denies: Hx Asthma, Hx Bronchitis, Hx COPD, Hx Pneumonia, Hx Tuberculosis Neurological Medical History: Denies: Hx Cerebrovascular Accident, Hx Seizures Endocrine Medical History: Reports: Hx Diabetes Mellitus Type 2. Denies: Hx Diabetes Mellitus Type 1 Renal/ Medical History: Denies: Hx Benign Prostatic Hyperplasia, Hx End Stage Renal Disease, Hx Kidney Stones, Hx Peritoneal Dialysis Malignancy Medical History: Denies Hx Leukemia GI Medical History: Reports: Hx Gastroesophageal Reflux Disease. Denies: Hx Crohn's Disease, Hx Hiatal Hernia, Hx Irritable Bowel, Hx Liver Failure, Hx Pancreatitis, Hx Ulcer Musculoskeltal Medical History: Reports Hx Arthritis Psychiatric Medical History: Denies: Hx Depression Infectious Medical History: Denies: Hx HIV Past Surgical History: Reports: Hx Bowel Surgery, Hx Internal Defibrillator. Denies: Hx Appendectomy, Hx Cholecystectomy, Hx Colostomy, Hx Coronary Artery Bypass Graft, Hx Gastric Bypass Surgery, Hx Herniorrhaphy, Hx Pacemaker, Hx Tonsillectomy - Immunizations Hx Diphtheria, Pertussis, Tetanus Vaccination: Yes Physical Exam - Vital signs Vitals: Temp Pulse Resp BP Pulse Ox 98.9 F 78 20 149/54 H 99 10/03/19 20:10 10/03/19 20:10 10/03/19 20:10 10/03/19 20:10 10/03/19 20:10 - General General appearance: Appears well, Alert In distress: None Notes: Nontoxic in appearance - Respiratory Respiratory status: No respiratory distress Chest status: Nontender Breath sounds: Normal Course - Vital Signs Vital signs: Temp Pulse Resp BP Pulse Ox 98.9 F 78 20 149/54 H 99 10/03/19 20:10 10/03/19 20:10 10/03/19 20:10 10/03/19 20:10 10/03/19 20:10 Doctor's Discharge - Discharge Referrals: ELIZA GRANADOS MD [Primary Care Provider] - Follow up as needed
--- NOTE | 2019-10-03 21:22 | RADIOLOGY REPORT (SQ) ---
EXAM DESCRIPTION: XR CHEST 2 VIEWS COMPLETED DATE/TME: 10/03/2019 20:39 CLINICAL HISTORY: 64 years, Male, +blood culture, fever COMPARISON: Multiple priors, most recent from 10/01/2019 NUMBER OF VIEWS: Two TECHNIQUE: Frontal and lateral radiograph of the chest were acquired LIMITATIONS: None. FINDINGS: Left subclavian approach dual lead cardiac pacer/AICD is unchanged in position. Cardiac and mediastinal contours are stable. Coarse opacity about the right perihilar region is unchanged from multiple previous examinations, likely indicating scar. Lungs are otherwise clear. No pleural effusion or pneumothorax. IMPRESSION: No acute disease. copyright 2010 [facility] [employer]- All Rights Reserved
[2019-10-03 21:31] LABS: HEMATOCRIT 30.2 % (37.9-51.0); HEMOGLOBIN 10.4 g/dL (13.5-17.0); MEAN CORPUSCULAR HEMOGLOBIN 27.6 pg (27.0-33.4); MEAN CORPUSCULAR HGB CONC 34.6 g/dL (32.0-36.0); MEAN CORPUSCULAR VOLUME 80 fl (80-97); RED BLOOD COUNT 3.78 10^6/uL (4.35-5.55); RED CELL DISTRIBUTION WIDTH 15.8 % (11.5-14.0); WHITE BLOOD COUNT 7.2 10^3/uL (4.0-10.5)
[2019-10-03 21:34] LABS: APPEARANCE,URINE CLEAR; BILIRUBIN,URINE NEGATIVE (NEGATIVE); COLOR,URINE YELLOW; GLUCOSE, URINE NEGATIVE (NEGATIVE); KETONES,URINE NEGATIVE (NEGATIVE); LEUKOCYTE ESTERASE,URINE NEGATIVE (NEGATIVE); NITRITE,URINE NEGATIVE (NEGATIVE); PROTEIN,URINE NEGATIVE (NEGATIVE)
[2019-10-03 21:50] LABS: ALBUMIN 4.1 g/dL (3.5-5.0); ALKALINE PHOSPHATASE 108 U/L (38-126); ANION GAP 12 (5-19); ASPARTATE AMINO TRANSFERASE 23 U/L (17-59); BILIRUBIN,DIRECT 0.4 mg/dL (0.0-0.4); BILIRUBIN,TOTAL 0.6 mg/dL (0.2-1.3); BLOOD UREA NITROGEN 13 mg/dL (7-20); CALCIUM 9.1 mg/dL (8.4-10.2); CARBON DIOXIDE 26 mmol/L (22-30); CHLORIDE 101 mmol/L (98-107); GLUCOSE 104 mg/dL (75-110); POTASSIUM 3.1 mmol/L (3.6-5.0); TOTAL PROTEIN 8.8 g/dL (6.3-8.2)
[2019-10-03 22:07] LABS: ABSOLUTE LYMPHOCYTES# (MANUAL) 2.2 10^3/uL (0.5-4.7); ABSOLUTE MONOCYTES # (MANUAL) 2.5 10^3/uL (0.1-1.4); ANISOCYTOSIS 1+; BASOPHILS % (MANUAL) 0 % (0-2); EOSINOPHILS % (MANUAL) 0 % (0-6); HYPOCHROMASIA SLIGHT; LYMPHOCYTES % (MANUAL) 31 % (13-45); MONOCYTES % (MANUAL) 35 % (3-13); PLATELET COMMENT DECREASED; SEGMENTED NEUTROPHILS % (MAN) 34 % (42-78); TOTAL CELLS COUNTED 100
[2019-10-03 22:08] LABS: PLATELET COUNT 79 10^3/uL (150-450)
--- NOTE | 2019-10-04 00:25 | ER Document Report ---
ED General - General Chief Complaint: Abnormal Lab Results Stated Complaint: BLOOD INFECTION Time Seen by Provider: 10/03/19 20:33 Primary Care Provider: ELIZA GRANADOS MD [Primary Care Provider] - Follow up as needed Mode of Arrival: Ambulatory TRAVEL OUTSIDE OF THE [place] IN LAST 30 DAYS: No - HPI Onset: Last week Onset/Duration: Gradual Quality of pain: Achy Severity: Mild Pain Level: Denies Associated symptoms: Chills, Fever, Sweating Exacerbated by: Denies Relieved by: Other - Tylenol and Motrin Similar symptoms previously: No Recently seen / treated by doctor: Yes - patient seen by PCP Tuesday and had blood work and blood cultures Notes: 64 year old male with a history of CAD, CHF, HTN, HLD, GERD sent to the ER by his PCP since he was called and told he had 2/2 positive blood cultures. The patient tells me he has been sick for about a week now. He has had fevers, chills, sweats, weakness, and mild congestion. The patient denies productive cough, urinary symptoms, diarrhea, sore throat. Overall, the patient feels like he is getting better. Looking at the patient's blood cultures from 10/01/19, he has 2/2 cultures growing coag negative staph. - Related Data Allergies/Adverse Reactions: No Known Allergies Allergy (Verified 04/29/19 00:04) Home Medications: Vit D. Klor-con. clonidine. Isosorb. Pravastatin. L osartan. ferrex. Omeprazole. Carvedilol. Lasix. Stool softner. Gabapentin Past Medical History - General Information source: Patient - Social History Smoking Status: Never Smoker Chew tobacco use (# tins/day): No Frequency of alcohol use: None Drug Abuse: None Lives with: Family Family History: Reviewed & Not Pertinent Patient has suicidal ideation: No Patient has homicidal ideation: No - Past Medical History Cardiac Medical History: Reports: Hx Congestive Heart Failure, Hx Coronary Artery Disease, Hx Hypercholesterolemia, Hx Hypertension Denies: Hx Atrial Fibrillation, Hx Heart Attack, Hx Peripheral Vascular Disease, Hx Heart Murmur Pulmonary Medical History: Denies: Hx Asthma, Hx Bronchitis, Hx COPD, Hx Pneumonia, Hx Tuberculosis Neurological Medical History: Denies: Hx Cerebrovascular Accident, Hx Seizures Endocrine Medical History: Reports: Hx Diabetes Mellitus Type 2. Denies: Hx Diabetes Mellitus Type 1 Renal/ Medical History: Denies: Hx Benign Prostatic Hyperplasia, Hx End Stage Renal Disease, Hx Kidney Stones, Hx Peritoneal Dialysis Malignancy Medical History: Denies Hx Leukemia GI Medical History: Reports: Hx Gastroesophageal Reflux Disease. Denies: Hx Crohn's Disease, Hx Hiatal Hernia, Hx Irritable Bowel, Hx Liver Failure, Hx Pancreatitis, Hx Ulcer Musculoskeletal Medical History: Reports Hx Arthritis Psychiatric Medical History: Denies: Hx Depression Infectious Medical History: Denies: Hx HIV Past Surgical History: Reports: Hx Bowel Surgery, Hx Internal Defibrillator. Denies: Hx Appendectomy, Hx Cholecystectomy, Hx Colostomy, Hx Coronary Artery Bypass Graft, Hx Gastric Bypass Surgery, Hx Herniorrhaphy, Hx Pacemaker, Hx Tonsillectomy - Immunizations Hx Diphtheria, Pertussis, Tetanus Vaccination: Yes Hx Pneumococcal Vaccination: 06/19/11 Review of Systems - Review of Systems Constitutional: Chills, Diaphoresis, Fever, Malaise, Weakness EENT: No symptoms reported Cardiovascular: No symptoms reported Respiratory: No symptoms reported Gastrointestinal: No symptoms reported Genitourinary: No symptoms reported Male Genitourinary: No symptoms reported Musculoskeletal: No symptoms reported Skin: No symptoms reported Hematologic/Lymphatic: No symptoms reported Neurological/Psychological: No symptoms reported Physical Exam - Vital signs Vitals: Temp Pulse Resp BP Pulse Ox 98.9 F 73 20 149/54 H 99 10/03/19 20:07 10/03/19 20:07 10/03/19 20:07 10/03/19 20:07 10/03/19 20:07 - Notes Notes: GENERAL: Well-appearing, well-nourished and in no acute distress. HEAD: Atraumatic, normocephalic. EYES: Pupils equal round and reactive to light, extraocular movements intact, sclera anicteric, conjunctiva are normal. ENT: Nares patent, oropharynx erythematous without exudates or swelling. Moist mucous membranes. NECK: Normal range of motion, supple without lymphadenopathy or JVD. LUNGS: Breath sounds clear to auscultation bilaterally and equal. No wheezes rales or rhonchi. HEART: Regular rate and rhythm without murmurs, rubs or gallops. ABDOMEN: Soft, nontender, normoactive bowel sounds. No guarding, no rebound. No masses appreciated. EXTREMITIES: Normal range of motion, no pitting or edema. No clubbing or cyanosis. NEUROLOGICAL: Cranial nerves II through XII grossly intact. Normal speech, normal gait. PSYCH: Normal mood, normal affect. SKIN: Warm, Dry, normal turgor, no rashes or lesions noted. Course - Re-evaluation Re-evalutation: 10/04/19 00:34 The patient was sent to the ER due to having 2/2 positive blood cultures. The cultures are growing coag negative staph however. It would seem both are contaminates but it is odd there was 2/2 positive cultures. Patient has been having infections symptoms and fevers but they seem to be getting better. Patient has a normal WBC today, clear chest xray, unremarkable UA. Patient tells me he tested negative for the Flu at his PCPs office. Will obtain Rapid Strep but will likely empirically treat with keflex to cover possible but unlikely coag negative staph bacteremia. 10/04/19 00:42 - Vital Signs Vital signs: Temp Pulse Resp BP Pulse Ox 98.5 F 73 20 127/88 H 100 10/04/19 00:16 10/04/19 00:16 10/04/19 00:16 10/04/19 00:16 10/04/19 00:16 - Laboratory Result Diagrams: 10/03/19 21:00 10/03/19 20:00 Laboratory results interpreted by me: 10/03/19 10/03/19 10/03/19 20:00 21:00 21:00 RBC 3.78 L Hgb 10.4 L Hct 30.2 L RDW 15.8 H Plt Count 79 L Seg Neuts % (Manual) 34 L Monocytes % (Manual) 35 H Abs Monocytes (Manual) 2.5 H Potassium 3.1 L Est GFR (MDRD) Non-Af 59 L Total Protein 8.8 H Urine Blood SMALL H Urine Urobilinogen 4.0 H - Diagnostic Test Radiology reviewed: Image reviewed, Reports reviewed Discharge - Discharge Clinical Impression: Blood bacterial culture positive Condition: Stable Disposition: HOME, SELF-CARE Instructions: Fever ([facility]) Additional Instructions: Take Keflex as prescribed. Follow up with your primary care doctor and tell him/her to follow up your repeat blood cultures. See medical attention for fevers of 101F or higher or if get worse. Prescriptions: Cephalexin Monohydrate [Keflex 500 mg Capsule] 500 mg PO Q6H 7 Days #28 capsule Referrals: ELIZA GRANADOS MD [Primary Care Provider] - Follow up as needed
[2019-10-04] MEDS ORDERED: POTASSIUM CHLORIDE 10 MEQ TABLET.ER PO ONE (00:33)
[2019-10-04] MEDS ORDERED: CEPHALEXIN 500 MG CAPSULE PO ONE (00:53)
[2019-10-04 01:31] VITALS: BP 126/65
== END 2019-10-04 01:25 | disposition home or self-care (01) ==
LOC: ER 19:59
DX: R50.9 Fever, unspecified (principal); R53.1 Weakness; R61 Generalized hyperhidrosis; E11.9 Type 2 diabetes mellitus without complications; E78.00 Pure hypercholesterolemia, unspecified; I50.9 Heart failure, unspecified; I11.0 Hypertensive heart disease with heart failure
CPT/HCPCS: 99283; 36415; 87070; 87880; 83605; 85025; 87077; 80053; 81001; 71046; A9270 ×2

== ENCOUNTER → 2019-10-10 | Outpatient (CLI) | payer MEDICARE, OTHER ==
[2019-10-10 12:17] LABS: HEMOGLOBIN 10.1 g/dL (13.5-17.0); MEAN CORPUSCULAR HEMOGLOBIN 27.9 pg (27.0-33.4); MEAN CORPUSCULAR HGB CONC 34.8 g/dL (32.0-36.0); MEAN CORPUSCULAR VOLUME 80 fl (80-97); PLATELET COUNT 107 10^3/uL (150-450); RED BLOOD COUNT 3.62 10^6/uL (4.35-5.55); RED CELL DISTRIBUTION WIDTH 16.1 % (11.5-14.0); WHITE BLOOD COUNT 6.4 10^3/uL (4.0-10.5)
[2019-10-10 12:48] LABS: ANION GAP 12 (5-19); BLOOD UREA NITROGEN 11 mg/dL (7-20); CALCIUM 9.5 mg/dL (8.4-10.2); CARBON DIOXIDE 27 mmol/L (22-30); CHLORIDE 100 mmol/L (98-107); GLUCOSE 99 mg/dL (75-110); POTASSIUM 3.2 mmol/L (3.6-5.0)
[2019-10-10 13:17] LABS: ABSOLUTE LYMPHOCYTES# (MANUAL) 0.3 10^3/uL (0.5-4.7); ABSOLUTE MONOCYTES # (MANUAL) 2.8 10^3/uL (0.1-1.4); BASOPHILS % (MANUAL) 0 % (0-2); EOSINOPHILS % (MANUAL) 0 % (0-6); LYMPHOCYTES % (MANUAL) 3 % (13-45); MONOCYTES % (MANUAL) 43 % (3-13); SEGMENTED NEUTROPHILS % (MAN) 53 % (42-78); TOTAL CELLS COUNTED 100
[2019-10-10 13:18] LABS: ANISOCYTOSIS 1+; PLATELET COMMENT DECREASED
== END ==
LOC: OD 11:00
PROVIDERS: ATTEND Family Medicine
DX: R78.81 Bacteremia (principal); E87.6 Hypokalemia
CPT/HCPCS: 36415; 80048; 85025; 87040; 87077; 87150

== ENCOUNTER 2019-10-22 12:31 | Inpatient (IN) | payer MEDICARE, OTHER ==
--- NOTE | 2019-10-22 13:38 | ER Document Report ---
ED Medical Screen (RME) - General Chief Complaint: Abnormal Lab Results Stated Complaint: ABNORMAL LABS REFERRED Time Seen by Provider: 10/22/19 13:36 Primary Care Provider: ELIZA GRANADOS MD [Primary Care Provider] - Follow up as needed Mode of Arrival: Ambulatory Information source: Patient Notes: 64-year-old male was presented to ED for abnormal labs. He was sent by Dr. [place]ton for infection somewhere he does not know where. He is alert oriented respirations regular nonlabored denies any pain at this time. He states he does have a pacemaker defibrillator pacemaker defibrillator he denies any cough fevers or any pain. I have greeted and performed a rapid initial assessment of this patient. A comprehensive ED assessment and evaluation of the patient, analysis of test results and completion of medical decision making process will be conducted by an additional ED providers. TRAVEL OUTSIDE OF THE [place] IN LAST 30 DAYS: No - Related Data Allergies/Adverse Reactions: No Known Allergies Allergy (Verified 10/22/19 13:34) Past Medical History - Past Medical History Cardiac Medical History: Reports: Hx Congestive Heart Failure, Hx Coronary Artery Disease, Hx Hypercholesterolemia, Hx Hypertension Denies: Hx Atrial Fibrillation, Hx Heart Attack, Hx Peripheral Vascular Disease, Hx Heart Murmur Pulmonary Medical History: Denies: Hx Asthma, Hx Bronchitis, Hx COPD, Hx Pneumonia, Hx Tuberculosis Neurological Medical History: Denies: Hx Cerebrovascular Accident, Hx Seizures Endocrine Medical History: Reports: Hx Diabetes Mellitus Type 2. Denies: Hx Diabetes Mellitus Type 1 Renal/ Medical History: Denies: Hx Benign Prostatic Hyperplasia, Hx End Stage Renal Disease, Hx Kidney Stones, Hx Peritoneal Dialysis Malignancy Medical History: Denies Hx Leukemia GI Medical History: Reports: Hx Gastroesophageal Reflux Disease. Denies: Hx Crohn's Disease, Hx Hiatal Hernia, Hx Irritable Bowel, Hx Liver Failure, Hx Pancreatitis, Hx Ulcer Musculoskeltal Medical History: Reports Hx Arthritis Psychiatric Medical History: Denies: Hx Depression Infectious Medical History: Denies: Hx HIV Past Surgical History: Reports: Hx Bowel Surgery, Hx Internal Defibrillator. Denies: Hx Appendectomy, Hx Cholecystectomy, Hx Colostomy, Hx Coronary Artery Bypass Graft, Hx Gastric Bypass Surgery, Hx Herniorrhaphy, Hx Pacemaker, Hx Tonsillectomy - Immunizations Hx Diphtheria, Pertussis, Tetanus Vaccination: Yes Physical Exam - Vital signs Vitals: Temp Pulse Resp BP Pulse Ox 98.3 F 82 18 129/52 H 97 10/22/19 13:13 10/22/19 13:13 10/22/19 13:13 10/22/19 13:13 10/22/19 13:13 Course - Vital Signs Vital signs: Temp Pulse Resp BP Pulse Ox 98.3 F 82 18 129/52 H 97 10/22/19 13:13 10/22/19 13:13 10/22/19 13:13 10/22/19 13:13 10/22/19 13:13 Doctor's Discharge - Discharge Referrals: ELIZA GRANADOS MD [Primary Care Provider] - Follow up as needed
[2019-10-22 13:53] LABS: APPEARANCE,URINE CLEAR; BILIRUBIN,URINE NEGATIVE (NEGATIVE); COLOR,URINE YELLOW; GLUCOSE, URINE NEGATIVE (NEGATIVE); KETONES,URINE NEGATIVE (NEGATIVE); PROTEIN,URINE NEGATIVE (NEGATIVE); URINE SPECIFIC GRAVITY 1.011; UROBILINOGEN,URINE NEGATIVE mg/dL (<2.0)
--- NOTE | 2019-10-22 13:57 | ER Document Report ---
ED General - General Chief Complaint: Abnormal Lab Results Stated Complaint: ABNORMAL LABS DR REFERRED Time Seen by Provider: 10/22/19 13:36 Mode of Arrival: Ambulatory Notes: Patient is a 64-year-old -[place] male with past medical history of pacemaker defibrillator who presents to the emergency department sent from his primary doctor's office for positive blood culture results. Patient states that he feels fine, asymptomatic but was sent for admission. Patient reports a couple weeks ago he had a fever of unknown origin, was placed on antibiotics and his fever improved. He states he feels well today but due to positive blood culture findings his doctor sent him for admission. TRAVEL OUTSIDE OF THE [place] IN LAST 30 DAYS: No - Related Data Allergies/Adverse Reactions: No Known Allergies Allergy (Verified 10/22/19 13:34) Home Medications: With patient Past Medical History - General Information source: Patient - Social History Smoking Status: Never Smoker Frequency of alcohol use: None Drug Abuse: None Family History: Reviewed & Not Pertinent Patient has suicidal ideation: No Patient has homicidal ideation: No - Past Medical History Cardiac Medical History: Reports: Hx Congestive Heart Failure, Hx Coronary Artery Disease, Hx Hypercholesterolemia, Hx Hypertension Denies: Hx Atrial Fibrillation, Hx Heart Attack, Hx Peripheral Vascular Disease, Hx Heart Murmur Pulmonary Medical History: Denies: Hx Asthma, Hx Bronchitis, Hx COPD, Hx Pneumonia, Hx Tuberculosis Neurological Medical History: Denies: Hx Cerebrovascular Accident, Hx Seizures Endocrine Medical History: Reports: Hx Diabetes Mellitus Type 2. Denies: Hx Diabetes Mellitus Type 1 Renal/ Medical History: Denies: Hx Benign Prostatic Hyperplasia, Hx End Stage Renal Disease, Hx Kidney Stones, Hx Peritoneal Dialysis Malignancy Medical History: Denies Hx Leukemia GI Medical History: Reports: Hx Gastroesophageal Reflux Disease. Denies: Hx Crohn's Disease, Hx Hiatal Hernia, Hx Irritable Bowel, Hx Liver Failure, Hx Pancreatitis, Hx Ulcer Musculoskeletal Medical History: Reports Hx Arthritis Psychiatric Medical History: Denies: Hx Depression Infectious Medical History: Denies: Hx HIV Past Surgical History: Reports: Hx Bowel Surgery, Hx Internal Defibrillator. Denies: Hx Appendectomy, Hx Cholecystectomy, Hx Colostomy, Hx Coronary Artery Bypass Graft, Hx Gastric Bypass Surgery, Hx Herniorrhaphy, Hx Pacemaker, Hx Tonsillectomy - Immunizations Hx Diphtheria, Pertussis, Tetanus Vaccination: Yes Hx Pneumococcal Vaccination: 06/19/11 Review of Systems - Review of Systems Constitutional: No symptoms reported EENT: No symptoms reported Cardiovascular: No symptoms reported Respiratory: No symptoms reported Gastrointestinal: No symptoms reported Genitourinary: No symptoms reported Male Genitourinary: No symptoms reported Musculoskeletal: No symptoms reported Skin: No symptoms reported Hematologic/Lymphatic: No symptoms reported Neurological/Psychological: No symptoms reported Physical Exam - Vital signs Vitals: Temp Pulse Resp BP Pulse Ox 98.3 F 82 18 129/52 H 97 10/22/19 13:13 10/22/19 13:13 10/22/19 13:13 10/22/19 13:13 10/22/19 13:13 - General General appearance: Appears well In distress: None - HEENT Head: Normocephalic, Atraumatic Eyes: Normal Pupils: PERRL Pharynx: Normal Neck: Normal, Supple - Respiratory Respiratory status: No respiratory distress Chest status: Nontender Breath sounds: Normal Chest palpation: Normal - Cardiovascular Rhythm: Regular Heart sounds: Normal auscultation Murmur: No - Abdominal Inspection: Normal Distension: No distension Bowel sounds: Normal Tenderness: Nontender Organomegaly: No organomegaly - Neurological Neuro grossly intact: Yes Cognition: Normal Orientation: AAOx4 [place] Coma Scale Eye Opening: Spontaneous [place] Coma Scale Verbal: Oriented Reinaldo Coma Scale Motor: Obeys Commands Reinlado Coma Scale Total: 15 Speech: Normal Motor strength normal: LUE, RUE, LLE, RLE Sensory: Normal - Psychological Associated symptoms: Normal affect, Normal mood - Skin Skin Temperature: Warm Skin Moisture: Dry Skin Color: Normal Course - Re-evaluation Re-evalutation: 10/22/19 14:[address] Payton on the phone, he intends for the patient to be a direct admit however through the ER since the hospital has no open floor beds at this time. Work-up began in the ER patient evaluated, stable at this time for admission. - Vital Signs Vital signs: Temp Pulse Resp BP Pulse Ox 98.3 F 82 18 129/52 H 97 10/22/19 13:13 10/22/19 13:13 10/22/19 13:13 10/22/19 13:13 10/22/19 13:13 - Laboratory Laboratory results interpreted by me: 10/22/19 13:10 Urine Blood SMALL H Discharge - Discharge Clinical Impression: Positive blood cultures Condition: Stable Disposition: ADMITTED INPATIENT Admitting Provider: [facility] Unit Admitted: Telemetry
[2019-10-22] MEDS ORDERED: ACETAMINOPHEN 325 MG TABLET PO PRN (14:02)
[2019-10-22] MEDS ORDERED: CIPROFLOXACIN 400 MG/D5W RTU 400 MG/200 ML RTUPB IV SCH (14:30)
[2019-10-22 15:15] LABS: HEMATOCRIT 28.9 % (37.9-51.0); MEAN CORPUSCULAR HEMOGLOBIN 27.8 pg (27.0-33.4); MEAN CORPUSCULAR HGB CONC 34.5 g/dL (32.0-36.0); MEAN CORPUSCULAR VOLUME 81 fl (80-97); RED BLOOD COUNT 3.58 10^6/uL (4.35-5.55); RED CELL DISTRIBUTION WIDTH 16.7 % (11.5-14.0); WHITE BLOOD COUNT 5.5 10^3/uL (4.0-10.5)
[2019-10-22 15:18] LABS: ALBUMIN 4.1 g/dL (3.5-5.0); ALKALINE PHOSPHATASE 117 U/L (38-126); ANION GAP 11 (5-19); ASPARTATE AMINO TRANSFERASE 20 U/L (17-59); BILIRUBIN,DIRECT 0.1 mg/dL (0.0-0.4); BILIRUBIN,TOTAL 0.6 mg/dL (0.2-1.3); BLOOD UREA NITROGEN 19 mg/dL (7-20); CALCIUM 9.2 mg/dL (8.4-10.2); CARBON DIOXIDE 23 mmol/L (22-30); CHLORIDE 105 mmol/L (98-107); GLUCOSE 88 mg/dL (75-110); POTASSIUM 3.9 mmol/L (3.6-5.0); TOTAL PROTEIN 8.7 g/dL (6.3-8.2)
--- NOTE | 2019-10-22 15:27 | PDOC H&P ---
History of Present Illness Admission Date/PCP: ELIZA GRANADOS MD Patient complains of: Persistent positive blood culture Staphylococcus epidermidis History of Present Illness: BOOM POWERS is a 64 year old male This is a 64-year-old male with a history of the myelodysplastic syndrome thrombocytopenia history of the cardiomyopathy hypertension's hyperlipidemia currently see a local oncology Dr. Hill and also see [place] [facility] and also see a Dr. LAUGHLIN cardiology came to the office last month 4 weeks back with the complaining of Night sweats and the fever type symptomsAnd patient had a blood cultures drawn and CBC and CBC was all normal but the blood cultures positive for staph epidermidis and initially patients treated with the doxycycline and the urine culture and chest x-ray was all negative patient start feeling better and repeat the blood culture again which persistence with the staph epidermidis in the both cultureAnd switch to the Cipro antibiotic p.o. Patient have a 2 culture was done in the hospital and the one culture repeat in the [facility] which all persisted with the staph epidermidis despite of the Cipro treatment just finished more than 7 days Patient is does not have any fever no chills no other symptoms anymore This was referred to the cardiology had a echocardiogram done was all negative for any vegetations stress test was done was also negative Patients does not receive any blood transfusion recently or any platelet transfusion as per discussed with the patient's oncology Patients does not have any procedure done recently Patient currently doing well but with this persistent positive blood culture with the patient have a defibrillator placements decided to admit in the hospital as per discussed with the cardiology for further evaluation and require infectious disease consult Discussed with the patient and the daughter and admit in the hospital and discussed with the cardiology Past Medical History Cardiac Medical History: Reports: Congestive Heart Failure, Coronary Artery Dise ase, Hyperlipidema, Hypertension Denies: Atrial Fibrillation, Myocardial Infarction, Peripheral Vascular Disease, Heart Murmur Pulmonary Medical History: Denies: Asthma, Bronchitis, Chronic Obstructive Pulmonary Disease (COPD), Pneumonia, Tuberculosis Neurological Medical History: Denies: Seizures Endocrine Medical History: Reports: Diabetes Mellitus Type 2 Denies: Diabetes Mellitus Type 1 Renal/ Medical History: Reports: Chronic Kidney Disease Denies: End Stage Renal Disease Malignancy Medical History: Denies: Leukemia GI Medical History: Reports: Gastroesophageal Reflux Disease Denies: Crohn's Disease, Hiatal Hernia Musculoskeltal Medical History: Reports: Arthritis Psychiatric Medical History: Denies: Depression Hematology: Reports: Anemia Denies: Hemophilia, Sickle Cell Disease Hematology History Note: Myelodysplastic syndrome and thrombocytopenia Infectious Medical History: Denies: HIV Past Surgical History Past Surgical History: Reports: Internal Defibrillator Denies: Appendectomy, Cholecystectomy, Colostomy, Coronary Artery Bypass Graft, Gastric Bypass Surgery, Herniorrhaphy, Pacemaker, Tonsillectomy Social History Information Source: Patient Smoking Status: Never Smoker Frequency of Alcohol Use: None Hx Recreational Drug Use: No Drugs: None Hx Prescription Drug Abuse: No Family History Family History: Reviewed & Not Pertinent Parental Family History Reviewed: Yes Children Family History Reviewed: Yes Sibling(s) Family History Reviewed.: Yes Medication/Allergy Home Medications: Carvedilol [Coreg 25 mg Tablet] 25 mg PO Q12 03/07/19 Cholecalciferol (Vitamin D3) [Vitamin D3 1000 Unit Tablet] 2,000 unit PO DAILY 03/07/19 Furosemide [Lasix 40 mg Tablet] 40 mg PO DAILY 03/07/19 Iron Ps Complex/B12/Folic Acid [Ferrex 150 Forte Capsule] 150 mg PO BID 03/07/19 Isosorbide Mononitrate [Imdur 60 mg Tablet.er] 60 mg PO DAILY 03/07/19 Omeprazole 40 mg PO DAILY 03/07/19 Potassium Chloride [Klor-Con 10 Meq Tablet ER] 20 meq PO DAILY 03/07/19 Pravastatin Sodium [Pravachol] 40 mg PO QHS 03/07/19 Tamsulosin HCl [Flomax 0.4 mg Cap.sr] 0.4 mg PO QPM 03/07/19 Amlodipine Besylate [Norvasc 5 mg Tablet] 5 mg PO DAILY 10/22/19 Clonidine HCl [Catapres 0.1 mg Tablet] 0.1 mg PO Q8 10/22/19 Allergies/Adverse Reactions: No Known Allergies Allergy (Verified 10/22/19 13:34) Review of Systems Constitutional: ABSENT: chills, fever(s), headache(s), weight gain, weight loss Eyes: ABSENT: visual disturbances Ears: ABSENT: hearing changes Cardiovascular: ABSENT: chest pain, dyspnea on exertion, edema, orthropnea, palpitations Respiratory: ABSENT: cough, hemoptysis Gastrointestinal: ABSENT: abdominal pain, constipation, diarrhea, hematemesis, hematochezia, nausea, vomiting Genitourinary: ABSENT: dysuria, hematuria Musculoskeletal: ABSENT: joint swelling Integumentary: ABSENT: rash, wounds Neurological: ABSENT: abnormal gait, abnormal speech, confusion, dizziness, focal weakness, syncope Psychiatric: ABSENT: anxiety, depression, homidical ideation, suicidal ideation Endocrine: ABSENT: cold intolerance, heat intolerance, menstrual abnormalities, polydipsia, polyuria Hematologic/Lymphatic: ABSENT: easy bleeding, easy bruising, lymphadenopathy Physical Exam Vital Signs: Temp Pulse Resp BP Pulse Ox 98.3 F 82 18 129/52 H 97 10/22/19 13:13 10/22/19 13:13 10/22/19 13:13 10/22/19 13:13 10/22/19 13:13 Intake & Output 10/21/19 10/22/19 10/23/19 06:59 06:59 06:59 Weight 92.533 kg General appearance: PRESENT: no acute distress, well-developed, well-nourished Head exam: PRESENT: atraumatic, normocephalic Eye exam: PRESENT: conjunctiva pink, EOMI, PERRLA. ABSENT: scleral icterus Ear exam: PRESENT: normal external ear exam Mouth exam: PRESENT: moist, tongue midline Neck exam: PRESENT: full ROM. ABSENT: carotid bruit, JVD, lymphadenopathy, thyromegaly Respiratory exam: PRESENT: clear to auscultation diony Cardiovascular exam: PRESENT: RRR. ABSENT: diastolic murmur, rubs, systolic murmur Pulses: PRESENT: normal dorsalis pedis pul, +2 pedal pulses bilateral Vascular exam: PRESENT: normal capillary refill GI/Abdominal exam: PRESENT: normal bowel sounds, soft. ABSENT: distended, guarding, mass, organolmegaly, rebound, tenderness Rectal exam: PRESENT: deferred Extremities exam: ABSENT: pedal edema Musculoskeletal exam: PRESENT: ambulatory Neurological exam: PRESENT: alert, awake, oriented to person, oriented to place, oriented to time, oriented to situation, CN II-XII grossly intact. ABSENT: motor sensory deficit Psychiatric exam: PRESENT: appropriate affect, normal mood. ABSENT: homicidal ideation, suicidal ideation Skin exam: PRESENT: dry, intact, warm. ABSENT: cyanosis, rash Results Laboratory Results: 10/22/19 13:10 Urine Color YELLOW Urine Appearance CLEAR Urine pH 6.0 Ur Specific Leroy 1.011 Urine Protein NEGATIVE Urine Glucose (UA) NEGATIVE Urine Ketones NEGATIVE Urine Blood SMALL H Urine RBC (Auto) 1 Assessment & Plan - Diagnosis (1) Positive blood cultures Is this a current diagnosis for this admission?: Yes Plan: Admit the patient's with the persistent blood culture and patient is finished the Cipro more than 7 days and patient having no symptoms but [place] a 3 times the culture is still staph epidermidis with the patient have a defibrillator in place and in no other clear source admit the patient ID consult repeat the blood culture consult cardiology (3) Cardiomyopathy Qualifiers: Cardiomyopathy type: unspecified Qualified Code(s): I42.9 - Cardiomyopathy, unspecified (4) Chronic kidney disease Qualifiers: Chronic kidney disease stage: stage 3 (moderate) Qualified Code(s): N18.3 - Chronic kidney disease, stage 3 (moderate) (6) CAD (coronary artery disease) Qualifiers: Coronary Disease-Associated Artery/Lesion type: [place] artery Associated angina: without angina (7) CHF (congestive heart failure) Qualifiers: Heart failure type: combined systolic and diastolic Heart failure chronicity: chronic Qualified Code(s): I50.42 - Chronic combined systolic ( congestive) and diastolic (congestive) heart failure (8) HTN (hypertension) Qualifiers: Hypertension type: essential hypertension - Time Time Spent: 30 to 50 Minutes Medications reviewed and adjusted accordingly: Yes Anticipated discharge: Home Within: Other - Inpatient Certification Based on my medical assessment, after consideration of the patient's comorbidities, presenting symptoms, or acuity I expect that the services needed warrant INPATIENT care.: Yes I certify that my determination is in accordance with my understanding of Medicare's requirements for reasonable and necessary INPATIENT services [42 CFR 412.3e].: Yes Medical Necessity: Significant Comorbidiites Make Outpatient Treatment Too Risky, Need Close Monitoring Due to Risk of Patient Decompensation, Need for IV Antibiotics Post Hospital Care: D/C Transportation Refrigeration Technician Documentation - Plan Summary Plan Summary: With the persistent staph epidermidis in the blood cultures x4 patient is currently symptomatic but significant underlying comorbidity we need ID consults cardiology consult is made for the defibrillator start on IV antibiotics continues to monitor
--- NOTE | 2019-10-22 15:39 | RADIOLOGY REPORT (SQ) ---
EXAM DESCRIPTION: CHEST 2 VIEWS COMPLETED DATE/TIME: 10/22/2019 3:31 pm REASON FOR STUDY: Abnormal labs COMPARISON: 10/03/2019 EXAM PARAMETERS: NUMBER OF VIEWS: two views TECHNIQUE: Digital Frontal and Lateral radiographic views of the chest acquired. RADIATION DOSE: NA LIMITATIONS: none FINDINGS: LUNGS AND PLEURA: Low lung volumes with interstitial crowding. No definite airspace disea se, pleural effusion or pneumothorax. MEDIASTINUM AND HILAR STRUCTURES: No masses or contour abnormalities. HEART AND VASCULAR STRUCTURES: Enlarged cardiac silhouette, stable. Ectatic thoracic aorta. BONES: No acute findings. HARDWARE: Left-sided pacer/defibrillator with leads overlying right atrium and right ventricle. OTHER: No other significant finding. IMPRESSION: Enlarged cardiac silhouette with central vascular congestion. No overt edema. TECHNICAL DOCUMENTATION: JOB ID: [id number]- All Rights Reserved Reading location - IP/workstation name: [email or web address]
[2019-10-22 15:49] LABS: ABSOLUTE LYMPHOCYTES# (MANUAL) 0.4 10^3/uL (0.5-4.7); ABSOLUTE MONOCYTES # (MANUAL) 2.4 10^3/uL (0.1-1.4); BASOPHILS % (MANUAL) 0 % (0-2); EOSINOPHILS % (MANUAL) 0 % (0-6); LYMPHOCYTES % (MANUAL) 7 % (13-45); MONOCYTES % (MANUAL) 44 % (3-13); SEGMENTED NEUTROPHILS % (MAN) 49 % (42-78); TOTAL CELLS COUNTED 100
[2019-10-22 15:52] LABS: ANISOCYTOSIS 1+; PLATELET COMMENT DECREASED; PLATELET GIANT PRESENT; PLATELET LARGE PRESENT
[2019-10-22 15:53] LABS: PLATELET COUNT 64 10^3/uL (150-450)
--- NOTE | 2019-10-22 16:16 | RADIOLOGY REPORT (SQ) ---
EXAM DESCRIPTION: CT CHEST WITHOUT COMPLETED DATE/TIME: 10/22/2019 3:01 pm REASON FOR STUDY: Cough/positive blood couture COMPARISON: Chest radiograph, same date. CT abdomen and pelvis, 06/10/2011. TECHNIQUE: CT scan performed of the chest without intravenous contrast. Images reviewed with lung, soft tissue and bone windows. Reconstructed coronal and sagittal MPR images reviewed. All images st ored on PACS. All CT scanners at this facility use dose modulation, iterative reconstruction, and/or weight based d osing when appropriate to reduce radiation dose to as low as reasonably achievable (ALARA). [facility]: Dose Right [facility]: CareDose [facility]: Dose Right [facility]: Teradose 4D [facility]: [employer] RADIATION DOSE: CT Rad equipment meets quality standard of care and radiation dose reduction techniq ues were employed. CTDIvol: 19.1 mGy. DLP: 731 mGy-cm. mGy. LIMITATIONS: No technical limitations. FINDINGS: LUNGS AND PLEURA: There is focal consolidation in the right middle lobe and inferior aspec t of the right upper lobe suspicious for infectious/inflammatory process. No pleural effusion or pne umothorax. The left lung is clear. No suspicious pulmonary nodules. HILAR AND MEDIASTINAL STRUCTURES: No identified masses or abnormal nodes. No obvious aneurysm. HEART AND VASCULAR STRUCTURES: There is moderate cardiomegaly. Trace pericardial effusion. Thoracic aorta has normal caliber. UPPER ABDOMEN: Prominent left renal collecting system and extrarenal pelvis with moderate left hydron ephrosis, worsened since previous examination. No right hydronephrosis. No perinephric fluid. Mode rate stool in the transverse colon. THYROID AND OTHER SOFT TISSUES: Thyroid gland is poorly visualized due to beam hardening artifact fro m the left pacemaker. No subcutaneous mass or fluid. BONES: Spondylosis and degenerative disc disease in the thoracic and lumbar spine. No suspicious bon e lesions. HARDWARE: None in the chest. OTHER: No other significant findings. IMPRESSION: 1. Consolidation in the right middle and upper lobe consistent with pneumonia. 2. Moderate cardiomegaly with small pericardial effusion. 3. Moderate left hydronephrosis and prominent left extrarenal pelvis has increased since previous exa mination, possibly representing a UPJ obstruction. Clinical correlation and correlation with patient 's symptoms recommended. Ultrasound may provide additional information. TECHNICAL DOCUMENTATION: JOB ID: [id number] Quality ID # [id number]: Final reports with documentation of one or more dose reduction techniques (e.g., Au tomated exposure control, adjustment of the mA and/or kV according to patient size, use of iterative reconstruction technique) 2010 [employer]- All Rights Reserved Reading location - IP/workstation name: [email or web address]
--- NOTE | 2019-10-22 17:37 | RADIOLOGY REPORT (SQ) ---
EXAM DESCRIPTION: CT ABD/PELVIS NO ORAL OR IV COMPLETED DATE/TIME: 10/22/2019 5:03 pm REASON FOR STUDY: hydronephrosis COMPARISON: Chest CT earlier same date. TECHNIQUE: CT scan of the abdomen and pelvis performed without intravenous or oral contrast. Images reviewed with lung, soft tissue, and bone windows. Reconstructed coronal and sagittal MPR images revi ewed. All images stored on PACS. All CT scanners at this facility use dose modulation, iterative reconstruction, and/or weight based d osing when appropriate to reduce radiation dose to as low as reasonably achievable (ALARA). [facility]: Dose Right [facility]: CareDose [facility]: Dose Right [facility]: Teradose 4D [facility]: [employer] RADIATION DOSE: CT Rad equipment meets quality standard of care and radiation dose reduction techniq ues were employed. CTDIvol: 12.6 mGy. DLP: 681 mGy-cm.mGy. LIMITATIONS: None. FINDINGS: LOWER CHEST: Please see chest CT from earlier same date. NON-CONTRASTED LIVER, SPLEEN, ADRENALS: Evaluation limited by lack of IV contrast. No identified sign ificant masses. PANCREAS: No masses. No peripancreatic inflammatory changes. GALLBLADDER: No identified stones by CT criteria. No inflammatory changes to suggest cholecystitis. RIGHT KIDNEY AND URETER: No solid masses. No significant calcification. No hydronephrosis or hydroure ter. LEFT KIDNEY AND URETER: Moderate hydronephrosis with distention of the renal pelvis and proximal uret er. No obstructing stone. Findings look chronic but progressive compared to 2011. No evidence of r enal parenchymal loss or discrete mass. No nephrolithiasis. AORTA AND RETROPERITONEUM: No aneurysm. No retroperitoneal masses or adenopathy. BOWEL AND PERITONEAL CAVITY: Large amount of stool. Nonobstructive pattern. APPENDIX: Normal. PELVIS, BLADDER, AND ABDOMINAL WALL:Bladder unremarkable. No pelvic mass. No bowel containing abdom inal hernia. Fat containing umbilical hernia. BONES: Spondylosis. No fracture or worrisome bone lesion. OTHER: No other significant finding. IMPRESSION: 1. Left hydronephrosis and dilated renal pelvis and proximal ureter. The findings look relatively ch ronic, although are more pronounced compared to 2011. No evidence of obstructing stone or mass. Cor relate with renal symptoms and any evidence of hematuria. TECHNICAL DOCUMENTATION: JOB ID: [id number] Quality ID # [id number]: Final reports with documentation of one or more dose reduction techniques (e.g., Au tomated exposure control, adjustment of the mA and/or kV according to patient size, use of iterative reconstruction technique) 2010 [employer]- All Rights Reserved Reading location - IP/workstation name: [email or web address]
[2019-10-22] MEDS ORDERED: (PENDING PHARMACY ID) (Iron Ps Complex/B12/Folic Acid [Ferrex 150 Forte Capsule] 150 MG) PO SCH (18:00)
[2019-10-22] MEDS: TAMSULOSIN HCL 0.4 MG CAP.SR.24H PO SCH (18:54)
[2019-10-22] MEDS: IRON POLYSACCHARIDES COMPLEX 150 MG CAPSULE PO SCH (18:54)
[2019-10-22] MEDS: CARVEDILOL 12.5 MG TABLET PO SCH (21:13)
[2019-10-22] MEDS: CEFEPIME 1 GM/D5W RTU 1 GM/50 ML RTUPB IV SCH (21:14)
[2019-10-22] MEDS: CLONIDINE HCL 0.1 MG TABLET PO SCH (21:14)
[2019-10-22] MEDS: ATORVASTATIN CALCIUM 10 MG TABLET PO SCH (21:14)
[2019-10-22] MEDS ORDERED: (PENDING PHARMACY ID) (Pravastatin Sodium [Pravachol] 40 MG) PO SCH (22:00)
[2019-10-23 06:30] LABS: HEMATOCRIT 27.2 % (37.9-51.0); HEMOGLOBIN 9.7 g/dL (13.5-17.0); MEAN CORPUSCULAR HEMOGLOBIN 28.3 pg (27.0-33.4); MEAN CORPUSCULAR HGB CONC 35.4 g/dL (32.0-36.0); MEAN CORPUSCULAR VOLUME 80 fl (80-97); RED BLOOD COUNT 3.41 10^6/uL (4.35-5.55); WHITE BLOOD COUNT 4.6 10^3/uL (4.0-10.5)
[2019-10-23] MEDS: CLONIDINE HCL 0.1 MG TABLET PO SCH ×3 (07:21→21:44)
[2019-10-23 07:24] LABS: PLATELET COUNT 53 10^3/uL (150-450)
[2019-10-23 07:29] LABS: ABSOLUTE LYMPHOCYTES# (MANUAL) 0.8 10^3/uL (0.5-4.7); ABSOLUTE MONOCYTES # (MANUAL) 1.3 10^3/uL (0.1-1.4); BAND NEUTROPHILS % (MANUAL) 4 % (3-5); BASOPHILS % (MANUAL) 0 % (0-2); EOSINOPHILS % (MANUAL) 0 % (0-6); LYMPHOCYTES % (MANUAL) 18 % (13-45); MONOCYTES % (MANUAL) 29 % (3-13); SEGMENTED NEUTROPHILS % (MAN) 49 % (42-78); TOTAL CELLS COUNTED 100
[2019-10-23 07:30] LABS: ANISOCYTOSIS 1+; PLATELET COMMENT DECREASED; PLATELET LARGE PRESENT
[2019-10-23] MEDS: LEVOFLOXACIN 500 MG/D5W RTU 500 MG/100 ML RTUPB IV SCH (08:11)
--- NOTE | 2019-10-23 08:28 | PDOC CONSULTATION ---
Consultation Consult Date: 10/23/19 Attending physician:: ELIZA GRANADOS Provider Consulted: GEORGI MEDEIROS Consult reason:: Known MDS with persistent bacteremia History of Present Illness Admission Date/PCP: 10/22/19 14:33 ELIZA GRANADOS MD Patient complains of: Bacteremia History of Present Illness: BOOM POWERS is a 64 year old male with recent history of persistent bacteremia, about 3 weeks ago patient began having fever as high as 100.3. Ultimately was seen in the ER at [facility], and was started initially on doxycycline. Ultimately was found to have staph epidermidis, resistant to most penicillins and cephalosporins but sensitive to fluoroquinolones and vancomycin. He was started on ciprofloxacin. He was on that for about 7 to 10 days and then had repeat blood cultures drawn and unfortunately were still persistent. However, within 48 hours of being on Cipro the fevers went away. And the fevers have not returned. He has not really complained of productive sputum, cough. No other symptoms of infection. He has known longstanding MDS, we are giving erythropoietin stimulating agents for this. His platelet count is persistently been usually 60-70,000. Hemoglobin in the 9-10 range usually. Because his cultures were persistently positive, we decided on admission for IV antibiotics and repeat cultures. And a decision to be made on what to do with the pacemaker. Of note the pacemaker was originally placed in [place]. Past Medical History Cardiac Medical History: Reports: Congestive Heart Failure, Coronary Artery Disease, Hyperlipidema, Hypertension Denies: Atrial Fibrillation, Myocardial Infarction, Peripheral Vascular Disease, Heart Murmur Pulmonary Medical History: Denies: Asthma, Bronchitis, Chronic Obstructive Pulmonary Disease (COPD), Pneumonia, Tuberculosis Neurological Medical History: Denies: Seizures Endocrine Medical History: Reports: Diabetes Mellitus Type 2 Denies: Diabetes Mellitus Type 1 Renal/ Medical History: Reports: Chronic Kidney Disease Denies: End Stage Renal Disease Malignancy Medical History: Denies: Leukemia GI Medical History: Reports: Gastroesophageal Reflux Disease Denies: Crohn's Disease, Hiatal Hernia Musculoskeltal Medical History: Reports: Arthritis Psychiatric Medical History: Denies: Depression Hematology: Reports: Anemia, Other - MDS Denies: Hemophilia, Sickle Cell Disease Infectious Medical History: Denies: HIV Past Surgical History Past Surgical History: Reports: Internal Defibrillator Denies: Appendectomy, Cholecystectomy, Colostomy, Coronary Artery Bypass Graft, Gastric Bypass Surgery, Herniorrhaphy, Pacemaker, Tonsillectomy Social History Information Source: Patient Smoking Status: Never Smoker Frequency of Alcohol Use: None Hx Recreational Drug Use: No Drugs: None Hx Prescription Drug Abuse: No Family History Family History: Reviewed & Not Pertinent Parental Family History Reviewed: Yes Children Family History Reviewed: Yes Sibling(s) Family History Reviewed.: Yes Medication/Allergy Home Medications: Carvedilol [Coreg 25 mg Tablet] 25 mg PO Q12 03/07/19 Cholecalciferol (Vitamin D3) [Vitamin D3 1000 Unit Tablet] 2,000 unit PO DAILY 03/07/19 Furosemide [Lasix 40 mg Tablet] 40 mg PO DAILY 03/07/19 Iron Ps Complex/B12/Folic Acid [Ferrex 150 Forte Capsule] 150 mg PO BID 03/07/19 Isosorbide Mononitrate [Imdur 60 mg Tablet.er] 60 mg PO DAILY 03/07/19 Omeprazole 40 mg PO DAILY 03/07/19 Potassium Chloride [Klor-Con 10 Meq Tablet ER] 20 meq PO DAILY 03/07/19 Pravastatin Sodium [Pravachol] 40 mg PO QHS 03/07/19 Tamsulosin HCl [Flomax 0.4 mg Cap.sr] 0.4 mg PO QPM 03/07/19 Amlodipine Besylate [Norvasc 5 mg Tablet] 5 mg PO DAILY 10/22/19 Clonidine HCl [Catapres 0.1 mg Tablet] 0.1 mg PO Q8 10/22/19 Allergies/Adverse Reactions: No Known Allergies Allergy (Verified 10/22/19 13:34) Review of Systems Constitutional: ABSENT: chills, fever(s), headache(s), weight gain, weight loss Eyes: ABSENT: visual disturbances Ears: ABSENT: hearing changes Cardiovascular: ABSENT: chest pain, dyspnea on exertion, edema, orthropnea, palpitations Respiratory: ABSENT: cough, hemoptysis Gastrointestinal: ABSENT: abdominal pain, constipation, diarrhea, hematemesis, hematochezia, nausea, vomiting Genitourinary: ABSENT: dysuria, hematuria Musculoskeletal: ABSENT: joint swelling Integumentary: ABSENT: rash, wounds Neurological: ABSENT: abnormal gait, abnormal speech, confusion, dizziness, focal weakness, syncope Psychiatric: ABSENT: anxiety, depression, homidical ideation, suicidal ideation Endocrine: ABSENT: cold intolerance, heat intolerance, polydipsia, polyuria Hematologic/Lymphatic: ABSENT: easy bleeding, easy bruising Physical Exam Vital Signs: Temp Pulse Resp BP Pulse Ox 98.1 F 74 18 134/38 H 98 10/23/19 01:18 10/23/19 07:00 10/23/19 01:18 10/23/19 01:18 10/23/19 01:18 Intake & Output 10/22/19 10/23/19 10/24/19 06:59 06:59 06:59 Intake Total 610 Output Total 400 Balance 210 Weight 83.8 kg General appearance: PRESENT: no acute distress, well-developed, well-nourished Head exam: PRESENT: atraumatic, normocephalic Eye exam: PRESENT: conjunctiva pink, EOMI, PERRLA. ABSENT: scleral icterus Ear exam: PRESENT: normal external ear exam Mouth exam: PRESENT: moist, tongue midline Neck exam: ABSENT: carotid bruit, JVD, lymphadenopathy, thyromegaly Respiratory exam: PRESENT: clear to auscultation diony. ABSENT: rales, rhonchi, wheezes Cardiovascular exam: PRESENT: RRR. ABSENT: diastolic murmur, rubs, systolic murmur Pulses: PRESENT: normal dorsalis pedis pul Vascular exam: PRESENT: normal capillary refill GI/Abdominal exam: PRESENT: normal bowel sounds, soft. ABSENT: distended, guarding, mass, organolmegaly, rebound, tenderness Rectal exam: PRESENT: deferred Extremities exam: PRESENT: full ROM. ABSENT: calf tenderness, clubbing, pedal e greg Neurological exam: PRESENT: alert, awake, oriented to person, oriented to place, oriented to time, oriented to situation, CN II-XII grossly intact. ABSENT: motor sensory deficit Psychiatric exam: PRESENT: appropriate affect, normal mood. ABSENT: homicidal ideation, suicidal ideation Skin exam: PRESENT: dry, intact, warm. ABSENT: cyanosis, rash Results Laboratory Results: 10/23/19 05:31 10/22/19 14:41 10/22/19 10/22/19 10/22/19 13:10 14:41 14:41 WBC 5.5 RBC 3.58 L Hgb 10.0 L Hct 28.9 L MCV 81 MCH 27.8 MCHC 34.5 RDW 16.7 H Plt Count 64 L Seg Neutrophils % Not Reportable Sodium 138.6 Potassium 3.9 Chloride 105 Carbon Dioxide 23 Anion Gap 11 BUN 19 Creatinine 1.43 H Est GFR ( Amer) > 60 Glucose 88 Calcium 9.2 Magnesium Total Bilirubin 0.6 AST 20 Alkaline Phosphatase 117 Total Protein 8.7 H Albumin 4.1 Urine Color YELLOW Urine Appearance CLEAR Urine pH 6.0 Ur Specific [place] 1.011 Urine Protein NEGATIVE Urine Glucose (UA) NEGATIVE Urine Ketones NEGATIVE Urine Blood SMALL H Urine RBC (Auto) 1 10/23/19 10/23/19 05:31 05:31 WBC 4.6 RBC 3.41 L Hgb 9.7 L Hct 27.2 L MCV 80 MCH 28.3 MCHC 35.4 RDW 17.0 H Plt Count 53 L Seg Neutrophils % Not Reportable Sodium Potassium Chloride Carbon Dioxide Anion Gap BUN Creatinine Est GFR ( Amer) Glucose Calcium Magnesium 2.3 Total Bilirubin AST Alkaline Phosphatase Total Protein Albumin Urine Color Urine Appearance Urine pH Ur Specific [place] Urine Protein Urine Glucose (UA) Urine Ketones Urine Blood Urine RBC (Auto) Impressions: Abdomen/Pelvis CT 10/22/19 00:00 IMPRESSION: 1. Left hydronephrosis and dilated renal pelvis and proximal ureter. The findings look relatively chronic, although are more pronounced compared to 2011. No evidence of obstructing stone or mass. Correlate with renal symptoms and any evidence of hematuria. Chest CT 10/22/19 00:00 IMPRESSION: 1. Consolidation in the right middle and upper lobe consistent with pneumonia. 2. Moderate cardiomegaly with small pericardial effusion. 3. Moderate left hydronephrosis and prominent left extrarenal pelvis has increased since previous examination, possibly representing a UPJ obstruction. Clinical correlation and correlation with patient's symptoms recommended. Ultrasound may provide additional information. Chest X-Ray 10/22/19 13:38 IMPRESSION: Enlarged cardiac silhouette with central vascular congestion. No overt edema. Assessment & Plan - Diagnosis (1) Bacteremia Is this a current diagnosis for this admission?: Yes Plan: Patient with persistent bacteremia, awaiting most recent culture results. Awaiting ID consult. Continue with current antibiotics. Patient has been s tarted on cefepime by Dr. Granados because of the pneumonia findings on CT. Although interestingly the patient does not seem to have really signs or symptoms of pneumonia. He does have persistent hydronephrosis that is been longstanding and not changed on recent imaging. 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 (3) Thrombocytopenia Is this a current diagnosis for this admission?: Yes Plan: Generally stable, secondary to MDS and chronic, will follow. Really would transfuse only if platelet counts get under 10. - Time Time Spent: Greater than 70 Minutes
[2019-10-23] MEDS: PANTOPRAZOLE SODIUM 40 MG TABLET.DR PO SCH (09:41)
[2019-10-23] MEDS: FUROSEMIDE 40 MG TABLET PO SCH (09:41)
[2019-10-23] MEDS: CHOLECALCIFEROL (D3) 1,000 UNIT (25 MCG) TABLET PO SCH (09:41)
[2019-10-23] MEDS: AMLODIPINE BESYLATE 5 MG TABLET PO SCH (09:42)
[2019-10-23] MEDS: CARVEDILOL 12.5 MG TABLET PO SCH ×2 (09:42→21:44)
[2019-10-23] MEDS: ISOSORBIDE MONONITRATE 60 MG TAB.ER.24H PO SCH (09:42)
[2019-10-23] MEDS: POTASSIUM CHLORIDE 10 MEQ TABLET.ER PO SCH (09:42)
[2019-10-23] MEDS: CEFEPIME 1 GM/D5W RTU 1 GM/50 ML RTUPB IV SCH ×2 (09:43→21:44)
[2019-10-23] MEDS: IRON POLYSACCHARIDES COMPLEX 150 MG CAPSULE PO SCH ×2 (09:44→17:11)
--- NOTE | 2019-10-23 10:29 | PDOC PROGRESS REPORT ---
Subjective Progress Note for:: 10/23/19 Subjective:: Patient is currently doing well Patient CT of the chest was done with so some current upper mild infiltrate but patient does not have any pneumonialike symptoms but may possible patient having the beginning of a fever and chills trigger from that sources unclear etiology at this point Patient also have a hydronephrosis in the kidney which persistent patients does not have any urinary symptoms patient see the urology Dr. momin Patient is otherwise afebrile denied any chest pain no short of breath no cough no congestions Patient is all staph epidermidis culture was sensitive to the jessica quinolone once we start the patient on the Cipro patients feel better and afebrile only question is the defibrillator patient have it needs to be any address that issue will wait for the infectious disease consult and wait for the repeat blood culture today Discussed with the patient's cardiology have echocardiogram done Did not see any issue with the vegetations Discussed with the patient and the in the room's we will continue to monitor wait for the blood culture report Reason For Visit: POSITIVE BLOOD CULTURE Physical Exam Vital Signs: Temp Pulse Resp BP Pulse Ox 98.1 F 74 18 134/38 H 98 10/23/19 01:18 10/23/19 07:00 10/23/19 01:18 10/23/19 01:18 10/23/19 01:18 Intake & Output 10/22/19 10/23/19 10/24/19 06:59 06:59 06:59 Intake Total 610 100 Output Total 400 Balance 210 100 Weight 83.8 kg General appearance: PRESENT: no acute distress, well-developed, well-nourished Head exam: PRESENT: atraumatic, normocephalic Eye exam: PRESENT: conjunctiva pink, EOMI, PERRLA. ABSENT: scleral icterus Ear exam: PRESENT: normal external ear exam Mouth exam: PRESENT: moist, tongue midline Neck exam: PRESENT: full ROM. ABSENT: carotid bruit, JVD, lymphadenopathy, thyromegaly Respiratory exam: PRESENT: clear to auscultation diony Cardiovascular exam: PRESENT: RRR. ABSENT: diastolic murmur, rubs, systolic murmur Pulses: PRESENT: normal dorsalis pedis pul, +2 pedal pulses bilateral Vascular exam: PRESENT: normal capillary refill GI/Abdominal exam: PRESENT: normal bowel sounds, soft. ABSENT: distended, guarding, mass, organolmegaly, rebound, tenderness Rectal exam: PRESENT: deferred Musculoskeletal exam: PRESENT: ambulatory Neurological exam: PRESENT: alert, awake, oriented to person, oriented to place, oriented to time, oriented to situation, CN II-XII grossly intact. ABSENT: motor sensory deficit Psychiatric exam: PRESENT: appropriate affect, normal mood. ABSENT: homicidal ideation, suicidal ideation Skin exam: PRESENT: dry, intact, warm. ABSENT: cyanosis, rash Results Laboratory Results: 10/23/19 05:31 10/22/19 14:41 10/22/19 10/22/19 10/22/19 13:10 14:41 14:41 WBC 5.5 RBC 3.58 L Hgb 10.0 L Hct 28.9 L MCV 81 MCH 27.8 MCHC 34.5 RDW 16.7 H Plt Count 64 L Seg Neutrophils % Not Reportable Sodium 138.6 Potassium 3.9 Chloride 105 Carbon Dioxide 23 Anion Gap 11 BUN 19 Creatinine 1.43 H Est GFR ( Amer) > 60 Glucose 88 Calcium 9.2 Magnesium Total Bilirubin 0.6 AST 20 Alkaline Phosphatase 117 Total Protein 8.7 H Albumin 4.1 Urine Color YELLOW Urine Appearance CLEAR Urine pH 6.0 Ur Specific [place] 1.011 Urine Protein NEGATIVE Urine Glucose (UA) NEGATIVE Urine Ketones NEGATIVE Urine Blood SMALL H Urine RBC (Auto) 1 10/23/19 10/23/19 05:31 05:31 WBC 4.6 RBC 3.41 L Hgb 9.7 L Hct 27.2 L MCV 80 MCH 28.3 MCHC 35.4 RDW 17.0 H Plt Count 53 L Seg Neutrophils % Not Reportable Sodium Potassium Chloride Carbon Dioxide Anion Gap BUN Creatinine Est GFR ( Amer) Glucose Calcium Magnesium 2.3 Total Bilirubin AST Alkaline Phosphatase Total Protein Albumin Urine Color Urine Appearance Urine pH Ur Specific [place] Urine Protein Urine Glucose (UA) Urine Ketones Urine Blood Urine RBC (Auto) Impressions: Abdomen/Pelvis CT 10/22/19 00:00 IMPRESSION: 1. Left hydronephrosis and dilated renal pelvis and proximal ureter. The findings look relatively chronic, although are more pronounced compared to 2010. No evidence of obstructing stone or mass. Correlate with renal symptoms and any evidence of hematuria. Chest CT 10/22/19 00:00 IMPRESSION: 1. Consolidation in the right middle and upper lobe consistent with pneumonia. 2. Moderate cardiomegaly with small pericardial effusion. 3. Moderate left hydronephrosis and prominent left extrarenal pelvis has increased since previous examination, possibly representing a UPJ obstruction. Clinical correlation and correlation with patient's symptoms recommended. Ultrasound may provide additional information. Chest X-Ray 10/22/19 13:38 IMPRESSION: Enlarged cardiac silhouette with central vascular congestion. No overt edema. Assessment & Plan - Diagnosis (1) Positive blood cultures Is this a current diagnosis for this admission?: Yes Plan: Will continues the IV antibiotics I am not sure the source of the infections at this point with the CT of the chest suggesting the right-sided inflammatory or infectious process but patient does not have any pulmonary symptoms we will continues cover with the antibiotic Will wait for the blood cultures only question have a ongoing positive blood cultures with this defibrillator will wait for the ID consult and the cardiology have already echo done is to do a [place] or needs to evaluate the defibrillator will wait for the culture first and ID consult first (2) Anemia Qualifiers: Anemia type: bone marrow failure Bone marrow failure anemia type: myelophthisis Qualified Code(s): D61.82 - Myelophthisis Is this a current diagnosis for this admission?: Yes Plan: Currently all stable (3) Cardiomyopathy Qualifiers: Cardiomyopathy type: unspecified Qualified Code(s): I42.9 - Cardiomyopathy, unspecified Is this a current diagnosis for this admission?: Yes Plan: Currently all stable (4) Chronic kidney disease Qualifiers: Chronic kidney disease stage: stage 3 (moderate) Qualified Code(s): N18.3 - Chronic kidney disease, stage 3 (moderate) Is this a current diagnosis for this admission?: Yes Plan: Stable (5) Thrombocytopenia Is this a current diagnosis for this admission?: Yes Plan: Currently follow with oncology (6) CAD (coronary artery disease) Qualifiers: Coronary Disease-Associated Artery/Lesion type: [place] artery Associated angina: without angina Is this a current diagnosis for this admission?: Yes Plan: stable (7) CHF (congestive heart failure) Qualifiers: Heart failure type: combined systolic and diastolic Heart failure chronic ity: chronic Qualified Code(s): I50.42 - Chronic combined systolic (congestive) and diastolic (congestive) heart failure Is this a current diagnosis for this admission?: Yes Plan: Continues the Lasix (8) HTN (hypertension) Qualifiers: Hypertension type: essential hypertension Is this a current diagnosis for this admission?: Yes Plan: Currently all stable (9) Myelodysplastic syndrome Is this a current diagnosis for this admission?: Yes Plan: Follow-up with oncology (10) Pneumonia Qualifiers: Pneumonia type: due to unspecified organism Laterality: right Is this a current diagnosis for this admission?: Yes Plan: Patient does not have any clinically any symptoms. Because of the positive bacteremia will cover with antibiotic (11) Hydronephrosis Qualifiers: Hydronephrosis type: unspecified Qualified Code(s): N13.30 - Unspecified hydronephrosis Is this a current diagnosis for this admission?: Yes Plan: Currently all stable patient see outpatients urology no sign of any obstructions (12) Bacteremia Is this a current diagnosis for this admission?: Yes Plan: Continues to IV antibiotic - Time Time Spent with patient: 25-34 minutes Level of Care: TELE Medications reviewed and adjusted accordingly: Yes Anticipated discharge: Home Within: Other - Plan Summary Plan Summary: Continues to current medications discussed with the patient and the
--- NOTE | 2019-10-23 16:47 | PDOC CONSULTATION ---
Consultation-Blank Consultation: CARDIOLOGY CONSULTATION by Dr. Zahra Odell on 10/23/2019. Patient seen at 3 PM. 60 minutes spent on patient with more than 50% time spent in direct patient care. REASON FOR CONSULTATION: Patient with a history of cardiomyopathy and AICD placement in the past with persistently positive blood cultures for staph and left coccus epididymitis.? AICD system source of the patient's continued positive blood culture/infection. CONSULT REQUESTING PHYSICIAN: Dr. Payton. HISTORY OF PRESENT ILLNESS: Patient is a 64-year-old Afro-[place] male with known history of hypertension dilated nonischemic cardiomyopathy history of AICD placement, myelodysplastic syndrome with anemia and thrombocytopenia, who was ad mitted with persistently positive blood cultures for Staphylococcus epidermidis. The patient a few weeks ago had night sweats and a fever of 101.3 and was diagnosed with an infective process and was given doxycycline after obtaining blood for CBC analysis and blood cultures. The CBC was within normal limits but the blood culture came back positive for Staphylococcus epidermidis which was resistant to all antibiotics except Levaquin and vancomycin. The patient subsequently was switched to Levaquin. Although his fever subsided and did not recur and he had no symptoms of cough or sputum production the patient's blood culture continues to be positive for Staphylococcus epidermidis. Hence the question arose whether the AICD system could be affected. The patient denies any recent fevers after the prior episode bacteriuria. He denies any shortness of breath. There is no PND orthopnea no firing of the AICD. There is no chest pain or discomfort. There is no palpitations near syncope or syncope. There is no symptoms of TIA or CVA. Although the patient remains asymptomatic with a normal white count the patient's CT scan of the chest shows a infiltrate in the right middle lobe of the lung and also right upper lobe. This possibly could be the cause of the patient's blood cultures. But need I agree that we need to absolutely make sure that the AICD system is not the cause for the patient's persistent bacteremia. Past Medical History Cardiac Medical History: Reports: Congestive Heart Failure, Coronary Artery Disease, [in the past with the patient had significant cardiomyopathy he had a cardiac catheterization which showed no history of coronary artery disease and a diagnosis of nonischemic dilated cardiomyopathy was made. Hyperlipidema, Hypertension. He has a history of aortic regurgitation. Denies: Atrial Fibrillation, Myocardial Infarction,. Although he denies myocardial infarction his recent stress test suggests old inferior wall myocardial infarction. He denies peripheral Vascular Disease. Pulmonary Medical History: Denies: Asthma, Bronchitis, Chronic Obstructive Pulmonary Disease (COPD), Pneumonia, Tuberculosis Neurological Medical History: Denies: Seizures Endocrine Medical History: Reports: Diabetes Mellitus Type 2 Denies: Diabetes Mellitus Type 1 Renal/ Medical History: Reports: Chronic Kidney Disease Denies: End Stage Renal Disease Malignancy Medical History: Denies: Leukemia GI Medical History: Reports: Gastroesophageal Reflux Disease Denies: Crohn's Disease, Hiatal Hernia Musculoskeltal Medical History: Reports: Arthritis Psychiatric Medical History: Denies: Depression Hematology: Reports: Anemia Denies: Hemophilia, Sickle Cell Disease Hematology History Note: Myelodysplastic syndrome and thrombocytopenia Infectious Medical History: Denies: HIV Past Surgical History Past Surgical History: Reports: Internal Defibrillator. History of cardiac catheterization. Denies: Appendectomy, Cholecystectomy, Colostomy, Coronary Artery Bypass Graft, Gastric Bypass Surgery, Herniorrhaphy, Tonsillectomy Social History Information Source: Patient Smoking Status: Never Smoker Frequency of Alcohol Use: None Hx Recreational Drug Use: No Drugs: None Hx Prescription Drug Abuse: No Family History Family History: Reviewed & Not Pertinent Parental Family History Reviewed: Yes Children Family History Reviewed: Yes Sibling(s) Family History Reviewed.: Yes RESUSCITATION STATUS: The patient is a full code. His daughter is his surrogate healthcare decision maker. Medication/Allergy Home Medications: Carvedilol [Coreg 25 mg Tablet] 25 mg PO Q12 03/07/19 Cholecalciferol (Vitamin D3) [Vitamin D3 1000 Unit Tablet] 2,000 unit PO DAILY 03/07/19 Furosemide [Lasix 40 mg Tablet] 40 mg PO DAILY 03/07/19 Iron Ps Complex/B12/Folic Acid [Ferrex 150 Forte Capsule] 150 mg PO BID 03/07/19 Isosorbide Mononitrate [Imdur 60 mg Tablet.er] 60 mg PO DAILY 03/07/19 Omeprazole 40 mg PO DAILY 03/07/19 Potassium Chloride [Klor-Con 10 Meq Tablet ER] 20 meq PO DAILY 03/07/19 Pravastatin Sodium [Pravachol] 40 mg PO QHS 03/07/19 Tamsulosin HCl [Flomax 0.4 mg Cap.sr] 0.4 mg PO QPM 06/19/19 Amlodipine Besylate [Norvasc 5 mg Tablet] 5 mg PO DAILY 10/22/19 Clonidine HCl [Catapres 0.1 mg Tablet] 0.1 mg PO Q8 10/22/19 Allergies/Adverse Reactions: No Known Allergies Allergy (Verified 10/22/19 13:34) Current Medications Acetaminophen (Tylenol 325 Mg Tablet) 650 mg PO Q4HP PRN PRN Reason: FOR PAIN OR TEMP Stop: 11/21/19 14:01 Amlodipine Besylate (Norvasc 5 Mg Tablet) 5 mg PO DAILY BRIAN Stop: 11/22/19 09:59 Last Admin: 10/23/19 09:42 Dose: 5 mg Documented by: Atorvastatin Calcium (Lipitor 10 Mg Tablet) 10 mg PO QHS BRIAN Stop: 11/21/19 21:59 Last Admin: 10/23/19 21:44 Dose: 10 mg Documented by: Carvedilol (Coreg 12.5 Mg Tablet) 25 mg PO Q12 BRIAN Stop: 11/21/19 21:59 Last Admin: 10/23/19 21:44 Dose: 25 mg Documented by: Cholecalciferol (Vitamin D3 1000 Unit Tablet) 2,000 unit PO DAILY BRIAN Stop: 11/22/19 09:59 Last Admin: 10/23/19 09:41 Dose: 2,000 unit Documented by: Clonidine (Catapres 0.1 Mg Tablet) 0.1 mg PO Q8 BRIAN Stop: 11/21/19 21:59 Last Admin: 10/23/19 21:44 Dose: Not Given Documented by: Furosemide (Lasix 40 Mg Tablet) 40 mg PO DAILY BRIAN Stop: 11/22/19 09:59 Last Admin: 10/23/19 09:41 Dose: 40 mg Documented by: Cefepime HCl (Maxipime Rtu 1 Gm/D5w 50 Ml Premix Bag) 1 gm in 50 mls @ 100 mls/hr IV Q12 BRIAN Stop: 10/29/19 21:59 Last Admin: 10/23/19 21:44 Dose: 100 mls/hr, 100 mls/hr Documented by: Levofloxacin/Dextrose (Levaquin Rtu 500mg/D5w 100 Ml Premix) 500 mg in 100 mls @ 100 mls/hr IV QAM BRIAN Stop: 10/30/19 07:59 Last Infusion: 02/04/20 09:15 Dose: Infused Documented by: Isosorbide Mononitrate (Imdur 60 Mg Tablet.Er) 60 mg PO DAILY BRIAN Stop: 11/22/19 09:59 Last Admin: 10/23/19 09:42 Dose: 60 mg Documented by: Pantoprazole Sodium (Protonix [address] Tablet) 40 mg PO DAILY BRIAN Stop: 11/22/19 09:59 Last Admin: 10/23/19 09:41 Dose: 40 mg Documented by: Polysaccharide Iron Complex (Nu-Iron 150 Capsule) 150 mg PO BID BRIAN Stop: 11/21/19 17:59 Last Admin: 10/23/19 17:11 Dose: 150 mg Documented by: Potassium Chloride (Klor-Con 10 Meq Tablet Er) 20 meq PO DAILY BRIAN Stop: 11/22/19 09:59 Last Admin: 10/23/19 09:42 Dose: 20 meq Documented by: Tamsulosin HCl (Flomax 0.4 Mg Cap.Sr) 0.4 mg PO QPM BRIAN Stop: 11/21/19 17:59 Last Admin: 10/23/19 17:11 Dose: 0.4 mg Documented by: Review of Systems Constitutional: ABSENT: chills, fever(s), headache(s), weight gain, weight loss Eyes: ABSENT: visual disturbances Ears: ABSENT: hearing changes Cardiovascular: ABSENT: chest pain, dyspnea on exertion, edema, orthropnea, palpitations Respiratory: ABSENT: cough, hemoptysis Gastrointestinal: ABSENT: abdominal pain, constipation, diarrhea, hematemesis, hematochezia, nausea, vomiting Genitourinary: ABSENT: dysuria, hematuria Musculoskeletal: ABSENT: joint swelling Integumentary: ABSENT: rash, wounds Neurological: ABSENT: abnormal gait, abnormal speech, confusion, dizziness, focal weakness, syncope Psychiatric: ABSENT: anxiety, depression, homidical ideation, suicidal ideation Endocrine: ABSENT: cold intolerance, heat intolerance, menstrual abnormalities, polydipsia, polyuria Hematologic/Lymphatic: ABSENT: easy bleeding, easy bruising, lymphadenopathy Physical Exam the patient is mildly overweight. Is well-groomed in no acute distress. Selected Entries 10/23/19 15:27 Temperature 98.5 F Temperature Oral Source Pulse Rate 72 Respiratory 17 Rate Blood Pressure 131/40 H Blood Pressure 70 Mean BP Location Left Arm BP Position Supine O2 Sat by Pulse 97 Oximetry Oxygen Delivery Room Air Method HEAD: Is atraumatic normocephalic. EYES: Pupils are equal round regular reactive to light and accommodation. External ocular movements are normal. There is no conjunctival pallor. There is no scleral icterus. EARS: Tympanic membranes are intact. External auditory canals are clear. NOSE: There is no deviated nasal septum. There is no inflammation of these mucous membrane. MOUTH: Mucous membranes of mouth are moist tongue is moist there is no ulcers. THROAT: There is no redness of the oropharynx. There is no exudates. SKIN: There is no skin rashes or petechiae. There is no skin lesions or skin rashes. There is no ecchymosis. NECK: Is supple. There is no JVD. There is no goiter. There is no lymphadenopathy. Carotids are equal there is no bruits. There is no lymphadenopathy. There is no accessory muscles of respiration use. Trachea central. LUNGS: There is a few dry crackles in the right mid zone and right upper lobe. Otherwise the lungs are clear without any rhonchi or wheezing. There is no rales of CHF. HEART: S1-S2 is heard. S1 is of normal intensity. There is no S3 gallop. There is no S4 gallop. There is murmur of aortic sclerosis present, with preserved A2 sound. There is also a 2 x 6 diastolic murmur of aortic regurgitation present. There is a collapsing pulse, but no other peripheral signs of aortic regurgitation. There is no rub. ABDOMEN: Is soft. There is no paraspinal megaly. Bowel sounds are well heard. There is no tender areas masses. There is no rebound guarding or rigidity especially detailed examination failed to reveal splenomegaly. There is no ascites. EXTREMITIES: Femorals are deep femorals are slightly diminished. There is no femoral bruits. Leg pulses are well felt. There is no pedal edema. There is no DVT or cellulitis. There is no signs cyanosis. X finger nails and toenails showed no evidence of clubbing or cyanosis. There is no splinter hemorrhages. [employer]: The patient is conscious awake alert oriented x3 with no focal deficits. PSYCHIATRIC: The patient judgment insight are intact his affect is normal. EKG strip shows sinus rhythm with narrow QRS complex. We will get a 12-lead EKG. Labs- Entire Visit 10/22/19 10/22/19 10/22/19 13:10 14:41 14:41 WBC 5.5 RBC 3.58 L Hgb 10.0 L Hct 28.9 L MCV 81 MCH 27.8 MCHC 34.5 RDW 16.7 H Plt Count 64 L Lymph % (Auto) Not Reportable [place] % (Auto) Not Reportable Eos % (Auto) Not Reportable Baso % (Auto) Not Reportable Absolute Neuts (auto) Not Reportable Absolute Lymphs (auto) Not Reportable Absolute Monos (auto) Not Reportable Absolute Eos (auto) Not Reportable Absolute Basos (auto) Not Reportable Total Counted 100 Seg Neutrophils % Not Reportable Seg Neuts % (Manual) 49 Band Neutrophils % Lymphocytes % (Manual) 7 L Monocytes % (Manual) 44 H Eosinophils % (Manual) 0 Basophils % (Manual) 0 Abs Neuts (Manual) 2.7 Abs Lymphs (Manual) 0.4 L Abs Monocytes (Manual) 2.4 H Absolute Eos (Manual) 0.0 Abs Basophils (Manual) 0.0 Large Platelets PRESENT Giant Platelets PRESENT Platelet Comment DECREASED Anisocytosis 1+ Microcytosis Sodium 138.6 Potassium 3.9 Chloride 105 Carbon Dioxide 23 Anion Gap 11 BUN 19 Creatinine 1.43 H Est GFR ( Amer) > 60 Est GFR (MDRD) Non-Af 49 L Glucose 88 Calcium 9.2 Magnesium Total Bilirubin 0.6 Direct Bilirubin 0.1 Neonat Total Bilirubin Not Reportable Neonat Direct Bilirubin Not Reportable Neonat Indirect Bili Not Reportable AST 20 ALT 8 Alkaline Phosphatase 117 Total Protein 8.7 H Albumin 4.1 Urine Color YELLOW Urine Appearance CLEAR Urine pH 6.0 Ur Specific [place] 1.011 Urine Protein NEGATIVE Urine Glucose (UA) NEGATIVE Urine Ketones NEGATIVE Urine Blood SMALL H Urine Nitrite (Reflex) NEGATIVE Urine Bilirubin NEGATIVE Urine Urobilinogen NEGATIVE Leukocyte Esterase Rfl NEGATIVE Urine RBC (Auto) 1 U Hyaline Cast (Auto) 3 Urine WBC (Reflex) 1 Squamous Epi Cells Auto <1 Urine Mucus (Auto) OCC Urine Ascorbic Acid NEGATIVE Monotest 10/22/19 10/23/19 10/23/19 17:10 05:31 05:31 WBC 4.6 RBC 3.41 L Hgb 9.7 L Hct 27.2 L MCV 80 MCH 28.3 MCHC 35.4 RDW 17.0 H Plt Count 53 L Lymph % (Auto) Not Reportable [place] % (Auto) Not Reportable Eos % (Auto) Not Reportable Baso % (Auto) Not Reportable Absolute Neuts (auto) Not Reportable Absolute Lymphs (auto) Not Reportable Absolute Monos (auto) Not Reportable Absolute Eos (auto) Not Reportable Absolute Basos (auto) Not Reportable Total Counted 100 Seg Neutrophils % Not Reportable Seg Neuts % (Manual) 49 Band Neutrophils % 4 Lymphocytes % (Manual) 18 Monocytes % (Manual) 29 H Eosinophils % (Manual) 0 Basophils % (Manual) 0 Abs Neuts (Manual) 2.4 Abs Lymphs (Manual) 0.8 Abs Monocytes (Manual) 1.3 Absolute Eos (Manual) 0.0 Abs Basophils (Manual) 0.0 Large Platelets PRESENT Giant Platelets Platelet Comment DECREASED Anisocytosis 1+ Microcytosis SLIGHT Sodium Potassium Chloride Carbon Dioxide Anion Gap BUN Creatinine Est GFR ( Amer) Est GFR (MDRD) Non-Af Glucose Calcium Magnesium 2.3 Total Bilirubin Direct Bilirubin Neonat Total Bilirubin Neonat Direct Bilirubin Neonat Indirect Bili AST ALT Alkaline Phosphatase Total Protein Albumin Urine Color Urine Appearance Urine pH Ur Specific [place] Urine Protein Urine Glucose (UA) Urine Ketones Urine Blood Urine Nitrite (Reflex) Urine Bilirubin Urine Urobilinogen Leukocyte Esterase Rfl Urine RBC (Auto) U Hyaline Cast (Auto) Urine WBC (Reflex) Squamous Epi Cells Auto Urine Mucus (Auto) Urine Ascorbic Acid Monotest NEGATIVE Abdomen/Pelvis CT 10/22/19 00:00 IMPRESSION: 1. Left hydronephrosis and dilated renal pelvis and proximal ureter. The findings look relatively chronic, although are more pronounced compared to 2010. No evidence of obstructing stone or mass. Correlate with renal symptoms and any evidence of hematuria. Chest CT 10/22/19 00:00 IMPRESSION: 1. Consolidation in the right middle and upper lobe consistent with pneumonia. 2. Moderate cardiomegaly with small pericardial effusion. 3. Moderate left hydronephrosis and prominent left extrarenal pelvis has increased since previous examination, possibly representing a UPJ obstruction. Clinical correlation and correlation with patient's symptoms recommended. Ultrasound may provide additional information. Chest X-Ray 10/22/19 13:38 IMPRESSION: Enlarged cardiac silhouette with central vascular congestion. No overt edema. OFFICE TESTS: The patient had an echocardiogram on 10/08/2019.: This shows that the left ventricle is moderately dilated. There is mild concentric left ventricle hypertrophy. There is moderate decrease in global wall motion with LV ejection fraction moderately reduced at 45%. There is Doppler evidence of grade 1/mild diastolic dysfunction. The left atrial cavity is moderately to severely dilated dilated. The right ventricle cavity is normal in size normal right ventricle function. There is an AICD lead in the RV and RA. Right atrial cavity is mildly dilated. There is no evidence of aortic valve stenosis there is mild aortic valve leaflet thickening. There is no LVOT obstruction. There is mild to moderate aortic regurgitation. There is no mitral valve prolapse. There is no mitral stenosis. There is trace mitral regurgitation. There is trace tricuspid regurgitation with no evidence of tricuspid stenosis. There is mild pulmonary hypertension. Right ventricle systolic pressure is 33 mmHg with a RA mean of 10. There is no VSD, ASD or PFO. There is no pericardial effusion. Aortic root is normal. The IVC is normal in size with a respiratory response of greater than 50%. The patient had an IV Lexiscan Cardiolite stress test on 10/15/2019. There is moderate area of infarction in the basal inferior mid inferior and apical inferior abreu. There is no reversible ischemia. Overall left LV systolic function was abnormal with regional wall motion bodies with a left ventricle ejection fraction calculated to visually estimated to be 38%. Studies consistent with dilated and ischemic cardiomyopathy. Check echo for LV ejection fraction correlation. IMPRESSION/RECOMMENDATION: 1. History of fever night sweats and positive blood culture for Staphylococcus epididymis. Although the patient's fever night side sweats have resolved the patient continues to have persistent positive blood culture for Staphylococcus epididymis. Most likely this is secondary to the patient's pneumonia. 2. History of AICD placement: There is no clinical evidence of bacterial endocarditis. But prior to assuming that this positive blood culture secondary to AICD system infection would strongly recommend treat the patient pneumonia and see with the resolution of the pneumonia if the blood cultures become sterile. But in the meantime would recommend that the patient have a transesophageal echocardiograph he to be certain that there is lead and not infected. I spoken to Dr. Quincy Rodríguez who is willing to perform the [place] on this coming . 3. Right middle lobe and right upper lobe pneumonia: Continue aggressive antibiotics. 4. Cardiomyopathy dilated with? Ischemic component to the cardiomyopathy. LV ejection fraction is moderately reduced. Would recommend continuing the patient beta-wilian and his RADHA inhibitor. [Coreg and ramipril] 5. Hypertension: Blood pressure well controlled 6. Diabetes mellitus by history, but the patient not on any antidiabetic medication. Most likely diet-controlled diabetes mellitus. Would recommend check Accu-Cheks as per protocol. 7. Past history of renal insufficiency: At present GFR is greater than 60. Avoid nephrotoxic drugs. 8. Myelodysplastic syndrome: Oncology following the patient this admission. Medications reviewed. Medical management and medical regimen discussed with Dr. Payton. Medical decision making is of high complexity in view of the need for it differential diagnosis for the patient's fever. 60 minutes spent as patient more than 50% of time spent in direct patient care. Will follow
[2019-10-23] MEDS: TAMSULOSIN HCL 0.4 MG CAP.SR.24H PO SCH (17:11)
[2019-10-23] MEDS: ATORVASTATIN CALCIUM 10 MG TABLET PO SCH (21:44)
[2019-10-24] MEDS: CLONIDINE HCL 0.1 MG TABLET PO SCH ×3 (06:21→21:24)
[2019-10-24 06:33] LABS: HEMATOCRIT 28.1 % (37.9-51.0); HEMOGLOBIN 9.8 g/dL (13.5-17.0); MEAN CORPUSCULAR HEMOGLOBIN 28.1 pg (27.0-33.4); MEAN CORPUSCULAR VOLUME 80 fl (80-97); RED CELL DISTRIBUTION WIDTH 16.9 % (11.5-14.0); WHITE BLOOD COUNT 5.6 10^3/uL (4.0-10.5)
[2019-10-24 07:30] LABS: PLATELET COUNT 57 10^3/uL (150-450)
[2019-10-24 07:36] LABS: ABSOLUTE LYMPHOCYTES# (MANUAL) 0.7 10^3/uL (0.5-4.7); ABSOLUTE MONOCYTES # (MANUAL) 2.4 10^3/uL (0.1-1.4); BASOPHILS % (MANUAL) 0 % (0-2); EOSINOPHILS % (MANUAL) 0 % (0-6); LYMPHOCYTES % (MANUAL) 13 % (13-45); MONOCYTES % (MANUAL) 42 % (3-13); SEGMENTED NEUTROPHILS % (MAN) 45 % (42-78); TOTAL CELLS COUNTED 100
[2019-10-24 07:40] LABS: ANISOCYTOSIS 1+
[2019-10-24 07:42] LABS: PLATELET COMMENT DECREASED
--- NOTE | 2019-10-24 07:56 | Progress Note ---
Provider Note Provider Note: [facility] ID Telephone Advice Consultation Chart reviewed. Patient is a 64-year-old man with a history of MDS, ischemic cardiomyopathy, hypertension, hypercholesterolemia who was admitted due to persisitent Staphylococcus epidermidis bacteremia. Reviewing his chart, patient has bacteremia with Enterobacter spp back in August. A repeat blood culture 2 weeks later on 10/01 was positive for Staph epidermidis. He received doxycycline. A new blood culture on 10/10 was still positive for which he received ciprofloxacin. His blood culture on 10/22 positive again. Patient was initially complaining of fever and night sweats but these have resolved. He has a pacemaker/AICD but per cardiology note, no recent firing of the device. He has been afebrile and HD stable. A CT scan of the chest demonstrated a consolid ation in the right upper and middle lobes. He also has chronic left hydronephrosis. He was started on cefepime and levofloxacin. ID consulted for recommendations. PMH: Cardiomyopathy MDS Hypertension PSH: ICD placement Allergies: No Known Allergies Allergy (Verified 10/22/19 13:34) Medications: Carvedilol [Coreg 25 mg Tablet] 25 mg PO Q12 03/07/19 Cholecalciferol (Vitamin D3) [Vitamin D3 1000 Unit Tablet] 2,000 unit PO DAILY 03/07/19 Furosemide [Lasix 40 mg Tablet] 40 mg PO DAILY 03/07/19 Iron Ps Complex/B12/Folic Acid [Ferrex 150 Forte Capsule] 150 mg PO BID 03/07/19 Isosorbide Mononitrate [Imdur 60 mg Tablet.er] 60 mg PO DAILY 03/07/19 Omeprazole 40 mg PO DAILY 03/07/19 Potassium Chloride [Klor-Con 10 Meq Tablet ER] 20 meq PO DAILY 03/07/19 Pravastatin Sodium [Pravachol] 40 mg PO QHS 03/07/19 Tamsulosin HCl [Flomax 0.4 mg Cap.sr] 0.4 mg PO QPM 03/07/19 Amlodipine Besylate [Norvasc 5 mg Tablet] 5 mg PO DAILY 10/22/19 Clonidine HCl [Catapres 0.1 mg Tablet] 0.1 mg PO Q8 10/22/19 Vital Signs: Temp Pulse Resp BP Pulse Ox 98.8 F 71 20 124/43 L 97 10/23/19 19:51 10/24/19 02:00 10/23/19:51 10/23/19 19:51 10/23/19 19:51 Intake & Output 10/23/19 10/24/19 10/25/19 06:59 06:59 06:59 Intake Total 610 1540 Output Total 400 350 Balance 210 1190 Weight 83.8 kg 72.7 kg Weight/Height Weight 72.7 kg Height 5 ft 7 in Laboratories: 10/22/19 14:41 MCV 80 fl (80-97) 10/23/19 05:31 MCH 28.3 pg (27.0-33.4) 10/23/19 05:31 MCHC 35.4 g/dL (32.0-36.0) 10/23/19 05:31 RDW 17.0 % (11.5-14.0) H 10/23/19 05:31 Seg Neutrophils % Not Reportable 10/23/19 05:31 Chloride 105 mmol/L (98-107) 10/22/19 14:41 Carbon Dioxide 23 mmol/L (22-30) 10/22/19 14:41 Anion Gap 11 (5-19) 10/22/19 14:41 Est GFR ( Amer) > 60 (>60) 10/22/19 14:41 Glucose 88 mg/dL (75-110) 10/22/19 14:41 Calcium 9.2 mg/dL (8.4-10.2) 10/22/19 14:41 Magnesium 2.3 mg/dL (1.6-2.3) 10/23/19 05:31 Total Bilirubin 0.6 mg/dL (0.2-1.3) 10/22/19 14:41 AST 20 U/L (17-59) 10/22/19 14:41 Alkaline Phosphatase 117 U/L (38-126) 10/22/19 14:41 Total Protein 8.7 g/dL (6.3-8.2) H 10/22/19 14:41 Albumin 4.1 g/dL (3.5-5.0) 10/22/19 14:41 Urine Color YELLOW 10/22/19 13:10 Urine Appearance CLEAR 10/22/19 13:10 Urine pH 6.0 (5.0-9.0) 10/22/19 13:10 Ur Specific [place] 1.011 10/22/19 13:10 Urine Protein NEGATIVE mg/dL (NEGATIVE) 10/22/19 13:10 Urine Glucose (UA) NEGATIVE mg/dL (NEGATIVE) 10/22/19 13:10 Urine Ketones NEGATIVE mg/dL (NEGATIVE) 10/22/19 13:10 Urine Blood SMALL (NEGATIVE) H 10/22/19 13:10 Urine RBC (Auto) 1 /HPF 10/22/19 13:10 Microbiology: Blood cultures 10/01 MRSE 10/10 MRSE / MRSE Radiology: Abdomen/Pelvis CT 10/22/19 00:00 IMPRESSION: 1. Left hydronephrosis and dilated renal pelvis and proximal ureter. The findin gs look relatively chronic, although are more pronounced compared to 2011. No evidence of obstructing stone or mass. Correlate with renal symptoms and any evidence of hematuria. Chest CT 10/22/19 00:00 IMPRESSION: 1. Consolidation in the right middle and upper lobe consistent with pneumonia. 2. Moderate cardiomegaly with small pericardial effusion. 3. Moderate left hydronephrosis and prominent left extrarenal pelvis has increased since previous examination, possibly representing a UPJ obstruction. Clinical correlation and correlation with patient's symptoms recommended. Ultrasound may provide additional information. Chest X-Ray 10/22/19 13:38 IMPRESSION: Enlarged cardiac silhouette with central vascular congestion. No overt edema. Assessment and Recommendations: Patient with AICD evaluated due to persistent MRSE bacteremia. This bacteria is usually considered a skin contaminant, but it can cause infection in patients with cardiac devices, central catheters/ports or with orthopedic hardware. Per guidelines, a KENTON is needed to better assess the cardiac device and leads. He has MDS with thrombocytopenia not sure if he will need platelet transfusions prior to the procedure, will leave this to cardiology. If there is cardiac device infection, he needs cardiac surgery evaluation for the possibility of explantation of the device and 6 weeks of IV antibiotics. If not a surgical candidate, he'll need 6 weeks of IV antibiotics (vancomycin and rifampin) with lifelong suppressive therapy. If KENTON is negative for end ocarditis, 2 weeks of antibiotics from negative cultures is recommended with surveillance cultures 1 week after completion of therapy, however in the setting of persistent bacteremia, high suspicion for cardiac device infection. Vancomycin + rifampin 600 mg po daily is recommended, monitor GFR. If renal function worsens, daptomycin 8-10 mg/kg iv daily would be an alternative instead of vancomycin (would need baseline CK and hold statin due to increased muscle toxicity) For pneumonia, can try obtaining a sputum culture to target therapy. Patient with fever and night sweats, right upper and middle lobes consolidation. Not sure what his risk of aspiration is (if he has been having dysphagia recently?). Not known risk factor for TB, can explore for any recent traveling or exposure, previous testing. Cefepime and levofloxacin for 5 days is reasonable if no organism is isolated. Please call back if questions. Telma Loya MD [facility] [phone]
[2019-10-24] MEDS: LEVOFLOXACIN 500 MG/D5W RTU 500 MG/100 ML RTUPB IV SCH (08:01)
--- NOTE | 2019-10-24 08:18 | PDOC PROGRESS REPORT ---
Subjective Progress Note for:: 10/24/19 Subjective:: No acute events overnight Reason For Visit: POSITIVE BLOOD CULTURE Physical Exam Vital Signs: Temp Pulse Resp BP Pulse Ox 98.8 F 71 20 124/43 L 97 10/23/19 19:51 10/24/19 02:00 10/23/19 19:51 10/23/19 19:51 10/23/19 19:51 Intake & Output 10/23/19 10/24/19 10/25/19 06:59 06:59 06:59 Intake Total 610 2040 Output Total 400 350 Balance 210 1690 Weight 83.8 kg 80.1 kg General appearance: PRESENT: no acute distress, well-developed, well-nourished Head exam: PRESENT: atraumatic, normocephalic Eye exam: PRESENT: conjunctiva pink, EOMI, PERRLA. ABSENT: scleral icterus Ear exam: PRESENT: normal external ear exam Mouth exam: PRESENT: moist, tongue midline Neck exam: ABSENT: carotid bruit, JVD, lymphadenopathy, thyromegaly Respiratory exam: PRESENT: clear to auscultation diony. ABSENT: rales, rhonchi, wheezes Cardiovascular exam: PRESENT: RRR. ABSENT: diastolic murmur, rubs, systolic murmur Pulses: PRESENT: normal dorsalis pedis pul Vascular exam: PRESENT: normal capillary refill GI/Abdominal exam: PRESENT: normal bowel sounds, soft. ABSENT: distended, guarding, mass, organolmegaly, rebound, tenderness Rectal exam: PRESENT: deferred Extremities exam: PRESENT: full ROM. ABSENT: calf tenderness, clubbing, pedal edema Neurological exam: PRESENT: alert, awake, oriented to person, oriented to place, oriented to time, oriented to situation, CN II-XII grossly intact. ABSENT: motor sensory deficit Psychiatric exam: PRESENT: appropriate affect, normal mood. ABSENT: homicidal ideation, suicidal ideation Skin exam: PRESENT: dry, intact, warm. ABSENT: cyanosis, rash Results Laboratory Results: 10/24/19 05:15 10/22/19 14:41 10/24/19 05:15 WBC 5.6 RBC 3.50 L Hgb 9.8 L Hct 28.1 L MCV 80 MCH 28.1 MCHC 35.0 RDW 16.9 H Plt Count 57 L Seg Neutrophils % Not Reportable Impressions: Abdomen/Pelvis CT 10/22/19 00:00 IMPRESSION: 1. Left hydronephrosis and dilated renal pelvis and proximal ureter. The findings look relatively chronic, although are more pronounced compared to 2011. No evidence of obstructing stone or mass. Correlate with renal symptoms and any evidence of hematuria. Chest CT 10/22/19 00:00 IMPRESSION: 1. Consolidation in the right middle and upper lobe consistent with pneumonia. 2. Moderate cardiomegaly with small pericardial effusion. 3. Moderate left hydronephrosis and prominent left extrarenal pelvis has increased since previous examination, possibly representing a UPJ obstruction. Clinical correlation and correlation with patient's symptoms recommended. Ultrasound may provide additional information. Chest X-Ray 10/22/19 13:38 IMPRESSION: Enlarged cardiac silhouette with central vascular congestion. No overt edema. Assessment & Plan - Diagnosis (1) Bacteremia Is this a current diagnosis for this admission?: Yes Plan: Cardiology and primary team on board, infectious disease recommendations are in chart (2) Anemia Qualifiers: Anemia type: bone marrow failure Bone marrow failure anemia type: myelophthisis Qualified Code(s): D61.82 - Myelophthisis Is this a current diagnosis for this admission?: Yes Plan: HemoGlobin stable (3) Thrombocytopenia Is this a current diagnosis for this admission?: Yes Plan: Platelet count is above 50 he should be okay for any procedures needed - Time Time Spent with patient: 35 or more minutes
[2019-10-24] MEDS: POTASSIUM CHLORIDE 10 MEQ TABLET.ER PO SCH (09:34)
[2019-10-24] MEDS: AMLODIPINE BESYLATE 5 MG TABLET PO SCH (09:35)
[2019-10-24] MEDS: CHOLECALCIFEROL (D3) 1,000 UNIT (25 MCG) TABLET PO SCH (09:35)
[2019-10-24] MEDS: PANTOPRAZOLE SODIUM 40 MG TABLET.DR PO SCH (09:35)
[2019-10-24] MEDS: FUROSEMIDE 40 MG TABLET PO SCH (09:35)
[2019-10-24] MEDS: CARVEDILOL 12.5 MG TABLET PO SCH ×2 (09:35→21:23)
[2019-10-24] MEDS: CEFEPIME 1 GM/D5W RTU 1 GM/50 ML RTUPB IV SCH (09:36)
[2019-10-24] MEDS: ISOSORBIDE MONONITRATE 60 MG TAB.ER.24H PO SCH (09:36)
[2019-10-24] MEDS: IRON POLYSACCHARIDES COMPLEX 150 MG CAPSULE PO SCH ×2 (09:36→17:47)
[2019-10-24] MEDS ORDERED: AMPICILLIN SODIUM/SULBACTAM NA 3 GM in NORMAL SALINE 100 ML IV SCH (12:00)
--- NOTE | 2019-10-24 12:00 | PDOC PROGRESS REPORT ---
Subjective Progress Note for:: 10/24/19 Subjective:: Patient is currently doing well Patient having no fever no chillsNo cough no congestions For all blood culture bottles positive for staph epidermidisUrine cultures of the enterococcus Discussed with the patient's urology DrRod momin today have persistent hydronephrosisWith unclear etiology but no need for any interventions Discussed with the lightout examiner patient scheduled for the KENTON tomorrow Review the ID consultWill discuss with ID regarding the vancomycin and the rifampin Reason For Visit: POSITIVE BLOOD CULTURE Physical Exam Vital Signs: Temp Pulse Resp BP Pulse Ox 98.4 F 78 18 129/50 H 96 10/24/19 10:00 10/24/19 10:00 10/24/19 10:00 10/24/19 10:00 10/24/19 10:00 Intake & Output 10/23/19 10/24/19 10/25/19 06:59 06:59 06:59 Intake Total 610 2040 100 Output Total 400 350 Balance 210 1690 100 Weight 83.8 kg 80.1 kg General appearance: PRESENT: no acute distress, well-developed, well-nourished Head exam: PRESENT: atraumatic, normocephalic Eye exam: PRESENT: conjunctiva pink, EOMI, PERRLA. ABSENT: scleral icterus Ear exam: PRESENT: normal external ear exam Mouth exam: PRESENT: moist, tongue midline Neck exam: PRESENT: full ROM. ABSENT: carotid bruit, JVD, lymphadenopathy, thyromegaly Respiratory exam: PRESENT: clear to auscultation diony Cardiovascular exam: PRESENT: RRR. ABSENT: diastolic murmur, rubs, systolic murmur Pulses: PRESENT: normal dorsalis pedis pul, +2 pedal pulses bilateral Vascular exam: PRESENT: normal capillary refill GI/Abdominal exam: PRESENT: normal bowel sounds, soft. ABSENT: distended, guarding, mass, organolmegaly, rebound, tenderness Rectal exam: PRESENT: deferred Musculoskeletal exam: PRESENT: ambulatory Neurological exam: PRESENT: alert, awake, oriented to person, oriented to place, oriented to time, oriented to situation, CN II-XII grossly intact. ABSENT: motor sensory deficit Psychiatric exam: PRESENT: appropriate affect, normal mood. ABSENT: homicidal ideation, suicidal ideation Skin exam: PRESENT: dry, intact, warm. ABSENT: cyanosis, rash Results Laboratory Results: 10/24/19 05:15 10/22/19 14:41 10/24/19 05:15 WBC 5.6 RBC 3.50 L Hgb 9.8 L Hct 28.1 L MCV 80 MCH 28.1 MCHC 35.0 RDW 16.9 H Plt Count 57 L Seg Neutrophils % Not Reportable 10/22/19 13:10 Clean Catch Midstream Urine Culture - Final Enterococcus Faecalis(Group D) 10/22/19 14:41 Blood Blood Culture (PCR) - Final Staphylococcus Species Impressions: Abdomen/Pelvis CT 10/22/19 00:00 IMPRESSION: 1. Left hydronephrosis and dilated renal pelvis and proximal ureter. The findings look relatively chronic, although are more pronounced compared to 2011. No evidence of obstructing stone or mass. Correlate with renal symptoms and any evidence of hematuria. Chest CT 10/22/19 00:00 IMPRESSION: 1. Consolidation in the right middle and upper lobe consistent with pneumonia. 2. Moderate cardiomegaly with small pericardial effusion. 3. Moderate left hydronephrosis and prominent left extrarenal pelvis has increased since previous examination, possibly representing a UPJ obstruction. Clinical correlation and correlation with patient's symptoms recommended. Ultrasound may provide additional information. Chest X-Ray 10/22/19 13:38 IMPRESSION: Enlarged cardiac silhouette with central vascular congestion. No overt edema. Assessment & Plan - Diagnosis (1) Positive blood cultures Is this a current diagnosis for this admission?: Yes Plan: Will discuss with the IDWill wait for theWill wait for the KENTON culture and sensitivity (2) Anemia Qualifiers: Anemia type: bone marrow failure Bone marrow failure anemia type: myelophthisis Qualified Code(s): D61.82 - Myelophthisis Is this a current diagnosis for this admission?: Yes (3) Cardiomyopathy Qualifiers: Cardiomyopathy type: unspecified Qualified Code(s): I42.9 - Cardiomyopathy, unspecified Is this a current diagnosis for this admission?: Yes Plan: Currently all stable (4) Chronic kidney disease Qualifiers: Chronic kidney disease stage: stage 3 (moderate) Qualified Code(s): N18.3 - Chronic kidney disease, stage 3 (moderate) Is this a current diagnosis for this admission?: Yes Plan: Stable (5) Thrombocytopenia Is this a current diagnosis for this admission?: Yes Plan: Currently all stable (6) CAD (coronary artery disease) Qualifiers: Coronary Disease-Associated Artery/Lesion type: [place] artery Associated angina: without angina Is this a current diagnosis for this admission?: Yes Plan: stable (7) CHF (congestive heart failure) Qualifiers: Heart failure type: combined systolic and diastolic Heart failure chronicity: chronic Qualified Code(s): I50.42 - Chronic combined systolic (congestive) and diastolic (congestive) heart failure Is this a current diagnosis for this admission?: Yes Plan: Continues the Lasix (8) HTN (hypertension) Qualifiers: Hypertension type: essential hypertension Is this a current diagnosis for this admission?: Yes Plan: Currently all stable (9) Myelodysplastic syndrome Is this a current diagnosis for this admission?: Yes Plan: Follow-up with oncology (10) Pneumonia Qualifiers: Pneumonia type: due to unspecified organism Laterality: right Is this a current diagnosis for this admission?: Yes Plan: Will continues the LevaquinAnd we added the Unasyn'Bacteria instead of cefepimes to cover the enterococcus (11) Hydronephrosis Qualifiers: Hydronephrosis type: unspecified Qualified Code(s): N13.30 - Unspecified hydronephrosis Is this a current diagnosis for this admission?: Yes Plan: Is a chronic as per discussed with the patient's urology Dr. momin (12) Bacteremia Is this a current diagnosis for this admission?: Yes Plan: Will wait for the final culture - Time Time Spent with patient: 25-34 minutes Level of Care: TELE Medications reviewed and adjusted accordingly: Yes Anticipated discharge: Other Within: Other - Plan Summary Plan Summary: Continues to current medications
[2019-10-24] MEDS ORDERED: VANCOMYCIN HCL 0 MG in DEXTROSE 5%-WATER 250 ML IV NR (13:00)
[2019-10-24] MEDS: RIFAMPIN 600 MG in NORMAL SALINE 500 ML IV SCH (14:37)
[2019-10-24] MEDS: VANCOMYCIN HCL 1,500 MG in DEXTROSE 5%-WATER 250 ML IV SCH (16:11)
[2019-10-24] MEDS: TAMSULOSIN HCL 0.4 MG CAP.SR.24H PO SCH (17:47)
[2019-10-24] MEDS: ATORVASTATIN CALCIUM 10 MG TABLET PO SCH (21:23)
[2019-10-25 04:47] LABS: HEMOGLOBIN 9.5 g/dL (13.5-17.0); MEAN CORPUSCULAR HEMOGLOBIN 27.9 pg (27.0-33.4); MEAN CORPUSCULAR VOLUME 80 fl (80-97); RED BLOOD COUNT 3.39 10^6/uL (4.35-5.55); RED CELL DISTRIBUTION WIDTH 17.2 % (11.5-14.0); WHITE BLOOD COUNT 5.3 10^3/uL (4.0-10.5)
[2019-10-25 04:51] LABS: PLATELET COUNT 54 10^3/uL (150-450)
[2019-10-25 04:55] LABS: ANION GAP 11 (5-19); BLOOD UREA NITROGEN 21 mg/dL (7-20); CARBON DIOXIDE 22 mmol/L (22-30); CHLORIDE 106 mmol/L (98-107); GLUCOSE 89 mg/dL (75-110); POTASSIUM 3.4 mmol/L (3.6-5.0)
[2019-10-25] MEDS: CLONIDINE HCL 0.1 MG TABLET PO SCH ×3 (05:26→21:17)
[2019-10-25 06:18] LABS: ABSOLUTE LYMPHOCYTES# (MANUAL) 1.6 10^3/uL (0.5-4.7); ABSOLUTE MONOCYTES # (MANUAL) 1.5 10^3/uL (0.1-1.4); BAND NEUTROPHILS % (MANUAL) 1 % (3-5); BASOPHILS % (MANUAL) 0 % (0-2); EOSINOPHILS % (MANUAL) 0 % (0-6); LYMPHOCYTES % (MANUAL) 31 % (13-45); MONOCYTES % (MANUAL) 28 % (3-13); SEGMENTED NEUTROPHILS % (MAN) 40 % (42-78); TOTAL CELLS COUNTED 100
[2019-10-25 06:24] LABS: ANISOCYTOSIS 1+; PLATELET COMMENT DECREASED; POLYCHROMASIA SLIGHT
[2019-10-25] MEDS ORDERED: POTASSIUM CHLORIDE 10 MEQ TABLET.ER PO ONE ×2 (09:00→14:19)
--- NOTE | 2019-10-25 09:24 | PDOC PROGRESS REPORT ---
Subjective Progress Note for:: 10/25/19 Subjective:: Patient currently doing well Patient's denied any chest pain no short of breath no fever no chills Patient had a defibrillator was replaced 2 years back at [place] but was there before prolonged time Discussed with the infectious disease yesterday suggest patients need a KENTON which patient scheduled today if is negative then may be 2 weeks of the vancomycin and rifampin if is positive then possible removal of the device or 6- week of antibiotic Discussed with the patient and the family on the bedside Reason For Visit: POSITIVE BLOOD CULTURE Physical Exam Vital Signs: Temp Pulse Resp BP Pulse Ox 98.2 F 70 16 120/42 L 97 10/25/19 07:25 10/25/19 07:25 10/25/19 07:25 10/25/19 07:25 10/25/19 07:25 Intake & Output 10/24/19 10/25/19 10/26/19 06:59 06:59 06:59 Intake Total 2040 2676 Output Total 350 500 Balance 1690 2176 Weight 80.1 kg 72.7 kg General appearance: PRESENT: no acute distress, well-developed, well-nourished Head exam: PRESENT: atraumatic, normocephalic Eye exam: PRESENT: conjunctiva pink, EOMI, PERRLA. ABSENT: scleral icterus Ear exam: PRESENT: normal external ear exam Mouth exam: PRESENT: moist, tongue midline Neck exam: PRESENT: full ROM. ABSENT: carotid bruit, JVD, lymphadenopathy, thyromegaly Respiratory exam: PRESENT: clear to auscultation diony Cardiovascular exam: PRESENT: RRR. ABSENT: diastolic murmur, rubs, systolic murmur Pulses: PRESENT: normal dorsalis pedis pul, +2 pedal pulses bilateral Vascular exam: PRESENT: normal capillary refill GI/Abdominal exam: PRESENT: normal bowel sounds, soft. ABSENT: distended, guarding, mass, organolmegaly, rebound, tenderness Rectal exam: PRESENT: deferred Extremities exam: ABSENT: pedal edema Musculoskeletal exam: PRESENT: ambulatory Neurological exam: PRESENT: alert, awake, oriented to person, oriented to place, oriented to time, oriented to situation, CN II-XII grossly intact. ABSENT: motor sensory deficit Psychiatric exam: PRESENT: appropriate affect, normal mood. ABSENT: homicidal ideation, suicidal ideation Skin exam: PRESENT: dry, intact, warm. ABSENT: cyanosis, rash Results Laboratory Results: 10/25/19 03:50 10/25/19 03:50 10/25/19 10/25/19 03:50 03:50 WBC 5.3 RBC 3.39 L Hgb 9.5 L Hct 27.0 L MCV 80 MCH 27.9 MCHC 35.0 RDW 17.2 H Plt Count 54 L Seg Neutrophils % Not Reportable Sodium 139.1 Potassium 3.4 L Chloride 106 Carbon Dioxide 22 Anion Gap 11 BUN 21 H Creatinine 1.43 H Est GFR ( Amer) > 60 Glucose 89 Calcium 9.0 10/22/19 13:10 Clean Catch Midstream Urine Culture - Final Enterococcus Faecalis(Group D) 10/22/19 14:41 Blood Blood Culture (PCR) - Final Staphylococcus Species Impressions: Abdomen/Pelvis CT 10/22/19 00:00 IMPRESSION: 1. Left hydronephrosis and dilated renal pelvis and proximal ureter. The findings look relatively chronic, although are more pronounced compared to 2010. No evidence of obstructing stone or mass. Correlate with renal symptoms and any evidence of hematuria. Chest CT 10/22/19 00:00 IMPRESSION: 1. Consolidation in the right middle and upper lobe consistent with pneumonia. 2. Moderate cardiomegaly with small pericardial effusion. 3. Moderate left hydronephrosis and prominent left extrarenal pelvis has increased since previous examination, possibly representing a UPJ obstruction. Clinical correlation and correlation with patient's symptoms recommended. Ultrasound may provide additional information. Chest X-Ray 10/22/19 13:38 IMPRESSION: Enlarged cardiac silhouette with central vascular congestion. No overt edema. Assessment & Plan - Diagnosis (1) Positive blood cultures Is this a current diagnosis for this admission?: Yes Plan: Will continues the IV vancomycin and rifampin (2) Anemia Qualifiers: Anemia type: bone marrow failure Bone marrow failure anemia type: myelophthisis Qualified Code(s): D61.82 - Myelophthisis Is this a current diagnosis for this admission?: Yes (3) Cardiomyopathy Qualifiers: Cardiomyopathy type: unspecified Qualified Code(s): I42.9 - Cardiomyopathy, unspecified Is this a current diagnosis for this admission?: Yes Plan: Currently all stable (4) Chronic kidney disease Qualifiers: Chronic kidney disease stage: stage 3 (moderate) Qualified Code(s): N18.3 - Chronic kidney disease, stage 3 (moderate) Is this a current diagnosis for this admission?: Yes Plan: Stable (5) Thrombocytopenia Is this a current diagnosis for this admission?: Yes Plan: Currently all stable (6) CAD (coronary artery disease) Qualifiers: Coronary Disease-Associated Artery/Lesion type: [place] artery Associated angina: without angina Is this a current diagnosis for this admission?: Yes Plan: stable (7) CHF (congestive heart failure) Qualifiers: Heart failure type: combined systolic and diastolic Heart failure chronicity: chronic Qualified Code(s): I50.42 - Chronic combined systolic (congestive) and diastolic (congestive) heart failure Is this a current diagnosis for this admission?: Yes Plan: Continues the Lasix (8) HTN (hypertension) Qualifiers: Hypertension type: essential hypertension Is this a current diagnosis for this admission?: Yes Plan: Currently all stable (9) Myelodysplastic syndrome Is this a current diagnosis for this admission?: Yes Plan: Follow-up with oncology (10) Pneumonia Qualifiers: Pneumonia type: due to unspecified organism Laterality: right Is this a current diagnosis for this admission?: Yes Plan: Continues to IV antibiotic (11) Hydronephrosis Qualifiers: Hydronephrosis type: unspecified Qualified Code(s): N13.30 - Unspecified hydronephrosis Is this a current diagnosis for this admission?: Yes Plan: Is a chronic as per discussed with the patient's urology Dr. momin (12) Bacteremia Is this a current diagnosis for this admission?: Yes Plan: See above - Time Time Spent with patient: 15-24 minutes Level of Care: TELE Medications reviewed and adjusted accordingly: Yes Anticipated discharge: Home Within: Other - Plan Summary Plan Summary: Patient is scheduled for KENTON today
[2019-10-25] MEDS: AMLODIPINE BESYLATE 5 MG TABLET PO SCH (10:20)
[2019-10-25] MEDS: CARVEDILOL 12.5 MG TABLET PO SCH ×2 (10:20→21:14)
[2019-10-25] MEDS: ISOSORBIDE MONONITRATE 60 MG TAB.ER.24H PO SCH (10:20)
[2019-10-25] MEDS: FUROSEMIDE 40 MG TABLET PO SCH (10:21)
[2019-10-25] MEDS: RIFAMPIN 600 MG in NORMAL SALINE 500 ML IV SCH (10:22)
[2019-10-25] MEDS ORDERED: FENTANYL CITRATE INJ/PF 100 MCG/2 ML AMPUL ONE (12:31)
[2019-10-25] MEDS ORDERED: DIPHENHYDRAMINE HCL 50 MG/ML VIAL ONE (12:31)
[2019-10-25] MEDS ORDERED: BENZOCAINE 20% AEROSOL SPRAY 60 GM ONE (12:32)
[2019-10-25] MEDS ORDERED: FLUMAZENIL INJ 0.5 MG/5 ML VIAL ONE (12:32)
[2019-10-25] MEDS ORDERED: MIDAZOLAM 2 MG/2 ML INJ ONE (12:32)
[2019-10-25] MEDS ORDERED: NALOXONE HCL INJ/PF 0.4 MG/1 ML SDV ONE (12:32)
[2019-10-25] MEDS ORDERED: LIDOCAINE 2% JELLY 30 ML TUBE ONE (12:34)
--- NOTE | 2019-10-25 14:28 | XCELERA REPORT ---
Study ID: [id number] Transesophageal Echocardiogram Report Name: BOOM POWERS Age: 64 yrs Gender: Male : 1955 Patient Status: Inpatient Patient Location: [address] [place] [address] Study Date: 10/25/2019 01:16 PM History: Bactermeia-Staph epidermidids Reason For Study: ENDOCARDITIS Ordering Physician: ELIZA GRANADOS Performed By: David Dodson Interpretation Summary The left ventricular ejection fraction is grossly normal. Ejection Fraction = 50-55%. The right ventricle is normal in size and function. There is a small vegetation or mass on the aortic valve. 1.4 cm X 0.9 cm on non-coronary cusp. There is no pericardial effusion. Procedure A complete two-dimensional transesophageal echocardiogram was performed (2D, spectral and color flow Doppler). Informed consent for Transesophageal Echocardiogram, and use of a contrast agent as needed, was obtained prior to the procedure. The patient was brought to the Endoscopy in a fasting state. An intravenous line was placed. A topical anesthetic agent was used for oropharangeal anesthesia. A bite block was inserted. IV conscious sedation was administered using Midazolam 2 mg IV and Fentanyl 25 mcg IV. A multifrequency, mutliplane transesophageal echocardiographic endoscope was inserted and manipulated in the standard fashion to achieve multiplane views. The patient's vital signs, including blood pressure, heart rate, pulse oximetry and cardiac rhythm were monitored thoughout the procedure. The transesophageal probe was passed without difficulty. The usual views were obtained; basal, mid- esophageal, transgastric and aortic views. The patient tolerated the procedure well without evidence of orophangeal or esophageal trauma. Subsequent to all the images being obtained the probe was removed with out trauma. Left Ventricle The left ventricle is grossly normal size. There is borderline concentric left ventricular hypertrophy. The left ventricular ejection fraction is grossly normal. Ejection Fraction = 50-55%. Right Ventricle The right ventricle is normal in size and function. There is a pacemaker lead in the right ventricle. The right ventricular systolic function is normal. Atria The interatrial septum is intact with no evidence for an atrial septal defect. There is no Doppler evidence for an atrial septal defect. The left atrium is mildly dilated. No thrombus is detected in the left atrial appendage. Spontaneous contrast in LA. Spontaneous contrast in left atrial appendage. Chiari network (normal variant) is noted. Right atrial size is normal. There is a catheter/pacemaker lead seen in the right atrium. Mitral Valve The mitral valve is grossly normal. There is no vegetation seen on the mitral valve. There is no mitral valve stenosis. There is mild mitral regurgitation. Tricuspid Valve The tricuspid valve is normal in structure and function. There is no tricuspid valve vegetation. There is mild tricuspid regurgitation. Aortic Valve The aortic valve opens well. The aortic valve is trileaflet. There is a small vegetation or mass on the aortic valve. 1.4 cm X 0.9 cm on non-coronary cusp. No hemodynamically significant valvular aortic stenosis. Moderate aortic regurgitation. Pulmonic Valve The pulmonic valve is not well visualized. Arteries The aortic root is normal size. Pericardium There is no pericardial effusion. : ELIZA GRANADOS Anil
[2019-10-25] MEDS: POTASSIUM CHLORIDE 10 MEQ TABLET.ER PO SCH (14:38)
[2019-10-25] MEDS: CHOLECALCIFEROL (D3) 1,000 UNIT (25 MCG) TABLET PO SCH (14:39)
[2019-10-25] MEDS: PANTOPRAZOLE SODIUM 40 MG TABLET.DR PO SCH (14:39)
[2019-10-25] MEDS: IRON POLYSACCHARIDES COMPLEX 150 MG CAPSULE PO SCH ×2 (14:39→17:18)
[2019-10-25] MEDS: TAMSULOSIN HCL 0.4 MG CAP.SR.24H PO SCH (17:18)
[2019-10-25] MEDS: VANCOMYCIN HCL 1,500 MG in DEXTROSE 5%-WATER 250 ML IV SCH (17:18)
--- NOTE | 2019-10-25 18:37 | Progress Note ---
Provider Note Provider Note: CARDIOLOGY PROGRESS NOTE by Dr. Zahra Odell on 10/25/2019. SUBJECTIVE: The patient is no further fevers. He denies any chills or night sweats. There is no chest pains or discomfort. There is no palpitations. There is no arrhythmia seen. There is no PND orthopnea or leg edema. The patient denies any cough or sputum production. The patient underwent a KENTON today which showed a small vegetation on the noncoronary cusp of the aortic valve. There is moderate aortic regurgitation. Hence the patient does have aortic valve endocarditis. Hence will be treated as such. I had ordered an EKG for this morning, but for some reason it was not done.. Will reorder an EKG for tomorrow morning. PHYSICAL EXAMINATION: The patient is well-built. In no acute distress. Selected Entries 10/25/19 10/25/19 10/25/19 12:00 14:10 14:48 Temperature 98.6 F Afebrile Temperature Oral Source Pulse Rate 71 71 Respiratory 16 18 Rate Blood Pressure 115/53 L Blood Pressure 120/41 L [Right Upper Arm] Blood Pressure 67 Mean [Right Upper Arm] Blood Pressure Supine Position [Right Upper Arm] O2 Sat by Pulse 98 100 Oximetry Oxygen Delivery Room Air Method ( Room air includes room air) HEAD: Is atraumatic normocephalic. EYES: Pupils are equal round regular reactive to light and accommodation. External ocular movements are normal. There is no conjunctival pallor. There is no scleral icterus. EARS: Tympanic membranes are intact. External auditory canals are clear. NOSE: There is no deviated nasal septum. There is no inflammation of these mucous membrane. MOUTH: Mucous membranes of mouth are moist tongue is moist there is no ulcers. THROAT: There is no redness of the oropharynx. There is no exudates. SKIN: There is no skin rashes or petechiae. There is no skin lesions or skin rashes. There is no ecchymosis. NECK: Is supple. There is no JVD. There is no goiter. There is no lymphadenopathy. Carotids are equal there is no bruits. There is no lymphadenopathy. There is no accessory muscles of respiration use. Trachea central. LUNGS: There is a few dry crackles in the right mid zone and right upper lobe. Otherwise the lungs are clear without any rhonchi or wheezing. There is no rales of CHF. HEART: S1-S2 is heard. S1 is of normal intensity. There is no S3 gallop. There is no S4 gallop. There is murmur of aortic sclerosis present, with preserved A2 sound. There is also a 2 x 6 diastolic murmur of aortic regurgitation present. There is collapsing pulse, but no other peripheral signs of aortic regurgitation. There is no rub. ABDOMEN: Is soft. There is no paraspinal megaly. Bowel sounds are well heard. There is no tender areas masses. There is no rebound guarding or rigidity especially detailed examination failed to reveal splenomegaly. There is no ascites. EXTREMITIES: Femorals are deep femorals are slightly diminished. There is no femoral bruits. Leg pulses are well felt. There is no pedal edema. There is no DVT or cellulitis. There is no signs cyanosis. X finger nails and toenails showed no evidence of clubbing or cyanosis. There is no splinter hemorrhages. 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 PSYCHI ATRIC: The patient judgment insight are intact his affect is normal. IMPRESSION/RECOMMENDATION: 1. Aortic valve endocarditis: Continue antibiotics. Discussed with [facility] surgery. They recommended to treat the patient for a full course with antibiotics for endocarditis and reevaluate valve to see if the patient needs valve replacement. This has been discussed with attending physician. 2. History of AICD placement: There is no clinical evidence of bacterial endocarditis. But prior to assuming that this positive blood culture secondary to AICD system infection would strongly recommend treat the patient pneumonia and see with the resolution of the pneumonia if the blood cultures become sterile. But in the meantime would recommend that the patient have a transesophageal echocardiograph he to be certain that there is lead and not infected. I spoken to Dr. Quincy Rodríguez who is willing to perform the KENTON on this coming . 3. Right middle lobe and right upper lobe pneumonia: Continue aggressive antibiotics. 4. Cardiomyopathy dilated with? Ischemic component to the cardiomyopathy. LV ejection fraction is moderately reduced. Would recommend continuing the patient beta-wilian and his RADHA inhibitor. [Coreg and ramipril] 5. Hypertension: Blood pressure well controlled 6. Diabetes mellitus by history, but the patient not on any antidiabetic medication. Most likely diet-controlled diabetes mellitus. Would recommend check Accu-Cheks as per protocol. 7. Past history of renal insufficiency: At present GFR is greater than 60. Avoid nephrotoxic drugs. 8. Myelodysplastic syndrome: Oncology following the patient this admission. Medications reviewed. Medical management and medical regimen discussed with Dr. Payton. Also discussed with [facility] CT surgery as mentioned above regarding the patient's further management. Medical decision making is of high complexity in view of the need for it differential diagnosis for the patient's fever. 40 minutes spent as patient more than 50% of time spent in direct patient care. Will follow
[2019-10-25] MEDS: ATORVASTATIN CALCIUM 10 MG TABLET PO SCH (21:14)
[2019-10-26 05:19] LABS: HEMATOCRIT 28.3 % (37.9-51.0); HEMOGLOBIN 9.9 g/dL (13.5-17.0); MEAN CORPUSCULAR HEMOGLOBIN 27.8 pg (27.0-33.4); MEAN CORPUSCULAR VOLUME 80 fl (80-97); RED BLOOD COUNT 3.56 10^6/uL (4.35-5.55); RED CELL DISTRIBUTION WIDTH 17.2 % (11.5-14.0); WHITE BLOOD COUNT 4.3 10^3/uL (4.0-10.5)
[2019-10-26 05:22] LABS: PLATELET COUNT 62 10^3/uL (150-450)
[2019-10-26 05:25] LABS: ANION GAP 11 (5-19); BLOOD UREA NITROGEN 18 mg/dL (7-20); CALCIUM 8.9 mg/dL (8.4-10.2); CARBON DIOXIDE 18 mmol/L (22-30); CHLORIDE 109 mmol/L (98-107); GLUCOSE 83 mg/dL (75-110); POTASSIUM 4.3 mmol/L (3.6-5.0)
[2019-10-26 05:48] LABS: ABSOLUTE LYMPHOCYTES# (MANUAL) 2.2 10^3/uL (0.5-4.7); ABSOLUTE MONOCYTES # (MANUAL) 0.8 10^3/uL (0.1-1.4); ANISOCYTOSIS 1+; BASOPHILS % (MANUAL) 0 % (0-2); EOSINOPHILS % (MANUAL) 0 % (0-6); LYMPHOCYTES % (MANUAL) 51 % (13-45); MONOCYTES % (MANUAL) 18 % (3-13); PLATELET COMMENT DECREASED; SEGMENTED NEUTROPHILS % (MAN) 31 % (42-78); TOTAL CELLS COUNTED 100
[2019-10-26] MEDS: CLONIDINE HCL 0.1 MG TABLET PO SCH ×3 (06:49→21:15)
--- NOTE | 2019-10-26 08:43 | PDOC PROGRESS REPORT ---
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 lab technician continues to IV antibiotics we will patient's further evaluate As per discussed with the ID suggested positive KENTON continue 6-week antibiotic we already repeat the blood cultures again today no fever no chills no other symptoms Reason For Visit: POSITIVE BLOOD CULTURE Physical Exam Vital Signs: Temp Pulse Resp BP Pulse Ox 98.2 F 87 20 126/47 H 98 10/26/19 08:00 10/26/19 08:00 10/26/19 08:00 10/26/19 08:00 10/26/19 08:00 Intake & Output 10/25/19 10/26/19 10/27/19 06:59 06:59 06:59 Intake Total 2676 2129 Output Total 500 2375 Balance 2176 -246 Weight 72.7 kg 75.1 kg General appearance: PRESENT: no acute distress, well-developed, well-nourished Head exam: PRESENT: atraumatic, normocephalic Eye exam: PRESENT: conjunctiva pink, EOMI, PERRLA. ABSENT: scleral icterus Ear exam: PRESENT: normal external ear exam Mouth exam: PRESENT: moist, tongue midline Neck exam: PRESENT: full ROM. ABSENT: carotid bruit, JVD, lymphadenopathy, thyromegaly Respiratory exam: PRESENT: clear to auscultation diony Cardiovascular exam: PRESENT: RRR. ABSENT: diastolic murmur, rubs, systolic murmur Pulses: PRESENT: normal dorsalis pedis pul, +2 pedal pulses bilateral Vascular exam: PRESENT: normal capillary refill GI/Abdominal exam: PRESENT: normal bowel sounds, soft. ABSENT: distended, guarding, mass, organolmegaly, rebound, tenderness Rectal exam: PRESENT: deferred Musculoskeletal exam: PRESENT: ambulatory Neurological exam: PRESENT: alert, awake, oriented to person, oriented to place, oriented to time, oriented to situation, CN II-XII grossly intact. ABSENT: motor sensory deficit Psychiatric exam: PRESENT: appropriate affect, normal mood. ABSENT: homicidal ideation, suicidal ideation Skin exam: PRESENT: dry, intact, warm. ABSENT: cyanosis, rash Results Laboratory Results: 10/26/19 04:36 10/26/19 04:36 10/26/19 10/26/19 04:36 04:36 WBC 4.3 RBC 3.56 L Hgb 9.9 L Hct 28.3 L MCV 80 MCH 27.8 MCHC 35.0 RDW 17.2 H Plt Count 62 L Seg Neutrophils % Not Reportable Sodium 137.6 Potassium 4.3 Chloride 109 H Carbon Dioxide 18 L Anion Gap 11 BUN 18 Creatinine 1.28 H Est GFR ( Amer) > 60 Glucose 83 Calcium 8.9 10/22/19 17:10 Blood Blood Culture (PCR) - Final Staphylococcus Species 10/22/19 14:41 Blood Blood Culture (PCR) - Final Staphylococcus Species Impressions: Abdomen/Pelvis CT 10/22/19 00:00 IMPRESSION: 1. Left hydronephrosis and dilated renal pelvis and proximal ureter. The findings look relatively chronic, although are more pronounced compared to 2010. No evidence of obstructing stone or mass. Correlate with renal symptoms and any evidence of hematuria. Chest CT 10/22/19 00:00 IMPRESSION: 1. Consolidation in the right middle and upper lobe consistent with pneumonia. 2. Moderate cardiomegaly with small pericardial effusion. 3. Moderate left hydronephrosis and prominent left extrarenal pelvis has increased since previous examination, possibly representing a UPJ obstruction. Clinical correlation and correlation with patient's symptoms recommended. Ultrasound may provide additional information. Chest X-Ray 10/22/19 13:38 IMPRESSION: Enlarged cardiac silhouette with central vascular congestion. No overt edema. 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 Is this a current diagnosis for this admission?: Yes Plan: Currently all stable (3) Cardiomyopathy Qualifiers: Cardiomyopathy type: unspecified Qualified Code(s): I42.9 - Cardiomyopathy, unspecified Is this a current diagnosis for this admission?: Yes Plan: Currently all stable (4) Chronic kidney disease Qualifiers: Chronic kidney disease stage: stage 3 (moderate) Qualified Code(s): N18.3 - Chronic kidney disease, stage 3 (moderate) Is this a current diagnosis for this admission?: Yes Plan: Stable (5) Thrombocytopenia Is this a current diagnosis for this admission?: Yes Plan: Currently all stable (6) CAD (coronary artery disease) Qualifiers: Coronary Disease-Associated Artery/Lesion type: [place] artery Associated angina: without angina Is this a current diagnosis for this admission?: Yes Plan: stable (7) CHF (congestive heart failure) Qualifiers: Heart failure type: combined systolic and diastolic Heart failure chronicity: chronic Qualified Code(s): I50.42 - Chronic combined systolic (congestive) and diastolic (congestive) heart failure Is this a current diagnosis for this admission?: Yes Plan: Continues the Lasix (8) HTN (hypertension) Qualifiers: Hypertension type: essential hypertension Is this a current diagnosis for this admission?: Yes Plan: Currently all stable (9) Myelodysplastic syndrome Is this a current diagnosis for this admission?: Yes Plan: Follow-up with oncology (10) Pneumonia Qualifiers: Pneumonia type: due to unspecified organism Laterality: right Is this a current diagnosis for this admission?: Yes Plan: Currently on antibiotics (11) Hydronephrosis Qualifiers: Hydronephrosis type: unspecified Qualified Code(s): N13.30 - Unspecified hydronephrosis Is this a current diagnosis for this admission?: Yes Plan: All stable (12) Bacteremia Is this a current diagnosis for this admission?: Yes Plan: Since the IV antibiotic (13) Endocarditis Qualifiers: Endocarditis type: infective Infective endocarditis organism: bacterial Chronicity: acute Qualified Code(s): I33.0 - Acute and subacute infective endocarditis Is this a current diagnosis for this admission?: Yes Plan: Continues to IV antibiotics will again discussed with the ID (14) Aortic valve disorder Is this a current diagnosis for this admission?: Yes Plan: Follow with the Dr. Odell - Time Time Spent with patient: 15-24 minutes Level of Care: TELE Medications reviewed and adjusted accordingly: Yes Anticipated discharge: Home Within: Other - Plan Summary Plan Summary: Continues IV vancomycin and rifampin repeat the blood culture as per discussed with the ID
[2019-10-26] MEDS: ISOSORBIDE MONONITRATE 60 MG TAB.ER.24H PO SCH (09:20)
[2019-10-26] MEDS: CHOLECALCIFEROL (D3) 1,000 UNIT (25 MCG) TABLET PO SCH (09:21)
[2019-10-26] MEDS: POTASSIUM CHLORIDE 10 MEQ TABLET.ER PO SCH (09:21)
[2019-10-26] MEDS: CARVEDILOL 12.5 MG TABLET PO SCH ×2 (09:22→21:15)
[2019-10-26] MEDS: FUROSEMIDE 40 MG TABLET PO SCH (09:23)
[2019-10-26] MEDS: AMLODIPINE BESYLATE 5 MG TABLET PO SCH (09:23)
[2019-10-26] MEDS: PANTOPRAZOLE SODIUM 40 MG TABLET.DR PO SCH (09:24)
[2019-10-26] MEDS: IRON POLYSACCHARIDES COMPLEX 150 MG CAPSULE PO SCH ×2 (09:25→17:57)
[2019-10-26] MEDS: RIFAMPIN 600 MG in NORMAL SALINE 500 ML IV SCH (10:37)
--- NOTE | 2019-10-26 14:51 | EKG REPORT ---
SEVERITY:- ABNORMAL ECG - SINUS RHYTHM NONSPECIFIC INTRAVENTRICULAR CONDUCTION DELAY PROBABLE LEFT VENTRICULAR HYPERTROPHY : Confirmed by: Zahra Odell MD 26-Oct-2019 14:50:07
[2019-10-26] MEDS: VANCOMYCIN HCL 1,500 MG in DEXTROSE 5%-WATER 250 ML IV SCH (15:49)
[2019-10-26] MEDS: TAMSULOSIN HCL 0.4 MG CAP.SR.24H PO SCH (17:57)
[2019-10-26] MEDS: ATORVASTATIN CALCIUM 10 MG TABLET PO SCH (21:15)
[2019-10-27] MEDS: CLONIDINE HCL 0.1 MG TABLET PO SCH ×3 (05:10→21:43)
[2019-10-27 06:38] LABS: ANION GAP 10 (5-19); BLOOD UREA NITROGEN 16 mg/dL (7-20); CALCIUM 8.8 mg/dL (8.4-10.2); CARBON DIOXIDE 21 mmol/L (22-30); CHLORIDE 108 mmol/L (98-107); GLUCOSE 89 mg/dL (75-110); POTASSIUM 3.7 mmol/L (3.6-5.0)
[2019-10-27] MEDS: RIFAMPIN 600 MG in NORMAL SALINE 500 ML IV SCH (09:50)
[2019-10-27] MEDS: CHOLECALCIFEROL (D3) 1,000 UNIT (25 MCG) TABLET PO SCH (09:54)
[2019-10-27] MEDS: ISOSORBIDE MONONITRATE 60 MG TAB.ER.24H PO SCH (09:55)
[2019-10-27] MEDS: AMLODIPINE BESYLATE 5 MG TABLET PO SCH (09:55)
[2019-10-27] MEDS: CARVEDILOL 12.5 MG TABLET PO SCH ×2 (09:55→21:42)
[2019-10-27] MEDS: PANTOPRAZOLE SODIUM 40 MG TABLET.DR PO SCH (09:55)
[2019-10-27] MEDS: IRON POLYSACCHARIDES COMPLEX 150 MG CAPSULE PO SCH ×2 (09:56→17:45)
[2019-10-27] MEDS: FUROSEMIDE 40 MG TABLET PO SCH (09:56)
[2019-10-27] MEDS: POTASSIUM CHLORIDE 10 MEQ TABLET.ER PO SCH (09:56)
[2019-10-27 16:20] LABS: VANCOMYCIN,TROUGH 11.6 ug/mL (5.0-20.0)
[2019-10-27] MEDS: VANCOMYCIN HCL 1,500 MG in DEXTROSE 5%-WATER 250 ML IV SCH (16:41)
[2019-10-27] MEDS: TAMSULOSIN HCL 0.4 MG CAP.SR.24H PO SCH (17:45)
--- NOTE | 2019-10-27 20:32 | PDOC PROGRESS REPORT ---
Subjective Progress Note for:: 10/27/19 Subjective:: Patient seen by the bedside, is admitted for the management of endocarditis, He has no new complaints today Reason For Visit: POSITIVE BLOOD CULTURE Physical Exam Vital Signs: Temp Pulse Resp BP Pulse Ox 98.4 F 73 17 136/42 H 97 10/27/19 19:53 10/27/19 19:53 10/27/19 19:53 10/27/19 19:53 10/27/19 19:53 Intake & Output 10/26/19 10/27/19 10/28/19 06:59 06:59 06:59 Intake Total 2129 1576 1950 Output Total 0028 4815 1600 Balance -246 -1599 350 Weight 75.1 kg 78.9 kg 78.9 kg General appearance: PRESENT: no acute distress Eye exam: PRESENT: PERRLA Respiratory exam: PRESENT: clear to auscultation diony Cardiovascular exam: PRESENT: diastolic murmur, +S1, +S2 GI/Abdominal exam: PRESENT: soft Neurological exam: PRESENT: alert, CN II-XII grossly intact Results Laboratory Results: 10/26/19 04:36 10/27/19 04:29 10/27/19 04:29 Sodium 138.8 Potassium 3.7 Chloride 108 H Carbon Dioxide 21 L Anion Gap 10 BUN 16 Creatinine 1.20 Est GFR ( Amer) > 60 Glucose 89 Calcium 8.8 Impressions: Abdomen/Pelvis CT 10/22/19 00:00 IMPRESSION: 1. Left hydronephrosis and dilated renal pelvis and proximal ureter. The findings look relatively chronic, although are more pronounced compared to 2010. No evidence of obstructing stone or mass. Correlate with renal symptoms and any evidence of hematuria. Chest CT 10/22/19 00:00 IMPRESSION: 1. Consolidation in the right middle and upper lobe consistent with pneumonia. 2. Moderate cardiomegaly with small pericardial effusion. 3. Moderate left hydronephrosis and prominent left extrarenal pelvis has increased since previous examination, possibly representing a UPJ obstruction. Clinical correlation and correlation with patient's symptoms recommended. Ultrasound may provide additional information. Chest X-Ray 10/22/19 13:38 IMPRESSION: Enlarged cardiac silhouette with central vascular congestion. No overt edema. Assessment & Plan - Diagnosis (1) Endocarditis Qualifiers: Endocarditis type: infective Infective endocarditis organism: bacterial Chronicity: acute Qualified Code(s): I33.0 - Acute and subacute infective endocarditis Is this a current diagnosis for this admission?: Yes Plan: Continue IV antibiotic (2) Hydronephrosis Qualifiers: Hydronephrosis type: unspecified Qualified Code(s): N13.30 - Unspecified hydronephrosis Is this a current diagnosis for this admission?: Yes (3) Pneumonia, unspecified organism Is this a current diagnosis for this admission?: Yes (4) Bacteremia Is this a current diagnosis for this admission?: Yes - Time Time Spent with patient: 35 or more minutes Level of Care: IMCU
[2019-10-27] MEDS: ATORVASTATIN CALCIUM 10 MG TABLET PO SCH (21:43)
--- NOTE | 2019-10-27 22:18 | Progress Note ---
Provider Note Provider Note: CARDIOLOGY PROGRESS NOTE by Dr. Zahra Odell on 10/27/2019. SUBJECTIVE: The patient denies any chest pain discomfort. There is no shortness of breath or PND orthopnea. There is no atrial or ventricular arrhythmias seen. The patient is afebrile. There is no leg edema. There is no peripheral embolization. The patient is tolerating his antibiotics. Physical EXAMINATION: The patient is well-built. In no acute distress. Selected Entries 10/27/19 16:00 Temperature 98.1 F Temperature Oral Source Pulse Rate 73 Respiratory 18 Rate Blood Pressure 122/36 L [Right Upper Arm] Blood Pressure 64 Mean [Right Upper Arm] Blood Pressure Sitting Position [Right Upper Arm] O2 Sat by Pulse 100 Oximetry Oxygen Delivery Room Air Method ( includes room air) HEAD: Is atraumatic normocephalic. EYES: Pupils are equal round regular reactive to light and accommodation. External ocular movements are normal. There is no conjunctival pallor. There is no scleral icterus. EARS: Tympanic membranes are intact. External auditory canals are clear. NOSE: There is no deviated nasal septum. There is no inflammation of these mucous membrane. MOUTH: Mucous membranes of mouth are moist tongue is moist there is no ulcers. THROAT: There is no redness of the oropharynx. There is no exudates. SKIN: There is no skin rashes or petechiae. There is no skin lesions or skin rashes. There is no ecchymosis. NECK: Is supple. There is no JVD. There is no goiter. There is no lymphadenopathy. Carotids are equal there is no bruits. There is no lymphadenopathy. There is no accessory muscles of respiration use. Trachea central. LUNGS: There is a few dry crackles in the right mid zone and right upper lobe. Otherwise the lungs are clear without any rhonchi or wheezing. There is no rales of CHF. HEART: S1-S2 is heard. S1 is of normal intensity. There is no S3 gallop. There is no S4 gallop. There is murmur of aortic sclerosis present, with preserved A2 sound. There is also a 2 x 6 diastolic murmur of aortic regurgitation present. There is collapsing pulse, but no other peripheral signs of aortic regurgitation. There is no rub. ABDOMEN: Is soft. There is no paraspinal megaly. Bowel sounds are well heard. There is no tender areas masses. There is no rebound guarding or rigidity especially detailed examination failed to reveal splenomegaly. There is no ascites. EXTREMITIES: Femorals are deep femorals are slightly diminished. There is no femoral bruits. Leg pulses are well felt. There is no pedal edema. There is no DVT or cellulitis. There is no signs cyanosis. X finger nails and toenails showed no evidence of clubbing or cyanosis. There is no splinter hemorrhages. EPIDEMIOLOGIST: The patient is conscious awake alert oriented x3 with no focal deficits. PSYCHIATRIC: The patient judgment insight are intact his affect is normal. Labs- All tests 24 hr 10/27/19 10/27/19 10/27/19 04:29 06:19 11:52 Sodium 138.8 Potassium 3.7 Chloride 108 H Carbon Dioxide 21 L Anion Gap 10 BUN 16 Creatinine 1.20 Est GFR ( Amer) > 60 Est GFR (MDRD) Non-Af > 60 Glucose 89 POC Glucose 90 116 H Calcium 8.8 Time Trough Drawn Vancomycin Trough 10/27/19 10/27/19 10/27/19 15:38 16:39 21:44 Sodium Potassium Chloride Carbon Dioxide Anion Gap BUN Creatinine Est GFR ( Amer) Est GFR (MDRD) Non-Af Glucose POC Glucose 119 H 97 Calcium Time Trough Drawn 1538 Vancomycin Trough 11.6 Abdomen/Pelvis CT 10/22/19 00:00 IMPRESSION: 1. Left hydronephrosis and dilated renal pelvis and proximal ureter. The findings look relatively chronic, although are more pronounced compared to 2010. No evidence of obstructing stone or mass. Correlate with renal symptoms and any evidence of hematuria. Chest CT 10/22/19 00:00 IMPRESSION: 1. Consolidation in the right middle and upper lobe consistent with pneumonia. 2. Moderate cardiomegaly with small pericardial effusion. 3. Moderate left hydronephrosis and prominent left extrarenal pelvis has increased since previous examination, possibly representing a UPJ obstruction. Clinical correlation and correlation with patient's symptoms recommended. Ultrasound may provide additional information. Chest X-Ray 10/22/19 13:38 IMPRESSION: Enlarged cardiac silhouette with central vascular congestion. No overt edema. 10/26/19 06:31 Blood Culture - Preliminary Blood NO GROWTH IN 24 HOURS 10/26/19 04:36 Blood Culture - Preliminary Blood NO GROWTH IN 24 HOURS 02/03/20 17:10 Blood Culture (PCR) - Final Blood Blood Culture - Final Staphylococcus Species Staphylococcus Epidermidis 10/22/19 14:41 Blood Culture (PCR) - Final Blood Blood Culture - Final Staphylococcus Species Staphylococcus Epidermidis 10/22/19 13:10 Urine Culture - Final Clean Catch Midstream Enterococcus Faecalis(Group D) IMPRESSION/RECOMMENDATION: 1. Aortic valve endocarditis: Continue antibiotics. Discussed with [facility] CT surgery. They recommended to treat the patient for a full course with antibiotics for endocarditis for a minimum of 6 weeks and reevaluate valve to see if the patient needs valve replacement. This has been discussed with attending physician. 2. History of AICD placement: There is no clinical evidence of AICD infection. 3. Right middle lobe and right upper lobe pneumonia: Continue aggressive antibiotics. Will check chest x-ray in the a.m. 4. Cardiomyopathy dilated with? Ischemic component to the cardiomyopathy. LV ejection fraction is moderately reduced. Would recommend continuing the patient beta-wilian and his RADHA inhibitor. [Coreg and ramipril] 5. Hypertension: Blood pressure well controlled 6. Diabetes mellitus by history, but the patient not on any antidiabetic medication. Most likely diet-controlled diabetes mellitus. Would recommend check Accu-Cheks as per protocol. 7. Past history of renal insufficiency: At present GFR is greater than 60. Avoid nephrotoxic drugs. 8. Myelodysplastic syndrome: Oncology following the patient this admission. Medications reviewed. Medical management and medical regimen discussed with Dr. Payton. Also discussed with [facility] CT surgery as mentioned above regarding the patient's further management. Medical decision making is of high complexity in view of the need for it differential diagnosis for the patient's fever. 40 minutes spent as patient more than 50% of time spent in direct patient care. Will follow
[2019-10-28] MEDS: CLONIDINE HCL 0.1 MG TABLET PO SCH ×3 (05:06→22:30)
[2019-10-28] MEDS: POTASSIUM CHLORIDE 10 MEQ TABLET.ER PO SCH (10:01)
[2019-10-28] MEDS: CARVEDILOL 12.5 MG TABLET PO SCH ×2 (10:01→22:24)
[2019-10-28] MEDS: ISOSORBIDE MONONITRATE 60 MG TAB.ER.24H PO SCH (10:01)
[2019-10-28] MEDS: FUROSEMIDE 40 MG TABLET PO SCH (10:02)
[2019-10-28] MEDS: CHOLECALCIFEROL (D3) 1,000 UNIT (25 MCG) TABLET PO SCH (10:02)
[2019-10-28] MEDS: IRON POLYSACCHARIDES COMPLEX 150 MG CAPSULE PO SCH ×2 (10:03→17:42)
[2019-10-28] MEDS: AMLODIPINE BESYLATE 5 MG TABLET PO SCH (10:03)
[2019-10-28] MEDS: PANTOPRAZOLE SODIUM 40 MG TABLET.DR PO SCH (10:03)
[2019-10-28] MEDS: VANCOMYCIN HCL 750 MG in DEXTROSE 5%-WATER 250 ML IV SCH ×2 (10:06→22:24)
--- NOTE | 2019-10-28 11:00 | RADIOLOGY REPORT (SQ) ---
EXAM DESCRIPTION: CHEST 2 VIEWS COMPLETED DATE/TIME: 10/28/2019 8:47 am REASON FOR STUDY: Pneumonia COMPARISON: 10/22/2019 NUMBER OF VIEWS: Two view TECHNIQUE: Frontal and lateral radiographic images of the chest acquired. LIMITATIONS: None. FINDINGS: LUNGS AND PLEURA: Stable appearance. MEDIASTINUM AND HILAR STRUCTURES: Stable heart size and mediastinal structures. HEART AND VASCULAR STRUCTURES: Stable appearance. SUPPORT DEVICES: Appropriate location without change. BONES: No acute findings. OTHER: Left-sided defibrillator. IMPRESSION: No significant change. No infiltrate. TECHNICAL DOCUMENTATION: JOB ID: [id number] [employer] [place]- All Rights Reserved Reading location - IP/workstation name: [email or web address]
[2019-10-28] MEDS: RIFAMPIN 600 MG in NORMAL SALINE 500 ML IV SCH (12:11)
[2019-10-28] MEDS: TAMSULOSIN HCL 0.4 MG CAP.SR.24H PO SCH (17:42)
--- NOTE | 2019-10-28 19:11 | PDOC PROGRESS REPORT ---
Subjective Progress Note for:: 10/28/19 Subjective:: Patient seen by the bedside, he has no complaint today Reason For Visit: POSITIVE BLOOD CULTURE Physical Exam Vital Signs: Temp Pulse Resp BP Pulse Ox 98.4 F 76 16 134/34 H 100 10/28/19 15:57 10/28/19 15:57 10/28/19 15:57 10/28/19 15:57 10/28/19 15:57 Intake & Output 10/27/19 10/28/19 10/29/19 06:59 06:59 06:59 Intake Total 1576 1950 1710 Output Total 3175 3250 650 Balance -1599 -1300 1060 Weight 78.9 kg 78.2 kg General appearance: PRESENT: no acute distress Eye exam: PRESENT: PERRLA Respiratory exam: PRESENT: clear to auscultation diony Cardiovascular exam: PRESENT: +S1, +S2, systolic murmur GI/Abdominal exam: PRESENT: soft Results Laboratory Results: 10/26/19 04:36 10/27/19 04:29 Impressions: Abdomen/Pelvis CT 10/22/19 00:00 IMPRESSION: 1. Left hydronephrosis and dilated renal pelvis and proximal ureter. The findings look relatively chronic, although are more pronounced compared to 2010. No evidence of obstructing stone or mass. Correlate with renal symptoms and any evidence of hematuria. Chest CT 10/22/19 00:00 IMPRESSION: 1. Consolidation in the right middle and upper lobe consistent with pneumonia. 2. Moderate cardiomegaly with small pericardial effusion. 3. Moderate left hydronephrosis and prominent left extrarenal pelvis has increased since previous examination, possibly representing a UPJ obstruction. Clinical correlation and correlation with patient's symptoms recommended. Ultra sound may provide additional information. Chest X-Ray 10/28/19 06:00 IMPRESSION: No significant change. No infiltrate. Assessment & Plan - Diagnosis (1) Endocarditis Qualifiers: Endocarditis type: infective Infective endocarditis organism: bacterial Chronicity: acute Qualified Code(s): I33.0 - Acute and subacute infective endocarditis Is this a current diagnosis for this admission?: Yes Plan: Continue IV antibiotic (2) Hydronephrosis Qualifiers: Hydronephrosis type: unspecified Qualified Code(s): N13.30 - Unspecified hydronephrosis Is this a current diagnosis for this admission?: Yes (3) Pneumonia, unspecified organism Is this a current diagnosis for this admission?: Yes (4) Bacteremia Is this a current diagnosis for this admission?: Yes - Time Time Spent with patient: 15-24 minutes Level of Care: MEDICAL
--- NOTE | 2019-10-28 20:17 | Progress Note ---
Provider Note Provider Note: CARDIOLOGY PROGRESS NOTE by Dr. Zahra Odell on 10/28/2019. SUBJECTIVE: The patient denies any chest pain discomfort. There is no shortness of breath or PND orthopnea. There is no atrial or ventricular arrhythmias seen. The patient is afebrile. There is no leg edema. There is no peripheral embo lization. The patient is tolerating his antibiotics. Physical EXAMINATION: The patient is well-built. In no acute distress. Selected Entries 10/28/19 12:00 Temperature 97.3 F Temperature Oral Source Pulse Rate 72 Respiratory 17 Rate Blood Pressure 149/40 H [Right Upper Arm] Blood Pressure 76 Mean [Right Upper Arm] Blood Pressure Sitting Position [Right Upper Arm] O2 Sat by Pulse 100 Oximetry Oxygen Delivery Room Air Method ( includes room air) HEAD: Is atraumatic normocephalic. EYES: Pupils are equal round regular reactive to light and accommodation. External ocular movements are normal. There is no conjunctival pallor. There is no scleral icterus. EARS: Tympanic membranes are intact. External auditory canals are clear. NOSE: There is no deviated nasal septum. There is no inflammation of these mucous membrane. MOUTH: Mucous membranes of mouth are moist tongue is moist there is no ulcers. THROAT: There is no redness of the oropharynx. There is no exudates. SKIN: There is no skin rashes or petechiae. There is no skin lesions or skin rashes. There is no ecchymosis. NECK: Is supple. There is no JVD. There is no goiter. There is no lymphadenopathy. Carotids are equal there is no bruits. There is no lymphadenopathy. There is no accessory muscles of respiration use. Trachea central. LUNGS: There is a few dry crackles in the right mid zone and right upper lobe. Otherwise the lungs are clear without any rhonchi or wheezing. There is no rales of CHF. HEART: S1-S2 is heard. S1 is of normal intensity. There is no S3 gallop. There is no S4 gallop. There is murmur of aortic sclerosis present, with preserved A2 sound. There is also a 2 x 6 diastolic murmur of aortic regurgitation present. There is collapsing pulse, but no other peripheral signs of aortic regurgitation. There is no rub. ABDOMEN: Is soft. There is no paraspinal megaly. Bowel sounds are well heard. There is no tender areas masses. There is no rebound guarding or rigidity especially detailed examination failed to reveal splenomegaly. There is no ascites. EXTREMITIES: Femorals are deep femorals are slightly diminished. There is no femoral bruits. Leg pulses are well felt. There is no pedal edema. There is no DVT or cellulitis. There is no signs cyanosis. X finger nails and toenails showed no evidence of clubbing or cyanosis. There is no splinter hemorrhages. TELLERS SUPERVISOR: The patient is conscious awake alert oriented x3 with no focal deficits. PSYCHIATRIC: The patient judgment insight are intact his affect is normal. Labs- All tests 24 hr 10/27/19 10/28/19 10/28/19 21:44 06:07 17:47 POC Glucose 97 86 120 H Abdomen/Pelvis CT 10/22/19 00:00 IMPRESSION: 1. Left hydronephrosis and dilated renal pelvis and proximal ureter. The findings look relatively chronic, although are more pronounced compared to 2010. No evidence of obstructing stone or mass. Correlate with renal symptoms and any evidence of hematuria. Chest CT 10/22/19 00:00 IMPRESSION: 1. Consolidation in the right middle and upper lobe consistent with pneumonia. 2. Moderate cardiomegaly with small pericardial effusion. 3. Moderate left hydronephrosis and prominent left extrarenal pelvis has increased since previous examination, possibly representing a UPJ obstruction. Clinical correlation and correlation with patient's symptoms recommended. Ultrasound may provide additional information. Chest X-Ray 10/22/19 13:38 IMPRESSION: Enlarged cardiac silhouette with central vascular congestion. No overt edema. Chest X-Ray 10/28/19 06:00 IMPRESSION: No significant change. No infiltrate. IMPRESSION/RECOMMENDATION: 1. Aortic valve endocarditis: Continue antibiotics. Discussed with [facility] surgery. They recommended to treat the patient for a full course with antibiotics for endocarditis for a minimum of 6 weeks and reevaluate valve to see if the patient needs valve replacement. This has been discussed with attending physician. Since patient needs a minimum of 6 weeks of IV antibiotics. Will discuss with Dr. Payton about placing a PICC line. 2. History of AICD placement: There is no clinical evidence of AICD infection. 3. Right middle lobe and right upper lobe pneumonia: Continue aggressive antibiotics. Will check chest x-ray in the a.m. 4. Cardiomyopathy dilated with? Ischemic component to the cardiomyopathy. LV ejection fraction is moderately reduced. Would recommend continuing the patient beta-wilian and his RADHA inhibitor. [Coreg and ramipril] 5. Hypertension: Blood pressure well controlled 6. Diabetes mellitus by history, but the patient not on any antidiabetic medication. Most likely diet-controlled diabetes mellitus. Would recommend check Accu-Cheks as per protocol. 7. Past history of renal insufficiency: At present GFR is greater than 60. Avoid nephrotoxic drugs. 8. Myelodysplastic syndrome: Oncology following the patient this admission. Medications reviewed. Medical management and medical regimen discussed with Dr. Payton. Also discussed [facility] as mentioned above regarding the patient's further management. Medical decision making is of high complexity in view of the need for it differential diagnosis for the patient's fever. 40 minutes spent as patient more than 50% of time spent in direct patient care. Will follow
[2019-10-28] MEDS: ATORVASTATIN CALCIUM 10 MG TABLET PO SCH (22:24)
[2019-10-29] MEDS: CLONIDINE HCL 0.1 MG TABLET PO SCH ×3 (05:08→21:38)
--- NOTE | 2019-10-29 09:35 | PDOC PROGRESS REPORT ---
Subjective Progress Note for:: 10/29/19 Subjective:: Patient is currently doing well As per discussed with the Dr. Myers he is talked with the CT surgeon no need to repair the aortic valve Now but patients need a 6-week IV antibiotics and reevaluate the aortic valve Patient's blood culture is negative's after starting the vancomycin's Reason For Visit: POSITIVE BLOOD CULTURE Physical Exam Vital Signs: Temp Pulse Resp BP Pulse Ox 98.3 F 73 16 143/41 H 98 10/29/19 07:30 10/29/19 07:30 10/29/19 07:30 10/29/19 07:30 10/29/19 07:30 Intake & Output 10/28/19 10/29/19 10/30/19 06:59 06:59 06:59 Intake Total 1950 1960 354 Output Total 3250 3150 300 Balance -1300 -1190 54 Weight 78.2 kg 78.5 kg General appearance: PRESENT: no acute distress, well-developed, well-nourished Head exam: PRESENT: atraumatic, normocephalic Eye exam: PRESENT: conjunctiva pink, EOMI, PERRLA. ABSENT: scleral icterus Ear exam: PRESENT: normal external ear exam Mouth exam: PRESENT: moist, tongue midline Neck exam: PRESENT: full ROM. ABSENT: carotid bruit, JVD, lymphadenopathy, thyromegaly Respiratory exam: PRESENT: clear to auscultation diony Cardiovascular exam: PRESENT: RRR. ABSENT: diastolic murmur, rubs, systolic murmur Pulses: PRESENT: normal dorsalis pedis pul, +2 pedal pulses bilateral Vascular exam: PRESENT: normal capillary refill GI/Abdominal exam: PRESENT: normal bowel sounds, soft. ABSENT: distended, guarding, mass, organolmegaly, rebound, tenderness Rectal exam: PRESENT: deferred Extremities exam: ABSENT: pedal edema Musculoskeletal exam: PRESENT: ambulatory Neurological exam: PRESENT: alert, awake, oriented to person, oriented to place, oriented to time, oriented to situation, CN II-XII grossly intact. ABSENT: motor sensory deficit Psychiatric exam: PRESENT: appropriate affect, normal mood. ABSENT: homicidal ideation, suicidal ideation Skin exam: PRESENT: dry, intact, warm. ABSENT: cyanosis, rash Results Laboratory Results: 10/26/19 04:36 10/27/19 04:29 Impressions: Abdomen/Pelvis CT 10/22/19 00:00 IMPRESSION: 1. Left hydronephrosis and dilated renal pelvis and proximal ureter. The findings look relatively chronic, although are more pronounced compared to 2011. No evidence of obstructing stone or mass. Correlate with renal symptoms and any evidence of hematuria. Chest CT 10/22/19 00:00 IMPRESSION: 1. Consolidation in the right middle and upper lobe consistent with pneumonia. 2. Moderate cardiomegaly with small pericardial effusion. 3. Moderate left hydronephrosis and prominent left extrarenal pelvis has increased since previous examination, possibly representing a UPJ obstruction. Clinical correlation and correlation with patient's symptoms recommended. Ultrasound may provide additional information. Chest X-Ray 10/28/19 06:00 IMPRESSION: No significant change. No infiltrate. 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 Is this a current diagnosis for this admission?: Yes Plan: Currently all stable (3) Cardiomyopathy Qualifiers: Cardiomyopathy type: unspecified Qualified Code(s): I42.9 - Cardiomyopathy, unspecified Is this a current diagnosis for this admission?: Yes Plan: Currently all stable (4) Chronic kidney disease Qualifiers: Chronic kidney disease stage: stage 3 (moderate) Qualified Code(s): N18.3 - Chronic kidney disease, stage 3 (moderate) Is this a current diagnosis for this admission?: Yes Plan: Stable (5) Thrombocytopenia Is this a current diagnosis for this admission?: Yes Plan: Currently all stable (6) CAD (coronary artery disease) Qualifiers: Coronary Disease-Associated Artery/Lesion type: [place] artery Associated angina: without angina Is this a current diagnosis for this admission?: Yes Plan: stable (7) CHF (congestive heart failure) Qualifiers: Heart failure type: combined systolic and diastolic Heart failure chronicity: chronic Qualified Code(s): I50.42 - Chronic combined systolic (congestive) and diastolic (congestive) heart failure Is this a current diagnosis for this admission?: Yes Plan: Continues the Lasix (8) HTN (hypertension) Qualifiers: Hypertension type: essential hypertension Is this a current diagnosis for this admission?: Yes Plan: Currently all stable (9) Myelodysplastic syndrome Is this a current diagnosis for this admission?: Yes Plan: Follow-up with oncology (10) Pneumonia Qualifiers: Pneumonia type: due to unspecified organism Laterality: right Is this a current diagnosis for this admission?: Yes Plan: Currently on antibiotics (11) Hydronephrosis Qualifiers: Hydronephrosis type: unspecified Qualified Code(s): N13.30 - Unspecified hydronephrosis Is this a current diagnosis for this admission?: Yes (12) Bacteremia Is this a current diagnosis for this admission?: Yes (13) Endocarditis Qualifiers: Endocarditis type: infective Infective endocarditis organism: bacterial Chronicity: acute Qualified Code(s): I33.0 - Acute and subacute infective endocarditis Is this a current diagnosis for this admission?: Yes Plan: Continues to vancomycin's (14) Aortic valve disorder Is this a current diagnosis for this admission?: Yes Plan: Follow the cardiology - Time Time Spent with patient: 15-24 minutes Level of Care: TELE Medications reviewed and adjusted accordingly: Yes Anticipated discharge: Other Within: Other - Plan Summary Plan Summary: Discussed with the patient and the on the bedside Continue to current medications
[2019-10-29] MEDS: CARVEDILOL 12.5 MG TABLET PO SCH ×2 (09:48→21:39)
[2019-10-29] MEDS: CHOLECALCIFEROL (D3) 1,000 UNIT (25 MCG) TABLET PO SCH (09:49)
[2019-10-29] MEDS: PANTOPRAZOLE SODIUM 40 MG TABLET.DR PO SCH (09:49)
[2019-10-29] MEDS: AMLODIPINE BESYLATE 5 MG TABLET PO SCH (09:49)
[2019-10-29] MEDS: VANCOMYCIN HCL 750 MG in DEXTROSE 5%-WATER 250 ML IV SCH ×2 (09:49→21:39)
[2019-10-29] MEDS: POTASSIUM CHLORIDE 10 MEQ TABLET.ER PO SCH (09:49)
[2019-10-29] MEDS: ISOSORBIDE MONONITRATE 60 MG TAB.ER.24H PO SCH (09:49)
[2019-10-29] MEDS: IRON POLYSACCHARIDES COMPLEX 150 MG CAPSULE PO SCH ×2 (09:49→17:57)
[2019-10-29] MEDS: FUROSEMIDE 40 MG TABLET PO SCH (09:49)
[2019-10-29] MEDS: RIFAMPIN 600 MG in NORMAL SALINE 500 ML IV SCH (12:00)
[2019-10-29] MEDS: TAMSULOSIN HCL 0.4 MG CAP.SR.24H PO SCH (17:57)
--- NOTE | 2019-10-29 18:00 | Progress Note ---
Provider Note Provider Note: [facility] Telephone Advice Consultation - Follow Up Update Chart reviewed. Patient is a 64-year-old man with a history of MDS, ischemic cardiomyopathy, hypertension, hypercholesterolemia who was admitted due to pe rsisitent Staphylococcus epidermidis bacteremia. He had multiple sets of blood cultures in September positive for MRSE. There was high suspicion for cardiac device infection. KENTON was positive for aortic valve vegetation. He is not a surgical candidate, therefore he has been on vancomycin and rifampin. Patient was also evaluated by urology for chronic hydronephrosis, no intervention needed. He is overall doing well, afebrile, HD stable, no leukocytosis, renal function stable. HPI Reviewing his chart, patient has bacteremia with Enterobacter spp back in August. A repeat blood culture 2 weeks later on 10/01 was positive for Staph epidermidis. He received doxycycline. A new blood culture on 10/10 was still positive for which he received ciprofloxacin. His blood culture on 10/22 positive again. Patient was initially complaining of fever and night sweats but these have resolved. He has a pacemaker/AICD but per cardiology note, no recent firing of the device. He has been afebrile and HD stable. A CT scan of the chest demonstrated a consolidation in the right upper and middle lobes. He also has chronic left hydronephrosis. He was started on cefepime and levofloxacin. Allergies No Known Allergies (Verified 10/22/19 13:34) Vital Signs: Temp Pulse Resp BP Pulse Ox 98.4 F 73 20 129/40 H 100 10/29/19 15:30 10/29/19 15:30 10/29/19 15:30 10/29/19 15:30 10/29/19 15:30 Intake & Output 10/28/19 10/29/19 10/30/19 06:59 06:59 06:59 Intake Total 1950 1960 1344 Output Total 3250 3150 750 Balance -1300 -1190 594 Weight 78.2 kg 78.5 kg Weight/Height Weight 78.5 kg Height 5 ft 7 in Laboratories: 10/26/19 04:36 10/27/19 04:29 MCV 80 fl (80-97) 10/26/19 04:36 MCH 27.8 pg (27.0-33.4) 10/26/19 04:36 MCHC 35.0 g/dL (32.0-36.0) 10/26/19 04:36 RDW 17.2 % (11.5-14.0) H 10/26/19 04:36 Seg Neutrophils % Not Reportable 10/26/19 04:36 Chloride 108 mmol/L (98-107) H 10/27/19 04:29 Carbon Dioxide 21 mmol/L (22-30) L 10/27/19 04:29 Anion Gap 10 (5-19) 10/27/19 04:29 Est GFR ( Amer) > 60 (>60) 10/27/19 04:29 Glucose 89 mg/dL (75-110) 10/27/19 04:29 Calcium 8.8 mg/dL (8.4-10.2) 10/27/19 04:29 Magnesium 2.3 mg/dL (1.6-2.3) 10/23/19 05:31 Total Bilirubin 0.6 mg/dL (0.2-1.3) 10/22/19 14:41 AST 20 U/L (17-59) 10/22/19 14:41 Alkaline Phosphatase 117 U/L (38-126) 10/22/19 14:41 Total Protein 8.7 g/dL (6.3-8.2) H 10/22/19 14:41 Albumin 4.1 g/dL (3.5-5.0) 10/22/19 14:41 Urine Color YELLOW 10/22/19 13:10 Urine Appearance CLEAR 10/22/19 13:10 Urine pH 6.0 (5.0-9.0) 10/22/19 13:10 Ur Specific [place] 1.011 10/22/19 13:10 Urine Protein NEGATIVE mg/dL (NEGATIVE) 10/22/19 13:10 Urine Glucose (UA) NEGATIVE mg/dL (NEGATIVE) 10/22/19 13:10 Urine Ketones NEGATIVE mg/dL (NEGATIVE) 10/22/19 13:10 Urine Blood SMALL (NEGATIVE) H 10/22/19 13:10 Urine RBC (Auto) 1 /HPF 10/22/19 13:10 Microbiology: Blood cultures: 10/01 MRSE 1/22 MRSE 2/3 MRSE 2/7 NGTD Radiology: Abdomen/Pelvis CT 10/22/19 00:00 IMPRESSION: 1. Left hydronephrosis and dilated renal pelvis and proximal ureter. The findings look relatively chronic, although are more pronounced compared to 2011. No evidence of obstructing stone or mass. Correlate with renal symptoms and any evidence of hematuria. Chest CT 10/22/19 00:00 IMPRESSION: 1. Consolidation in the right middle and upper lobe consistent with pneumonia. 2. Moderate cardiomegaly with small pericardial effusion. 3. Moderate left hydronephrosis and prominent left extrarenal pelvis has increased since previous examination, possibly representing a UPJ obstruction. Clinical correlation and correlation with patient's symptoms recommended. Ultrasound may provide additional information. Chest X-Ray 10/28/19 06:00 IMPRESSION: No significant change. No infiltrate. KENTON: Aortic valve vegetation. Assessment and Recommendations: Patient with MRSE aortic valve vegetation in the setting of cardiac device. Even though there is no evidence of cardiac device infection per KENTON, but there is an aortic valve vegetation, will treat for 6 weeks. MRSE is a rare cause of [place] valve endocarditis, but common infection of cardiac devices. For this reason, will continue vancomycin and rifampin 600 mg po daily for 6 weeks from negative cultures as he is not a surgical candidate. Rifampin will help with biofilm. EOT 12/07/2019. Consider surveillance blood cultures 1 week after completion of antibiotics. While on antibiotics, please monitor CBC, CMP, ESR, CRP, vancomycin trough weekly. Remove PICC line at completion of therapy. Please call if questions. Telma Loya MD [facility] [phone]
--- NOTE | 2019-10-29 19:02 | Progress Note ---
Provider Note Provider Note: CARDIOLOGY PROGRESS NOTE by Dr. Zahra Odell on 10/29/2019. SUBJECTIVE: The patient denies any chest pain or discomfort. There is no shortness of breath. There is no PND orthopnea. There is no peripheral embolization. There is no TIA CVA symptoms. There is no leg edema. Physical EXAMINATION:. The patient well-built and well-nourished in no acute distress. Selected Entries 10/29/19 11:19 Temperature 98.2 F Temperature Oral Source Pulse Rate 76 Respiratory 20 Rate Blood Pressure 131/38 H Blood Pressure 69 Mean BP Location Right Arm BP Position Supine O2 Sat by Pulse 100 Oximetry Oxygen Delivery Room Air Method HEAD: Is atraumatic normocephalic. EYES: Pupils are equal round regular reactive to light and accommodation. External ocular movements are normal. There is no conjunctival pallor. There is no scleral icterus. EARS: Tympanic membranes are intact. External auditory canals are clear. NOSE: There is no deviated nasal septum. There is no inflammation of these mucous membrane. MOUTH: Mucous membranes of mouth are moist tongue is moist there is no ulcers. THROAT: There is no redness of the oropharynx. There is no exudates. SKIN: There is no skin rashes or petechiae. There is no skin lesions or skin rashes. There is no ecchymosis. NECK: Is supple. There is no JVD. There is no goiter. There is no lymphadenopathy. Carotids are equal there is no bruits. There is no lymphadenopathy. There is no accessory muscles of respiration use. Trachea central. LUNGS: There is a few dry crackles in the right mid zone and right upper lobe. Otherwise the lungs are clear without any rhonchi or wheezing. There is no rales of CHF. HEART: S1-S2 is heard. S1 is of normal intensity. There is no S3 gallop. There is no S4 gallop. There is murmur of aortic sclerosis present, with preserved A2 sound. There is also a 2 x 6 diastolic murmur of aortic regurgitation present. There is collapsing pulse, but no other peripheral signs of aortic regurgitation. There is no rub. ABDOMEN: Is soft. There is no paraspinal megaly. Bowel sounds are well heard. There is no tender areas masses. There is no rebound guarding or rigidity especially detailed examination failed to reveal splenomegaly. There is no ascites. EXTREMITIES: Femorals are deep femorals are slightly diminished. There is no femoral bruits. Leg pulses are well felt. There is no pedal edema. There is no DVT or cellulitis. There is no signs cyanosis. X finger nails and toenails showed no evidence of clubbing or cyanosis. There is no splinter hemorrhages. 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 PSYCHIA TRIC: The patient judgment insight are intact his affect is normal. Labs- All tests 24 hr 10/29/19 10/29/19 21:44 21:44 Creatinine 1.24 Est GFR ( Amer) > 60 Est GFR (MDRD) Non-Af 58 L Time Trough Drawn 2144 Vancomycin Trough 17.6 Abdomen/Pelvis CT 10/22/19 00:00 IMPRESSION: 1. Left hydronephrosis and dilated renal pelvis and proximal ureter. The findings look relatively chronic, although are more pronounced compared to 2010. No evidence of obstructing stone or mass. Correlate with renal symptoms and any evidence of hematuria. Chest CT 10/22/19 00:00 IMPRESSION: 1. Consolidation in the right middle and upper lobe consistent with pneumonia. 2. Moderate cardiomegaly with small pericardial effusion. 3. Moderate left hydronephrosis and prominent left extrarenal pelvis has increased since previous examination, possibly representing a UPJ obstruction. Clinical correlation and correlation with patient's symptoms recommended. Ultrasound may provide additional information. Chest X-Ray 10/22/19 13:38 IMPRESSION: Enlarged cardiac silhouette with central vascular congestion. No overt edema. Chest X-Ray 10/28/19 06:00 IMPRESSION: No significant change. No infiltrate. IMPRESSION/RECOMMENDATION: 1. Aortic valve endocarditis: Continue antibiotics. Discussed with [facility] surgery. They recommended to treat the patient for a full course with antibiotics for endocarditis for a minimum of 6 weeks and reevaluate valve to see if the patient needs valve replacement. This has been discussed with attending physician. Since patient needs a minimum of 6 weeks of IV antibiotics. As discussed with Dr. Payton the patient will soon have a PICC line placed. I have also spoken to Dr. Loya the ID water resource consultant from [place]. She agrees that the patient's valve status needs to be reevaluated after 6 weeks of antibiotics, to make a determination of the valve needs to be replaced. Even though the patient might be at high risk for open heart surgery, the patient may be a candidate for TAVR assuming the patient has no coronary artery disease. This has been discussed by me with her. [Note TAVR for aortic regurgitation has slightly higher risk of failure compared to TAVR for aortic stenosis]. 2. History of AICD placement: There is no clinical evidence of AICD infection. 3. Right middle lobe and right upper lobe pneumonia: Continue aggressive antibiotics. Will check chest x-ray in the a.m. 4. Cardiomyopathy dilated with? Ischemic component to the cardiomyopathy. LV ejection fraction is moderately reduced. Would recommend continuing the patient beta-wilian and his RADHA inhibitor. [Coreg and ramipril] 5. Hypertension: Blood pressure well controlled 6. Diabetes mellitus by history, but the patient not on any antidiabetic medication. Most likely diet-controlled diabetes mellitus. Would recommend check Accu-Cheks as per protocol. 7. Past history of renal insufficiency: At present GFR is greater than 60. Avoid nephrotoxic drugs. 8. Myelodysplastic syndrome: Oncology following the patient this admission. Medications reviewed. Medical management and medical regimen discussed with Dr. Payotn. Also discussed with [facility] surgery as mentioned above regarding the patient's further management. Medical decision making is of high complexity in view of the need for it differential diagnosis for the patient's fever. 40 minutes spent as patient more than 50% of time spent in direct patient care. Will follow
[2019-10-29] MEDS: ATORVASTATIN CALCIUM 10 MG TABLET PO SCH (21:39)
[2019-10-29 22:21] LABS: VANCOMYCIN,TROUGH 17.6 ug/mL (5.0-20.0)
[2019-10-30] MEDS: CLONIDINE HCL 0.1 MG TABLET PO SCH ×3 (05:00→21:36)
[2019-10-30 06:25] LABS: ANION GAP 7 (5-19); BLOOD UREA NITROGEN 15 mg/dL (7-20); CALCIUM 9.1 mg/dL (8.4-10.2); CARBON DIOXIDE 26 mmol/L (22-30); CHLORIDE 107 mmol/L (98-107); GLUCOSE 88 mg/dL (75-110); POTASSIUM 3.5 mmol/L (3.6-5.0)
--- NOTE | 2019-10-30 08:29 | PDOC PROGRESS REPORT ---
Subjective Progress Note for:: 10/30/19 Subjective:: Patient is currently doing well As per discussed with the Dr. Myers he is talked with the CT surgeon no need to repair the aortic valve Now but patients need a 6-week IV antibiotics and reevaluate the aortic valve Patient's blood culture is negative's after starting the vancomycin's Reason For Visit: POSITIVE BLOOD CULTURE Physical Exam Vital Signs: Temp Pulse Resp BP Pulse Ox 98.5 F 88 17 147/46 H 99 10/30/19 04:00 10/30/19 07:00 10/30/19 04:00 10/30/19 04:00 10/30/19 04:00 Intake & Output 10/29/19 10/30/19 10/31/19 06:59 06:59 06:59 Intake Total 1960 1834 Output Total 3150 2700 Balance -1190 -866 Weight 78.5 kg 79.2 kg General appearance: PRESENT: no acute distress, well-developed, well-nourished Head exam: PRESENT: atraumatic, normocephalic Eye exam: PRESENT: conjunctiva pink, EOMI, PERRLA. ABSENT: scleral icterus Ear exam: PRESENT: normal external ear exam Mouth exam: PRESENT: moist, tongue midline Neck exam: PRESENT: full ROM. ABSENT: carotid bruit, JVD, lymphadenopathy, thyromegaly Respiratory exam: PRESENT: clear to auscultation diony Cardiovascular exam: PRESENT: RRR. ABSENT: diastolic murmur, rubs, systolic murmur Pulses: PRESENT: normal dorsalis pedis pul, +2 pedal pulses bilateral Vascular exam: PRESENT: normal capillary refill GI/Abdominal exam: PRESENT: normal bowel sounds, soft. ABSENT: distended, guarding, mass, organolmegaly, rebound, tenderness Rectal exam: PRESENT: deferred Musculoskeletal exam: PRESENT: ambulatory Neurological exam: PRESENT: alert, awake, oriented to person, oriented to place, oriented to time, oriented to situation, CN II-XII grossly intact. ABSENT: motor sensory deficit Psychiatric exam: PRESENT: appropriate affect, normal mood. ABSENT: homicidal ideation, suicidal ideation Skin exam: PRESENT: dry, intact, warm. ABSENT: cyanosis, rash Results Laboratory Results: 10/26/19 04:36 10/30/19 05:10 10/29/19 10/30/19 21:44 05:10 Sodium 140.3 Potassium 3.5 L Chloride 107 Carbon Dioxide 26 Anion Gap 7 BUN 15 Creatinine 1.24 1.19 Est GFR ( Amer) > 60 > 60 Glucose 88 Calcium 9.1 Impressions: Abdomen/Pelvis CT 10/22/19 00:00 IMPRESSION: 1. Left hydronephrosis and dilated renal pelvis and proximal ureter. The find ings look relatively chronic, although are more pronounced compared to 2010. No evidence of obstructing stone or mass. Correlate with renal symptoms and any evidence of hematuria. Chest CT 10/22/19 00:00 IMPRESSION: 1. Consolidation in the right middle and upper lobe consistent with pneumonia. 2. Moderate cardiomegaly with small pericardial effusion. 3. Moderate left hydronephrosis and prominent left extrarenal pelvis has increased since previous examination, possibly representing a UPJ obstruction. Clinical correlation and correlation with patient's symptoms recommended. Ultrasound may provide additional information. Chest X-Ray 10/28/19 06:00 IMPRESSION: No significant change. No infiltrate. 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 Is this a current diagnosis for this admission?: Yes (3) Cardiomyopathy Qualifiers: Cardiomyopathy type: unspecified Qualified Code(s): I42.9 - Cardiomyopathy, unspecified Is this a current diagnosis for this admission?: Yes (4) Chronic kidney disease Qualifiers: Chronic kidney disease stage: stage 3 (moderate) Qualified Code(s): N18.3 - Chronic kidney disease, stage 3 (moderate) Is this a current diagnosis for this admission?: Yes (5) Thrombocytopenia Is this a current diagnosis for this admission?: Yes (6) CAD (coronary artery disease) Qualifiers: Coronary Disease-Associated Artery/Lesion type: [place] artery Associated angina: without angina Is this a current diagnosis for this admission?: Yes (7) CHF (congestive heart failure) Qualifiers: Heart failure type: combined systolic and diastolic Heart failure chronicity: chronic Qualified Code(s): I50.42 - Chronic combined systolic (congestive) and diastolic (congestive) heart failure Is this a current diagnosis for this admission?: Yes (8) HTN (hypertension) Qualifiers: Hypertension type: essential hypertension Is this a current diagnosis for this admission?: Yes (9) Myelodysplastic syndrome Is this a current diagnosis for this admission?: Yes (10) Pneumonia Qualifiers: Pneumonia type: due to unspecified organism Laterality: right Is this a current diagnosis for this admission?: Yes (11) Hydronephrosis Qualifiers: Hydronephrosis type: unspecified Qualified Code(s): N13.30 - Unspecified hydronephrosis Is this a current diagnosis for this admission?: Yes (12) Bacteremia Is this a current diagnosis for this admission?: Yes (13) Endocarditis Qualifiers: Endocarditis type: infective Infective endocarditis organism: bacterial Chronicity: acute Qualified Code(s): I33.0 - Acute and subacute infective endocarditis Is this a current diagnosis for this admission?: Yes (14) Aortic valve disorder Is this a current diagnosis for this admission?: Yes - Time Time Spent with patient: 25-34 minutes Level of Care: TELE Anticipated discharge: Home with Homehealth Within: within 24 hours - Plan Summary Plan Summary: Patient is scheduled for a PICC line As per the ID recommendations patient's continues to vancomycin and p.o. rifampin for next 5 weeks Discussed with the nursing staff to arrange the home health for the IV antibiotic Patients need weekly every Tuesday and probably require a blood work and vancomycin's trough level before the fourth dose
[2019-10-30] MEDS: POTASSIUM CHLORIDE 10 MEQ TABLET.ER PO SCH (10:42)
[2019-10-30] MEDS: PANTOPRAZOLE SODIUM 40 MG TABLET.DR PO SCH (10:42)
[2019-10-30] MEDS: FUROSEMIDE 40 MG TABLET PO SCH (10:42)
[2019-10-30] MEDS: AMLODIPINE BESYLATE 5 MG TABLET PO SCH (10:43)
[2019-10-30] MEDS: CHOLECALCIFEROL (D3) 1,000 UNIT (25 MCG) TABLET PO SCH (10:43)
[2019-10-30] MEDS: ISOSORBIDE MONONITRATE 60 MG TAB.ER.24H PO SCH (10:43)
[2019-10-30] MEDS: CARVEDILOL 12.5 MG TABLET PO SCH ×2 (10:43→21:37)
[2019-10-30] MEDS: RIFAMPIN 600 MG in NORMAL SALINE 500 ML IV SCH ×2 (10:44→16:13)
[2019-10-30] MEDS: IRON POLYSACCHARIDES COMPLEX 150 MG CAPSULE PO SCH ×2 (10:55→17:34)
[2019-10-30] MEDS ORDERED: POTASSIUM CHLORIDE 10 MEQ TABLET.ER PO ONE (11:30)
--- NOTE | 2019-10-30 16:03 | RADIOLOGY REPORT (SQ) ---
EXAM DESCRIPTION: PICC INSERTION; U/S GUIDE FOR VASCULAR ACCESS; FLUORO/CV PLACEMENT COMPLETED DATE/TIME: 10/30/2019 2:49 pm REASON FOR STUDY: [facility] ; IV ABX COMPARISON: None. FLUOROSCOPY TIME: 48 seconds. 1 images saved to PACS. TECHNIQUE: Fluoroscopic and ultrasound guided PICC placement. LIMITATIONS: None. PROCEDURE: After written consent and assessment were obtained, the patient was brought into the fluo roscopy room and placed supine on the table. Ultrasound evaluation of potential access sites were per formed. After successfully identifying a patent right basilic vein, the right arm was prepped and lucio ped in a sterile fashion along with the ultrasound probe. The entry site was anesthetized with 1% lid ocaine. A 21 gauge 7 cm needle was advanced through the skin and into the basilic vein under live ult rasound guidance. An ultrasound image was saved to PACS confirming access site. A .018 guide wire w as then inserted through the needle and into the venous system. The needle was then removed and an 11 blade scalpel was used to make a 1cm skin incision. A 5 fr peel-away sheath was advanced over the w nati and into the venous system. A measurement was then made using the existing wire and live fluorosc opic guidance. The wire was then removed and trimmed. The PICC was advanced through the peel-away she ath and into the venous system. The peel-away sheath was removed and the catheter was adhered to the patients arm with a stat lock. The catheter was then aspirated and flushed and a sterile bandage was placed over the access site. A fluoroscopic spot image was saved to PACS confirming the catheter tip within the superior vena cava. IMPRESSION: SUCCESSFUL PLACEMENT OF A 5 FR DUAL LUMEN 39 CM PICC IN THE RIGHT BASILIC VEIN. COMMENT: Patient medication list reviewed: Yes- Quality ID# [id number]:Eligible professional attests to doc umenting in the medical record they obtained, updated, or reviewed the patient's current medications. . Quality ID 145: Final reports for procedures using fluoroscopy that document radiation exposure benjamin jesu, or exposure time and number of fluorographic images (if radiation exposure indices are not avail able) Quality ID #76: The patient was prepped and draped using maximum sterile barrier technique including cap, mask, sterile gown, sterile gloves, a large sterile sheet, hand hygiene, and 2% Chlorhexidine fo r cutaneous antisepsis. When ultrasound is used, sterile ultrasound techniques are followed requiring sterile gel and sterile probes. TECHNICAL DOCUMENTATION: JOB ID: [id number] 2010 [employer]- All Rights Reserved rev-02/03 Reading location - IP/workstation name: [email or web address]
[2019-10-30] MEDS: TAMSULOSIN HCL 0.4 MG CAP.SR.24H PO SCH (17:33)
[2019-10-30] MEDS: VANCOMYCIN HCL 750 MG in DEXTROSE 5%-WATER 250 ML IV SCH ×2 (17:34→20:14)
[2019-10-30] MEDS: ATORVASTATIN CALCIUM 10 MG TABLET PO SCH (21:37)
[2019-10-30] MEDS: NORMAL SALINE 10 ML SDV (SCHEDULED) IV SCH (21:37)
[2019-10-31] MEDS: CLONIDINE HCL 0.1 MG TABLET PO SCH ×3 (05:14→21:45)
[2019-10-31] MEDS: VANCOMYCIN HCL 750 MG in DEXTROSE 5%-WATER 250 ML IV SCH ×2 (05:17→18:55)
[2019-10-31 05:44] LABS: ANION GAP 8 (5-19); BLOOD UREA NITROGEN 15 mg/dL (7-20); CALCIUM 8.7 mg/dL (8.4-10.2); CARBON DIOXIDE 25 mmol/L (22-30); CHLORIDE 107 mmol/L (98-107); GLUCOSE 86 mg/dL (75-110); POTASSIUM 3.4 mmol/L (3.6-5.0)
--- NOTE | 2019-10-31 08:25 | PDOC PROGRESS REPORT ---
Subjective Progress Note for:: 10/31/19 Subjective:: Patient is currently doing well As per discussed with the Dr. Myers he is talked with the CT surgeon no need to repair the aortic valve Now but patients need a 6-week IV antibiotics and reevaluate the aortic valve Patient's blood culture is negative's after starting the vancomycin's Reason For Visit: POSITIVE BLOOD CULTURE Physical Exam Vital Signs: Temp Pulse Resp BP Pulse Ox 98.3 F 79 18 130/42 H 98 10/31/19 03:18 10/31/19 03:18 10/31/19 03:18 10/31/19 03:18 10/31/19 03:18 Intake & Output 10/30/19 10/31/19 11/01/19 06:59 06:59 06:59 Intake Total 1834 2124 Output Total 2700 7065 Balance -866 -251 Weight 79.2 kg 80.9 kg General appearance: PRESENT: no acute distress, well-developed, well-nourished Head exam: PRESENT: atraumatic, normocephalic Eye exam: PRESENT: conjunctiva pink, EOMI, PERRLA. ABSENT: scleral icterus Ear exam: PRESENT: normal external ear exam Mouth exam: PRESENT: moist, tongue midline Neck exam: PRESENT: full ROM. ABSENT: carotid bruit, JVD, lymphadenopathy, thyromegaly Respiratory exam: PRESENT: clear to auscultation diony Cardiovascular exam: PRESENT: RRR. ABSENT: diastolic murmur, rubs, systolic murmur Pulses: PRESENT: normal dorsalis pedis pul, +2 pedal pulses bilateral Vascular exam: PRESENT: normal capillary refill GI/Abdominal exam: PRESENT: normal bowel sounds, soft. ABSENT: distended, guarding, mass, organolmegaly, rebound, tenderness Rectal exam: PRESENT: deferred Musculoskeletal exam: PRESENT: ambulatory Neurological exam: PRESENT: alert, awake, oriented to person, oriented to place, oriented to time, oriented to situation, CN II-XII grossly intact. ABSENT: motor sensory deficit Psychiatric exam: PRESENT: appropriate affect, normal mood. ABSENT: homicidal ideation, suicidal ideation Skin exam: PRESENT: dry, intact, warm. ABSENT: cyanosis, rash Results Laboratory Results: 10/26/19 04:36 10/31/19 04:27 10/31/19 04:27 Sodium 140.1 Potassium 3.4 L Chloride 107 Carbon Dioxide 25 Anion Gap 8 BUN 15 Creatinine 1.22 Est GFR ( Amer) > 60 Glucose 86 Calcium 8.7 10/26/19 06:31 Blood Blood Culture - Final NO GROWTH IN 5 DAYS 10/26/19 04:36 Blood Blood Culture - Final NO GROWTH IN 5 DAYS Impressions: Abdomen/Pelvis CT 10/22/19 00:00 IMPRESSION: 1. Left hydronephrosis and dilated renal pelvis and proximal ureter. The findings look relatively chronic, although are more pronounced compared to 2010. No evidence of obstructing stone or mass. Correlate with renal symptoms and any evidence of hematuria. Chest CT 10/22/19 00:00 IMPRESSION: 1. Consolidation in the right middle and upper lobe consistent with pneumonia. 2. Moderate cardiomegaly with small pericardial effusion. 3. Moderate left hydronephrosis and prominent left extrarenal pelvis has increased since previous examination, possibly representing a UPJ obstruction. Clinical correlation and correlation with patient's symptoms recommended. Ultrasound may provide additional information. Chest X-Ray 10/28/19 06:00 IMPRESSION: No significant change. No infiltrate. Guidance Fluoroscopy 10/30/19 00:00 IMPRESSION: SUCCESSFUL PLACEMENT OF A 5 FR DUAL LUMEN 39 CM PICC IN THE RIGHT BASILIC VEIN. Interventional Vascular Procedure 10/30/19 00:00 IMPRESSION: SUCCESSFUL PLACEMENT OF A 5 FR DUAL LUMEN 39 CM PICC IN THE RIGHT BASILIC VEIN. PICC Line Insertion 10/30/19 00:00 IMPRESSION: SUCCESSFUL PLACEMENT OF A 5 FR DUAL LUMEN 39 CM PICC IN THE RIGHT BASILIC VEIN. 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 Is this a current diagnosis for this admission?: Yes (3) Cardiomyopathy Qualifiers: Cardiomyopathy type: unspecified Qualified Code(s): I42.9 - Cardiomyopathy, unspecified Is this a current diagnosis for this admission?: Yes (4) Chronic kidney disease Qualifiers: Chronic kidney disease stage: stage 3 (moderate) Qualified Code(s): N18.3 - Chronic kidney disease, stage 3 (moderate) Is this a current diagnosis for this admission?: Yes (5) Thrombocytopenia Is this a current diagnosis for this admission?: Yes (6) CAD (coronary artery disease) Qualifiers: Coronary Disease-Associated Artery/Lesion type: [place] artery Associated angina: without angina Is this a current diagnosis for this admission?: Yes (7) CHF (congestive heart failure) Qualifiers: Heart failure type: combined systolic and diastolic Heart failure chronicity: chronic Qualified Code(s): I50.42 - Chronic combined systolic (congestive) and diastolic (congestive) heart failure Is this a current diagnosis for this admission?: Yes (8) HTN (hypertension) Qualifiers: Hypertension type: essential hypertension Is this a current diagnosis for this admission?: Yes (9) Myelodysplastic syndrome Is this a current diagnosis for this admission?: Yes (10) Pneumonia Qualifiers: Pneumonia type: due to unspecified organism Laterality: right Is this a current diagnosis for this admission?: Yes (11) Hydronephrosis Qualifiers: Hydronephrosis type: unspecified Qualified Code(s): N13.30 - Unspecified h ydronephrosis Is this a current diagnosis for this admission?: Yes (12) Bacteremia Is this a current diagnosis for this admission?: Yes (13) Endocarditis Qualifiers: Endocarditis type: infective Infective endocarditis organism: bacterial Chronicity: acute Qualified Code(s): I33.0 - Acute and subacute infective endocarditis Is this a current diagnosis for this admission?: Yes (14) Aortic valve disorder Is this a current diagnosis for this admission?: Yes - Time Time Spent with patient: 15-24 minutes Level of Care: TELE Medications reviewed and adjusted accordingly: Yes Anticipated discharge: Home with Homehealth Within: within 24 hours - Plan Summary Plan Summary: Patient is in need IV vancomycin 750 mg twice a day patients need vancomycin t rough level every Tuesday before the IV antibiotic and also need a CBC Chem-7 LFT and CRP every Tuesday so discussed with the farm planner to arrange for home health IV infusions and patient is to do rifampicin 600 mg p.o. daily
[2019-10-31] MEDS ORDERED: POTASSIUM CHLORIDE 10 MEQ TABLET.ER PO ONE (08:30)
[2019-10-31] MEDS: ISOSORBIDE MONONITRATE 60 MG TAB.ER.24H PO SCH (09:50)
[2019-10-31] MEDS: AMLODIPINE BESYLATE 5 MG TABLET PO SCH (09:50)
[2019-10-31] MEDS: CHOLECALCIFEROL (D3) 1,000 UNIT (25 MCG) TABLET PO SCH (09:50)
[2019-10-31] MEDS: FUROSEMIDE 40 MG TABLET PO SCH (09:50)
[2019-10-31] MEDS: PANTOPRAZOLE SODIUM 40 MG TABLET.DR PO SCH (09:50)
[2019-10-31] MEDS: IRON POLYSACCHARIDES COMPLEX 150 MG CAPSULE PO SCH ×2 (09:50→17:58)
[2019-10-31] MEDS: CARVEDILOL 12.5 MG TABLET PO SCH ×2 (09:51→21:46)
[2019-10-31] MEDS: NORMAL SALINE 10 ML SDV (SCHEDULED) IV SCH ×2 (09:51→21:46)
[2019-10-31] MEDS: POTASSIUM CHLORIDE 10 MEQ TABLET.ER PO SCH (09:51)
[2019-10-31] MEDS: RIFAMPIN 600 MG in NORMAL SALINE 500 ML IV SCH (15:11)
[2019-10-31] MEDS: NORMAL SALINE 10 ML SDV (AFTER EACH USE) IV PRN (16:35)
[2019-10-31] MEDS: TAMSULOSIN HCL 0.4 MG CAP.SR.24H PO SCH (17:58)
[2019-10-31] MEDS: ATORVASTATIN CALCIUM 10 MG TABLET PO SCH (21:46)
[2019-11-01] MEDS: CLONIDINE HCL 0.1 MG TABLET PO SCH ×2 (05:48→13:20)
[2019-11-01] MEDS: VANCOMYCIN HCL 750 MG in DEXTROSE 5%-WATER 250 ML IV SCH ×2 (05:55→17:32)
[2019-11-01 06:39] LABS: ANION GAP 10 (5-19); BLOOD UREA NITROGEN 16 mg/dL (7-20); CALCIUM 8.7 mg/dL (8.4-10.2); CARBON DIOXIDE 24 mmol/L (22-30); CHLORIDE 108 mmol/L (98-107); GLUCOSE 86 mg/dL (75-110); POTASSIUM 3.7 mmol/L (3.6-5.0)
[2019-11-01] MEDS: NORMAL SALINE 10 ML SDV (AFTER EACH USE) IV PRN (08:42)
[2019-11-01] MEDS: CHOLECALCIFEROL (D3) 1,000 UNIT (25 MCG) TABLET PO SCH (09:04)
[2019-11-01] MEDS: AMLODIPINE BESYLATE 5 MG TABLET PO SCH (09:04)
[2019-11-01] MEDS: CARVEDILOL 12.5 MG TABLET PO SCH (09:04)
[2019-11-01] MEDS: POTASSIUM CHLORIDE 10 MEQ TABLET.ER PO SCH (09:04)
[2019-11-01] MEDS: PANTOPRAZOLE SODIUM 40 MG TABLET.DR PO SCH (09:04)
[2019-11-01] MEDS: ISOSORBIDE MONONITRATE 60 MG TAB.ER.24H PO SCH (09:04)
[2019-11-01] MEDS: FUROSEMIDE 40 MG TABLET PO SCH (09:04)
[2019-11-01] MEDS: NORMAL SALINE 10 ML SDV (SCHEDULED) IV SCH (09:05)
[2019-11-01] MEDS: IRON POLYSACCHARIDES COMPLEX 150 MG CAPSULE PO SCH ×2 (09:06→17:35)
--- NOTE | 2019-11-01 10:20 | PDOC PROGRESS REPORT ---
Subjective Progress Note for:: 11/01/19 Subjective:: Patient is currently doing well As per discussed with the Dr. Myers he is talked with the CT surgeon no need to repair the aortic valve Now but patients need a 6-week IV antibiotics and reevaluate the aortic valve Patient's blood culture is negative's after starting the vancomycin's Reason For Visit: POSITIVE BLOOD CULTURE Physical Exam Vital Signs: Temp Pulse Resp BP Pulse Ox 98.6 F 77 18 147/51 H 98 11/01/19 08:00 11/01/19 08:00 11/01/19 08:00 11/01/19 08:00 11/01/19 08:00 Intake & Output 10/31/19 11/01/19 11/02/19 06:59 06:59 06:59 Intake Total 2124 1564 250 Output Total 2375 0845 Balance -251 -1191 250 Weight 80.9 kg General appearance: PRESENT: no acute distress, well-developed, well-nourished Head exam: PRESENT: atraumatic, normocephalic Eye exam: PRESENT: conjunctiva pink, EOMI, PERRLA. ABSENT: scleral icterus Ear exam: PRESENT: normal external ear exam Mouth exam: PRESENT: moist, tongue midline Neck exam: PRESENT: full ROM. ABSENT: carotid bruit, JVD, lymphadenopathy, thyromegaly Respiratory exam: PRESENT: clear to auscultation diony Cardiovascular exam: PRESENT: RRR. ABSENT: diastolic murmur, rubs, systolic murmur Pulses: PRESENT: normal dorsalis pedis pul, +2 pedal pulses bilateral Vascular exam: PRESENT: normal capillary refill GI/Abdominal exam: PRESENT: normal bowel sounds, soft. ABSENT: distended, guarding, mass, organolmegaly, rebound, tenderness Rectal exam: PRESENT: deferred Musculoskeletal exam: PRESENT: ambulatory Neurological exam: PRESENT: alert, awake, oriented to person, oriented to place, oriented to time, oriented to situation, CN II-XII grossly intact. ABSENT: motor sensory deficit Psychiatric exam: PRESENT: appropriate affect, normal mood. ABSENT: homicidal ideation, suicidal ideation Skin exam: PRESENT: dry, intact, warm. ABSENT: cyanosis, rash Results Laboratory Results: 10/26/19 04:36 11/01/19 05:50 11/01/19 05:50 Sodium 141.7 Potassium 3.7 Chloride 108 H Carbon Dioxide 24 Anion Gap 10 BUN 16 Creatinine 1.29 H Est GFR ( Amer) > 60 Glucose 86 Calcium 8.7 10/26/19 06:31 Blood Blood Culture - Final NO GROWTH IN 5 DAYS Impressions: Abdomen/Pelvis CT 10/22/19 00:00 IMPRESSION: 1. Left hydronephrosis and dilated renal pelvis and proximal ureter. The findings look relatively chronic, although are more pronounced compared to 2010. No evidence of obstructing stone or mass. Correlate with renal symptoms and any evidence of hematuria. Chest CT 10/22/19 00:00 IMPRESSION: 1. Consolidation in the right middle and upper lobe consistent with pneumonia. 2. Moderate cardiomegaly with small pericardial effusion. 3. Moderate left hydronephrosis and prominent left extrarenal pelvis has increased since previous examination, possibly representing a UPJ obstruction. Clinical correlation and correlation with patient's symptoms recommended. Ultrasound may provide additional information. Chest X-Ray 10/28/19 06:00 IMPRESSION: No significant change. No infiltrate. Guidance Fluoroscopy 10/30/19 00:00 IMPRESSION: SUCCESSFUL PLACEMENT OF A 5 FR DUAL LUMEN 39 CM PICC IN THE RIGHT BASILIC VEIN. Interventional Vascular Procedure 10/30/19 00:00 IMPRESSION: SUCCESSFUL PLACEMENT OF A 5 FR DUAL LUMEN 39 CM PICC IN THE RIGHT BASILIC VEIN. PICC Line Insertion 10/30/19 00:00 IMPRESSION: SUCCESSFUL PLACEMENT OF A 5 FR DUAL LUMEN 39 CM PICC IN THE RIGHT BASILIC VEIN. 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 Is this a current diagnosis for this admission?: Yes (3) Cardiomyopathy Qualifiers: Cardiomyopathy type: unspecified Qualified Code(s): I42.9 - Cardiomyopathy, unspecified Is this a current diagnosis for this admission?: Yes (4) Chronic kidney disease Qualifiers: Chronic kidney disease stage: stage 3 (moderate) Qualified Code(s): N18.3 - Chronic kidney disease, stage 3 (moderate) Is this a current diagnosis for this admission?: Yes (5) Thrombocytopenia Is this a current diagnosis for this admission?: Yes (6) CAD (coronary artery disease) Qualifiers: Coronary Disease-Associated Artery/Lesion type: [place] artery Associated angina: without angina Is this a current diagnosis for this admission?: Yes (7) CHF (congestive heart failure) Qualifiers: Heart failure type: combined systolic and diastolic Heart failure chronicity: chronic Qualified Code(s): I50.42 - Chronic combined systolic (congestive) and diastolic (congestive) heart failure Is this a current diagnosis for this admission?: Yes (8) HTN (hypertension) Qualifiers: Hypertension type: essential hypertension Is this a current diagnosis for this admission?: Yes (9) Myelodysplastic syndrome Is this a current diagnosis for this admission?: Yes (10) Pneumonia Qualifiers: Pneumonia type: due to unspecified organism Laterality: right Is this a current diagnosis for this admission?: Yes (11) Hydronephrosis Qualifiers: Hydronephrosis type: unspecified Qualified Code(s): N13.30 - Unspecified hydronephrosis Is this a current diagnosis for this admission?: Yes (12) Bacteremia Is this a current diagnosis for this admission?: Yes (13) Endocarditis Qualifiers: Endocarditis type: infective Infective endocarditis organism: bacterial Chronicity: acute Qualified Code(s): I33.0 - Acute and subacute infective endocarditis Is this a current diagnosis for this admission?: Yes (14) Aortic valve disorder Is this a current diagnosis for this admission?: Yes - Time Time Spent with patient: 15-24 minutes Level of Care: TELE Medications reviewed and adjusted accordingly: Yes Anticipated discharge: Home, Other Within: Other - Plan Summary Plan Summary: Patient still on IV vancomycin 750 mg twice a day patients need a every Tuesday blood work including the CBC Chem-12 and vancomycin's trough before the give a Tuesday dose of antibiotic in the morning and a routine PICC line care through the home health discussed with the nursing staff if we all arrange patients can go home discussed with the patient and her
[2019-11-01] MEDS: RIFAMPIN 600 MG in NORMAL SALINE 500 ML IV SCH (15:42)
[2019-11-01 16:47] VITALS: BP 142/47
[2019-11-01] MEDS: TAMSULOSIN HCL 0.4 MG CAP.SR.24H PO SCH (17:32)
--- NOTE | 2019-11-01 18:19 | Progress Note ---
Provider Note Provider Note: CARDIOLOGY PROGRESS NOTE by Dr. Zahra Odell on 11/01/2019. SUBJECTIVE: The patient denies any chest pain or discomfort. There is no arrhythmia seen. There is no TIA CVA symptoms. There is no shortness of breath PND orthopnea seen. There is no symptoms or signs of peripheral embolization. The patient will be discharged home later today after his antibiotic infusion is over. PHYSICAL EXAMINATION: The patient is well-built. At present in no acute distress. Selected Entries 11/01/19 16:00 Temperature 98.4 F Temperature Oral Source Pulse Rate 79 Respiratory 16 Rate Blood Pressure 142/47 H [Right Upper Arm] Blood Pressure 78 Mean [Right Upper Arm] Blood Pressure Supine Position [Right Upper Arm] O2 Sat by Pulse 98 Oximetry Oxygen Delivery Room Air Method ( includes room air) HEAD: Is atraumatic normocephalic. EYES: Pupils are equal round regular reactive to light and accommodation. External ocular movements are normal. There is no conjunctival pallor. There is no scleral icterus. EARS: Tympanic membranes are intact. External auditory canals are clear. NOSE: There is no deviated nasal septum. There is no inflammation of these mucous membrane. MOUTH: Mucous membranes of mouth are moist tongue is moist there is no ulcers. THROAT: There is no redness of the oropharynx. There is no exudates. SKIN: There is no skin rashes or petechiae. There is no skin lesions or skin rashes. There is no ecchymosis. NECK: Is supple. There is no JVD. There is no goiter. There is no lymphadenopathy. Carotids are equal there is no bruits. There is no lymphadenopathy. There is no accessory muscles of respiration use. Trachea central. LUNGS: There is a few dry crackles in the right mid zone and right upper lobe. Otherwise the lungs are clear without any rhonchi or wheezing. There is no rales of CHF. HEART: S1-S2 is heard. S1 is of normal intensity. There is no S3 gallop. There is no S4 gallop. There is murmur of aortic sclerosis present, with preserved A2 sound. There is also a 2 x 6 diastolic murmur of aortic regurgitation present. There is collapsing pulse, but no other peripheral signs of aortic regurgitation. There is no rub. ABDOMEN: Is soft. There is no paraspinal megaly. Bowel sounds are well heard. There is no tender areas masses. There is no rebound guarding or rigidity especially detailed examination failed to reveal splenomegaly. There is no ascites. EXTREMITIES: Femorals are deep femorals are slightly diminished. There is no femoral bruits. Leg pulses are well felt. There is no pedal edema. There is no DVT or cellulitis. There is no signs cyanosis. X finger nails and toenails showed no evidence of clubbing or cyanosis. There is no splinter hemorrhages. PENSION FUND MANAGER: The patient is conscious awake alert oriented x3 with no focal deficits. PSYCHIATRIC: The patient judgment insight are intact his affect is normal. Labs- All tests 24 hr 11/01/19 05:50 Sodium 141.7 Potassium 3.7 Chloride 108 H Carbon Dioxide 24 Anion Gap 10 BUN 16 Creatinine 1.29 H Est GFR ( Amer) > 60 Est GFR (MDRD) Non-Af 56 L Glucose 86 Calcium 8.7 Abdomen/Pelvis CT 10/22/19 00:00 IMPRESSION: 1. Left hydronephrosis and dilated renal pelvis and proximal ureter. The findings look relatively chronic, although are more pronounced compared to 2010. No evidence of obstructing stone or mass. Correlate with renal symptoms and any evidence of hematuria. Chest CT 10/22/19 00:00 IMPRESSION: 1. Consolidation in the right middle and upper lobe consistent with pneumonia. 2. Moderate cardiomegaly with small pericardial effusion. 3. Moderate left hydronephrosis and prominent left extrarenal pelvis has increased since previous examination, possibly representing a UPJ obstruction. Clinical correlation and correlation with patient's symptoms recommended. Ultrasound may provide additional information. Chest X-Ray 10/22/19 13:38 IMPRESSION: Enlarged cardiac silhouette with central vascular congestion. No overt edema. Chest X-Ray 10/28/19 06:00 IMPRESSION: No significant change. No infiltrate. Guidance Fluoroscopy 10/30/19 00:00 IMPRESSION: SUCCESSFUL PLACEMENT OF A 5 FR DUAL LUMEN 39 CM PICC IN THE RIGHT BASILIC VEIN. Interventional Vascular Procedure 10/30/19 00:00 IMPRESSION: SUCCESSFUL PLACEMENT OF A 5 FR DUAL LUMEN 39 CM PICC IN THE RIGHT BASILIC VEIN. PICC Line Insertion 10/30/19 00:00 IMPRESSION: SUCCESSFUL PLACEMENT OF A 5 FR DUAL LUMEN 39 CM PICC IN THE RIGHT BASILIC VEIN. IMPRESSION/RECOMMENDATION: 1. Aortic valve endocarditis: Continue antibiotics. Discussed with [facility] surgery. They recommended to treat the patient for a full course with antibiotics for endocarditis for a minimum of 6 weeks and reevaluate valve to see if the patient needs valve replacement. This has been discussed with attending physician. Since patient needs a minimum of 6 weeks of IV antibiotics. As discussed with Dr. Payton the patient will soon have a PICC line placed. I have also spoken to Dr. Loya the [facility] consultant from [place]. She agrees that the patient's valve status needs to be reevaluated after 6 weeks of antibiotics, to make a determination of the valve needs to be replaced. Even though the patient might be at high risk for open heart surgery, the patient may be a candidate for TAVR assuming the patient has no coronary artery disease. This has been discussed by me with her. [Note TAVR for aortic regurgitation has slightly higher risk of failure compared to TAVR for aortic stenosis]. Patient has a PICC line and will be on IV antibiotics for 6 weeks. Patient being discharged today. He will follow-up with me in the office. 2. History of AICD placement: There is no clinical evidence of AICD infection. 3. Right middle lobe and right upper lobe pneumonia: Continue aggressive antibiotics. Will check chest x-ray in the a.m. 4. Cardiomyopathy dilated with? Ischemic component to the cardiomyopathy. LV ejection fraction is moderately reduced. Would recommend continuing the patient beta-wilian and his RADHA inhibitor. [Coreg and ramipril] 5. Hypertension: Blood pressure well controlled 6. Diabetes mellitus by history, but the patient not on any antidiabetic medication. Most likely diet-controlled diabetes mellitus. Would recommend check Accu-Cheks as per protocol. 7. Past history of renal insufficiency: At present GFR is greater than 60. Avoid nephrotoxic drugs. 8. Myelodysplastic syndrome: Oncology following the patient this admission. I have educated the patient and the patient's regarding symptoms that he should contact a medical personal facility emergently if he should develop shortness of breath, chest pain, TIA CVA symptoms, palpitations, near-syncope or syncope. Medications reviewed. Medical management and medical regimen discussed with Dr. Payton. Also earlier in this admission discussed with [facility] surgery as mentioned above regarding the patient's further management. Medical decision making is of moderate complexity. Will sign off and follow the patient in the office.
== END 2019-11-01 20:53 | disposition home health service (06) | DRG 288 ==
LOC: ER 12:31 → EH 14:33 → 4N 19:52
PROVIDERS: ADMIT Family Medicine; ATTEND Family Medicine
PROC: 02HV33Z Insertion of Infusion Device into Superior Vena Cava, Percutaneous Approach (ICD-10-PCS; principal; 2019-10-30)
PROC: B518ZZA Fluoroscopy of Superior Vena Cava, Guidance (ICD-10-PCS; 2019-10-30)
PROC: B548ZZA Ultrasonography of Superior Vena Cava, Guidance (ICD-10-PCS; 2019-10-30)
DX: I33.9 Acute and subacute endocarditis, unspecified (principal); J18.9 Pneumonia, unspecified organism; R78.81 Bacteremia; I13.0 Hypertensive heart and chronic kidney disease with heart failure and stage 1 through stage 4 chronic kidney disease, or unspecified chronic kidney disease; I42.9 Cardiomyopathy, unspecified; I50.42 Chronic combined systolic (congestive) and diastolic (congestive) heart failure; N13.30 Unspecified hydronephrosis; K21.9 Gastro-esophageal reflux disease without esophagitis; I25.10 Atherosclerotic heart disease of native coronary artery without angina pectoris; E78.00 Pure hypercholesterolemia, unspecified; N18.3 Chronic kidney disease, stage 3 (moderate); D69.6 Thrombocytopenia, unspecified; D46.9 Myelodysplastic syndrome, unspecified; E11.22 Type 2 diabetes mellitus with diabetic chronic kidney disease; Z95.810 Presence of automatic (implantable) cardiac defibrillator
CPT/HCPCS: 36415; 36569; 71046; 71250; 74176; 76937; 77001; 80048; 80053; 80202; 81001; 82565; 82962; 83735; 85025; 86308; 87040; 87070; 87077; 87086; 87088; 87150; 87186; 87205; 93005; 93010; 93312; 93325; 99285; J0295; J0692; J0744; J1200; J1642; J1956; J2250; J2310; J3010; J3370; J3490; J7040; J7050; J7060

== ENCOUNTER → 2019-12-07 | Outpatient (CLI) | payer MEDICARE, OTHER | LOC: OD 13:05 | PROVIDERS: ATTEND Family Medicine | DX: R78.81 Bacteremia (principal) | CPT/HCPCS: 87040; 87077; 87150 ==

== ENCOUNTER → 2020-01-21 | Outpatient (CLI) | payer MEDICARE, OTHER | LOC: OD 08:35 | PROVIDERS: ATTEND Family Medicine | DX: I35.8 Other nonrheumatic aortic valve disorders (principal) | CPT/HCPCS: 36415; 87040; 87077; 87150 ==

== ENCOUNTER 2020-08-23 17:13 | Emergency (ER) | payer MEDICARE, OTHER ==
--- NOTE | 2020-08-23 17:40 | ER Document Report ---
ED Medical Screen (RME) - General Chief Complaint: Abscess Stated Complaint: BOIL IN PELVIC AREA Time Seen by Provider: 08/23/20 17:38 Primary Care Provider: ELIZA GRANADOS MD [Primary Care Provider] - Follow up as needed Information source: Patient Notes: 64-year-old male presents to ED for an abscess in his suprapubic area. Daughter states that the bump started about 2 weeks ago but the swelling and increase in size and pain has been 2 to 3 days. Denies allergies to any medications. He denies any history of MRSA. He denies ever having an abscess before. He is alert oriented respirations regular nonlabored speaking in full sentences. Patient does have a watchman's device implanted June 19. He is on Plavix. He also has a defibrillator. I have greeted and performed a rapid initial assessment of this patient. A comprehensive ED assessment and evaluation of the patient, analysis of test results and completion of medical decision making process will be conducted by an additional ED providers. TRAVEL OUTSIDE OF THE [place] IN LAST 30 DAYS: No - Related Data Allergies/Adverse Reactions: No Known Allergies Allergy (Verified 08/23/20 17:38) Past Medical History - Past Medical History Cardiac Medical History: Reports: Hx Congestive Heart Failure, Hx Coronary Artery Disease, Hx Hypercholesterolemia, Hx Hypertension Denies: Hx Atrial Fibrillation, Hx Heart Attack, Hx Peripheral Vascular Disease, Hx Heart Murmur Pulmonary Medical History: Denies: Hx Asthma, Hx Bronchitis, Hx COPD, Hx Pneumonia, Hx Tuberculosis Neurological Medical History: Denies: Hx Cerebrovascular Accident, Hx Seizures Endocrine Medical History: Reports: Hx Diabetes Mellitus Type 2. Denies: Hx Diabetes Mellitus Type 1 Renal/ Medical History: Denies: Hx Benign Prostatic Hyperplasia, Hx End Stage Renal Disease, Hx Kidney Stones, Hx Peritoneal Dialysis Malignancy Medical History: Denies Hx Leukemia GI Medical History: Reports: Hx Gastroesophageal Reflux Disease. Denies: Hx Crohn's Disease, Hx Hiatal Hernia, Hx Irritable Bowel, Hx Liver Failure, Hx Pancreatitis, Hx Ulcer Musculoskeltal Medical History: Reports Hx Arthritis Psychiatric Medical History: Denies: Hx Depression Infectious Medical History: Denies: Hx HIV Past Surgical History: Reports: Hx Bowel Surgery, Hx Internal Defibrillator. Denies: Hx Appendectomy, Hx Cholecystectomy, Hx Colostomy, Hx Coronary Artery Bypass Graft, Hx Gastric Bypass Surgery, Hx Herniorrhaphy, Hx Pacemaker, Hx Tonsillectomy - Immunizations Hx Diphtheria, Pertussis, Tetanus Vaccination: Yes Physical Exam - Vital signs Vitals: Temp Pulse Resp BP Pulse Ox 100.8 F H 80 16 133/72 H 97 08/23/20 17:19 08/23/20 17:19 08/23/20 17:19 08/23/20 17:19 08/23/20 17:19 Course - Vital Signs Vital signs: Temp Pulse Resp BP Pulse Ox 100.8 F H 80 16 133/72 H 97 08/23/20 17:19 08/23/20 17:19 08/23/20 17:19 08/23/20 17:19 08/23/20 17:19 Doctor's Discharge - Discharge Referrals: ELIZA GRANADOS MD [Primary Care Provider] - Follow up as needed
[2020-08-23] MEDS ORDERED: ACETAMINOPHEN 325 MG TABLET PO ONE ×2 (17:42→17:43)
--- NOTE | 2020-08-23 18:28 | RADIOLOGY REPORT (SQ) ---
EXAM DESCRIPTION: CHEST 2 VIEWS IMAGES COMPLETED DATE/TIME: 08/23/2020 6:16 pm REASON FOR STUDY: fever cardiac hx see hpi COMPARISON: 10/28/2019 EXAM PARAMETERS: NUMBER OF VIEWS: two views TECHNIQUE: Digital Frontal and Lateral radiographic views of the chest acquired. RADIATION DOSE: NA LIMITATIONS: none FINDINGS: LUNGS AND PLEURA: No opacities, masses or pneumothorax. No pleural effusion. MEDIASTINUM AND HILAR STRUCTURES: No masses or contour abnormalities. HEART AND VASCULAR STRUCTURES: Heart normal size. No evidence for failure. BONES: No acute findings. HARDWARE: CABG. Defibrillator. Prosthetic heart valve. OTHER: No other significant finding. IMPRESSION: NO ACUTE RADIOGRAPHIC FINDING IN THE CHEST. TECHNICAL DOCUMENTATION: JOB ID: [id number] 2010 [employer]- All Rights Reserved Reading location - IP/workstation name: [email or web address]
[2020-08-23 18:55] LABS: VENOUS BLOOD BASE EXCESS -2.7 mmol/L; VENOUS BLOOD HCO3 23.4 mmol/L (20-32); VENOUS BLOOD PH 7.33 (7.30-7.42)
[2020-08-23 18:58] LABS: HEMATOCRIT 29.5 % (37.9-51.0); MEAN CORPUSCULAR HEMOGLOBIN 29.5 pg (27.0-33.4); MEAN CORPUSCULAR VOLUME 87 fl (80-97); PLATELET COUNT 107 10^3/uL (150-450); RED CELL DISTRIBUTION WIDTH 16.7 % (11.5-14.0); WHITE BLOOD COUNT 19.7 10^3/uL (4.0-10.5)
--- NOTE | 2020-08-23 18:58 | EKG REPORT ---
SEVERITY:- ABNORMAL ECG - SINUS RHYTHM NONSPECIFIC INTRAVENTRICULAR CONDUCTION DELAY PROBABLE LVH WITH SECONDARY REPOL ABNRM : Confirmed by: Quincy Rodríguez MD 23-Aug-2020 18:56:20
[2020-08-23 19:07] LABS: INTERNATIONAL RATION (INR) 1.29; PROTHROMBIN TIME 16.3 SEC (11.4-15.4)
[2020-08-23 19:12] LABS: ALBUMIN 4.5 g/dL (3.5-5.0); ALKALINE PHOSPHATASE 98 U/L (38-126); ANION GAP 11 (5-19); APPEARANCE,URINE CLEAR; ASPARTATE AMINO TRANSFERASE 27 U/L (17-59); BILIRUBIN,DIRECT 0.2 mg/dL (0.0-0.4); BILIRUBIN,TOTAL 0.6 mg/dL (0.2-1.3); BILIRUBIN,URINE NEGATIVE (NEGATIVE); BLOOD UREA NITROGEN 30 mg/dL (7-20); CALCIUM 9.6 mg/dL (8.4-10.2); CARBON DIOXIDE 24 mmol/L (22-30); CHLORIDE 102 mmol/L (98-107); COLOR,URINE YELLOW; GLUCOSE 105 mg/dL (75-110); GLUCOSE, URINE NEGATIVE (NEGATIVE); KETONES,URINE NEGATIVE (NEGATIVE); LEUKOCYTE ESTERASE,URINE NEGATIVE (NEGATIVE); NITRITE,URINE NEGATIVE (NEGATIVE); POTASSIUM 4.1 mmol/L (3.6-5.0); PROTEIN,URINE NEGATIVE (NEGATIVE); TOTAL PROTEIN 8.5 g/dL (6.3-8.2); URINE SPECIFIC GRAVITY 1.014; UROBILINOGEN,URINE NEGATIVE mg/dL (<2.0)
[2020-08-23 19:22] LABS: ABSOLUTE LYMPHOCYTES# (MANUAL) 0.6 10^3/uL (0.5-4.7); ABSOLUTE MONOCYTES # (MANUAL) 8.9 10^3/uL (0.1-1.4); BAND NEUTROPHILS % (MANUAL) 1 % (3-5); BASOPHILS % (MANUAL) 0 % (0-2); EOSINOPHILS % (MANUAL) 1 % (0-6); LYMPHOCYTES % (MANUAL) 3 % (13-45); MONOCYTES % (MANUAL) 45 % (3-13); SEGMENTED NEUTROPHILS % (MAN) 50 % (42-78); TOTAL CELLS COUNTED 100
[2020-08-23 19:25] LABS: ANISOCYTOSIS 1+; POLYCHROMASIA 1+
[2020-08-23 19:26] LABS: PLATELET COMMENT ADEQUATE; TARGET CELLS 1+
[2020-08-23] MEDS ORDERED: CLINDAMYCIN 600 MG/D5W RTU 600 MG/50 ML RTUPB IV ONE (19:52)
[2020-08-23] MEDS ORDERED: CLINDAMYCIN 300 MG/D5W RTU 300 MG/50 ML RTUPB IV ONE (19:57)
[2020-08-23] MEDS ORDERED: LIDOCAINE 2% INJ (20 MG/ML) 20 ML MDV INJ ONE (19:59)
--- NOTE | 2020-08-23 20:01 | ER Document Report ---
ED General - General Chief Complaint: Fever Stated Complaint: BOIL IN PELVIC AREA Time Seen by Provider: 08/23/20 17:38 Primary Care Provider: ELIZA GRANADOS MD [Primary Care Provider] - Follow up as needed Mode of Arrival: Ambulatory Information source: Patient Notes: 64-year-old man presenting to the emergency department with a area of swelling and tenderness noted on the pelvic area. He notes that the symptoms began approximately a week ago and has been getting larger and more painful since that time. Today he spiked a temperature to 100.6 in the emergency department. He denies a prior history of similar episodes. He is not diabetic and is presently having no chills or nausea and vomiting. TRAVEL OUTSIDE OF THE [place] IN LAST 30 DAYS: No - Related Data Allergies/Adverse Reactions: No Known Allergies Allergy (Verified 08/23/20 17:38) Home Medications: tamsulosin. amiodarone. furosemide. clopidogrel. carvedilol. iron. omeprazole Past Medical History - General Information source: Patient - Social History Smoking Status: Unknown if Ever Smoked Chew tobacco use (# tins/day): No Frequency of alcohol use: None Drug Abuse: None Family History: Reviewed & Not Pertinent Patient has homicidal ideation: No - Past Medical History Cardiac Medical History: Reports: Hx Congestive Heart Failure, Hx Coronary Artery Disease, Hx Hypercholesterolemia, Hx Hypertension Denies: Hx Atrial Fibrillation, Hx Heart Attack, Hx Peripheral Vascular Disease, Hx Heart Murmur Pulmonary Medical History: Denies: Hx Asthma, Hx Bronchitis, Hx COPD, Hx Pneumonia, Hx Tuberculosis Neurological Medical History: Denies: Hx Cerebrovascular Accident, Hx Seizures Endocrine Medical History: Reports: Hx Diabetes Mellitus Type 2. Denies: Hx Diabetes Mellitus Type 1 Renal/ Medical History: Denies: Hx Benign Prostatic Hyperplasia, Hx End Stage Renal Disease, Hx Kidney Stones, Hx Peritoneal Dialysis Malignancy Medical History: Denies Hx Leukemia GI Medical History: Reports: Hx Gastroesophageal Reflux Disease. Denies: Hx Crohn's Disease, Hx Hiatal Hernia, Hx Irritable Bowel, Hx Liver Failure, Hx Pancreatitis, Hx Ulcer Musculoskeletal Medical History: Reports Hx Arthritis Psychiatric Medical History: Denies: Hx Depression Infectious Medical History: Denies: Hx HIV Past Surgical History: Reports: Hx Bowel Surgery, Hx Internal Defibrillator. Denies: Hx Appendectomy, Hx Cholecystectomy, Hx Colostomy, Hx Coronary Artery Bypass Graft, Hx Gastric Bypass Surgery, Hx Herniorrhaphy, Hx Pacemaker, Hx Tonsillectomy - Immunizations Hx Diphtheria, Pertussis, Tetanus Vaccination: Yes Hx Pneumococcal Vaccination: 06/19/11 Review of Systems - Review of Systems Notes: Constitutional: Negative for fever. HENT: Negative for sore throat. Eyes: Negative for visual changes. Cardiovascular: Negative for chest pain. Respiratory: Negative for shortness of breath. Gastrointestinal: Negative for abdominal pain, vomiting or diarrhea. Genitourinary: Negative for dysuria. Musculoskeletal: Negative for back pain. Skin: + Abscess pubic region Neurological: Negative for headaches, weakness or numbness. 10 point ROS negative except as marked above and in HPI. Physical Exam - Vital signs Vitals: Temp Pulse Resp BP Pulse Ox 100.8 F H 80 16 133/72 H 97 08/23/20 17:19 08/23/20 17:19 08/23/20 17:19 08/23/20 17:19 08/23/20 17:19 - Notes Notes: PHYSICAL EXAMINATION: Physical Exam: General: Well-nourished well-developed in no acute distress HEENT: NC/AT, pupils equal round and reactive to light, MM moist,nares clear, oropharynx clear, airway patent Neck: supple, no adenopathy, no masses. Good range of motion Lungs: clear, no wheezing, no rales no rhonchi CVS: Regular rate and rhythm no murmur gallop or rub Abdomen: Soft, active, nontender, no masses, no hepatosplenomegaly Ext: No edema, clubbing or cyanosis. Neuro: Alert and responsive, moving all 4 extremities on command, cranial nerves intact, no focal findings Skin: 6x5 cm area of induration and firmness in this pubis region. + Tenderness no drainage. Central area of fluctuance PSYCH: Normal mood, normal affect. Course - Re-evaluation Re-evalutation: 08/23/20 21:54 After incision and drainage 1/4 inch packing was placed and dressing was placed over the area. I explained to the patient he will be continued on antibiotics and he is to follow-up with his primary physician for packing removal on Tuesday or he can return to the emergency department if needed. - Vital Signs Vital signs: Temp Pulse Resp BP Pulse Ox 98.7 F 80 16 115/65 99 08/23/20 22:17 08/23/20 17:19 08/23/20 22:17 08/23/20 22:17 08/23/20 22:17 - Laboratory Result Diagrams: 08/23/20 18:35 08/23/20 18:35 Laboratory results interpreted by me: 08/23/20 08/23/20 08/23/20 18:35 18:35 18:35 WBC 19.7 H RBC 3.40 L Hgb 10.0 L Hct 29.5 L RDW 16.7 H Plt Count 107 L Band Neutrophils % 1 L Lymphocytes % (Manual) 3 L Monocytes % (Manual) 45 H Abs Neuts (Manual) 10.0 H Abs Monocytes (Manual) 8.9 H PT 16.3 H BUN 30 H Creatinine 1.99 H Est GFR ( Amer) 41 L Est GFR (MDRD) Non-Af 34 L Total Protein 8.5 H - Diagnostic Test Radiology reviewed: Image reviewed, Reports reviewed Radiology results interpreted by me: 08/23/20 21:55 Chest X-Ray 08/23/20 17:44 IMPRESSION: NO ACUTE RADIOGRAPHIC FINDING IN THE CHEST. Abdomen/Pelvis CT 08/23/20 19:58 IMPRESSION: 1. Hyperdense material layering in the gallbladder suggesting sludge or stones. 2. Persistent left-sided hydronephrosis and hydroureter. The appearance is stable. 3. Edema involving the subcutaneous fat of the anterior abdominal wall extending into the region of the penis and perineum. No loculated fluid collections. 4. No intra-abdominal abscess. Moderate stool is present in the colon. Procedures - Incision and Drainage Anterior Abdomen Time completed: 21:45 Type: Simple Anesthetic type: 1% Lidocaine mL's of anesthetic: 5 Blade size: 11 I&D procedure: Chlorprep applied Incision Method: Incision made by scalpel - Incision was performed using an 11 blade. Large quantity approximately 10 cc of pus was drained from the wound site. Amount/type of drainage: 10 Notes: 08/23/20 21:59 A Arlene was used to break adhesions and quarter-inch iodoform gauze was packed within the abscess cavity and a sterile dressing was applied. The patient tolerated the procedure well Discharge - Discharge Clinical Impression: Abscess of pubic region Condition: Good Disposition: HOME, SELF-CARE Instructions: Abscess ([facility]) Additional Instructions: You were seen in the emergency department tonight with a abscess on the pubic region, incision and drainage procedure was performed and 4 inch packing ma terial in the wound. The packing will need to be removed on Tuesday. Return to the emergency department or you can see your primary care doctor. Please take the antibiotics as prescribed clindamycin If your symptoms are worsening or if you have other concerns you may return to the emergency department for further evaluation and treatment. HOME CARE INSTRUCTIONS & INFORMATION: Thank you for choosing us for your medical needs. We hope you're satisfied with the care you received. After you leave, you must properly care for your problem and, at the same time, observe its progress. Any condition can change. Some illnesses can change rapidly over hours or days. If your condition worsens, return to the Emergency Department or see your physician promptly. ABOUT YOUR X-RAYS AND EKG'S: If you had an EKG or X-rays taken, they have been read by the Emergency Physician. The X-rays and EKG's will also be read by a Radiologist or Reaming Machine Tender within 24 hours. If discrepancies are noted, you will be notified by telephone. Please be certain the ED has a correct telephone number & address where you can be reached. Also, realize that some fractures or abnormalities do not show up on initial X-rays. If your symptoms continue, see your physician. ABOUT YOUR LABORATORY TEST: If you had laboratory tests, the results have been reviewed by the Emergency Physician. Some test results (for example cultures) may not be available for several days. You will be contacted if any test result shows you need additional treatment. Please be certain the ED has a correct telephone number and address where you can be reached. ABOUT YOUR MEDICATIONS: You will receive instructions on how to take your medicine on the prescription label you receive. Additional information may be provided by the Pharmacy. If you have questions afterwards, call the ED for clarification or further instructions. Some prescribed medications may cause drowsiness. Do not perform tasks such as driving a car or operating machinery without consulting your Pharmacist. If you feel you need a refill of pain medication, your condition will need re-evaluation. Please do not call for a refill of any medication. ABOUT YOUR SIGNATURE: Signature of this document acknowledges to followin. Understanding that you received emergency treatment and that you may be released before al medical problems are known or treated. Please be certain the ED has a correct phone number & address where you can be reached. 2. Acknowledgement that you will arrange for follow-up care as recommended. 3. Authorization for the Emergency Physician to provide information to your follow-up Physician in order to maximize your care. AT ANY TIME, IF YOUR SYMPTOMS CHANGE SIGNIFICANTLY OR WORSEN OR YOU DEVELOP NEW SYMPTOMS, RETURN TO THE EMERGENCY DEPARTMENT IMMEDIATELY FOR RE-EVALUATION. OUR GOAL IS TO PROVIDE EXCELLENT MEDICAL CARE! WE HOPE THAT WE HAVE MET YOUR EXPECTATIONS DURING YOUR EMERGENCY DEPARTMENT VIS IT AND THAT YOU FEEL YOU HAVE RECEIVED EXCELLENT CARE! Prescriptions: Clindamycin HCl 300 mg PO TID #30 capsule Referrals: ELIZA GRANADOS MD [Primary Care Provider] - Follow up as needed
--- NOTE | 2020-08-23 21:13 | RADIOLOGY REPORT (SQ) ---
EXAM DESCRIPTION: CT ABD/PELVIS NO ORAL OR IV CLINICAL HISTORY: 64 years Male; Pelvic abscess TECHNIQUE: CT of the abdomen and pelvis without intravenous contrast.. Oral contrastWas not used. All CT scans at this facility use dose modulation, iterative reconstruction, and/or weight based dosing when appropriate to reduce radiation dose to as low as reasonably achievable. This exam was performed according to our department optimization program which includes automated exposure control, adjustment of the mA and/or kv according to patient size and/or use of iterative reconstruction technique. COMPARISON: Unenhanced CT scan of the abdomen and pelvis 10/22/2019 FINDINGS: Lower chest: Minimal dependent density in the lung bases unchanged. Four-chamber cardiac enlargement is seen. There is been previous sternotomy. Battery pack projects over the left anterior chest wall. Abdomen: Liver and biliary tree: The unenhanced liver is unremarkable. There is subtle hyperdense material layering in the gallbladder suggesting sludge or stones. Pancreas: Normal Spleen:Within normal limits Kidneys: Left-sided hydronephrosis and hydroureter is again identified. The ureter is dilated to the mid abdomen where it transitions to normal caliber. The appearance is similar to the previous exam. No stones are identified. The right kidney is unremarkable. Adrenal glands:Within normal limits Vascular structures: Scattered vascular calcifications in the aorta. No aneurysm. Retroperitoneum: No mass or lymphadenopathy Abdominal wall: Small umbilical hernia containing omentum. There is edema in the anterior abdominal wall in the pelvis of uncertain etiology. This appears to be contiguous with edema in the perineum. GI: Moderate stool is scattered in the colon. No focal bowel wall thickening. No obstruction. The stomach is decompressed. Appendix: Appendix is not seen General: No free air. No free fluid Pelvis: Lymph nodes: No mass or lymphadenopathy Bladder: Unremarkable. Pelvis: No pelvic mass or adenopathy. Bones: Extensive degenerative changes present in the lumbar spine. The appearance is stable. IMPRESSION: 1. Hyperdense material layering in the gallbladder suggesting sludge or stones. 2. Persistent left-sided hydronephrosis and hydroureter. The appearance is stable. 3. Edema involving the subcutaneous fat of the anterior abdominal wall extending into the region of the penis and perineum. No loculated fluid collections. 4. No intra-abdominal abscess. Moderate stool is present in the colon.
[2020-08-23] MEDS ORDERED: HYDROCODONE/ACETAMINOPHEN 5-325 MG (6 TAB/ER DISP) PO PRN (22:03)
[2020-08-23] MEDS ORDERED: CLINDAMYCIN HCL 150 MG CAPSULE PO SCH (22:15)
[2020-08-23 22:29] VITALS: BP 115/65
== END 2020-08-23 22:35 | disposition home or self-care (01) ==
LOC: ER 17:13
DX: L02.211 Cutaneous abscess of abdominal wall (principal); I11.0 Hypertensive heart disease with heart failure; I50.9 Heart failure, unspecified; I25.10 Atherosclerotic heart disease of native coronary artery without angina pectoris; E11.9 Type 2 diabetes mellitus without complications; K21.9 Gastro-esophageal reflux disease without esophagitis; Z79.899 Other long term (current) drug therapy; Z79.02 Long term (current) use of antithrombotics/antiplatelets; Z95.810 Presence of automatic (implantable) cardiac defibrillator
CPT/HCPCS: 93005; 99285; 96365; 36415; 87040; 87086; 82962; 83605; 85025; 85610; 87077; 87088; 80053; 81001; 84484; 87186; 82803; 87150 ×26; 71046; 74176; 93010; 10060; A9270 ×2; J3490 ×2

== ENCOUNTER 2020-08-25 07:30 | Emergency (ER) | payer MEDICARE, OTHER ==
--- NOTE | 2020-08-25 10:54 | ER Document Report ---
Entered by ADAM BEARD SCRIBE 08/25/20 1023 Acting as scribe for:BRAEDEN CARRASCO MD ED Suture/Wound Recheck - General Chief Complaint: Abscess Recheck Stated Complaint: ABSCESS RECHECK Time Seen by Provider: 08/25/20 10:06 Primary Care Provider: ELIZA GRANADOS MD [Primary Care Provider] - Follow up as needed Mode of Arrival: Ambulatory Information source: Patient Notes: This 64 year old male patient presents to the ED today for packing removal after having an I&D of a suprapubic abscess on 08/23. at bedside states that the wound is improving and the dressing was changed last night. Patient states that he has been taking the Clindamycin as prescribed. TRAVEL OUTSIDE OF THE [place] IN LAST 30 DAYS: No - Related Data Allergies/Adverse Reactions: No Known Allergies Allergy (Verified 08/23/20 17:38) Past Medical History - General Information source: Patient, [facility] Records - Social History Smoking Status: Unknown if Ever Smoked Family History: Reviewed & Not Pertinent - Past Medical History Cardiac Medical History: Reports: Hx Congestive Heart Failure, Hx Coronary Artery Disease, Hx Hypercholesterolemia, Hx Hypertension Endocrine Medical History: Reports: Hx Diabetes Mellitus Type 2 GI Medical History: Reports: Hx Gastroesophageal Reflux Disease Musculoskeletal Medical History: Reports Hx Arthritis Past Surgical History: Reports: Hx Bowel Surgery, Hx Internal Defibrillator - Immunizations Hx Diphtheria, Pertussis, Tetanus Vaccination: Yes Hx Pneumococcal Vaccination: 06/19/11 Review of Systems - Review of Systems Constitutional: See HPI EENT: No symptoms reported Cardiovascular: No symptoms reported Respiratory: No symptoms reported Gastrointestinal: No symptoms reported Genitourinary: No symptoms reported Male Genitourinary: No symptoms reported Musculoskeletal: No symptoms reported Skin: See HPI Hematologic/Lymphatic: No symptoms reported Neurological/Psychological: No symptoms reported -: Yes All other systems reviewed and negative Physical Exam - Vital signs Vitals: Temp Pulse Resp BP Pulse Ox 98.6 F 72 19 115/68 98 08/25/20 07:42 08/25/20 07:42 08/25/20 07:42 08/25/20 07:42 08/25/20 07:42 Interpretation: Normal - General General appearance: Alert In distress: None - HEENT Head: Normocephalic, Atraumatic Eyes: Normal Pupils: PERRL - Respiratory Respiratory status: No respiratory distress Chest status: Nontender Breath sounds: Normal Chest palpation: Normal - Cardiovascular Rhythm: Regular Heart sounds: Normal auscultation Murmur: No Friction rub: No Gallop: None auscultated - Abdominal Inspection: Obese, Other - Wound site at midline of the suprapubic region appears to be healing well. There is induration and it is mildly tender to palpation, but no active draining after packing removal. Wound is not warm to the touch. Distension: No distension Bowel sounds: Normal Tenderness: Nontender - Abdomen soft Organomegaly: No organomegaly - Back Back: Normal, Nontender - Extremities General upper extremity: Normal inspection General lower extremity: Normal inspection. No: Edema - Neurological Neuro grossly intact: Yes Orientation: AAOx4 Reinaldo Coma Scale Eye Opening: Spontaneous [place] Coma Scale Verbal: Oriented [place] Coma Scale Motor: Obeys Commands [place] Coma Scale Total: 15 - Psychological Associated symptoms: Normal affect, Normal mood - Skin Skin Temperature: Warm Skin Moisture: Dry Skin Color: Normal Course - Vital Signs Vital signs: Temp Pulse Resp BP Pulse Ox 98.4 F 70 20 112/64 99 08/25/20 11:05 08/25/20 11:05 08/25/20 11:05 08/25/20 11:05 08/25/20 11:05 Discharge - Discharge Clinical Impression: Soft tissue abscess of suprapubic region Condition: Stable Disposition: HOME, SELF-CARE Instructions: Abscess ([facility]), Post Incision and Drainage Additional Instructions: You have had an incision and drainage of a suprapubic abscess. Today the packing was removed and the wound site appears to be healing well. No further packing has been applied to the wound site at this time other than 4 x 4 dressings change bandage dressings on a daily basis continue the same antibiotic coverage and follow-up with your primary care physician. Referrals: ELIZA GRANADOS MD [Primary Care Provider] - Follow up as needed I personally performed the services described in the documentation, reviewed and edited the documentation which was dictated to the scribe in my presence, and it accurately records my words and actions.
[2020-08-25 11:06] VITALS: BP 112/64
== END 2020-08-25 11:05 | disposition home or self-care (01) ==
LOC: ER 07:30
DX: L02.211 Cutaneous abscess of abdominal wall (principal); I11.0 Hypertensive heart disease with heart failure; I50.9 Heart failure, unspecified; I25.10 Atherosclerotic heart disease of native coronary artery without angina pectoris; E11.9 Type 2 diabetes mellitus without complications
CPT/HCPCS: 99281